=== PATIENT | male | born 1960 | race Caucasian/White ===

== ENCOUNTER 2018-03-10 19:45 | Inpatient (IN) | payer MEDICARE ==
[~2018-03-10] VITALS: Ht 190.5 cm; Wt 78.3 kg
--- NOTE | 2018-03-10 20:21 | PHYS DOC ---
Past History Past Medical History: Dementia, Depression, Schizophrenia Past Surgical History: No Surgical History Alcohol Use: None Drug Use: None Adult General Chief Complaint Chief Complaint: PSYCH EVALUATION HPI HPI Patient is a 57 year old male who presents to the emergency department for medical clearance. The patient has been accepted to the [facility] here at [facility] pending medical evaluation and clearance in the emergency department. The patient has history of Parkinson's disease and dementia. Patient lives with his sister currently. The patient reportedly has become more aggressive at home and threatening. Patient case was reported and accepted to the [facility] unit under the care of Dr. De Dios. Patient currently denies any complaints. The family is currently at bedside and is able to confirm reports of patient's behavior at home. Review of Systems Review of Systems Constitutional: Denies fever or chills [] Eyes: Denies change in visual acuity, redness, or eye pain [] HENT: Denies nasal congestion or sore throat [] Respiratory: Denies cough or shortness of breath [] Cardiovascular: Denies chest pain or edema[] GI: Denies abdominal pain, nausea, vomiting, bloody stools or diarrhea [] : Denies dysuria or hematuria [] Musculoskeletal: Denies back pain or joint pain [] Integument: Denies rash or skin lesions [] Neurologic: Resting tremors, denies focal weakness or sensory changes [] All other systems were reviewed and found to be within normal limits, except as documented in this note. Allergies Allergies Allergies Coded Allergies Type Severity Reaction Last Updated Verified No Known Drug Allergies 03/10/18 No Physical Exam Physical Exam Constitutional: Alert, afebrile, no acute distress, cooperative with exam. [] HENT: Normocephalic, atraumatic, bilateral external ears normal, oropharynx moist, no oral exudates, nose normal. [] Eyes: PERRLA, EOMI, conjunctiva normal, no discharge. [] Neck: Normal range of motion, no tenderness, supple, no stridor. [] Cardiovascular:Heart rate regular rhythm, no murmur [] Lungs & Thorax: Bilateral breath sounds clear to auscultation [] Abdomen: Bowel sounds normal, soft, no tenderness, no masses, no pulsatile masses. [] Skin: Warm, dry, no erythema, no rash. [] Back: No tenderness, no CVA tenderness. [] Extremities: No tenderness, no cyanosis, no clubbing, ROM intact, no edema. [] Neurologic: Alert, oriented to person and place, mild resting tremors, cogwheel rigidity in proximal muscle groups, no focal deficits noted. [] Psychologic: Affect flat, judgement normal, mood depressed. [] Current Patient Data Vital Signs Vital Signs Date Time Temp Pulse Resp B/P (MAP) Pulse Ox O2 Delivery O2 Flow Rate FiO2 03/10/18 20:12 97.6 79 18 97 Room Air Lab Results Laboratory Tests Test 03/10/18 20:06 03/10/18 21:08 White Blood Count 6.0 x10^3/uL Red Blood Count 4.10 x10^6/uL Hemoglobin 13.1 g/dL Hematocrit 37.7 % Mean Corpuscular Volume 92 fL Mean Corpuscular Hemoglobin 32 pg Mean Corpuscular Hemoglobin Concent 35 g/dL Red Cell Distribution Width 12.5 % Platelet Count 237 x10^3/uL Neutrophils (%) (Auto) 59 % Lymphocytes (%) (Auto) 33 % Monocytes (%) (Auto) 7 % Eosinophils (%) (Auto) 1 % Basophils (%) (Auto) 1 % Neutrophils # (Auto) 3.5 x10^3uL Lymphocytes # (Auto) 2.0 x10^3/uL Monocytes # (Auto) 0.4 x10^3/uL Eosinophils # (Auto) 0.1 x10^3/uL Basophils # (Auto) 0.0 x10^3/uL Sodium Level 141 mmol/L Potassium Level 3.6 mmol/L Chloride Level 103 mmol/L Carbon Dioxide Level 26 mmol/L Anion Gap 12 Blood Urea Nitrogen 28 mg/dL Creatinine 0.9 mg/dL Estimated GFR (Cockcroft-Gault) 86.4 BUN/Creatinine Ratio 31 Glucose Level 86 mg/dL Calcium Level 9.0 mg/dL Magnesium Level 2.1 mg/dL Total Bilirubin 0.3 mg/dL Aspartate Amino Transf (AST/SGOT) 17 U/L Alanine Aminotransferase (ALT/SGPT) 29 U/L Alkaline Phosphatase 89 U/L Total Protein 7.8 g/dL Albumin 4.0 g/dL Albumin/Globulin Ratio 1.1 Urine Collection Type Unknown Urine Color Yellow Urine Clarity Clear Urine pH 6.5 Urine Specific [place] 1.025 Urine Protein Neg Urine Glucose (UA) Neg mg/dL Urine Ketones (Stick) Neg mg/dL Urine Blood Neg Urine Nitrite Neg Urine Bilirubin Neg Urine Urobilinogen Dipstick 0.2 mg/dL Urine Leukocyte Esterase Neg Urine RBC 0 /HPF Urine WBC Occ /HPF Urine Squamous Epithelial Cells Occ /LPF Urine Bacteria 0 /HPF EKG EKG Interpreted by me: Limited by motion artifact, heart rate 80, sinus rhythm, left axis deviation, no acute ST/T-wave abnormalities present[] Radiology/Procedures Radiology/Procedures Not performed[] Course & Med Decision Making Course & Med Decision Making Pertinent Labs and Imaging studies reviewed. (See chart for details) Lab work reviewed and is unremarkable. The patient was medically cleared for admission to the [facility] behavioral health unit. Dragon Disclaimer Dragon Disclaimer This electronic medical record was generated, in whole or in part, using a voice recognition dictation system. Departure Departure: Impression: Primary Impression: Medical clearance for psychiatric admission Disposition: ADMITTED INPATIENT Admitting Physician: Other Condition: STABLE Referrals: PCP,NO (PCP) IZA VANCE MD March 10, 2018 20:21
[2018-03-10 20:58] LABS: BASO % 1 % (0-3); EOS # 0.1 x10^3/uL (0.0-0.7); EOS % 1 % (0-3); HEMATOCRIT 37.7 % (39.0-53.0); HEMOGLOBIN 13.1 g/dL (13.0-17.5); LYMPH % 33 % (24-48); MEAN CORPUSCULAR HEMOGLOBIN 32 pg (25-35); MEAN CORPUSCULAR HGB CONC 35 g/dL (31-37); MEAN CORPUSCULAR VOLUME 92 fL (79-100); MONO # 0.4 x10^3/uL (0.0-1.1); MONO % 7 % (0-9); NEUT # 3.5 x10^3uL (1.8-7.7); NEUT % 59 % (31-73); PLATELET COUNT 237 x10^3/uL (140-400); RED CELL DISTRIBUTION WIDTH 12.5 % (11.5-14.5)
[2018-03-10 21:04] LABS: ALBUMIN/GLOBULIN RATIO 1.1 (1.0-1.7); CREATININE 0.9 mg/dL (0.7-1.3); GFR 86.4; MAGNESIUM 2.1 mg/dL (1.8-2.4); POTASSIUM 3.6 mmol/L (3.5-5.1); TOTAL BILIRUBIN 0.3 mg/dL (0.2-1.0); TOTAL PROTEIN 7.8 g/dL (6.4-8.2)
[2018-03-10 21:52] LABS: BACTERIA,URINE 0 /HPF (0-FEW); BILIRUBIN,URINE NEG (NEG); CLARITY,URINE CLEAR; COLOR,URINE YELLOW; GLUCOSE,URINE NEG (NEG); NITRITE,URINE NEG (NEG); RBC,URINE 0 /HPF (0-2); SQUAMOUS EPITHELIAL CELL,UR OCC /LPF; UROBILINOGEN,URINE 0.2 mg/dL (0.2 mg/dL); WBC,URINE OCC /HPF (0-4)
--- NOTE | 2018-03-10 22:55 | EKG ---
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
[2018-03-10] MEDS ORDERED: MAG HYDROX/AL HYDROX/SIMETH 30 ML ORAL.SUSP PO PRN (23:00)
[2018-03-10] MEDS ORDERED: METHYL SALICYLATE/MENTHOL TOPICAL OINTMENT 29GM TUBE. TP PRN (23:00)
[2018-03-10] MEDS ORDERED: NAPR-514 PO (23:12)
[2018-03-10] MEDS ORDERED: QUET25TA5 PO (23:12)
[2018-03-10] MEDS ORDERED: HYDR-971 PO (23:12)
[2018-03-11] MEDS ORDERED: SILV20CR14 TP (00:48)
[2018-03-11 03:25] VITALS: BP 122/84
[2018-03-11 06:18] VITALS: BP 117/78
[2018-03-11] MEDS: NAPROXEN 500 MG TABLET PO SCH ×3 (09:58→19:23)
[2018-03-11] MEDS: QUEtiapine 25 MG TABLET. PO SCH ×2 (11:54→19:23)
[2018-03-11 16:26] VITALS: BP 116/68
[2018-03-11] MEDS: CHOLECALCIFEROL (VITAMIN D3) 50,000 UNIT CAPSULE PO SCH (19:23)
[2018-03-11] MEDS: MIRTAZAPINE 7.5 MG TABLET. PO SCH (19:34)
[2018-03-11 19:40] LABS: T3 TOTAL 98 ng/dL (71-180); THYROXINE 6.7 ug/dL (4.5-12.0)
--- NOTE | 2018-03-11 19:52 | PDOC ---
Exam Note: Lambert Note: Late entry for date of service March 10, 2018. Please also refer to the separate dictated note~for this date of service dictated separately.~Patient seen individually. Discussed the patient with Nursing staff reviewed the chart.~ Reviewed interim history and current functioning. Reviewed vital signs,~Labs/ Radiology~and current medications noted below. Continue current treatment with the changes noted in the dictated addendum note Assessment: Vital Signs: VS - Last 72 Hours, by Label Date Time Temp Pulse Resp B/P (MAP) Pulse Ox O2 Delivery O2 Flow Rate FiO2 03/11/18 16:26 97.6 82 18 116/68 (84) 95 03/11/18 06:18 97.8 55 18 117/78 (91) 99 03/11/18 03:25 97.8 73 18 122/84 (97) 94 03/10/18 22:33 72 18 123/76 (92) 98 Room Air 03/10/18 20:12 97.6 79 18 97 Room Air Vital Signs Date Time Temp Pulse Resp B/P (MAP) Pulse Ox O2 Delivery O2 Flow Rate FiO2 03/11/18 16:26 97.6 82 18 116/68 (84) 95 03/10/18 22:33 Room Air I&O Intake and Output 03/11/18 07:00 Intake Total 0 ml Balance 0 ml Intake Oral 0 ml Labs: Laboratory Tests Test 03/10/18 20:06 03/10/18 20:30 03/10/18 21:08 White Blood Count 6.0 x10^3/uL (4.0-11.0) Red Blood Count 4.10 x10^6/uL (4.30-5.70) L Hemoglobin 13.1 g/dL (13.0-17.5) Hematocrit 37.7 % (39.0-53.0) L Mean Corpuscular Volume 92 fL (79-100) Mean Corpuscular Hemoglobin 32 pg (25-35) Mean Corpuscular Hemoglobin Concent 35 g/dL (31-37) Red Cell Distribution Width 12.5 % (11.5-14.5) Platelet Count 237 x10^3/uL (140-400) Neutrophils (%) (Auto) 59 % (31-73) Lymphocytes (%) (Auto) 33 % (24-48) Monocytes (%) (Auto) 7 % (0-9) Eosinophils (%) (Auto) 1 % (0-3) Basophils (%) (Auto) 1 % (0-3) Neutrophils # (Auto) 3.5 x10^3uL (1.8-7.7) Lymphocytes # (Auto) 2.0 x10^3/uL (1.0-4.8) Monocytes # (Auto) 0.4 x10^3/uL (0.0-1.1) Eosinophils # (Auto) 0.1 x10^3/uL (0.0-0.7) Basophils # (Auto) 0.0 x10^3/uL (0.0-0.2) Sodium Level 141 mmol/L (136-145) Potassium Level 3.6 mmol/L (3.5-5.1) Chloride Level 103 mmol/L (98-107) Carbon Dioxide Level 26 mmol/L (21-32) Anion Gap 12 (6-14) Blood Urea Nitrogen 28 mg/dL (8-26) H Creatinine 0.9 mg/dL (0.7-1.3) Estimated GFR (Cockcroft-Gault) 86.4 BUN/Creatinine Ratio 31 (6-20) H Glucose Level 86 mg/dL (70-99) Calcium Level 9.0 mg/dL (8.5-10.1) Magnesium Level 2.1 mg/dL (1.8-2.4) Total Bilirubin 0.3 mg/dL (0.2-1.0) Aspartate Amino Transferase (AST) 17 U/L (15-37) Alanine Aminotransferase (ALT) 29 U/L (16-63) Alkaline Phosphatase 89 U/L (46-116) Total Protein 7.8 g/dL (6.4-8.2) Albumin 4.0 g/dL (3.4-5.0) Albumin/Globulin Ratio 1.1 (1.0-1.7) Iron Level 86 ug/dL (65-175) Total Iron Binding Capacity 331 ug/dL (250-450) Iron Saturation 26 % (15-34) Triglycerides Level 69 mg/dL (0-150) Cholesterol Level 166 mg/dL (0-200) LDL Cholesterol, Calculated 109 mg/dL (0-100) H VLDL Cholesterol, Calculated 13 mg/dL (0-40) Non-HDL Cholesterol Calculated 122 mg/dL (0-129) HDL Cholesterol 44 mg/dL (40-60) Cholesterol/HDL Ratio 3.0 Vitamin B12 Level 365 pg/mL (247-911) 25-Hydroxy Vitamin D Total 17.4 ng/mL (30-100) L Thyroid Stimulating Hormone (TSH) 1.811 uIU/mL (0.358-3.740) Thyroxine (T4) 6.7 ug/dL (4.5-12.0) Total Triiodothyronine (TT3) 98 ng/dL (71-180) Rapid Plasma Reagin Pending Urine Collection Type Unknown Urine Color Yellow Urine Clarity Clear Urine pH 6.5 Urine Specific [place] 1.025 Urine Protein Neg (NEG-TRACE) Urine Glucose (UA) Neg mg/dL (NEG) Urine Ketones (Stick) Neg mg/dL (NEG) Urine Blood Neg (NEG) Urine Nitrite Neg (NEG) Urine Bilirubin Neg (NEG) Urine Urobilinogen Dipstick 0.2 mg/dL (0.2 mg/dL) Urine Leukocyte Esterase Neg (NEG) Urine RBC 0 /HPF (0-2) Urine WBC Occ /HPF (0-4) Urine Squamous Epithelial Cells Occ /LPF Urine Bacteria 0 /HPF (0-FEW) Current Medications: Meds: Current Medications Acetaminophen (Tylenol) 650 mg PRN Q6HRS PRN PO PAIN / TEMP; Start 03/10/18 at 23:00 Multi-Ingredient Ointment (Analgesic [place]) 1 luz maria PRN QID PRN TP MUSCLE PAIN; Start 03/10/18 at 23:00 Al Hydroxide/Mg Hydroxide (Mylanta Plus Xs) 15 ml PRN AFTMEALHC PRN PO DYSPEPSIA; Start 03/10/18 at 23:00 Magnesium Hydroxide (Milk Of Magnesia) 2,400 mg PRN QHS PRN PO CONSTIPATION; Start 03/10/18 at 23:00 Quetiapine Fumarate (SEROquel) 25 mg BID@1200,2100 PO Last administered on 03/11at 11:54; Start 03/11/18 at 12:00 Acetaminophen/ Hydrocodone Bitart (Lortab 5/325) 1 tab PRN Q6HRS PRN PO PAIN; Start 03/10/18 at 23:30 Naproxen (Naprosyn) 500 mg BID PO ; Start 03/11/18 at 09:00 Vitamin D (Vitamin D3) 50,000 unit WEEKLY PO ; Start 03/11/18 at 19:00 Sertraline HCl (Zoloft) 25 mg DAILY PO ; Start 03/12/18 at 09:00 Mirtazapine (Remeron) 7.5 mg QHS PO ; Start 03/11/18 at 21:00 Active Scripts Active Reported Silvadene (Silver Sulfadiazine) 20 Gm Cream..g. 1 Luz Maria TP BID Seroquel (Quetiapine Fumarate) 25 Mg Tablet 25 Mg PO BID@1200,2100 [place] 5-325 Tablet (Hydrocodone Bit/Acetaminophen) 1 Each Tablet 1 Tab PO PRN Q6HRS PRN Naproxen 500 Mg Tablet 500 Mg PO BID I have reviewed the current psychotropics carefully including drug interactions. Risk benefit ratio favors no change other than as noted in my dictated progress note. 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
--- NOTE | 2018-03-11 20:28 | PDOC ---
Exam Note: Lambert Note: Please also refer to the separate dictated note~for this date of service dictated separately.~Patient seen individually. Discussed the patient with Nursing staff reviewed the chart.~Reviewed interim history and current functioning. Reviewed vital signs,~Labs/ Radiology~and current medications noted below. Continue current treatment with the changes noted in the dictated addendum note Assessment: Vital Signs: Vital Signs Date Time Temp Pulse Resp B/P (MAP) Pulse Ox O2 Delivery O2 Flow Rate FiO2 03/11/18 16:26 97.6 82 18 116/68 (84) 95 03/10/18 22:33 Room Air I&O Intake and Output 03/11/18 07:00 Intake Total 0 ml Balance 0 ml Intake Oral 0 ml Labs: Laboratory Tests Test 03/10/18 20:30 03/10/18 21:08 Iron Level 86 ug/dL (65-175) Total Iron Binding Capacity 331 ug/dL (250-450) Iron Saturation 26 % (15-34) Triglycerides Level 69 mg/dL (0-150) Cholesterol Level 166 mg/dL (0-200) LDL Cholesterol, Calculated 109 mg/dL (0-100) H VLDL Cholesterol, Calculated 13 mg/dL (0-40) Non-HDL Cholesterol Calculated 122 mg/dL (0-129) HDL Cholesterol 44 mg/dL (40-60) Cholesterol/HDL Ratio 3.0 Vitamin B12 Level 365 pg/mL (247-911) 25-Hydroxy Vitamin D Total 17.4 ng/mL (30-100) L Thyroid Stimulating Hormone (TSH) 1.811 uIU/mL (0.358-3.740) Thyroxine (T4) 6.7 ug/dL (4.5-12.0) Total Triiodothyronine (TT3) 98 ng/dL (71-180) Rapid Plasma Reagin Pending Urine Collection Type Unknown Urine Color Yellow Urine Clarity Clear Urine pH 6.5 Urine Specific [place] 1.025 Urine Protein Neg (NEG-TRACE) Urine Glucose (UA) Neg mg/dL (NEG) Urine Ketones (Stick) Neg mg/dL (NEG) Urine Blood Neg (NEG) Urine Nitrite Neg (NEG) Urine Bilirubin Neg (NEG) Urine Urobilinogen Dipstick 0.2 mg/dL (0.2 mg/dL) Urine Leukocyte Esterase Neg (NEG) Urine RBC 0 /HPF (0-2) Urine WBC Occ /HPF (0-4) Urine Squamous Epithelial Cells Occ /LPF Urine Bacteria 0 /HPF (0-FEW) Current Medications: Meds: Current Medications Acetaminophen (Tylenol) 650 mg PRN Q6HRS PRN PO PAIN / TEMP; Start 03/10/18 at 23:00 Multi-Ingredient Ointment (Analgesic [place]) 1 luz maria PRN QID PRN TP MUSCLE PAIN; Start 03/10/18 at 23:00 Al Hydroxide/Mg Hydroxide (Mylanta Plus Xs) 15 ml PRN AFTMEALHC PRN PO DYSPEPSIA; Start 03/10/18 at 23:00 Magnesium Hydroxide (Milk Of Magnesia) 2,400 mg PRN QHS PRN PO CONSTIPATION; Start 03/10/18 at 23:00 Quetiapine Fumarate (SEROquel) 25 mg BID@1200,2100 PO Last administered on 03/11at 19:23; Start 03/11/18 at 12:00 Acetaminophen/ Hydrocodone Bitart (Lortab 5/325) 1 tab PRN Q6HRS PRN PO PAIN; Start 03/10/18 at 23:30 Naproxen (Naprosyn) 500 mg BID PO Last administered on 03/11/18at 19:23; Start 03/11/18 at 09:00 Vitamin D (Vitamin D3) 50,000 unit WEEKLY PO Last administered on 03/11/18at 19: 23; Start 03/11/18 at 19:00 Sertraline HCl (Zoloft) 25 mg DAILY PO ; Start 03/12/18 at 09:00 Mirtazapine (Remeron) 7.5 mg QHS PO Last administered on 03/11/18at 19:34; Start 03/11/18 at 21:00 Active Scripts Active Reported Silvadene (Silver Sulfadiazine) 20 Gm Cream..g. 1 Luz Maria TP BID Seroquel (Quetiapine Fumarate) 25 Mg Tablet 25 Mg PO BID@1200,2100 [place] 5-325 Tablet (Hydrocodone Bit/Acetaminophen) 1 Each Tablet 1 Tab PO PRN Q6HRS PRN Naproxen 500 Mg Tablet 500 Mg PO BID I have reviewed the current psychotropics carefully including drug interactions. Risk benefit ratio favors no change other than as noted in my dictated progress note. 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
[2018-03-12 03:12] LABS: HEMOGLOBIN A1C 5.2 % (4.8-5.6)
[2018-03-12 05:50] VITALS: BP 134/56
[2018-03-12] MEDS: SERTRALINE 25 MG TABLET. PO SCH (07:49)
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
[2018-03-12] MEDS: QUEtiapine 25 MG TABLET. PO SCH ×2 (12:18→20:05)
[2018-03-12 16:04] VITALS: BP 115/82
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
[2018-03-12] MEDS: MIRTAZAPINE 7.5 MG TABLET. PO SCH (20:05)
--- NOTE | 2018-03-12 20:46 | PDOC ---
Exam Note: Lambert Note: Please also refer to the separate dictated note~for this date of service dictated separately.~Patient seen individually. Discussed the patient with Nursing staff reviewed the chart.~Reviewed interim history and current functioning. Reviewed vital signs,~Labs/ Radiology~and current medications noted below. Continue current treatment with the changes noted in the dictated addendum note Assessment: Vital Signs: Vital Signs Date Time Temp Pulse Resp B/P (MAP) Pulse Ox O2 Delivery O2 Flow Rate FiO2 03/12/18 16:04 97.6 75 18 115/82 (93) 99 03/10/18 22:33 Room Air I&O Intake and Output 03/12/18 07:00 Intake Total 220 ml Balance 220 ml Intake Oral 220 ml Current Medications: Meds: Current Medications Acetaminophen (Tylenol) 650 mg PRN Q6HRS PRN PO PAIN / TEMP; Start 03/10/18 at 23:00 Multi-Ingredient Ointment (Analgesic [place]) 1 luz maria PRN QID PRN TP MUSCLE PAIN; Start 03/10/18 at 23:00 Al Hydroxide/Mg Hydroxide (Mylanta Plus Xs) 15 ml PRN AFTMEALHC PRN PO DYSPEPSIA; Start 03/10/18 at 23:00 Magnesium Hydroxide (Milk Of Magnesia) 2,400 mg PRN QHS PRN PO CONSTIPATION; Start 03/10/18 at 23:00 Quetiapine Fumarate (SEROquel) 25 mg BID@1200,2100 PO Last administered on 03/12at 20:05; Start 03/11/18 at 12:00 Acetaminophen/ Hydrocodone Bitart (Lortab 5/325) 1 tab PRN Q6HRS PRN PO PAIN; Start 03/10/18 at 23:30 Naproxen (Naprosyn) 500 mg BID PO Last administered on 03/11/18at 19:23; Start 03/11/18 at 09:00; Stop 03/12/18 at 07:42; Status DC Vitamin D (Vitamin D3) 50,000 unit WEEKLY PO Last administered on 03/11/18at 19: 23; Start 03/11/18 at 19:00 Sertraline HCl (Zoloft) 25 mg DAILY PO Last administered on 03/12/18at 07:49; Start 03/12/18 at 09:00 Mirtazapine (Remeron) 7.5 mg QHS PO Last administered on 03/12/18at 20:05; Start 03/11/18 at 21:00 Olanzapine (ZyPREXA ZYDIS) 2.5 mg PRN Q2HR PRN PO agitation Last administered on 03/12/18at 07:49; Start 03/12/18 at 07:45 Naproxen (Naprosyn) 500 mg PRN BID PRN PO PAIN; Start 03/12/18 at 07:45 Silver Sulfadiazine (Silvadene) 1 luz maria DAILY TP ; Start 03/12/18 at 21:00 Active Scripts Active Reported Silvadene (Silver Sulfadiazine) 20 Gm Cream..g. 1 Luz Maria TP BID Seroquel (Quetiapine Fumarate) 25 Mg Tablet 25 Mg PO BID@1200,2100 [place] 5-325 Tablet (Hydrocodone Bit/Acetaminophen) 1 Each Tablet 1 Tab PO PRN Q6HRS PRN Naproxen 500 Mg Tablet 500 Mg PO BID I have reviewed the current psychotropics carefully including drug interactions. Risk benefit ratio favors no change other than as noted in my dictated progress note. 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
[2018-03-12] MEDS: silver sulfADIAZINE 1% CREAM 50GM JAR. TP SCH (21:00)
[2018-03-13] MEDS: SERTRALINE 25 MG TABLET. PO SCH (08:28)
[2018-03-13 09:00] VITALS: BP 128/69
[2018-03-13] MEDS: silver sulfADIAZINE 1% CREAM 50GM JAR. TP SCH (09:00)
[2018-03-13] MEDS: QUEtiapine 25 MG TABLET. PO SCH ×3 (12:27→21:00)
[2018-03-13 16:17] VITALS: BP 96/52
[2018-03-13] MEDS: MIRTAZAPINE 7.5 MG TABLET. PO SCH ×2 (19:44→21:00)
--- NOTE | 2018-03-13 19:50 | PDOC ---
Exam Note: Lambert Note: Please also refer to the separate dictated note~for this date of service dictated separately.~Patient seen individually. Discussed the patient with Nursing staff reviewed the chart.~Reviewed interim history and current functioning. Reviewed vital signs,~Labs/ Radiology~and current medications noted below. Continue current treatment with the changes noted in the dictated addendum note Assessment: Vital Signs: Vital Signs Date Time Temp Pulse Resp B/P (MAP) Pulse Ox O2 Delivery O2 Flow Rate FiO2 03/13/18 16:17 98.4 86 19 96/52 (67) 98 Room Air I&O Intake and Output 03/13/18 07:00 Intake Total 960 ml Balance 960 ml Intake Oral 960 ml # Bowel Movements 1 Current Medications: Meds: Current Medications Acetaminophen (Tylenol) 650 mg PRN Q6HRS PRN PO PAIN / TEMP; Start 03/10/18 at 23:00 Multi-Ingredient Ointment (Analgesic [place]) 1 luz maria PRN QID PRN TP MUSCLE PAIN; Start 03/10/18 at 23:00 Al Hydroxide/Mg Hydroxide (Mylanta Plus Xs) 15 ml PRN AFTMEALHC PRN PO DYSPEPSIA; Start 03/10/18 at 23:00 Magnesium Hydroxide (Milk Of Magnesia) 2,400 mg PRN QHS PRN PO CONSTIPATION; Start 03/10/18 at 23:00 Quetiapine Fumarate (SEROquel) 25 mg BID@1200,2100 PO Last administered on 03/13at 19:44; Start 03/11/18 at 12:00 Acetaminophen/ Hydrocodone Bitart (Lortab 5/325) 1 tab PRN Q6HRS PRN PO PAIN; Start 03/10/18 at 23:30 Naproxen (Naprosyn) 500 mg BID PO Last administered on 03/11/18at 19:23; Start 03/11/18 at 09:00; Stop 03/12/18 at 07:42; Status DC Vitamin D (Vitamin D3) 50,000 unit WEEKLY PO Last administered on 03/11/18at 19: 23; Start 03/11/18 at 19:00 Sertraline HCl (Zoloft) 25 mg DAILY PO Last administered on 03/13/18at 08:28; Start 03/12/18 at 09:00 Mirtazapine (Remeron) 7.5 mg QHS PO Last administered on 03/13/18at 19:44; Start 03/11/18 at 21:00 Olanzapine (ZyPREXA ZYDIS) 2.5 mg PRN Q2HR PRN PO agitation Last administered on 03/12/18at 07:49; Start 03/12/18 at 07:45 Naproxen (Naprosyn) 500 mg PRN BID PRN PO PAIN; Start 03/12/18 at 07:45 Silver Sulfadiazine (Silvadene) 1 luz maria DAILY TP Last administered on 03/13/18at 09:00; Start 03/12/18 at 21:00 Active Scripts Active Reported Silvadene (Silver Sulfadiazine) 20 Gm Cream..g. 1 Luz Maria TP BID Seroquel (Quetiapine Fumarate) 25 Mg Tablet 25 Mg PO BID@1200,2100 [place] 5-325 Tablet (Hydrocodone Bit/Acetaminophen) 1 Each Tablet 1 Tab PO PRN Q6HRS PRN Naproxen 500 Mg Tablet 500 Mg PO BID I have reviewed the current psychotropics carefully including drug interactions. Risk benefit ratio favors no change other than as noted in my dictated progress note. 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
[2018-03-13] MEDS ORDERED: POLYVINYL ALCOHOL 1.4% OPHTH SOLUTION 15ML BOTTLE. OU PRN (20:30)
--- NOTE | 2018-03-14 03:38 | PN ---
DATE: 03/10/2018 This is a late entry 03/10/2018 covers elements not covered in my initial note. SUBJECTIVE: The patient was seen individually in the evening of 03/10/2018, staffed at a treatment team meeting with the entire team in the morning and his sister, Tarsha attended the conference as well. Reviewed his history at length. 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 He has been hitting himself at times, takes his meds in ice cream, [facility], intermittently agitated. Past history from the sister revealed that he had been on Ativan at [facility] due to a REM sleep disorder and then was on melatonin, Klonopin, and benzodiazepines did not do very well. Diagnosis of corticobasal degeneration has been confirmed by various neurologists post-spinal tap and MRI, Dr. Cabrera. REVIEW OF SYSTEMS: No CV, , pulmonary, eye, ENT system symptoms on review. Reliability poor. MENTAL STATUS EXAM: Oriented to himself. Insight, judgment, recent and remote memory, attention, concentration, fund of knowledge poor, consistent with his diagnosis mentioned in my initial note. He has done better after receiving Zyprexa and Zoloft, has been wandering, but at one point was pushing another patient in a wheelchair, but holding ahead to push her along, quite oblivious of what he was doing. IMPRESSION: Unchanged from initial note. PLAN: Continue psychotropics as mentioned in my initial note. MAN Janie NAIR MD DR: ANGELINA/gallito JOB#: [id number] / [id number]
[2018-03-14 06:24] VITALS: BP 117/69
[2018-03-14] MEDS: silver sulfADIAZINE 1% CREAM 50GM JAR. TP SCH (08:51)
[2018-03-14] MEDS: SERTRALINE 25 MG TABLET. PO SCH (08:51)
[2018-03-14] MEDS: QUEtiapine 25 MG TABLET. PO SCH ×2 (12:53→20:05)
[2018-03-14 16:21] VITALS: BP 94/65
[2018-03-14] MEDS: MIRTAZAPINE 7.5 MG TABLET. PO SCH (20:05)
--- NOTE | 2018-03-14 21:37 | RAD ---
CT HEAD WO CONTRAST Indication: fall, hit right side of head. Patient on senior behavioral unit, had 5 people holding him down and could not restrain him. Doctor would still like a read on anything diagnostic Exposure: One or more of the following individualized dose reduction techniques were utilized for this examination: 1. Automated exposure control 2. Adjustment of the mA and/or kV according to patient size 3. Use of iterative reconstruction technique. Comparison: None are available. Contrast: None Head: There is artifact and image degradation despite restraining the patient. Enlargement of ventricles and sulci compatible with atrophy. No obvious large area of acute intracranial or extra-axial hemorrhage. No gross midline shift. IMPRESSION: Study limited due to artifact. Generalized atrophy. No definite acute intracranial hemorrhage or mass effect, but consider repeating the scan when patient can cooperate. Electronically signed by: Franko Lin MD (03/14/2018 9:34 PM) [facility]
--- NOTE | 2018-03-14 23:21 | PDOC ---
Exam Note: Lambert Note: Please also refer to the separate dictated note~for this date of service dictated separately.~Patient seen individually. Discussed the patient with Nursing staff reviewed the chart.~Reviewed interim history and current functioning. Reviewed vital signs,~Labs/ Radiology~and current medications noted below. Continue current treatment with the changes noted in the dictated addendum note Assessment: Vital Signs: Vital Signs Date Time Temp Pulse Resp B/P (MAP) Pulse Ox O2 Delivery O2 Flow Rate FiO2 03/14/18 16:21 97.9 61 16 94/65 (75) 100 Room Air I&O Intake and Output 03/14/18 07:00 Intake Total 600 ml Balance 600 ml Intake Oral 600 ml Current Medications: Meds: Current Medications Acetaminophen (Tylenol) 650 mg PRN Q6HRS PRN PO PAIN / TEMP; Start 03/10/18 at 23:00 Multi-Ingredient Ointment (Analgesic [place]) 1 luz maria PRN QID PRN TP MUSCLE PAIN; Start 03/10/18 at 23:00 Al Hydroxide/Mg Hydroxide (Mylanta Plus Xs) 15 ml PRN AFTMEALHC PRN PO DYSPEPSIA; Start 03/10/18 at 23:00 Magnesium Hydroxide (Milk Of Magnesia) 2,400 mg PRN QHS PRN PO CONSTIPATION; Start 03/10/18 at 23:00 Quetiapine Fumarate (SEROquel) 25 mg BID@1200,2100 PO Last administered on 03/14at 20:05; Start 03/11/18 at 12:00 Acetaminophen/ Hydrocodone Bitart (Lortab 5/325) 1 tab PRN Q6HRS PRN PO PAIN; Start 03/10/18 at 23:30 Naproxen (Naprosyn) 500 mg BID PO Last administered on 03/11/18at 19:23; Start 03/11/18 at 09:00; Stop 03/12/18 at 07:42; Status DC Vitamin D (Vitamin D3) 50,000 unit WEEKLY PO Last administered on 03/11/18at 19: 23; Start 03/11/18 at 19:00 Sertraline HCl (Zoloft) 25 mg DAILY PO Last administered on 03/14/18at 08:51; Start 03/12/18 at 09:00 Mirtazapine (Remeron) 7.5 mg QHS PO Last administered on 03/14/18at 20:05; Start 03/11/18 at 21:00 Olanzapine (ZyPREXA ZYDIS) 2.5 mg PRN Q2HR PRN PO agitation Last administered on 03/14/18at 20:09; Start 03/12/18 at 07:45; Stop 03/14/18 at 22:25; Status DC Naproxen (Naprosyn) 500 mg PRN BID PRN PO PAIN; Start 03/12/18 at 07:45 Silver Sulfadiazine (Silvadene) 1 luz maria DAILY TP Last administered on 03/14/18at 08:51; Start 03/12/18 at 21:00 Artificial Tears (Artificial Tears) 1 drop PRN Q15MIN PRN OU DRY EYE; Start at 20:30 Trazodone HCl (Desyrel) 50 mg PRN QHS PRN PO insomnia; Start 03/14/18 at 18:45 Olanzapine (ZyPREXA ZYDIS) 5 mg PRN Q2HR PRN PO agitation; Start 03/14/18 at 22 :30 Active Scripts Active Reported Silvadene (Silver Sulfadiazine) 20 Gm Cream..g. 1 Luz Maria TP BID Seroquel (Quetiapine Fumarate) 25 Mg Tablet 25 Mg PO BID@1200,2100 [place] 5-325 Tablet (Hydrocodone Bit/Acetaminophen) 1 Each Tablet 1 Tab PO PRN Q6HRS PRN Naproxen 500 Mg Tablet 500 Mg PO BID I have reviewed the current psychotropics carefully including drug interactions. Risk benefit ratio favors no change other than as noted in my dictated progress note. 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
[2018-03-15] MEDS: SERTRALINE 25 MG TABLET. PO SCH (08:15)
[2018-03-15] MEDS: silver sulfADIAZINE 1% CREAM 50GM JAR. TP SCH (08:16)
[2018-03-15] MEDS ORDERED: OLANZapine 2.5 MG TABLET PO ONE (09:15)
[2018-03-15] MEDS: QUEtiapine 25 MG TABLET. PO SCH ×2 (12:32→21:24)
--- NOTE | 2018-03-15 14:03 | RAD ---
CT HEAD WO CONTRAST dated 03/15/2018 1:05 PM Indication: Pain after fall, mental status changefell yesterday, repeat scan do to motion. Comparison: 03/14/2018 Technique: Contiguous axial imaging the head was performed from skull base to vertex. No contrast administered. One or more of the following individualized dose reduction techniques were utilized for this examination: 1. Automated exposure control 2. Adjustment of the mA and/or kV according to patient size 3. Use of iterative reconstruction technique Findings: Ventricles and sulci are mildly prominent for age. No midline shift or mass effect. Brain parenchyma is of normal attenuation. No hemorrhage or extra axial collection. Posterior fossa and brainstem unremarkable. Visualized paranasal sinuses and mastoid air cells are clear. No apparent calvarial abnormality. IMPRESSION: 1. No evidence of acute intracranial hemorrhage or mass. 2. Mild atrophy for age. Electronically signed by: Franko Oseguera MD (03/15/2018 1:59 PM) [facility]
[2018-03-15 17:29] VITALS: BP 128/78
--- NOTE | 2018-03-15 20:55 | PDOC ---
Exam Note: Lambert Note: Please also refer to the separate dictated note~for this date of service dictated separately.~Patient seen individually. Discussed the patient with Nursing staff reviewed the chart.~Reviewed interim history and current functioning. Reviewed vital signs,~Labs/ Radiology~and current medications noted below. Continue current treatment with the changes noted in the dictated addendum note Assessment: Vital Signs: Vital Signs Date Time Temp Pulse Resp B/P (MAP) Pulse Ox O2 Delivery O2 Flow Rate FiO2 03/15/18 17:29 96.9 68 16 128/78 (95) 96 03/14/18 16:21 Room Air I&O Intake and Output 03/15/18 07:00 Intake Total 0 ml Balance 0 ml Intake Oral 0 ml Current Medications: Meds: Current Medications Acetaminophen (Tylenol) 650 mg PRN Q6HRS PRN PO PAIN / TEMP; Start 03/10/18 at 23:00 Multi-Ingredient Ointment (Analgesic [place]) 1 luz maria PRN QID PRN TP MUSCLE PAIN; Start 03/10/18 at 23:00 Al Hydroxide/Mg Hydroxide (Mylanta Plus Xs) 15 ml PRN AFTMEALHC PRN PO DYSPEPSIA; Start 03/10/18 at 23:00 Magnesium Hydroxide (Milk Of Magnesia) 2,400 mg PRN QHS PRN PO CONSTIPATION; Start 03/10/18 at 23:00 Quetiapine Fumarate (SEROquel) 25 mg BID@1200,2100 PO Last administered on 03/15at 12:32; Start 03/11/18 at 12:00 Acetaminophen/ Hydrocodone Bitart (Lortab 5/325) 1 tab PRN Q6HRS PRN PO PAIN; Start 03/10/18 at 23:30 Naproxen (Naprosyn) 500 mg BID PO Last administered on 03/11/18at 19:23; Start 03/11/18 at 09:00; Stop 03/12/18 at 07:42; Status DC Vitamin D (Vitamin D3) 50,000 unit WEEKLY PO Last administered on 03/11/18at 19: 23; Start 03/11/18 at 19:00 Sertraline HCl (Zoloft) 25 mg DAILY PO Last administered on 03/15/18at 08:15; Start 03/12/18 at 09:00 Mirtazapine (Remeron) 7.5 mg QHS PO Last administered on 03/14/18at 20:05; Start 03/11/18 at 21:00 Olanzapine (ZyPREXA ZYDIS) 2.5 mg PRN Q2HR PRN PO agitation Last administered on 03/14/18at 20:09; Start 03/12/18 at 07:45; Stop 03/14/18 at 22:25; Status DC Naproxen (Naprosyn) 500 mg PRN BID PRN PO PAIN; Start 03/12/18 at 07:45 Silver Sulfadiazine (Silvadene) 1 luz maria DAILY TP Last administered on 03/15/18at 08:16; Start 03/12/18 at 21:00 Artificial Tears (Artificial Tears) 1 drop PRN Q15MIN PRN OU DRY EYE; Start at 20:30 Trazodone HCl (Desyrel) 50 mg PRN QHS PRN PO insomnia; Start 03/14/18 at 18:45 Olanzapine (ZyPREXA ZYDIS) 5 mg PRN Q2HR PRN PO agitation Last administered on 03/15/18at 12:32; Start 03/14/18 at 22:30 Olanzapine (ZyPREXA) 2.5 mg 1X ONCE PO ; Start 03/15/18 at 09:15; Stop at 09:48; Status DC Olanzapine (ZyPREXA ZYDIS) 5 mg 1X ONCE PO ; Start 03/15/18 at 09:50; Stop at 09:50; Status DC Olanzapine (ZyPREXA ZYDIS) 5 mg 1X ONCE PO ; Start 03/15/18 at 09:45; Stop at 09:52; Status DC Olanzapine (ZyPREXA ZYDIS) 5 mg PRN 1X PRN PO 1HR BEFORE CT &30MIN PRIOR PRN; Start 03/15/18 at 09:50; Stop 03/15/18 at 18:00; Status DC Active Scripts Active Reported Silvadene (Silver Sulfadiazine) 20 Gm Cream..g. 1 Luz Maria TP BID Seroquel (Quetiapine Fumarate) 25 Mg Tablet 25 Mg PO BID@1200,2100 [place] 5-325 Tablet (Hydrocodone Bit/Acetaminophen) 1 Each Tablet 1 Tab PO PRN Q6HRS PRN Naproxen 500 Mg Tablet 500 Mg PO BID I have reviewed the current psychotropics carefully including drug interactions. Risk benefit ratio favors no change other than as noted in my dictated progress note. 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
[2018-03-15] MEDS: MIRTAZAPINE 7.5 MG TABLET. PO SCH (21:24)
[2018-03-16] MEDS: silver sulfADIAZINE 1% CREAM 50GM JAR. TP SCH (09:00)
[2018-03-16] MEDS: SERTRALINE 50 MG TABLET. PO SCH (09:38)
[2018-03-16] MEDS: QUEtiapine 25 MG TABLET. PO SCH ×2 (11:58→20:53)
[2018-03-16] MEDS: NAPROXEN 500 MG TABLET PO PRN (11:58)
[2018-03-16 15:42] VITALS: BP 132/82
--- NOTE | 2018-03-16 20:37 | PDOC ---
Exam Note: Lambert Note: Please also refer to the separate dictated note~for this date of service dictated separately.~Patient seen individually. Discussed the patient with Nursing staff reviewed the chart.~Reviewed interim history and current functioning. Reviewed vital signs,~Labs/ Radiology~and current medications noted below. Continue current treatment with the changes noted in the dictated addendum note Assessment: Vital Signs: Vital Signs Date Time Temp Pulse Resp B/P (MAP) Pulse Ox O2 Delivery O2 Flow Rate FiO2 03/16/18 15:42 97.0 76 16 132/82 (99) 95 03/14/18 16:21 Room Air I&O Intake and Output 03/16/18 07:00 Intake Total 840 ml Balance 840 ml Intake Oral 840 ml # Voids 1 Current Medications: Meds: Current Medications Acetaminophen (Tylenol) 650 mg PRN Q6HRS PRN PO PAIN / TEMP; Start 03/10/18 at 23:00 Multi-Ingredient Ointment (Analgesic [place]) 1 luz maria PRN QID PRN TP MUSCLE PAIN; Start 03/10/18 at 23:00 Al Hydroxide/Mg Hydroxide (Mylanta Plus Xs) 15 ml PRN AFTMEALHC PRN PO DYSPEPSIA; Start 03/10/18 at 23:00 Magnesium Hydroxide (Milk Of Magnesia) 2,400 mg PRN QHS PRN PO CONSTIPATION; Start 03/10/18 at 23:00 Quetiapine Fumarate (SEROquel) 25 mg BID@1200,2100 PO Last administered on 03/16at 11:58; Start 03/11/18 at 12:00 Acetaminophen/ Hydrocodone Bitart (Lortab 5/325) 1 tab PRN Q6HRS PRN PO PAIN; Start 03/10/18 at 23:30 Naproxen (Naprosyn) 500 mg BID PO Last administered on 03/11/18at 19:23; Start 03/11/18 at 09:00; Stop 03/12/18 at 07:42; Status DC Vitamin D (Vitamin D3) 50,000 unit WEEKLY PO Last administered on 03/11/18at 19: 23; Start 03/11/18 at 19:00 Sertraline HCl (Zoloft) 25 mg DAILY PO Last administered on 03/15/18at 08:15; Start 03/12/18 at 09:00; Stop 03/15/18 at 21:28; Status DC Mirtazapine (Remeron) 7.5 mg QHS PO Last administered on 03/15/18at 21:24; Start 03/11/18 at 21:00 Olanzapine (ZyPREXA ZYDIS) 2.5 mg PRN Q2HR PRN PO agitation Last administered on 03/14/18at 20:09; Start 03/12/18 at 07:45; Stop 03/14/18 at 22:25; Status DC Naproxen (Naprosyn) 500 mg PRN BID PRN PO PAIN Last administered on 03/16/18at 11:58; Start 03/12/18 at 07:45 Silver Sulfadiazine (Silvadene) 1 luz maria DAILY TP Last administered on 03/16/18at 09:00; Start 03/12/18 at 21:00 Artificial Tears (Artificial Tears) 1 drop PRN Q15MIN PRN OU DRY EYE; Start at 20:30 Trazodone HCl (Desyrel) 50 mg PRN QHS PRN PO insomnia; Start 03/14/18 at 18:45 Olanzapine (ZyPREXA ZYDIS) 5 mg PRN Q2HR PRN PO agitation Last administered on 03/16/18at 09:41; Start 03/14/18 at 22:30 Olanzapine (ZyPREXA) 2.5 mg 1X ONCE PO ; Start 03/15/18 at 09:15; Stop at 09:48; Status DC Olanzapine (ZyPREXA ZYDIS) 5 mg 1X ONCE PO ; Start 03/15/18 at 09:50; Stop at 09:50; Status DC Olanzapine (ZyPREXA ZYDIS) 5 mg 1X ONCE PO ; Start 03/15/18 at 09:45; Stop at 09:52; Status DC Olanzapine (ZyPREXA ZYDIS) 5 mg PRN 1X PRN PO 1HR BEFORE CT &30MIN PRIOR PRN; Start 03/15/18 at 09:50; Stop 03/15/18 at 18:00; Status DC Sertraline HCl (Zoloft) 50 mg DAILY PO Last administered on 03/16/18at 09:38; Start 03/16/18 at 09:00 Active Scripts Active Reported Silvadene (Silver Sulfadiazine) 20 Gm Cream..g. 1 Luz Maria TP BID Seroquel (Quetiapine Fumarate) 25 Mg Tablet 25 Mg PO BID@1200,2100 [place] 5-325 Tablet (Hydrocodone Bit/Acetaminophen) 1 Each Tablet 1 Tab PO PRN Q6HRS PRN Naproxen 500 Mg Tablet 500 Mg PO BID I have reviewed the current psychotropics carefully including drug interactions. Risk benefit ratio favors no change other than as noted in my dictated progress note. 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
[2018-03-16] MEDS: MIRTAZAPINE 15 MG TABLET PO SCH (20:53)
[2018-03-16] MEDS: HYDROcodone/APAP 5/325MG 1 TAB TABLET PO PRN (21:04)
--- NOTE | 2018-03-17 05:08 | PN ---
DATE: 03/10/2018 PSYCHIATRIC PROGRESS NOTE This is a late entry for 03/10/2018, covers the elements not covered in my initial note of 03/10/2018. SUBJECTIVE: I met with the patient evening of 03/10/2018. Overall, the patient has been a little bit calmer, at times drowsy, somewhat paranoid, and irritable. REVIEW OF SYSTEMS: No CV, , pulmonary, eye, ENT system symptoms on review. Reliability poor. MENTAL STATUS EXAM: Oriented to himself. Insight, judgment, recent and remote memory, attention, concentration, fund of knowledge poor, consistent with his diagnosis mentioned in my initial note. IMPRESSION: Major neurocognitive disorder, possibly consequent to corticobasal degeneration; anxiety disorder, unspecified; impulse control disorder, unspecified, atypical Parkinson's disease. PLAN: Continue psychotropics mentioned in my initial note including Seroquel, Zoloft, Remeron, Zyprexa p.r.n. MAN Janie NAIR MD DR: ANGELINA/gallito JOB#: [id number] / [id number]
--- NOTE | 2018-03-17 05:41 | PN ---
DATE: 03/14/2018 PSYCHIATRIC PROGRESS NOTE This is a late entry for 03/14/2018, covers the elements not covered in my initial note of 03/14/2018. SUBJECTIVE: I met with the patient in the evening. The patient did not sleep at all the previous evening. Remains quite confused, has expressive aphasia. He ate some lunch, refused a.m. medications. Late evening of 03/14/2018, he did have a fall and hit his head, and was very uncooperative with CT head, despite having been on the telephone with his sister. REVIEW OF SYSTEMS: No CV, , pulmonary, eye, ENT system symptoms on review. Reliability poor. MENTAL STATUS EXAM: Oriented to himself. Insight, judgment, recent and remote memory, attention, concentration, fund of knowledge poor, consistent with his diagnosis. Nursing staff have called me several times during the day on 03/14/2018 and late at night as he is quite uncooperative with CT head. Finally, there was some motion artifact and the CT head, no acute changes, but CT head will be repeated 03/15/2018 to rule out any intracranial bleed. IMPRESSION: Unchanged from initial note; major neurocognitive disorder, possibly due to corticobasal degeneration, atypical, Parkinson's disease, Alzheimer's, vascular with delusion, depression, behavioral disturbance. Rest unchanged. PLAN: Start trazodone 50 mg at bedtime p.r.n., may repeat x 1 for insomnia. Continue rest unchanged. May use chloral hydrate or Zyprexa p.r.n. prior to CT head on 03/15/2018. COLE NAIR MD DR: ANGELINA/gallito JOB#: [id number] / [id number]
[2018-03-17 06:19] VITALS: BP 112/86
[2018-03-17] MEDS: silver sulfADIAZINE 1% CREAM 50GM JAR. TP SCH (09:00)
[2018-03-17] MEDS: SERTRALINE 50 MG TABLET. PO SCH (09:22)
[2018-03-17] MEDS: QUEtiapine 25 MG TABLET. PO SCH ×2 (12:43→19:19)
[2018-03-17 16:13] VITALS: BP 140/81
[2018-03-17] MEDS: MIRTAZAPINE 15 MG TABLET PO SCH (19:19)
--- NOTE | 2018-03-17 20:41 | PDOC ---
Exam Note: Lambert Note: Please also refer to the separate dictated note~for this date of service dictated separately.~Patient seen individually. Discussed the patient with Nursing staff reviewed the chart.~Reviewed interim history and current functioning. Reviewed vital signs,~Labs/ Radiology~and current medications noted below. Continue current treatment with the changes noted in the dictated addendum note Assessment: Vital Signs: Vital Signs Date Time Temp Pulse Resp B/P (MAP) Pulse Ox O2 Delivery O2 Flow Rate FiO2 03/17/18 16:13 67 18 140/81 (100) 99 03/17/18 06:19 97.4 03/16/18 22:27 Room Air I&O Intake and Output 03/17/18 07:00 Intake Total 500 ml Balance 500 ml Intake Oral 500 ml # Bowel Movements 1 Current Medications: Meds: Current Medications Acetaminophen (Tylenol) 650 mg PRN Q6HRS PRN PO PAIN / TEMP; Start 03/10/18 at 23:00 Multi-Ingredient Ointment (Analgesic [place]) 1 luz maria PRN QID PRN TP MUSCLE PAIN; Start 03/10/18 at 23:00 Al Hydroxide/Mg Hydroxide (Mylanta Plus Xs) 15 ml PRN AFTMEALHC PRN PO DYSPEPSIA; Start 03/10/18 at 23:00 Magnesium Hydroxide (Milk Of Magnesia) 2,400 mg PRN QHS PRN PO CONSTIPATION; Start 03/10/18 at 23:00 Quetiapine Fumarate (SEROquel) 25 mg BID@1200,2100 PO Last administered on 03/17at 19:19; Start 03/11/18 at 12:00 Acetaminophen/ Hydrocodone Bitart (Lortab 5/325) 1 tab PRN Q6HRS PRN PO PAIN Last administered on 03/16/18at 21:04; Start 03/10/18 at 23:30 Naproxen (Naprosyn) 500 mg BID PO Last administered on 03/11/18at 19:23; Start 03/11/18 at 09:00; Stop 03/12/18 at 07:42; Status DC Vitamin D (Vitamin D3) 50,000 unit WEEKLY PO Last administered on 03/11/18at 19: 23; Start 03/11/18 at 19:00 Sertraline HCl (Zoloft) 25 mg DAILY PO Last administered on 03/15/18at 08:15; Start 03/12/18 at 09:00; Stop 03/15/18 at 21:28; Status DC Mirtazapine (Remeron) 7.5 mg QHS PO Last administered on 03/15/18at 21:24; Start 03/11/18 at 21:00; Stop 03/16/18 at 20:49; Status DC Olanzapine (ZyPREXA ZYDIS) 2.5 mg PRN Q2HR PRN PO agitation Last administered on 03/14/18at 20:09; Start 03/12/18 at 07:45; Stop 03/14/18 at 22:25; Status DC Naproxen (Naprosyn) 500 mg PRN BID PRN PO PAIN Last administered on 03/16/18at 11:58; Start 03/12/18 at 07:45 Silver Sulfadiazine (Silvadene) 1 luz maria DAILY TP Last administered on 03/17/18at 09:00; Start 03/12/18 at 21:00 Artificial Tears (Artificial Tears) 1 drop PRN Q15MIN PRN OU DRY EYE; Start at 20:30 Trazodone HCl (Desyrel) 50 mg PRN QHS PRN PO insomnia; Start 03/14/18 at 18:45 Olanzapine (ZyPREXA ZYDIS) 5 mg PRN Q2HR PRN PO agitation Last administered on 03/17/18at 19:45; Start 03/14/18 at 22:30 Olanzapine (ZyPREXA) 2.5 mg 1X ONCE PO ; Start 03/15/18 at 09:15; Stop at 09:48; Status DC Olanzapine (ZyPREXA ZYDIS) 5 mg 1X ONCE PO ; Start 03/15/18 at 09:50; Stop at 09:50; Status DC Olanzapine (ZyPREXA ZYDIS) 5 mg 1X ONCE PO ; Start 03/15/18 at 09:45; Stop at 09:52; Status DC Olanzapine (ZyPREXA ZYDIS) 5 mg PRN 1X PRN PO 1HR BEFORE CT &30MIN PRIOR PRN; Start 03/15/18 at 09:50; Stop 03/15/18 at 18:00; Status DC Sertraline HCl (Zoloft) 50 mg DAILY PO Last administered on 03/17/18at 09:22; Start 03/16/18 at 09:00 Mirtazapine (Remeron) 15 mg QHS PO Last administered on 03/17/18at 19:19; Start 03/16/18 at 21:00 Active Scripts Active Reported Silvadene (Silver Sulfadiazine) 20 Gm Cream..g. 1 Luz Maria TP BID Seroquel (Quetiapine Fumarate) 25 Mg Tablet 25 Mg PO BID@1200,2100 [place] 5-325 Tablet (Hydrocodone Bit/Acetaminophen) 1 Each Tablet 1 Tab PO PRN Q6HRS PRN Naproxen 500 Mg Tablet 500 Mg PO BID I have reviewed the current psychotropics carefully including drug interactions. Risk benefit ratio favors no change other than as noted in my dictated progress note. 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
[2018-03-18] MEDS: SERTRALINE 50 MG TABLET. PO SCH (07:34)
[2018-03-18] MEDS: CHOLECALCIFEROL (VITAMIN D3) 50,000 UNIT CAPSULE PO SCH (07:34)
[2018-03-18 07:56] LABS: BASO % 1 % (0-3); EOS # 0.1 x10^3/uL (0.0-0.7); EOS % 2 % (0-3); HEMATOCRIT 37.4 % (39.0-53.0); LYMPH # 1.4 x10^3/uL (1.0-4.8); LYMPH % 27 % (24-48); MEAN CORPUSCULAR HEMOGLOBIN 32 pg (25-35); MEAN CORPUSCULAR HGB CONC 35 g/dL (31-37); MEAN CORPUSCULAR VOLUME 93 fL (79-100); MONO # 0.5 x10^3/uL (0.0-1.1); MONO % 10 % (0-9); NEUT # 3.2 x10^3uL (1.8-7.7); NEUT % 61 % (31-73); PLATELET COUNT 234 x10^3/uL (140-400); RED BLOOD COUNT 4.04 x10^6/uL (4.30-5.70); RED CELL DISTRIBUTION WIDTH 12.5 % (11.5-14.5); WHITE BLOOD COUNT 5.2 x10^3/uL (4.0-11.0)
[2018-03-18 08:05] LABS: ALBUMIN 4.1 g/dL (3.4-5.0); ALBUMIN/GLOBULIN RATIO 1.2 (1.0-1.7); CALCIUM 9.2 mg/dL (8.5-10.1); GFR 76.5; TOTAL BILIRUBIN 0.5 mg/dL (0.2-1.0); TOTAL PROTEIN 7.4 g/dL (6.4-8.2)
--- NOTE | 2018-03-18 11:10 | PN ---
DATE: 03/15/2018 PSYCHIATRIC PROGRESS NOTE This is a late entry 03/15/2018, covers elements not covered in my initial note 03/15/2018. SUBJECTIVE: I met with the patient in the evening. The patient slept 6-1/[address] head was completed, status post fall from the night before and it is negative. I had attempted to give prior to the CT, but this was not available and we used 2 dosages of Zyprexa, which were effective. He is compliant with his medications, wandering. REVIEW OF SYSTEMS: No CV, , pulmonary, eye, ENT system symptoms on review. Reliability poor. MENTAL STATUS EXAM: Oriented to himself. Insight, judgment, recent and remote memory, attention, concentration, fund of knowledge poor, consistent with his diagnoses mentioned in my initial note. 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 PLAN: Increase Zoloft to 50 mg a day after he has been on 25 mg for 3 days, continue rest unchanged. MAN Janie NAIR MD DR: ANGELINA/gallito JOB#: [id number] / [id number]
[2018-03-18] MEDS: QUEtiapine 25 MG TABLET. PO SCH ×2 (11:29→19:44)
[2018-03-18] MEDS: silver sulfADIAZINE 1% CREAM 50GM JAR. TP SCH (14:09)
[2018-03-18 16:09] VITALS: BP 117/85
--- NOTE | 2018-03-18 16:46 | PN ---
DATE: 03/16/2018 This late entry 03/16/2018 covers elements not covered in my initial note 03/16/2018. SUBJECTIVE: I met with the patient in the evening. The patient slept 1-1/2 hours intermittently, he is quite intimidating and aggressive, labile in his mood. No CV, , pulmonary, eye, ENT system symptoms on review. MENTAL STATUS EXAM: Oriented to himself. Insight, judgment, recent and remote memory, attention, concentration, fund of knowledge poor, consistent with his diagnosis mentioned in my initial note. PLAN: Continue current psychotropics, increase Remeron to 15 mg at bedtime, may need to increase Zoloft further in due course. MAN Janie NAIR MD DR: ANGELINA/gallito JOB#: [id number] / [id number]
[2018-03-18] MEDS: MIRTAZAPINE 15 MG TABLET PO SCH (19:44)
[2018-03-18] MEDS: HYDROcodone/APAP 5/325MG 1 TAB TABLET PO PRN (19:53)
--- NOTE | 2018-03-18 20:56 | PDOC ---
Exam Note: Lambert Note: Please also refer to the separate dictated note~for this date of service dictated separately.~Patient seen individually. Discussed the patient with Nursing staff reviewed the chart.~Reviewed interim history and current functioning. Reviewed vital signs,~Labs/ Radiology~and current medications noted below. Continue current treatment with the changes noted in the dictated addendum note Assessment: Vital Signs: Vital Signs Date Time Temp Pulse Resp B/P (MAP) Pulse Ox O2 Delivery O2 Flow Rate FiO2 03/18/18 19:53 18 Room Air 03/18/18 16:09 97.8 68 117/85 (96) 97 I&O Intake and Output 03/18/18 07:00 Intake Total 1080 ml Balance 1080 ml Intake Oral 1080 ml Labs: Laboratory Tests Test 03/18/18 07:35 White Blood Count 5.2 x10^3/uL (4.0-11.0) Red Blood Count 4.04 x10^6/uL (4.30-5.70) L Hemoglobin 13.0 g/dL (13.0-17.5) Hematocrit 37.4 % (39.0-53.0) L Mean Corpuscular Volume 93 fL (79-100) Mean Corpuscular Hemoglobin 32 pg (25-35) Mean Corpuscular Hemoglobin Concent 35 g/dL (31-37) Red Cell Distribution Width 12.5 % (11.5-14.5) Platelet Count 234 x10^3/uL (140-400) Neutrophils (%) (Auto) 61 % (31-73) Lymphocytes (%) (Auto) 27 % (24-48) Monocytes (%) (Auto) 10 % (0-9) H Eosinophils (%) (Auto) 2 % (0-3) Basophils (%) (Auto) 1 % (0-3) Neutrophils # (Auto) 3.2 x10^3uL (1.8-7.7) Lymphocytes # (Auto) 1.4 x10^3/uL (1.0-4.8) Monocytes # (Auto) 0.5 x10^3/uL (0.0-1.1) Eosinophils # (Auto) 0.1 x10^3/uL (0.0-0.7) Basophils # (Auto) 0.0 x10^3/uL (0.0-0.2) Sodium Level 143 mmol/L (136-145) Potassium Level 4.0 mmol/L (3.5-5.1) Chloride Level 105 mmol/L (98-107) Carbon Dioxide Level 29 mmol/L (21-32) Anion Gap 9 (6-14) Blood Urea Nitrogen 21 mg/dL (8-26) Creatinine 1.0 mg/dL (0.7-1.3) Estimated GFR (Cockcroft-Gault) 76.5 BUN/Creatinine Ratio 21 (6-20) H Glucose Level 96 mg/dL (70-99) Calcium Level 9.2 mg/dL (8.5-10.1) Total Bilirubin 0.5 mg/dL (0.2-1.0) Aspartate Amino Transferase (AST) 21 U/L (15-37) Alanine Aminotransferase (ALT) 23 U/L (16-63) Alkaline Phosphatase 83 U/L (46-116) Total Protein 7.4 g/dL (6.4-8.2) Albumin 4.1 g/dL (3.4-5.0) Albumin/Globulin Ratio 1.2 (1.0-1.7) Current Medications: Meds: Current Medications Acetaminophen (Tylenol) 650 mg PRN Q6HRS PRN PO PAIN / TEMP; Start 03/10/18 at 23:00 Multi-Ingredient Ointment (Analgesic [place]) 1 luz maria PRN QID PRN TP MUSCLE PAIN; Start 03/10/18 at 23:00 Al Hydroxide/Mg Hydroxide (Mylanta Plus Xs) 15 ml PRN AFTMEALHC PRN PO DYSPEPSIA; Start 03/10/18 at 23:00 Magnesium Hydroxide (Milk Of Magnesia) 2,400 mg PRN QHS PRN PO CONSTIPATION; Start 03/10/18 at 23:00 Quetiapine Fumarate (SEROquel) 25 mg BID@1200,2100 PO Last administered on 03/18at 19:44; Start 03/11/18 at 12:00 Acetaminophen/ Hydrocodone Bitart (Lortab 5/325) 1 tab PRN Q6HRS PRN PO PAIN Last administered on 03/18/18at 19:53; Start 03/10/18 at 23:30 Naproxen (Naprosyn) 500 mg BID PO Last administered on 03/11/18at 19:23; Start 03/11/18 at 09:00; Stop 03/12/18 at 07:42; Status DC Vitamin D (Vitamin D3) 50,000 unit WEEKLY PO Last administered on 03/18/18at 07: 34; Start 03/11/18 at 19:00 Sertraline HCl (Zoloft) 25 mg DAILY PO Last administered on 03/15/18at 08:15; Start 03/12/18 at 09:00; Stop 03/15/18 at 21:28; Status DC Mirtazapine (Remeron) 7.5 mg QHS PO Last administered on 03/15/18at 21:24; Start 03/11/18 at 21:00; Stop 03/16/18 at 20:49; Status DC Olanzapine (ZyPREXA ZYDIS) 2.5 mg PRN Q2HR PRN PO agitation Last administered on 03/14/18at 20:09; Start 03/12/18 at 07:45; Stop 03/14/18 at 22:25; Status DC Naproxen (Naprosyn) 500 mg PRN BID PRN PO PAIN Last administered on 03/16/18at 11:58; Start 03/12/18 at 07:45 Silver Sulfadiazine (Silvadene) 1 luz maria DAILY TP Last administered on 03/18/18at 14:09; Start 03/12/18 at 21:00 Artificial Tears (Artificial Tears) 1 drop PRN Q15MIN PRN OU DRY EYE; Start at 20:30 Trazodone HCl (Desyrel) 50 mg PRN QHS PRN PO insomnia; Start 03/14/18 at 18:45 Olanzapine (ZyPREXA ZYDIS) 5 mg PRN Q2HR PRN PO agitation Last administered on 03/17/18at 19:45; Start 03/14/18 at 22:30 Olanzapine (ZyPREXA) 2.5 mg 1X ONCE PO ; Start 03/15/18 at 09:15; Stop at 09:48; Status DC Olanzapine (ZyPREXA ZYDIS) 5 mg 1X ONCE PO ; Start 03/15/18 at 09:50; Stop at 09:50; Status DC Olanzapine (ZyPREXA ZYDIS) 5 mg 1X ONCE PO ; Start 03/15/18 at 09:45; Stop at 09:52; Status DC Olanzapine (ZyPREXA ZYDIS) 5 mg PRN 1X PRN PO 1HR BEFORE CT &30MIN PRIOR PRN; Start 03/15/18 at 09:50; Stop 03/15/18 at 18:00; Status DC Sertraline HCl (Zoloft) 50 mg DAILY PO Last administered on 03/18/18at 07:34; Start 03/16/18 at 09:00 Mirtazapine (Remeron) 15 mg QHS PO Last administered on 03/18/18at 19:44; Start 03/16/18 at 21:00 Active Scripts Active Reported Silvadene (Silver Sulfadiazine) 20 Gm Cream..g. 1 Luz Maria TP BID Seroquel (Quetiapine Fumarate) 25 Mg Tablet 25 Mg PO BID@1200,2100 [place] 5-325 Tablet (Hydrocodone Bit/Acetaminophen) 1 Each Tablet 1 Tab PO PRN Q6HRS PRN Naproxen 500 Mg Tablet 500 Mg PO BID I have reviewed the current psychotropics carefully including drug interactions. Risk benefit ratio favors no change other than as noted in my dictated progress note. 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
--- NOTE | 2018-03-19 03:11 | PN ---
DATE: 03/17/2018 This late entry 03/17/2018 covers elements not covered in my initial note 03/17/2018. SUBJECTIVE: I met with the patient in the evening. The patient remains confused, has been wandering, takes his medication on a spoon, constantly saying no-no to shower, received Zyprexa at 9:45 and sister came in, he had a shower with her assistance. REVIEW OF SYSTEMS: No CV, , pulmonary, eye, ENT system symptoms on review. Reliability poor, not very interactive. MENTAL STATUS EXAM: Oriented to himself. Insight, judgment, recent and remote memory, attention, concentration, fund of knowledge poor, consistent with his diagnosis mentioned in my initial note. 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 Rest unchanged. PLAN: Continue current psychotropics. Encourage compliance, may need to increase Seroquel further and adjust Zoloft as clinically indicated. MAN Janie NAIR MD DR: ANGELINA/gallito JOB#: [id number] / [id number]
[2018-03-19 06:12] VITALS: BP 112/74
[2018-03-19] MEDS: SERTRALINE 50 MG TABLET. PO SCH (09:27)
[2018-03-19] MEDS: silver sulfADIAZINE 1% CREAM 50GM JAR. TP SCH (09:28)
[2018-03-19] MEDS: QUEtiapine 25 MG TABLET. PO SCH ×2 (12:07→19:05)
[2018-03-19 16:06] VITALS: BP 113/72
[2018-03-19] MEDS: MIRTAZAPINE 15 MG TABLET PO SCH (19:05)
--- NOTE | 2018-03-19 20:37 | PDOC ---
Exam Note: Lambert Note: Please also refer to the separate dictated note~for this date of service dictated separately.~Patient seen individually. Discussed the patient with Nursing staff reviewed the chart.~Reviewed interim history and current functioning. Reviewed vital signs,~Labs/ Radiology~and current medications noted below. Continue current treatment with the changes noted in the dictated addendum note Assessment: Vital Signs: Vital Signs Date Time Temp Pulse Resp B/P (MAP) Pulse Ox O2 Delivery O2 Flow Rate FiO2 03/19/18 16:06 97.3 93 18 113/72 (86) 95 Room Air I&O Intake and Output 03/19/18 07:00 Intake Total 1200 ml Balance 1200 ml Intake Oral 1200 ml Current Medications: Meds: Current Medications Acetaminophen (Tylenol) 650 mg PRN Q6HRS PRN PO PAIN / TEMP; Start 03/10/18 at 23:00 Multi-Ingredient Ointment (Analgesic [place]) 1 luz maria PRN QID PRN TP MUSCLE PAIN; Start 03/10/18 at 23:00 Al Hydroxide/Mg Hydroxide (Mylanta Plus Xs) 15 ml PRN AFTMEALHC PRN PO DYSPEPSIA; Start 03/10/18 at 23:00 Magnesium Hydroxide (Milk Of Magnesia) 2,400 mg PRN QHS PRN PO CONSTIPATION; Start 03/10/18 at 23:00 Quetiapine Fumarate (SEROquel) 25 mg BID@1200,2100 PO Last administered on 03/19at 19:05; Start 03/11/18 at 12:00 Acetaminophen/ Hydrocodone Bitart (Lortab 5/325) 1 tab PRN Q6HRS PRN PO PAIN Last administered on 03/18/18at 19:53; Start 03/10/18 at 23:30 Naproxen (Naprosyn) 500 mg BID PO Last administered on 03/11/18at 19:23; Start 03/11/18 at 09:00; Stop 03/12/18 at 07:42; Status DC Vitamin D (Vitamin D3) 50,000 unit WEEKLY PO Last administered on 03/18/18at 07: 34; Start 03/11/18 at 19:00 Sertraline HCl (Zoloft) 25 mg DAILY PO Last administered on 03/15/18at 08:15; Start 03/12/18 at 09:00; Stop 03/15/18 at 21:28; Status DC Mirtazapine (Remeron) 7.5 mg QHS PO Last administered on 03/15/18at 21:24; Start 03/11/18 at 21:00; Stop 03/16/18 at 20:49; Status DC Olanzapine (ZyPREXA ZYDIS) 2.5 mg PRN Q2HR PRN PO agitation Last administered on 03/14/18at 20:09; Start 03/12/18 at 07:45; Stop 03/14/18 at 22:25; Status DC Naproxen (Naprosyn) 500 mg PRN BID PRN PO PAIN Last administered on 03/16/18at 11:58; Start 03/12/18 at 07:45 Silver Sulfadiazine (Silvadene) 1 luz maria DAILY TP Last administered on 03/19/18at 09:28; Start 03/12/18 at 21:00 Artificial Tears (Artificial Tears) 1 drop PRN Q15MIN PRN OU DRY EYE; Start at 20:30 Trazodone HCl (Desyrel) 50 mg PRN QHS PRN PO insomnia; Start 03/14/18 at 18:45 Olanzapine (ZyPREXA ZYDIS) 5 mg PRN Q2HR PRN PO agitation Last administered on 03/19/18at 07:25; Start 03/14/18 at 22:30 Olanzapine (ZyPREXA) 2.5 mg 1X ONCE PO ; Start 03/15/18 at 09:15; Stop at 09:48; Status DC Olanzapine (ZyPREXA ZYDIS) 5 mg 1X ONCE PO ; Start 03/15/18 at 09:50; Stop at 09:50; Status DC Olanzapine (ZyPREXA ZYDIS) 5 mg 1X ONCE PO ; Start 03/15/18 at 09:45; Stop at 09:52; Status DC Olanzapine (ZyPREXA ZYDIS) 5 mg PRN 1X PRN PO 1HR BEFORE CT &30MIN PRIOR PRN; Start 03/15/18 at 09:50; Stop 03/15/18 at 18:00; Status DC Sertraline HCl (Zoloft) 50 mg DAILY PO Last administered on 03/19/18at 09:27; Start 03/16/18 at 09:00; Stop 03/21/18 at 08:00 Mirtazapine (Remeron) 15 mg QHS PO Last administered on 03/19/18at 19:05; Start 03/16/18 at 21:00 Sertraline HCl (Zoloft) 75 mg DAILY PO ; Start 03/21/18 at 09:00 Active Scripts Active Reported Silvadene (Silver Sulfadiazine) 20 Gm Cream..g. 1 Luz Maria TP BID Seroquel (Quetiapine Fumarate) 25 Mg Tablet 25 Mg PO BID@1200,2100 [place] 5-325 Tablet (Hydrocodone Bit/Acetaminophen) 1 Each Tablet 1 Tab PO PRN Q6HRS PRN Naproxen 500 Mg Tablet 500 Mg PO BID I have reviewed the current psychotropics carefully including drug interactions. Risk benefit ratio favors no change other than as noted in my dictated progress note. 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
[2018-03-19] MEDS: traZODone 50 MG TABLET. PO PRN (21:05)
[2018-03-20] MEDS: SERTRALINE 50 MG TABLET. PO SCH ×2 (07:53→09:00)
[2018-03-20] MEDS: silver sulfADIAZINE 1% CREAM 50GM JAR. TP SCH (09:00)
--- NOTE | 2018-03-20 09:51 | PN ---
DATE: 03/18/2018 PSYCHIATRIC PROGRESS NOTE This late entry 03/18/2018 covers elements not covered in my initial note 03/18/2018. SUBJECTIVE: I met with the patient in the evening. Overall, the patient slept 4-1/2 hours, remains confused, not very interactive, withdrawn to himself. Has difficulty following directions, otherwise had a good day, not aggressive, compliant with his medications. He was somewhat agitated while dressing and is paranoid. REVIEW OF SYSTEMS: No CV, , pulmonary, eye, ENT system symptoms on review. Reliability poor. MENTAL STATUS EXAM: Oriented to himself. Insight, judgment, recent and remote memory, attention, concentration, fund of knowledge poor, consistent with his diagnosis. 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 Rest unchanged. PLAN: Continue current psychotropics, may need to adjust Seroquel further and Zoloft and consider BuSpar. He has failed treatment on Depakote in the past and we will avoid this. MAN Janie NAIR MD DR: ANGELINA/gallito JOB#: [id number] / [id number]
[2018-03-20] MEDS: QUEtiapine 25 MG TABLET. PO SCH ×2 (12:14→19:40)
[2018-03-20 16:00] VITALS: BP 104/75
[2018-03-20] MEDS: MAGNESIUM HYDROXIDE 2,400 MG/30 ML ORAL.SUSP. PO PRN (16:14)
[2018-03-20] MEDS: MIRTAZAPINE 15 MG TABLET PO SCH (19:39)
[2018-03-20] MEDS: traZODone 50 MG TABLET. PO PRN (19:41)
--- NOTE | 2018-03-20 20:38 | PDOC ---
Exam Note: Lambert Note: Please also refer to the separate dictated note~for this date of service dictated separately.~Patient seen individually. Discussed the patient with Nursing staff reviewed the chart.~Reviewed interim history and current functioning. Reviewed vital signs,~Labs/ Radiology~and current medications noted below. Continue current treatment with the changes noted in the dictated addendum note Assessment: Vital Signs: Vital Signs Date Time Temp Pulse Resp B/P (MAP) Pulse Ox O2 Delivery O2 Flow Rate FiO2 03/20/18 16:00 97.5 61 18 104/75 (85) 98 03/19/18 16:06 Room Air I&O Intake and Output 03/20/18 07:00 Intake Total 720 ml Balance 720 ml Intake Oral 720 ml Current Medications: Meds: Current Medications Acetaminophen (Tylenol) 650 mg PRN Q6HRS PRN PO PAIN / TEMP; Start 03/10/18 at 23:00 Multi-Ingredient Ointment (Analgesic [place]) 1 luz maria PRN QID PRN TP MUSCLE PAIN; Start 03/10/18 at 23:00 Al Hydroxide/Mg Hydroxide (Mylanta Plus Xs) 15 ml PRN AFTMEALHC PRN PO DYSPEPSIA; Start 03/10/18 at 23:00 Magnesium Hydroxide (Milk Of Magnesia) 2,400 mg PRN QHS PRN PO CONSTIPATION Last administered on 03/20/18at 16:14; Start 03/10/18 at 23:00 Quetiapine Fumarate (SEROquel) 25 mg BID@1200,2100 PO Last administered on at 12:14; Start 03/11/18 at 12:00; Stop 03/20/18 at 19:07; Status DC Acetaminophen/ Hydrocodone Bitart (Lortab 5/325) 1 tab PRN Q6HRS PRN PO PAIN Last administered on 03/18/18at 19:53; Start 03/10/18 at 23:30 Naproxen (Naprosyn) 500 mg BID PO Last administered on 03/11/18at 19:23; Start 03/11/18 at 09:00; Stop 03/12/18 at 07:42; Status DC Vitamin D (Vitamin D3) 50,000 unit WEEKLY PO Last administered on 03/18/18at 07: 34; Start 03/11/18 at 19:00 Sertraline HCl (Zoloft) 25 mg DAILY PO Last administered on 03/15/18at 08:15; Start 03/12/18 at 09:00; Stop 03/15/18 at 21:28; Status DC Mirtazapine (Remeron) 7.5 mg QHS PO Last administered on 03/15/18at 21:24; Start 03/11/18 at 21:00; Stop 03/16/18 at 20:49; Status DC Olanzapine (ZyPREXA ZYDIS) 2.5 mg PRN Q2HR PRN PO agitation Last administered on 03/14/18at 20:09; Start 03/12/18 at 07:45; Stop 03/14/18 at 22:25; Status DC Naproxen (Naprosyn) 500 mg PRN BID PRN PO PAIN Last administered on 03/16/18at 11:58; Start 03/12/18 at 07:45 Silver Sulfadiazine (Silvadene) 1 luz maria DAILY TP Last administered on 03/19/18at 09:28; Start 03/12/18 at 21:00 Artificial Tears (Artificial Tears) 1 drop PRN Q15MIN PRN OU DRY EYE; Start at 20:30 Trazodone HCl (Desyrel) 50 mg PRN QHS PRN PO insomnia Last administered on at 19:41; Start 03/14/18 at 18:45 Olanzapine (ZyPREXA ZYDIS) 5 mg PRN Q2HR PRN PO agitation Last administered on 03/20/18at 10:13; Start 03/14/18 at 22:30 Olanzapine (ZyPREXA) 2.5 mg 1X ONCE PO ; Start 03/15/18 at 09:15; Stop at 09:48; Status DC Olanzapine (ZyPREXA ZYDIS) 5 mg 1X ONCE PO ; Start 03/15/18 at 09:50; Stop at 09:50; Status DC Olanzapine (ZyPREXA ZYDIS) 5 mg 1X ONCE PO ; Start 03/15/18 at 09:45; Stop at 09:52; Status DC Olanzapine (ZyPREXA ZYDIS) 5 mg PRN 1X PRN PO 1HR BEFORE CT &30MIN PRIOR PRN; Start 03/15/18 at 09:50; Stop 03/15/18 at 18:00; Status DC Sertraline HCl (Zoloft) 50 mg DAILY PO Last administered on 03/19/18at 09:27; Start 03/16/18 at 09:00; Stop 03/21/18 at 08:00 Mirtazapine (Remeron) 15 mg QHS PO Last administered on 03/20/18at 19:39; Start 03/16/18 at 21:00 Sertraline HCl (Zoloft) 75 mg DAILY PO ; Start 03/21/18 at 09:00 Divalproex Sodium (Depakote Sprinkles) 125 mg 0900,1300 PO ; Start 03/21/18 at 09 :00 Quetiapine Fumarate (SEROquel) 12.5 mg BID PO Last administered on 03/20/18at 19: 40; Start 03/20/18 at 21:00 Active Scripts Active Reported Silvadene (Silver Sulfadiazine) 20 Gm Cream..g. 1 Luz Maria TP BID Seroquel (Quetiapine Fumarate) 25 Mg Tablet 25 Mg PO BID@1200,2100 [place] 5-325 Tablet (Hydrocodone Bit/Acetaminophen) 1 Each Tablet 1 Tab PO PRN Q6HRS PRN Naproxen 500 Mg Tablet 500 Mg PO BID I have reviewed the current psychotropics carefully including drug interactions. Risk benefit ratio favors no change other than as noted in my dictated progress note. 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
[2018-03-21] MEDS: HYDROcodone/APAP 5/325MG 1 TAB TABLET PO PRN ×2 (02:29→19:25)
[2018-03-21] MEDS: traZODone 50 MG TABLET. PO PRN ×2 (02:29→19:24)
[2018-03-21] MEDS: QUEtiapine 25 MG TABLET. PO SCH ×2 (07:41→19:24)
[2018-03-21] MEDS: NAPROXEN 500 MG TABLET PO PRN (07:43)
[2018-03-21] MEDS: SERTRALINE 25 MG TABLET. PO SCH (07:43)
[2018-03-21] MEDS: DIVALPROEX 125 MG CAP.SPRINK PO SCH ×2 (07:43→11:59)
[2018-03-21] MEDS: silver sulfADIAZINE 1% CREAM 50GM JAR. TP SCH (07:43)
[2018-03-21 16:34] VITALS: BP 104/65
[2018-03-21] MEDS: MAGNESIUM HYDROXIDE 2,400 MG/30 ML ORAL.SUSP. PO PRN (18:39)
[2018-03-21] MEDS: MIRTAZAPINE 15 MG TABLET PO SCH (19:23)
--- NOTE | 2018-03-21 22:04 | PDOC ---
Exam Note: Lambert Note: Please also refer to the separate dictated note~for this date of service dictated separately.~Patient seen individually. Discussed the patient with Nursing staff reviewed the chart.~Reviewed interim history and current functioning. Reviewed vital signs,~Labs/ Radiology~and current medications noted below. Continue current treatment with the changes noted in the dictated addendum note Assessment: Vital Signs: Vital Signs Date Time Temp Pulse Resp B/P (MAP) Pulse Ox O2 Delivery O2 Flow Rate FiO2 03/21/18 20:27 99 Room Air 03/21/18 16:34 97.6 58 20 104/65 (78) I&O Intake and Output 03/21/18 07:00 Intake Total 540 ml Balance 540 ml Intake Oral 540 ml Current Medications: Meds: Current Medications Acetaminophen (Tylenol) 650 mg PRN Q6HRS PRN PO PAIN / TEMP; Start 03/10/18 at 23:00 Multi-Ingredient Ointment (Analgesic [place]) 1 luz maria PRN QID PRN TP MUSCLE PAIN; Start 03/10/18 at 23:00 Al Hydroxide/Mg Hydroxide (Mylanta Plus Xs) 15 ml PRN AFTMEALHC PRN PO DYSPEPSIA; Start 03/10/18 at 23:00 Magnesium Hydroxide (Milk Of Magnesia) 2,400 mg PRN QHS PRN PO CONSTIPATION Last administered on 03/21/18at 18:39; Start 03/10/18 at 23:00 Quetiapine Fumarate (SEROquel) 25 mg BID@1200,2100 PO Last administered on at 12:14; Start 03/11/18 at 12:00; Stop 03/20/18 at 19:07; Status DC Acetaminophen/ Hydrocodone Bitart (Lortab 5/325) 1 tab PRN Q6HRS PRN PO PAIN Last administered on 03/21/18at 19:25; Start 03/10/18 at 23:30 Naproxen (Naprosyn) 500 mg BID PO Last administered on 03/11/18at 19:23; Start 03/11/18 at 09:00; Stop 03/12/18 at 07:42; Status DC Vitamin D (Vitamin D3) 50,000 unit WEEKLY PO Last administered on 03/18/18at 07: 34; Start 03/11/18 at 19:00 Sertraline HCl (Zoloft) 25 mg DAILY PO Last administered on 03/15/18at 08:15; Start 03/12/18 at 09:00; Stop 03/15/18 at 21:28; Status DC Mirtazapine (Remeron) 7.5 mg QHS PO Last administered on 03/15/18at 21:24; Start 03/11/18 at 21:00; Stop 03/16/18 at 20:49; Status DC Olanzapine (ZyPREXA ZYDIS) 2.5 mg PRN Q2HR PRN PO agitation Last administered on 03/14/18at 20:09; Start 03/12/18 at 07:45; Stop 03/14/18 at 22:25; Status DC Naproxen (Naprosyn) 500 mg PRN BID PRN PO PAIN Last administered on 03/21/18at 07 :43; Start 03/12/18 at 07:45 Silver Sulfadiazine (Silvadene) 1 luz maria DAILY TP Last administered on 03/21/18at 07 :43; Start 03/12/18 at 21:00 Artificial Tears (Artificial Tears) 1 drop PRN Q15MIN PRN OU DRY EYE; Start at 20:30 Trazodone HCl (Desyrel) 50 mg PRN QHS PRN PO insomnia Last administered on at 19:24; Start 03/14/18 at 18:45 Olanzapine (ZyPREXA ZYDIS) 5 mg PRN Q2HR PRN PO agitation Last administered on 03/21/18at 02:29; Start 03/14/18 at 22:30 Olanzapine (ZyPREXA) 2.5 mg 1X ONCE PO ; Start 03/15/18 at 09:15; Stop at 09:48; Status DC Olanzapine (ZyPREXA ZYDIS) 5 mg 1X ONCE PO ; Start 03/15/18 at 09:50; Stop at 09:50; Status DC Olanzapine (ZyPREXA ZYDIS) 5 mg 1X ONCE PO ; Start 03/15/18 at 09:45; Stop at 09:52; Status DC Olanzapine (ZyPREXA ZYDIS) 5 mg PRN 1X PRN PO 1HR BEFORE CT &30MIN PRIOR PRN; Start 03/15/18 at 09:50; Stop 03/15/18 at 18:00; Status DC Sertraline HCl (Zoloft) 50 mg DAILY PO Last administered on 03/19/18at 09:27; Start 03/16/18 at 09:00; Stop 03/21/18 at 08:00; Status DC Mirtazapine (Remeron) 15 mg QHS PO Last administered on 03/21/18at 19:23; Start 03/16/18 at 21:00 Sertraline HCl (Zoloft) 75 mg DAILY PO Last administered on 03/21/18at 07:43; Start 03/21/18 at 09:00 Divalproex Sodium (Depakote Sprinkles) 125 mg 0900,1300 PO Last administered on 03/21/18at 11:59; Start 03/21/18 at 09:00 Quetiapine Fumarate (SEROquel) 12.5 mg BID PO Last administered on 03/21/18at 19: 24; Start 03/20/18 at 21:00 Active Scripts Active Reported Silvadene (Silver Sulfadiazine) 20 Gm Cream..g. 1 Luz Maria TP BID Seroquel (Quetiapine Fumarate) 25 Mg Tablet 25 Mg PO BID@1200,2100 [place] 5-325 Tablet (Hydrocodone Bit/Acetaminophen) 1 Each Tablet 1 Tab PO PRN Q6HRS PRN Naproxen 500 Mg Tablet 500 Mg PO BID I have reviewed the current psychotropics carefully including drug interactions. Risk benefit ratio favors no change other than as noted in my dictated progress note. 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
[2018-03-22] MEDS: DIVALPROEX 125 MG CAP.SPRINK PO SCH ×2 (07:33→12:02)
[2018-03-22] MEDS: QUEtiapine 25 MG TABLET. PO SCH ×2 (07:33→19:31)
[2018-03-22] MEDS: SERTRALINE 25 MG TABLET. PO SCH (07:34)
[2018-03-22] MEDS: silver sulfADIAZINE 1% CREAM 50GM JAR. TP SCH (07:35)
[2018-03-22 16:27] VITALS: BP 118/78
[2018-03-22] MEDS: traZODone 50 MG TABLET. PO PRN (19:31)
[2018-03-22] MEDS: MIRTAZAPINE 15 MG TABLET PO SCH (19:31)
--- NOTE | 2018-03-22 19:54 | PDOC ---
Exam Note: Lambert Note: Please also refer to the separate dictated note~for this date of service dictated separately.~Patient seen individually. Discussed the patient with Nursing staff reviewed the chart.~Reviewed interim history and current functioning. Reviewed vital signs,~Labs/ Radiology~and current medications noted below. Continue current treatment with the changes noted in the dictated addendum note Assessment: Vital Signs: Vital Signs Date Time Temp Pulse Resp B/P (MAP) Pulse Ox O2 Delivery O2 Flow Rate FiO2 03/22/18 16:27 97.9 63 18 118/78 (91) 100 03/21/18 20:27 Room Air I&O Intake and Output 03/22/18 07:00 Intake Total 540 ml Balance 540 ml Intake Oral 540 ml Current Medications: Meds: Current Medications Acetaminophen (Tylenol) 650 mg PRN Q6HRS PRN PO PAIN / TEMP; Start 03/10/18 at 23:00 Multi-Ingredient Ointment (Analgesic [place]) 1 luz maria PRN QID PRN TP MUSCLE PAIN; Start 03/10/18 at 23:00 Al Hydroxide/Mg Hydroxide (Mylanta Plus Xs) 15 ml PRN AFTMEALHC PRN PO DYSPEPSIA; Start 03/10/18 at 23:00 Magnesium Hydroxide (Milk Of Magnesia) 2,400 mg PRN QHS PRN PO CONSTIPATION Last administered on 03/21/18at 18:39; Start 03/10/18 at 23:00 Quetiapine Fumarate (SEROquel) 25 mg BID@1200,2100 PO Last administered on at 12:14; Start 03/11/18 at 12:00; Stop 03/20/18 at 19:07; Status DC Acetaminophen/ Hydrocodone Bitart (Lortab 5/325) 1 tab PRN Q6HRS PRN PO PAIN Last administered on 03/21/18at 19:25; Start 03/10/18 at 23:30 Naproxen (Naprosyn) 500 mg BID PO Last administered on 03/11/18at 19:23; Start 03/11/18 at 09:00; Stop 03/12/18 at 07:42; Status DC Vitamin D (Vitamin D3) 50,000 unit WEEKLY PO Last administered on 03/18/18at 07: 34; Start 03/11/18 at 19:00 Sertraline HCl (Zoloft) 25 mg DAILY PO Last administered on 03/15/18at 08:15; Start 03/12/18 at 09:00; Stop 03/15/18 at 21:28; Status DC Mirtazapine (Remeron) 7.5 mg QHS PO Last administered on 03/15/18at 21:24; Start 03/11/18 at 21:00; Stop 03/16/18 at 20:49; Status DC Olanzapine (ZyPREXA ZYDIS) 2.5 mg PRN Q2HR PRN PO agitation Last administered on 03/14/18at 20:09; Start 03/12/18 at 07:45; Stop 03/14/18 at 22:25; Status DC Naproxen (Naprosyn) 500 mg PRN BID PRN PO PAIN Last administered on 03/21/18at 07 :43; Start 03/12/18 at 07:45 Silver Sulfadiazine (Silvadene) 1 luz maria DAILY TP Last administered on 03/22/18at 07 :35; Start 03/12/18 at 21:00 Artificial Tears (Artificial Tears) 1 drop PRN Q15MIN PRN OU DRY EYE; Start at 20:30 Trazodone HCl (Desyrel) 50 mg PRN QHS PRN PO insomnia Last administered on at 19:31; Start 03/14/18 at 18:45 Olanzapine (ZyPREXA ZYDIS) 5 mg PRN Q2HR PRN PO agitation Last administered on 03/21/18at 02:29; Start 03/14/18 at 22:30 Olanzapine (ZyPREXA) 2.5 mg 1X ONCE PO ; Start 03/15/18 at 09:15; Stop at 09:48; Status DC Olanzapine (ZyPREXA ZYDIS) 5 mg 1X ONCE PO ; Start 03/15/18 at 09:50; Stop at 09:50; Status DC Olanzapine (ZyPREXA ZYDIS) 5 mg 1X ONCE PO ; Start 03/15/18 at 09:45; Stop at 09:52; Status DC Olanzapine (ZyPREXA ZYDIS) 5 mg PRN 1X PRN PO 1HR BEFORE CT &30MIN PRIOR PRN; Start 03/15/18 at 09:50; Stop 03/15/18 at 18:00; Status DC Sertraline HCl (Zoloft) 50 mg DAILY PO Last administered on 03/19/18at 09:27; Start 03/16/18 at 09:00; Stop 03/21/18 at 08:00; Status DC Mirtazapine (Remeron) 15 mg QHS PO Last administered on 03/22/18at 19:31; Start 03/16/18 at 21:00 Sertraline HCl (Zoloft) 75 mg DAILY PO Last administered on 03/22/18at 07:34; Start 03/21/18 at 09:00 Divalproex Sodium (Depakote Sprinkles) 125 mg 0900,1300 PO Last administered on 03/22/18at 12:02; Start 03/21/18 at 09:00 Quetiapine Fumarate (SEROquel) 12.5 mg BID PO Last administered on 03/22/18at 19: 31; Start 03/20/18 at 21:00 Active Scripts Active Reported Silvadene (Silver Sulfadiazine) 20 Gm Cream..g. 1 Luz Maria TP BID Seroquel (Quetiapine Fumarate) 25 Mg Tablet 25 Mg PO BID@1200,2100 [place] 5-325 Tablet (Hydrocodone Bit/Acetaminophen) 1 Each Tablet 1 Tab PO PRN Q6HRS PRN Naproxen 500 Mg Tablet 500 Mg PO BID I have reviewed the current psychotropics carefully including drug interactions. Risk benefit ratio favors no change other than as noted in my dictated progress note. 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
[2018-03-22 20:59] VITALS: BP 109/72
[2018-03-23] MEDS: SERTRALINE 25 MG TABLET. PO SCH (07:54)
[2018-03-23] MEDS: DIVALPROEX 125 MG CAP.SPRINK PO SCH ×2 (07:54→13:46)
[2018-03-23] MEDS: QUEtiapine 25 MG TABLET. PO SCH ×2 (07:54→19:41)
[2018-03-23] MEDS: silver sulfADIAZINE 1% CREAM 50GM JAR. TP SCH (07:55)
[2018-03-23] MEDS: MAGNESIUM HYDROXIDE 2,400 MG/30 ML ORAL.SUSP. PO PRN (07:59)
[2018-03-23 16:37] VITALS: BP 126/72
[2018-03-23] MEDS: CARBIDOPA/LEVODOPA CR 25/100MG TABLET.SA PO SCH (19:41)
[2018-03-23] MEDS: MIRTAZAPINE 15 MG TABLET PO SCH (19:42)
[2018-03-23] MEDS: traZODone 50 MG TABLET. PO PRN (19:43)
--- NOTE | 2018-03-23 20:49 | PDOC ---
Exam Note: Lambert Note: Please also refer to the separate dictated note~for this date of service dictated separately.~Patient seen individually. Discussed the patient with Nursing staff reviewed the chart.~Reviewed interim history and current functioning. Reviewed vital signs,~Labs/ Radiology~and current medications noted below. Continue current treatment with the changes noted in the dictated addendum note Assessment: Vital Signs: Vital Signs Date Time Temp Pulse Resp B/P (MAP) Pulse Ox O2 Delivery O2 Flow Rate FiO2 03/23/18 16:37 97.9 61 18 126/72 (90) 100 Room Air I&O Intake and Output 03/23/18 07:00 Intake Total 780 ml Balance 780 ml Intake Oral 780 ml Current Medications: Meds: Current Medications Acetaminophen (Tylenol) 650 mg PRN Q6HRS PRN PO PAIN / TEMP; Start 03/10/18 at 23:00 Multi-Ingredient Ointment (Analgesic [place]) 1 luz maria PRN QID PRN TP MUSCLE PAIN; Start 03/10/18 at 23:00 Al Hydroxide/Mg Hydroxide (Mylanta Plus Xs) 15 ml PRN AFTMEALHC PRN PO DYSPEPSIA; Start 03/10/18 at 23:00 Magnesium Hydroxide (Milk Of Magnesia) 2,400 mg PRN QHS PRN PO CONSTIPATION Last administered on 03/23/18at 07:59; Start 03/10/18 at 23:00 Quetiapine Fumarate (SEROquel) 25 mg BID@1200,2100 PO Last administered on at 12:14; Start 03/11/18 at 12:00; Stop 03/20/18 at 19:07; Status DC Acetaminophen/ Hydrocodone Bitart (Lortab 5/325) 1 tab PRN Q6HRS PRN PO PAIN Last administered on 03/21/18at 19:25; Start 03/10/18 at 23:30 Naproxen (Naprosyn) 500 mg BID PO Last administered on 03/11/18at 19:23; Start 03/11/18 at 09:00; Stop 03/12/18 at 07:42; Status DC Vitamin D (Vitamin D3) 50,000 unit WEEKLY PO Last administered on 03/18/18at 07: 34; Start 03/11/18 at 19:00 Sertraline HCl (Zoloft) 25 mg DAILY PO Last administered on 03/15/18at 08:15; Start 03/12/18 at 09:00; Stop 03/15/18 at 21:28; Status DC Mirtazapine (Remeron) 7.5 mg QHS PO Last administered on 03/15/18at 21:24; Start 03/11/18 at 21:00; Stop 03/16/18 at 20:49; Status DC Olanzapine (ZyPREXA ZYDIS) 2.5 mg PRN Q2HR PRN PO agitation Last administered on 03/14/18at 20:09; Start 03/12/18 at 07:45; Stop 03/14/18 at 22:25; Status DC Naproxen (Naprosyn) 500 mg PRN BID PRN PO PAIN Last administered on 03/21/18at 07 :43; Start 03/12/18 at 07:45 Silver Sulfadiazine (Silvadene) 1 luz maria DAILY TP Last administered on 03/23/18at 07 :55; Start 03/12/18 at 21:00 Artificial Tears (Artificial Tears) 1 drop PRN Q15MIN PRN OU DRY EYE; Start at 20:30 Trazodone HCl (Desyrel) 50 mg PRN QHS PRN PO insomnia Last administered on at 19:43; Start 03/14/18 at 18:45 Olanzapine (ZyPREXA ZYDIS) 5 mg PRN Q2HR PRN PO agitation Last administered on 03/23/18at 10:45; Start 03/14/18 at 22:30 Olanzapine (ZyPREXA) 2.5 mg 1X ONCE PO ; Start 03/15/18 at 09:15; Stop at 09:48; Status DC Olanzapine (ZyPREXA ZYDIS) 5 mg 1X ONCE PO ; Start 03/15/18 at 09:50; Stop at 09:50; Status DC Olanzapine (ZyPREXA ZYDIS) 5 mg 1X ONCE PO ; Start 03/15/18 at 09:45; Stop at 09:52; Status DC Olanzapine (ZyPREXA ZYDIS) 5 mg PRN 1X PRN PO 1HR BEFORE CT &30MIN PRIOR PRN; Start 03/15/18 at 09:50; Stop 03/15/18 at 18:00; Status DC Sertraline HCl (Zoloft) 50 mg DAILY PO Last administered on 03/19/18 09:27; Start 03/16/18 at 09:00; Stop 03/21/18 at 08:00; Status DC Mirtazapine (Remeron) 15 mg QHS PO Last administered on 03/23/18 19:42; Start 03/16/18 at 21:00 Sertraline HCl (Zoloft) 75 mg DAILY PO Last administered on 03/23/18at 07:54; Start 03/21/18 at 09:00 Divalproex Sodium (Depakote Sprinkles) 125 mg 0900,1300 PO Last administered on 03/23/18 13:46; Start 03/21/18 at 09:00 Quetiapine Fumarate (SEROquel) 12.5 mg BID PO Last administered on 03/23/18 19: 41; Start 03/20/18 at 21:00 Carbidopa/Levodopa (Sinemet Cr) 1 tab.sa BID PO Last administered on 03/23/18 19:41; Start 03/23/18 at 21:00 Active Scripts Active Reported Silvadene (Silver Sulfadiazine) 20 Gm Cream..g. 1 Luz Maria TP BID Seroquel (Quetiapine Fumarate) 25 Mg Tablet 25 Mg PO BID@1200,2100 [place] 5-325 Tablet (Hydrocodone Bit/Acetaminophen) 1 Each Tablet 1 Tab PO PRN Q6HRS PRN Naproxen 500 Mg Tablet 500 Mg PO BID I have reviewed the current psychotropics carefully including drug interactions. Risk benefit ratio favors no change other than as noted in my dictated progress note. 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
--- NOTE | 2018-03-23 21:29 | PN ---
DATE: PSYCHIATRIC PROGRESS NOTE DATE OF SERVICE: 03/21/2018 This late entry 03/21/2018 covers elements not covered in my initial note 03/21/2018. SUBJECTIVE: I met with the patient in the evening. I reviewed the patient's past psychotropic medications, which have included Nuplazid, Vistaril, Zyprexa, Ativan, Haldol, Klonopin, and Risperdal. Previous evening he was slamming doors, swinging at staff during cares, ate no breakfast, did get up for lunch, appetite is fair thereafter. He did eat some dinner. REVIEW OF SYSTEMS: Positive for some tremors. No CV, , pulmonary, eye, ENT system symptoms on review, not very verbal. MENTAL STATUS EXAM: Oriented to himself. Insight, judgment, recent and remote memory, attention, concentration, fund of knowledge poor, consistent with his diagnosis mentioned in my initial note. 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 PLAN: Continue current psychotropics including the Depakote, which was initiated. Follow lab levels. MAN Janie NAIR MD DR: ANGELINA/gallito JOB#: [id number] / [id number]
[2018-03-24 06:07] VITALS: BP 95/63
--- NOTE | 2018-03-24 07:47 | PN ---
DATE: 03/20/2018 This late entry 03/20/2018 covers elements not covered in my initial note 03/20/2018. Met with the patient in the evening. The patient remains quite confused, but is bending over less. hander in, he was agitated, slamming doors, had to be in the best hallway away from other stimuli. Sister did visit. Received Zyprexa and was better 30 minutes later. REVIEW OF SYSTEMS: No CV, , pulmonary, eye, ENT system symptoms on review. Reliability poor. MENTAL STATUS EXAM: Oriented to himself. Insight, judgment, recent and remote memory, attention, concentration, fund of knowledge poor, consistent with his diagnosis mentioned in my initial note. PLAN: Continue current psychotropics. Start Depakote 125 mg 9:00 a.m., 1:00 p.m. Check CBC, CMP, valproic acid level, ammonia level in 3 days. Reduce Seroquel from 25 b.i.d. to 12.5 b.i.d. as he has had some bending over forward since he started the Seroquel. Sister has expressed concern about this. COLE NAIR MD DR: ANGELINA/gallito JOB#: [id number] / [id number]
[2018-03-24] MEDS: DIVALPROEX 125 MG CAP.SPRINK PO SCH ×2 (08:12→11:45)
[2018-03-24] MEDS: SERTRALINE 25 MG TABLET. PO SCH (08:13)
[2018-03-24] MEDS: CARBIDOPA/LEVODOPA CR 25/100MG TABLET.SA PO SCH ×3 (08:13→21:00)
[2018-03-24] MEDS: QUEtiapine 25 MG TABLET. PO SCH ×2 (08:13→19:37)
[2018-03-24] MEDS: silver sulfADIAZINE 1% CREAM 50GM JAR. TP SCH (08:15)
--- NOTE | 2018-03-24 09:21 | PN ---
DATE: 03/19/2018 This is a late entry for 03/19, covers elements not covered in my initial note 03/19. SUBJECTIVE: I met with the patient in the evening and staffed at a treatment team meeting with the entire team in the morning. The patient's sister, Tarsha attended the treatment team meeting. Lengthy discussion about the patient's diagnosis, progress. Tarsha described all the patient's prior psychotropics and response to them. She is concerned about him slouching forward and hunching over, which is perhaps being contributed partly by the Seroquel. He is being treated on Haldol, Zyprexa in the past and Depakote. REVIEW OF SYSTEMS: No CV, , pulmonary, eye, ENT system symptoms on review. MENTAL STATUS EXAM: Oriented to himself. Insight, judgment, recent and remote memory, attention, concentration, fund of knowledge poor, consistent with his diagnosis. 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 Rest unchanged. PLAN: Increase Zoloft to 75 mg a day after he has been on 50 for 3 days. Continue Seroquel, but we will reduce it gradually to 12.5 mg b.i.d. and start low dose Depakote Sprinkles. Continue Remeron and trazodone p.r.n. COLE NAIR MD DR: ANGELINA/gallito JOB#: [id number] / [id number]
--- NOTE | 2018-03-24 09:27 | PN ---
DATE: 03/22/2018 This late entry 03/22/2018 covers elements not covered in my initial note 03/22/2018. Met with the patient in the afternoon. Previous evening, the patient received trazodone x 2 to help with insomnia and this was helpful. His sister did not visit him on 03/22/2018. Per nursing report, he has not been aggressive, remains confused. REVIEW OF SYSTEMS: No CV, , pulmonary, eye, ENT system symptoms on review. MENTAL STATUS EXAM: The patient is oriented to himself. Insight, judgment, recent and remote memory, attention, concentration, fund of knowledge poor, consistent with his diagnosis. He remembered 0 of 3 objects at 1 minute. Unable to do any steps of serial 7's. LABORATORY DATA: Reviewed. IMPRESSION: Unchanged from initial note. PLAN: Continue psychotropics from initial note. MAN Janie NAIR MD DR: ANGELINA/gallito JOB#: [id number] / [id number]
[2018-03-24 15:29] LABS: HEMATOCRIT 40.3 % (39.0-53.0); HEMOGLOBIN 13.9 g/dL (13.0-17.5); RED BLOOD COUNT 4.32 x10^6/uL (4.30-5.70); RED CELL DISTRIBUTION WIDTH 12.9 % (11.5-14.5); WHITE BLOOD COUNT 5.9 x10^3/uL (4.0-11.0)
[2018-03-24 15:38] LABS: ALBUMIN 4.4 g/dL (3.4-5.0); ALBUMIN/GLOBULIN RATIO 1.2 (1.0-1.7); CALCIUM 9.5 mg/dL (8.5-10.1); CREATININE 0.9 mg/dL (0.7-1.3); GFR 86.4; TOTAL BILIRUBIN 0.3 mg/dL (0.2-1.0); TOTAL PROTEIN 8.2 g/dL (6.4-8.2)
[2018-03-24 15:45] LABS: POTASSIUM 4.5 mmol/L (3.5-5.1)
[2018-03-24 16:07] LABS: VAL ACID 31 mcg/mL (50-100)
[2018-03-24 16:54] VITALS: BP 119/73
[2018-03-24] MEDS: MAGNESIUM HYDROXIDE 2,400 MG/30 ML ORAL.SUSP. PO PRN (18:23)
[2018-03-24] MEDS: traZODone 50 MG TABLET. PO PRN (19:36)
[2018-03-24] MEDS: MIRTAZAPINE 15 MG TABLET PO SCH (19:37)
--- NOTE | 2018-03-24 20:51 | PDOC ---
Exam Note: Lambert Note: Please also refer to the separate dictated note~for this date of service dictated separately.~Patient seen individually. Discussed the patient with Nursing staff reviewed the chart.~Reviewed interim history and current functioning. Reviewed vital signs,~Labs/ Radiology~and current medications noted below. Continue current treatment with the changes noted in the dictated addendum note Assessment: Vital Signs: Vital Signs Date Time Temp Pulse Resp B/P (MAP) Pulse Ox O2 Delivery O2 Flow Rate FiO2 03/24/18 16:54 97.3 71 18 119/73 (88) 97 03/23/18 16:37 Room Air I&O Intake and Output 03/24/18 07:00 Intake Total 1760 ml Balance 1760 ml Intake Oral 1760 ml # Bowel Movements 1 Labs: Laboratory Tests Test 03/24/18 15:15 White Blood Count 5.9 x10^3/uL (4.0-11.0) Red Blood Count 4.32 x10^6/uL (4.30-5.70) Hemoglobin 13.9 g/dL (13.0-17.5) Hematocrit 40.3 % (39.0-53.0) Mean Corpuscular Volume 93 fL (79-100) Mean Corpuscular Hemoglobin 32 pg (25-35) Mean Corpuscular Hemoglobin Concent 34 g/dL (31-37) Red Cell Distribution Width 12.9 % (11.5-14.5) Platelet Count 252 x10^3/uL (140-400) Sodium Level 141 mmol/L (136-145) Potassium Level 4.5 mmol/L (3.5-5.1) Chloride Level 102 mmol/L (98-107) Carbon Dioxide Level 33 mmol/L (21-32) H Anion Gap 6 (6-14) Blood Urea Nitrogen 25 mg/dL (8-26) Creatinine 0.9 mg/dL (0.7-1.3) Estimated GFR (Cockcroft-Gault) 86.4 BUN/Creatinine Ratio 28 (6-20) H Glucose Level 94 mg/dL (70-99) Calcium Level 9.5 mg/dL (8.5-10.1) Total Bilirubin 0.3 mg/dL (0.2-1.0) Aspartate Amino Transferase (AST) 16 U/L (15-37) Alanine Aminotransferase (ALT) 17 U/L (16-63) Alkaline Phosphatase 95 U/L (46-116) Ammonia < 10 mcmol/L (11-34) L Total Protein 8.2 g/dL (6.4-8.2) Albumin 4.4 g/dL (3.4-5.0) Albumin/Globulin Ratio 1.2 (1.0-1.7) Valproic Acid Level 31 mcg/mL (50-100) L Valproic Acid Last Dose Date 03/22/18 Valproic Acid Last Dose Time 2100 Current Medications: Meds: Current Medications Acetaminophen (Tylenol) 650 mg PRN Q6HRS PRN PO PAIN / TEMP; Start 03/10/18 at 23:00 Multi-Ingredient Ointment (Analgesic [place]) 1 luz maria PRN QID PRN TP MUSCLE PAIN; Start 03/10/18 at 23:00 Al Hydroxide/Mg Hydroxide (Mylanta Plus Xs) 15 ml PRN AFTMEALHC PRN PO DYSPEPSIA; Start 03/10/18 at 23:00 Magnesium Hydroxide (Milk Of Magnesia) 2,400 mg PRN QHS PRN PO CONSTIPATION Last administered on 03/24/18at 18:23; Start 03/10/18 at 23:00 Quetiapine Fumarate (SEROquel) 25 mg BID@1200,2100 PO Last administered on at 12:14; Start 03/11/18 at 12:00; Stop 03/20/18 at 19:07; Status DC Acetaminophen/ Hydrocodone Bitart (Lortab 5/325) 1 tab PRN Q6HRS PRN PO PAIN Last administered on 03/21/18at 19:25; Start 03/10/18 at 23:30 Naproxen (Naprosyn) 500 mg BID PO Last administered on 03/11/18at 19:23; Start 03/11/18 at 09:00; Stop 03/12/18 at 07:42; Status DC Vitamin D (Vitamin D3) 50,000 unit WEEKLY PO Last administered on 03/18/18at 07: 34; Start 03/11/18 at 19:00 Sertraline HCl (Zoloft) 25 mg DAILY PO Last administered on 03/15/18at 08:15; Start 03/12/18 at 09:00; Stop 03/15/18 at 21:28; Status DC Mirtazapine (Remeron) 7.5 mg QHS PO Last administered on 03/15/18at 21:24; Start 03/11/18 at 21:00; Stop 03/16/18 at 20:49; Status DC Olanzapine (ZyPREXA ZYDIS) 2.5 mg PRN Q2HR PRN PO agitation Last administered on 03/14/18at 20:09; Start 03/12/18 at 07:45; Stop 03/14/18 at 22:25; Status DC Naproxen (Naprosyn) 500 mg PRN BID PRN PO PAIN Last administered on 03/21/18at 07 :43; Start 03/12/18 at 07:45 Silver Sulfadiazine (Silvadene) 1 luz maria DAILY TP Last administered on 03/24/18 08 :15; Start 03/12/18 at 21:00 Artificial Tears (Artificial Tears) 1 drop PRN Q15MIN PRN OU DRY EYE Last administered on 03/24/18at 08:15; Start 03/13/18 at 20:30 Trazodone HCl (Desyrel) 50 mg PRN QHS PRN PO insomnia Last administered on at 19:36; Start 03/14/18 at 18:45 Olanzapine (ZyPREXA ZYDIS) 5 mg PRN Q2HR PRN PO agitation Last administered on 03/24/18at 19:48; Start 03/14/18 at 22:30 Olanzapine (ZyPREXA) 2.5 mg 1X ONCE PO ; Start 03/15/18 at 09:15; Stop at 09:48; Status DC Olanzapine (ZyPREXA ZYDIS) 5 mg 1X ONCE PO ; Start 03/15/18 at 09:50; Stop at 09:50; Status DC Olanzapine (ZyPREXA ZYDIS) 5 mg 1X ONCE PO ; Start 03/15/18 at 09:45; Stop at 09:52; Status DC Olanzapine (ZyPREXA ZYDIS) 5 mg PRN 1X PRN PO 1HR BEFORE CT &30MIN PRIOR PRN; Start 03/15/18 at 09:50; Stop 03/15/18 at 18:00; Status DC Sertraline HCl (Zoloft) 50 mg DAILY PO Last administered on 03/19/18 09:27; Start 03/16/18 at 09:00; Stop 03/21/18 at 08:00; Status DC Mirtazapine (Remeron) 15 mg QHS PO Last administered on 03/24/18 19:37; Start 03/16/18 at 21:00 Sertraline HCl (Zoloft) 75 mg DAILY PO Last administered on 03/24/18 08:13; Start 03/21/18 at 09:00 Divalproex Sodium (Depakote Sprinkles) 125 mg 0900,1300 PO Last administered on 03/24/18 11:45; Start 03/21/18 at 09:00 Quetiapine Fumarate (SEROquel) 12.5 mg BID PO Last administered on 03/24/18 19: 37; Start 03/20/18 at 21:00 Carbidopa/Levodopa (Sinemet Cr) 1 tab.sa BID PO Last administered on 03/24/18 08:13; Start 03/23/18 at 21:00 Active Scripts Active Reported Silvadene (Silver Sulfadiazine) 20 Gm Cream..g. 1 Luz Maria TP BID Seroquel (Quetiapine Fumarate) 25 Mg Tablet 25 Mg PO BID@1200,2100 [place] 5-325 Tablet (Hydrocodone Bit/Acetaminophen) 1 Each Tablet 1 Tab PO PRN Q6HRS PRN Naproxen 500 Mg Tablet 500 Mg PO BID I have reviewed the current psychotropics carefully including drug interactions. Risk benefit ratio favors no change other than as noted in my dictated progress note. 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
--- NOTE | 2018-03-25 04:19 | PN ---
DATE: 03/23/2018 PSYCHIATRIC PROGRESS NOTE This late entry 03/23/2018 covers elements not covered in my initial note 03/23/2018. SUBJECTIVE: I met with the patient in the evening. Overall, the patient remains confused, but is doing better, little more interactive, verbal with staff. Because of his aphasia, communication with him as to be very slow giving him time to process and respond and he has had more conversations. He talked about liking football and liking the [employer] team. REVIEW OF SYSTEMS: No CV, , eye, ENT or pulmonary system symptoms on review. MENTAL STATUS EXAM: Oriented to himself. Insight, judgment, recent and remote memory, attention, concentration, fund of knowledge poor, consistent with his diagnosis mentioned in my initial note. PLAN: Continue current psychotropics. Depakote is being adjusted gradually. MAN Janie NAIR MD DR: ANGELINA/gallito JOB#: [id number] / [id number]
[2018-03-25] MEDS: QUEtiapine 25 MG TABLET. PO SCH ×2 (08:17→19:03)
[2018-03-25] MEDS: CARBIDOPA/LEVODOPA CR 25/100MG TABLET.SA PO SCH ×2 (08:17→19:03)
[2018-03-25] MEDS: SERTRALINE 25 MG TABLET. PO SCH (08:17)
[2018-03-25] MEDS: CHOLECALCIFEROL (VITAMIN D3) 50,000 UNIT CAPSULE PO SCH (08:18)
[2018-03-25] MEDS: DIVALPROEX 125 MG CAP.SPRINK PO SCH ×2 (08:18→13:05)
[2018-03-25] MEDS: silver sulfADIAZINE 1% CREAM 50GM JAR. TP SCH (13:06)
--- NOTE | 2018-03-25 13:42 | PN ---
DATE: 03/24/2018 This is a late entry 03/24/2018, covers elements not covered in my initial note 03/24/2018. SUBJECTIVE: I met with the patient in the evening and with his sister who was visiting him and brought him a meal from outside for supper, which he was quite eagerly enjoying. He seems somewhat more verbal, less bent over, pleasant, smiling, able to introduce me to his sister and I could make the word out "sister." He then referred to the mannequin, Jade, in the corner of the room, which is there for nursing training and this was quite appropriate. REVIEW OF SYSTEMS: No CV, , pulmonary, eye, ENT system symptoms on review. MENTAL STATUS EXAM: Oriented to himself. Insight, judgment, recent and remote memory, attention, concentration, fund of knowledge poor, consistent with his diagnosis mentioned in my initial note. 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 Rest unchanged. PLAN: Continue psychotropics mentioned in my initial note. MAN Janie NAIR MD DR: ANGELINA/gallito JOB#: [id number] / [id number]
[2018-03-25 16:15] VITALS: BP 130/77
[2018-03-25] MEDS: MIRTAZAPINE 15 MG TABLET PO SCH (19:03)
[2018-03-25] MEDS: traZODone 50 MG TABLET. PO PRN (19:04)
--- NOTE | 2018-03-25 20:46 | PDOC ---
Exam Note: Lambert Note: Please also refer to the separate dictated note~for this date of service dictated separately.~Patient seen individually. Discussed the patient with Nursing staff reviewed the chart.~Reviewed interim history and current functioning. Reviewed vital signs,~Labs/ Radiology~and current medications noted below. Continue current treatment with the changes noted in the dictated addendum note Assessment: Vital Signs: Vital Signs Date Time Temp Pulse Resp B/P (MAP) Pulse Ox O2 Delivery O2 Flow Rate FiO2 03/25/18 16:15 97.8 64 16 130/77 (94) 99 03/23/18 16:37 Room Air I&O Intake and Output 03/25/18 07:00 Intake Total 1320 ml Balance 1320 ml Intake Oral 1320 ml Current Medications: Meds: Current Medications Acetaminophen (Tylenol) 650 mg PRN Q6HRS PRN PO PAIN / TEMP; Start 03/10/18 at 23:00 Multi-Ingredient Ointment (Analgesic [place]) 1 luz maria PRN QID PRN TP MUSCLE PAIN; Start 03/10/18 at 23:00 Al Hydroxide/Mg Hydroxide (Mylanta Plus Xs) 15 ml PRN AFTMEALHC PRN PO DYSPEPSIA; Start 03/10/18 at 23:00 Magnesium Hydroxide (Milk Of Magnesia) 2,400 mg PRN QHS PRN PO CONSTIPATION Last administered on 03/24/18at 18:23; Start 03/10/18 at 23:00 Quetiapine Fumarate (SEROquel) 25 mg BID@1200,2100 PO Last administered on at 12:14; Start 03/11/18 at 12:00; Stop 03/20/18 at 19:07; Status DC Acetaminophen/ Hydrocodone Bitart (Lortab 5/325) 1 tab PRN Q6HRS PRN PO PAIN Last administered on 03/21/18at 19:25; Start 03/10/18 at 23:30 Naproxen (Naprosyn) 500 mg BID PO Last administered on 03/11/18at 19:23; Start 03/11/18 at 09:00; Stop 03/12/18 at 07:42; Status DC Vitamin D (Vitamin D3) 50,000 unit WEEKLY PO Last administered on 03/25/18at 08: 18; Start 03/11/18 at 19:00 Sertraline HCl (Zoloft) 25 mg DAILY PO Last administered on 03/15/18at 08:15; Start 03/12/18 at 09:00; Stop 03/15/18 at 21:28; Status DC Mirtazapine (Remeron) 7.5 mg QHS PO Last administered on 03/15/18at 21:24; Start 03/11/18 at 21:00; Stop 03/16/18 at 20:49; Status DC Olanzapine (ZyPREXA ZYDIS) 2.5 mg PRN Q2HR PRN PO agitation Last administered on 03/14/18at 20:09; Start 03/12/18 at 07:45; Stop 03/14/18 at 22:25; Status DC Naproxen (Naprosyn) 500 mg PRN BID PRN PO PAIN Last administered on 03/21/18at 07 :43; Start 03/12/18 at 07:45 Silver Sulfadiazine (Silvadene) 1 luz maria DAILY TP Last administered on 03/25/18at 13 :06; Start 03/12/18 at 21:00 Artificial Tears (Artificial Tears) 1 drop PRN Q15MIN PRN OU DRY EYE Last administered on 03/24/18at 08:15; Start 03/13/18 at 20:30 Trazodone HCl (Desyrel) 50 mg PRN QHS PRN PO insomnia Last administered on at 19:04; Start 03/14/18 at 18:45 Olanzapine (ZyPREXA ZYDIS) 5 mg PRN Q2HR PRN PO agitation Last administered on 03/25/18at 04:05; Start 03/14/18 at 22:30 Olanzapine (ZyPREXA) 2.5 mg 1X ONCE PO ; Start 03/15/18 at 09:15; Stop at 09:48; Status DC Olanzapine (ZyPREXA ZYDIS) 5 mg 1X ONCE PO ; Start 03/15/18 at 09:50; Stop at 09:50; Status DC Olanzapine (ZyPREXA ZYDIS) 5 mg 1X ONCE PO ; Start 03/15/18 at 09:45; Stop at 09:52; Status DC Olanzapine (ZyPREXA ZYDIS) 5 mg PRN 1X PRN PO 1HR BEFORE CT &30MIN PRIOR PRN; Start 03/15/18 at 09:50; Stop 03/15/18 at 18:00; Status DC Sertraline HCl (Zoloft) 50 mg DAILY PO Last administered on 03/19/18at 09:27; Start 03/16/18 at 09:00; Stop 03/21/18 at 08:00; Status DC Mirtazapine (Remeron) 15 mg QHS PO Last administered on 03/25/18 19:03; Start 03/16/18 at 21:00 Sertraline HCl (Zoloft) 75 mg DAILY PO Last administered on 03/25/18 08:17; Start 03/21/18 at 09:00 Divalproex Sodium (Depakote Sprinkles) 125 mg 0900,1300 PO Last administered on 03/25/18 13:05; Start 03/21/18 at 09:00 Quetiapine Fumarate (SEROquel) 12.5 mg BID PO Last administered on 03/25/18 19: 03; Start 03/20/18 at 21:00 Carbidopa/Levodopa (Sinemet Cr) 1 tab.sa BID PO Last administered on 03/25/18 19:03; Start 03/23/18 at 21:00 Active Scripts Active Reported Silvadene (Silver Sulfadiazine) 20 Gm Cream..g. 1 Luz Maria TP BID Seroquel (Quetiapine Fumarate) 25 Mg Tablet 25 Mg PO BID@1200,2100 [place] 5-325 Tablet (Hydrocodone Bit/Acetaminophen) 1 Each Tablet 1 Tab PO PRN Q6HRS PRN Naproxen 500 Mg Tablet 500 Mg PO BID I have reviewed the current psychotropics carefully including drug interactions. Risk benefit ratio favors no change other than as noted in my dictated progress note. 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
[2018-03-26] MEDS: traZODone 50 MG TABLET. PO PRN ×2 (00:12→19:16)
[2018-03-26 06:28] VITALS: BP 118/64
[2018-03-26] MEDS: DIVALPROEX 125 MG CAP.SPRINK PO SCH ×3 (07:50→15:57)
[2018-03-26] MEDS: CARBIDOPA/LEVODOPA CR 25/100MG TABLET.SA PO SCH ×3 (07:50→21:00)
[2018-03-26] MEDS: SERTRALINE 25 MG TABLET. PO SCH (07:51)
[2018-03-26] MEDS: QUEtiapine 25 MG TABLET. PO SCH ×3 (07:51→21:00)
[2018-03-26] MEDS: silver sulfADIAZINE 1% CREAM 50GM JAR. TP SCH (07:52)
[2018-03-26 16:19] VITALS: BP 124/68
[2018-03-26] MEDS: MIRTAZAPINE 15 MG TABLET PO SCH ×2 (19:16→21:00)
--- NOTE | 2018-03-26 22:25 | PDOC ---
Exam Note: Lambert Note: Please also refer to the separate dictated note~for this date of service dictated separately.~Patient seen individually. Discussed the patient with Nursing staff reviewed the chart.~Reviewed interim history and current functioning. Reviewed vital signs,~Labs/ Radiology~and current medications noted below. Continue current treatment with the changes noted in the dictated addendum note Assessment: Vital Signs: Vital Signs Date Time Temp Pulse Resp B/P (MAP) Pulse Ox O2 Delivery O2 Flow Rate FiO2 03/26/18 16:19 97.4 66 18 124/68 (86) 97 Room Air I&O Intake and Output 03/26/18 07:00 Intake Total 1560 ml Balance 1560 ml Intake Oral 1560 ml # Voids 1 # Bowel Movements 1 Current Medications: Meds: Current Medications Acetaminophen (Tylenol) 650 mg PRN Q6HRS PRN PO PAIN / TEMP; Start 03/10/18 at 23:00 Multi-Ingredient Ointment (Analgesic [place]) 1 luz maria PRN QID PRN TP MUSCLE PAIN; Start 03/10/18 at 23:00 Al Hydroxide/Mg Hydroxide (Mylanta Plus Xs) 15 ml PRN AFTMEALHC PRN PO DYSPEPSIA; Start 03/10/18 at 23:00 Magnesium Hydroxide (Milk Of Magnesia) 2,400 mg PRN QHS PRN PO CONSTIPATION Last administered on 03/24/18at 18:23; Start 03/10/18 at 23:00 Quetiapine Fumarate (SEROquel) 25 mg BID@1200,2100 PO Last administered on at 12:14; Start 03/11/18 at 12:00; Stop 03/20/18 at 19:07; Status DC Acetaminophen/ Hydrocodone Bitart (Lortab 5/325) 1 tab PRN Q6HRS PRN PO PAIN Last administered on 03/21/18at 19:25; Start 03/10/18 at 23:30 Naproxen (Naprosyn) 500 mg BID PO Last administered on 03/11/18at 19:23; Start 03/11/18 at 09:00; Stop 03/12/18 at 07:42; Status DC Vitamin D (Vitamin D3) 50,000 unit WEEKLY PO Last administered on 03/25/18at 08: 18; Start 03/11/18 at 19:00 Sertraline HCl (Zoloft) 25 mg DAILY PO Last administered on 03/15/18at 08:15; Start 03/12/18 at 09:00; Stop 03/15/18 at 21:28; Status DC Mirtazapine (Remeron) 7.5 mg QHS PO Last administered on 03/15/18at 21:24; Start 03/11/18 at 21:00; Stop 03/16/18 at 20:49; Status DC Olanzapine (ZyPREXA ZYDIS) 2.5 mg PRN Q2HR PRN PO agitation Last administered on 03/14/18at 20:09; Start 03/12/18 at 07:45; Stop 03/14/18 at 22:25; Status DC Naproxen (Naprosyn) 500 mg PRN BID PRN PO PAIN Last administered on 03/21/18at 07 :43; Start 03/12/18 at 07:45 Silver Sulfadiazine (Silvadene) 1 luz maria DAILY TP Last administered on 03/26/18at 07 :52; Start 03/12/18 at 21:00 Artificial Tears (Artificial Tears) 1 drop PRN Q15MIN PRN OU DRY EYE Last administered on 03/24/18at 08:15; Start 03/13/18 at 20:30 Trazodone HCl (Desyrel) 50 mg PRN QHS PRN PO insomnia Last administered on at 00:12; Start 03/14/18 at 18:45 Olanzapine (ZyPREXA ZYDIS) 5 mg PRN Q2HR PRN PO agitation Last administered on 03/26/18at 08:09; Start 03/14/18 at 22:30 Olanzapine (ZyPREXA) 2.5 mg 1X ONCE PO ; Start 03/15/18 at 09:15; Stop at 09:48; Status DC Olanzapine (ZyPREXA ZYDIS) 5 mg 1X ONCE PO ; Start 03/15/18 at 09:50; Stop at 09:50; Status DC Olanzapine (ZyPREXA ZYDIS) 5 mg 1X ONCE PO ; Start 03/15/18 at 09:45; Stop at 09:52; Status DC Olanzapine (ZyPREXA ZYDIS) 5 mg PRN 1X PRN PO 1HR BEFORE CT &30MIN PRIOR PRN; Start 03/15/18 at 09:50; Stop 03/15/18 at 18:00; Status DC Sertraline HCl (Zoloft) 50 mg DAILY PO Last administered on 03/19/18at 09:27; Start 03/16/18 at 09:00; Stop 03/21/18 at 08:00; Status DC Mirtazapine (Remeron) 15 mg QHS PO Last administered on 03/25/18at 19:03; Start 03/16/18 at 21:00 Sertraline HCl (Zoloft) 75 mg DAILY PO Last administered on 03/26/18at 07:51; Start 03/21/18 at 09:00 Divalproex Sodium (Depakote Sprinkles) 125 mg 0900,1300 PO Last administered on 03/26/18at 07:50; Start 03/21/18 at 09:00; Stop 03/26/18 at 10:10; Status DC Quetiapine Fumarate (SEROquel) 12.5 mg BID PO Last administered on 03/26/18at 07: 51; Start 03/20/18 at 21:00 Carbidopa/Levodopa (Sinemet Cr) 1 tab.sa BID PO Last administered on 03/26/18 07:50; Start 03/23/18 at 21:00 Divalproex Sodium (Depakote Sprinkles) 125 mg TID@0900,1300,1700 PO Last administered on 03/26/18at 15:57; Start 03/26/18 at 13:00 Active Scripts Active Reported Silvadene (Silver Sulfadiazine) 20 Gm Cream..g. 1 Luz Maria TP BID Seroquel (Quetiapine Fumarate) 25 Mg Tablet 25 Mg PO BID@1200,2100 [place] 5-325 Tablet (Hydrocodone Bit/Acetaminophen) 1 Each Tablet 1 Tab PO PRN Q6HRS PRN Naproxen 500 Mg Tablet 500 Mg PO BID I have reviewed the current psychotropics carefully including drug interactions. Risk benefit ratio favors no change other than as noted in my dictated progress note. 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
[2018-03-27 05:46] VITALS: BP 113/66
[2018-03-27] MEDS: DIVALPROEX 125 MG CAP.SPRINK PO SCH ×3 (07:50→18:22)
[2018-03-27] MEDS: QUEtiapine 25 MG TABLET. PO SCH ×2 (07:50→19:34)
[2018-03-27] MEDS: SERTRALINE 25 MG TABLET. PO SCH (07:50)
[2018-03-27] MEDS: silver sulfADIAZINE 1% CREAM 50GM JAR. TP SCH (07:56)
[2018-03-27] MEDS: CARBIDOPA/LEVODOPA CR 25/100MG TABLET.SA PO SCH ×2 (08:11→19:34)
--- NOTE | 2018-03-27 13:01 | PN ---
DATE: 03/25/2018 This is a late entry for 03/25/2018 and covers elements not covered in my initial note of 03/25/2018. SUBJECTIVE: I met with the patient and his sister in the evening. She brought him some pizza, which he was thoroughly enjoying, seemed to recognize his sister, smiling at me, able to mention that his sister was visiting him. Slept 6 hours. Per nursing report, had a good day. No CV, , pulmonary, eye, ENT system symptoms on review. He has be talk to very slowly for him to comprehend and respond. MENTAL STATUS EXAM: Oriented to himself. Insight, judgment, recent and remote memory, attention, concentration, fund of knowledge poor, consistent with his diagnosis as mentioned in my initial note. 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 Rest unchanged. PLAN: He did receive trazodone, Zyprexa at 8:30 and Zyprexa in the morning, but rest of the day, he has done well. Continue current psychotropics. Depakote was initiated. He is still bending forward. We will monitor this. Continue Seroquel at the lower dosage 12.5 b.i.d., Remeron and trazodone, Zyprexa p.r.n. MAN Janie NAIR MD DR: ANGELINA/gallito JOB#: [id number] / [id number]
[2018-03-27 15:53] VITALS: BP 136/82
--- NOTE | 2018-03-27 18:53 | PN ---
DATE: PSYCHIATRIC PROGRESS NOTE DATE OF SERVICE: 03/26/2018 This late entry 03/26/2018 covers elements not covered in my initial note 03/26/2018. SUBJECTIVE: The patient was staffed at a treatment team meeting in the morning, seen individually in the evening. Lengthy discussion about treatment options and discharge plans, current medications. The patient's sister, Tarsha attended the treatment team meeting. 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 Sister remarked she had been told by the neurologist for the patient that this may be part of his sleep disorder from the corticobasal degeneration and a REM sleep disorder. We will defer to Dr. Grant and the sister would like Dr. Grant to communicate with Dr. Cabrera, his outpatient neurologist on this. The patient has been started on Sinemet per Dr. Grant. REVIEW OF SYSTEMS: No CV, , pulmonary, eye, ENT system symptoms on review. Reliability poor. MENTAL STATUS EXAM: Oriented to himself. Insight, judgment, recent and remote memory, attention, concentration, fund of knowledge poor, consistent with his diagnosis. LABORATORIES: Reviewed. IMPRESSION: Unchanged from initial note; major neurocognitive disorder secondary to corticobasal degeneration, anxiety disorder, unspecified; impulse control disorder, unspecified. PLAN: Valproic acid level therapeutic at 31. We will increase the Depakote from 125 twice a day to 125 mg 3 times a day. Check CBC, CMP, valproic acid, ammonia level in 3 days. Continue rest unchanged with the changes noted above. COLE NAIR MD DR: ANGELINA/gallito JOB#: [id number] / [id number]
[2018-03-27] MEDS: MIRTAZAPINE 15 MG TABLET PO SCH (19:34)
[2018-03-27] MEDS: traZODone 50 MG TABLET. PO PRN (19:35)
[2018-03-27] MEDS: ACETAMINOPHEN 325 MG TABLET PO PRN (19:35)
--- NOTE | 2018-03-27 23:11 | PDOC ---
Exam Note: Lambert Note: Please also refer to the separate dictated note~for this date of service dictated separately.~Patient seen individually. Discussed the patient with Nursing staff reviewed the chart.~Reviewed interim history and current functioning. Reviewed vital signs,~Labs/ Radiology~and current medications noted below. Continue current treatment with the changes noted in the dictated addendum note Assessment: Vital Signs: Vital Signs Date Time Temp Pulse Resp B/P (MAP) Pulse Ox O2 Delivery O2 Flow Rate FiO2 03/27/18 15:53 97.2 77 18 136/82 (100) 100 03/26/18 16:19 Room Air I&O Intake and Output 03/27/18 07:00 Intake Total 720 ml Balance 720 ml Intake Oral 720 ml # Voids 1 Current Medications: Meds: Current Medications Acetaminophen (Tylenol) 650 mg PRN Q6HRS PRN PO PAIN / TEMP Last administered on 03/27/18at 19:35; Start 03/10/18 at 23:00 Multi-Ingredient Ointment (Analgesic [place]) 1 luz maria PRN QID PRN TP MUSCLE PAIN; Start 03/10/18 at 23:00 Al Hydroxide/Mg Hydroxide (Mylanta Plus Xs) 15 ml PRN AFTMEALHC PRN PO DYSPEPSIA; Start 03/10/18 at 23:00 Magnesium Hydroxide (Milk Of Magnesia) 2,400 mg PRN QHS PRN PO CONSTIPATION Last administered on 03/24/18at 18:23; Start 03/10/18 at 23:00 Quetiapine Fumarate (SEROquel) 25 mg BID@1200,2100 PO Last administered on at 12:14; Start 03/11/18 at 12:00; Stop 03/20/18 at 19:07; Status DC Acetaminophen/ Hydrocodone Bitart (Lortab 5/325) 1 tab PRN Q6HRS PRN PO PAIN Last administered on 03/21/18 19:25; Start 03/10/18 at 23:30 Naproxen (Naprosyn) 500 mg BID PO Last administered on 03/11/18at 19:23; Start 03/11/18 at 09:00; Stop 03/12/18 at 07:42; Status DC Vitamin D (Vitamin D3) 50,000 unit WEEKLY PO Last administered on 03/25/18at 08: 18; Start 03/11/18 at 19:00 Sertraline HCl (Zoloft) 25 mg DAILY PO Last administered on 03/15/18at 08:15; Start 03/12/18 at 09:00; Stop 03/15/18 at 21:28; Status DC Mirtazapine (Remeron) 7.5 mg QHS PO Last administered on 03/15/18at 21:24; Start 03/11/18 at 21:00; Stop 03/16/18 at 20:49; Status DC Olanzapine (ZyPREXA ZYDIS) 2.5 mg PRN Q2HR PRN PO agitation Last administered on 03/14/18at 20:09; Start 03/12/18 at 07:45; Stop 03/14/18 at 22:25; Status DC Naproxen (Naprosyn) 500 mg PRN BID PRN PO PAIN Last administered on 03/21/18at 07 :43; Start 03/12/18 at 07:45 Silver Sulfadiazine (Silvadene) 1 luz maria DAILY TP Last administered on 03/27/18at 07 :56; Start 03/12/18 at 21:00 Artificial Tears (Artificial Tears) 1 drop PRN Q15MIN PRN OU DRY EYE Last administered on 03/24/18at 08:15; Start 03/13/18 at 20:30 Trazodone HCl (Desyrel) 50 mg PRN QHS PRN PO insomnia Last administered on at 19:35; Start 03/14/18 at 18:45 Olanzapine (ZyPREXA ZYDIS) 5 mg PRN Q2HR PRN PO agitation Last administered on 03/27/18at 12:30; Start 03/14/18 at 22:30 Olanzapine (ZyPREXA) 2.5 mg 1X ONCE PO ; Start 03/15/18 at 09:15; Stop at 09:48; Status DC Olanzapine (ZyPREXA ZYDIS) 5 mg 1X ONCE PO ; Start 03/15/18 at 09:50; Stop at 09:50; Status DC Olanzapine (ZyPREXA ZYDIS) 5 mg 1X ONCE PO ; Start 03/15/18 at 09:45; Stop at 09:52; Status DC Olanzapine (ZyPREXA ZYDIS) 5 mg PRN 1X PRN PO 1HR BEFORE CT &30MIN PRIOR PRN; Start 03/15/18 at 09:50; Stop 03/15/18 at 18:00; Status DC Sertraline HCl (Zoloft) 50 mg DAILY PO Last administered on 03/19/18at 09:27; Start 03/16/18 at 09:00; Stop 03/21/18 at 08:00; Status DC Mirtazapine (Remeron) 15 mg QHS PO Last administered on 03/27/18 19:34; Start 03/16/18 at 21:00 Sertraline HCl (Zoloft) 75 mg DAILY PO Last administered on 03/27/18 07:50; Start 03/21/18 at 09:00 Divalproex Sodium (Depakote Sprinkles) 125 mg 0900,1300 PO Last administered on 03/26/18 07:50; Start 03/21/18 at 09:00; Stop 03/26/18 at 10:10; Status DC Quetiapine Fumarate (SEROquel) 12.5 mg BID PO Last administered on 03/27/18 19: 34; Start 03/20/18 at 21:00 Carbidopa/Levodopa (Sinemet Cr) 1 tab.sa BID PO Last administered on 03/27/18 19:34; Start 03/23/18 at 21:00 Divalproex Sodium (Depakote Sprinkles) 125 mg TID@0900,1300,1700 PO Last administered on 03/27/18 18:22; Start 03/26/18 at 13:00 Active Scripts Active Reported Silvadene (Silver Sulfadiazine) 20 Gm Cream..g. 1 Luz Maria TP BID Seroquel (Quetiapine Fumarate) 25 Mg Tablet 25 Mg PO BID@1200,2100 [place] 5-325 Tablet (Hydrocodone Bit/Acetaminophen) 1 Each Tablet 1 Tab PO PRN Q6HRS PRN Naproxen 500 Mg Tablet 500 Mg PO BID I have reviewed the current psychotropics carefully including drug interactions. Risk benefit ratio favors no change other than as noted in my dictated progress note. 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
[2018-03-28 05:39] VITALS: BP 107/71
[2018-03-28] MEDS: DIVALPROEX 125 MG CAP.SPRINK PO SCH ×3 (08:27→17:49)
[2018-03-28] MEDS: QUEtiapine 25 MG TABLET. PO SCH ×2 (08:27→20:36)
[2018-03-28] MEDS: CARBIDOPA/LEVODOPA CR 25/100MG TABLET.SA PO SCH ×2 (08:28→20:35)
[2018-03-28] MEDS: silver sulfADIAZINE 1% CREAM 50GM JAR. TP SCH (08:28)
[2018-03-28] MEDS: SERTRALINE 25 MG TABLET. PO SCH (08:28)
--- NOTE | 2018-03-28 12:46 | PN ---
DATE: 03/27/2018 This late entry, 03/27/2018, covers elements not covered in my initial note of 03/27/2018. SUBJECTIVE: I met with the patient in the evening. The patient slept 6-1/2 hours. He was somewhat agitated, labile during shower time, better rest of the time. REVIEW OF SYSTEMS: No CV, , pulmonary, eye, ENT system symptoms on review. Conversation with him has to be very slow giving him enough time to respond and he does better, otherwise he gets frustrated. MENTAL STATUS EXAM: Oriented to himself. Insight, judgment, recent and remote memory, attention, concentration, and fund of knowledge poor, consistent with his diagnosis. 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 Rest unchanged. PLAN: Continue psychotropics from my initial note. MAN Janie NAIR MD DR: ANGELINA/gallito JOB#: [id number] / [id number]
[2018-03-28 17:43] VITALS: BP 119/61
[2018-03-28] MEDS: traZODone 50 MG TABLET. PO PRN (20:35)
[2018-03-28] MEDS: MIRTAZAPINE 15 MG TABLET PO SCH (20:36)
[2018-03-29] MEDS: silver sulfADIAZINE 1% CREAM 50GM JAR. TP SCH (08:54)
[2018-03-29] MEDS: SERTRALINE 25 MG TABLET. PO SCH (08:54)
[2018-03-29] MEDS: QUEtiapine 25 MG TABLET. PO SCH ×2 (08:54→19:37)
[2018-03-29] MEDS: DIVALPROEX 125 MG CAP.SPRINK PO SCH ×3 (08:54→17:00)
[2018-03-29] MEDS: CARBIDOPA/LEVODOPA CR 25/100MG TABLET.SA PO SCH ×2 (08:54→19:37)
[2018-03-29 19:11] LABS: ALBUMIN 3.8 g/dL (3.4-5.0); ALBUMIN/GLOBULIN RATIO 1.1 (1.0-1.7); ALK PHOS 87 U/L (46-116); ALT (SGPT) 21 U/L (16-63); ANION GAP 7 (6-14); AST (SGOT) 15 U/L (15-37); BLOOD UREA NITROGEN 28 mg/dL (8-26); BUN/CREATININE RATIO 31 (6-20); CALCIUM 8.8 mg/dL (8.5-10.1); CARBON DIOXIDE 30 mmol/L (21-32); CHLORIDE 108 mmol/L (98-107); CREATININE 0.9 mg/dL (0.7-1.3); GFR 86.4; GLUCOSE 117 mg/dL (70-99); POTASSIUM 3.7 mmol/L (3.5-5.1); SODIUM 145 mmol/L (136-145); TOTAL BILIRUBIN 0.3 mg/dL (0.2-1.0); TOTAL PROTEIN 7.2 g/dL (6.4-8.2)
[2018-03-29 19:23] LABS: VAL ACID 17 mcg/mL (50-100)
[2018-03-29] MEDS: MIRTAZAPINE 15 MG TABLET PO SCH (19:37)
[2018-03-29] MEDS: traZODone 50 MG TABLET. PO PRN (19:39)
--- NOTE | 2018-03-29 20:15 | PDOC ---
Exam Note: Lambert Note: Late entry for date of service March 28, 2018. Please also refer to the separate dictated note~for this date of service dictated separately.~Patient seen individually. Discussed the patient with Nursing staff reviewed the chart.~ Reviewed interim history and current functioning. Reviewed vital signs,~Labs/ Radiology~and current medications noted below. Continue current treatment with the changes noted in the dictated addendum note Assessment: Vital Signs: VS - Last 72 Hours, by Label Date Time Temp Pulse Resp B/P (MAP) Pulse Ox O2 Delivery O2 Flow Rate FiO2 03/28/18 17:43 98.6 76 18 119/61 (80) 97 03/28/18 05:39 96 20 107/71 (83) 97 03/27/18 15:53 97.2 77 18 136/82 (100) 100 03/27/18 05:46 96.7 65 14 113/66 (82) 99 Vital Signs Date Time Temp Pulse Resp B/P (MAP) Pulse Ox O2 Delivery O2 Flow Rate FiO2 03/28/18 17:43 98.6 76 18 119/61 (80) 97 03/26/18 16:19 Room Air I&O Intake and Output 03/29/18 07:00 Intake Total 840 ml Balance 840 ml Intake Oral 840 ml Labs: Laboratory Tests Test 03/29/18 18:40 Sodium Level 145 mmol/L (136-145) Potassium Level 3.7 mmol/L (3.5-5.1) Chloride Level 108 mmol/L (98-107) H Carbon Dioxide Level 30 mmol/L (21-32) Anion Gap 7 (6-14) Blood Urea Nitrogen 28 mg/dL (8-26) H Creatinine 0.9 mg/dL (0.7-1.3) Estimated GFR (Cockcroft-Gault) 86.4 BUN/Creatinine Ratio 31 (6-20) H Glucose Level 117 mg/dL (70-99) H Calcium Level 8.8 mg/dL (8.5-10.1) Total Bilirubin 0.3 mg/dL (0.2-1.0) Aspartate Amino Transferase (AST) 15 U/L (15-37) Alanine Aminotransferase (ALT) 21 U/L (16-63) Alkaline Phosphatase 87 U/L (46-116) Ammonia 23 mcmol/L (11-34) Total Protein 7.2 g/dL (6.4-8.2) Albumin 3.8 g/dL (3.4-5.0) Albumin/Globulin Ratio 1.1 (1.0-1.7) Valproic Acid Level 17 mcg/mL (50-100) L Valproic Acid Last Dose Date Valproic Acid Last Dose Time 1700 Current Medications: Meds: Current Medications Acetaminophen (Tylenol) 650 mg PRN Q6HRS PRN PO PAIN / TEMP Last administered on 03/27/18at 19:35; Start 03/10/18 at 23:00 Multi-Ingredient Ointment (Analgesic [place]) 1 luz maria PRN QID PRN TP MUSCLE PAIN; Start 03/10/18 at 23:00 Al Hydroxide/Mg Hydroxide (Mylanta Plus Xs) 15 ml PRN AFTMEALHC PRN PO DYSPEPSIA; Start 03/10/18 at 23:00 Magnesium Hydroxide (Milk Of Magnesia) 2,400 mg PRN QHS PRN PO CONSTIPATION Last administered on 03/24/18 18:23; Start 03/10/18 at 23:00 Quetiapine Fumarate (SEROquel) 25 mg BID@1200,2100 PO Last administered on at 12:14; Start 03/11/18 at 12:00; Stop 03/20/18 at 19:07; Status DC Acetaminophen/ Hydrocodone Bitart (Lortab 5/325) 1 tab PRN Q6HRS PRN PO PAIN Last administered on 03/21/18 19:25; Start 03/10/18 at 23:30 Naproxen (Naprosyn) 500 mg BID PO Last administered on 03/11/18 19:23; Start 03/11/18 at 09:00; Stop 03/12/18 at 07:42; Status DC Vitamin D (Vitamin D3) 50,000 unit WEEKLY PO Last administered on 03/25/18 08: 18; Start 03/11/18 at 19:00 Sertraline HCl (Zoloft) 25 mg DAILY PO Last administered on 03/15/18 08:15; Start 03/12/18 at 09:00; Stop 03/15/18 at 21:28; Status DC Mirtazapine (Remeron) 7.5 mg QHS PO Last administered on 5/27/18at 21:24; Start 03/11/18 at 21:00; Stop 03/16/18 at 20:49; Status DC Olanzapine (ZyPREXA ZYDIS) 2.5 mg PRN Q2HR PRN PO agitation Last administered on 03/14/18at 20:09; Start 03/12/18 at 07:45; Stop 03/14/18 at 22:25; Status DC Naproxen (Naprosyn) 500 mg PRN BID PRN PO PAIN Last administered on 03/21/18at 07 :43; Start 03/12/18 at 07:45 Silver Sulfadiazine (Silvadene) 1 luz maria DAILY TP Last administered on 03/29/18 08:54; Start 03/12/18 at 21:00 Artificial Tears (Artificial Tears) 1 drop PRN Q15MIN PRN OU DRY EYE Last administered on 03/24/18 08:15; Start 03/13/18 at 20:30 Trazodone HCl (Desyrel) 50 mg PRN QHS PRN PO insomnia Last administered on 03/29at 19:39; Start 03/14/18 at 18:45 Olanzapine (ZyPREXA ZYDIS) 5 mg PRN Q2HR PRN PO agitation Last administered on 03/29/18at 13:00; Start 03/14/18 at 22:30 Olanzapine (ZyPREXA) 2.5 mg 1X ONCE PO ; Start 03/15/18 at 09:15; Stop at 09:48; Status DC Olanzapine (ZyPREXA ZYDIS) 5 mg 1X ONCE PO ; Start 03/15/18 at 09:50; Stop at 09:50; Status DC Olanzapine (ZyPREXA ZYDIS) 5 mg 1X ONCE PO ; Start 03/15/18 at 09:45; Stop at 09:52; Status DC Olanzapine (ZyPREXA ZYDIS) 5 mg PRN 1X PRN PO 1HR BEFORE CT &30MIN PRIOR PRN; Start 03/15/18 at 09:50; Stop 03/15/18 at 18:00; Status DC Sertraline HCl (Zoloft) 50 mg DAILY PO Last administered on 03/19/18at 09:27; Start 03/16/18 at 09:00; Stop 03/21/18 at 08:00; Status DC Mirtazapine (Remeron) 15 mg QHS PO Last administered on 03/29/18at 19:37; Start 03/16/18 at 21:00 Sertraline HCl (Zoloft) 75 mg DAILY PO Last administered on 03/29/18at 08:54; Start 03/21/18 at 09:00 Divalproex Sodium (Depakote Sprinkles) 125 mg 0900,1300 PO Last administered on 03/26/18at 07:50; Start 03/21/18 at 09:00; Stop 03/26/18 at 10:10; Status DC Quetiapine Fumarate (SEROquel) 12.5 mg BID PO Last administered on 03/29/18 19 :37; Start 03/20/18 at 21:00 Carbidopa/Levodopa (Sinemet Cr) 1 tab.sa BID PO Last administered on 03/29/18 19:37; Start 03/23/18 at 21:00 Divalproex Sodium (Depakote Sprinkles) 125 mg TID@0900,1300,1700 PO Last administered on 03/29/18 17:00; Start 03/26/18 at 13:00 Active Scripts Active Reported Silvadene (Silver Sulfadiazine) 20 Gm Cream..g. 1 Luz Maria TP BID Seroquel (Quetiapine Fumarate) 25 Mg Tablet 25 Mg PO BID@1200,2100 [place] 5-325 Tablet (Hydrocodone Bit/Acetaminophen) 1 Each Tablet 1 Tab PO PRN Q6HRS PRN Naproxen 500 Mg Tablet 500 Mg PO BID I have reviewed the current psychotropics carefully including drug interactions. Risk benefit ratio favors no change other than as noted in my dictated progress note. 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
--- NOTE | 2018-03-29 20:16 | PDOC ---
Exam Note: Lambert Note: Please also refer to the separate dictated note~for this date of service dictated separately.~Patient seen individually. Discussed the patient with Nursing staff reviewed the chart.~Reviewed interim history and current functioning. Reviewed vital signs,~Labs/ Radiology~and current medications noted below. Continue current treatment with the changes noted in the dictated addendum note Assessment: Vital Signs: Vital Signs Date Time Temp Pulse Resp B/P (MAP) Pulse Ox O2 Delivery O2 Flow Rate FiO2 03/28/18 17:43 98.6 76 18 119/61 (80) 97 03/26/18 16:19 Room Air I&O Intake and Output 03/29/18 07:00 Intake Total 840 ml Balance 840 ml Intake Oral 840 ml Labs: Laboratory Tests Test 03/29/18 18:40 Sodium Level 145 mmol/L (136-145) Potassium Level 3.7 mmol/L (3.5-5.1) Chloride Level 108 mmol/L (98-107) H Carbon Dioxide Level 30 mmol/L (21-32) Anion Gap 7 (6-14) Blood Urea Nitrogen 28 mg/dL (8-26) H Creatinine 0.9 mg/dL (0.7-1.3) Estimated GFR (Cockcroft-Gault) 86.4 BUN/Creatinine Ratio 31 (6-20) H Glucose Level 117 mg/dL (70-99) H Calcium Level 8.8 mg/dL (8.5-10.1) Total Bilirubin 0.3 mg/dL (0.2-1.0) Aspartate Amino Transferase (AST) 15 U/L (15-37) Alanine Aminotransferase (ALT) 21 U/L (16-63) Alkaline Phosphatase 87 U/L (46-116) Ammonia 23 mcmol/L (11-34) Total Protein 7.2 g/dL (6.4-8.2) Albumin 3.8 g/dL (3.4-5.0) Albumin/Globulin Ratio 1.1 (1.0-1.7) Valproic Acid Level 17 mcg/mL (50-100) L Valproic Acid Last Dose Date Valproic Acid Last Dose Time 1700 Current Medications: Meds: Current Medications Acetaminophen (Tylenol) 650 mg PRN Q6HRS PRN PO PAIN / TEMP Last administered on 03/27/18at 19:35; Start 5/22/18 at 23:00 Multi-Ingredient Ointment (Analgesic [place]) 1 luz maria PRN QID PRN TP MUSCLE PAIN; Start 03/10/18 at 23:00 Al Hydroxide/Mg Hydroxide (Mylanta Plus Xs) 15 ml PRN AFTMEALHC PRN PO DYSPEPSIA; Start 03/10/18 at 23:00 Magnesium Hydroxide (Milk Of Magnesia) 2,400 mg PRN QHS PRN PO CONSTIPATION Last administered on 03/24/18 18:23; Start 03/10/18 at 23:00 Quetiapine Fumarate (SEROquel) 25 mg BID@1200,2100 PO Last administered on at 12:14; Start 03/11/18 at 12:00; Stop 03/20/18 at 19:07; Status DC Acetaminophen/ Hydrocodone Bitart (Lortab 5/325) 1 tab PRN Q6HRS PRN PO PAIN Last administered on 03/21/18 19:25; Start 03/10/18 at 23:30 Naproxen (Naprosyn) 500 mg BID PO Last administered on 03/11/18at 19:23; Start 03/11/18 at 09:00; Stop 03/12/18 at 07:42; Status DC Vitamin D (Vitamin D3) 50,000 unit WEEKLY PO Last administered on 03/25/18at 08: 18; Start 03/11/18 at 19:00 Sertraline HCl (Zoloft) 25 mg DAILY PO Last administered on 03/15/18at 08:15; Start 03/12/18 at 09:00; Stop 03/15/18 at 21:28; Status DC Mirtazapine (Remeron) 7.5 mg QHS PO Last administered on 03/15/18at 21:24; Start 03/11/18 at 21:00; Stop 03/16/18 at 20:49; Status DC Olanzapine (ZyPREXA ZYDIS) 2.5 mg PRN Q2HR PRN PO agitation Last administered on 03/14/18at 20:09; Start 03/12/18 at 07:45; Stop 03/14/18 at 22:25; Status DC Naproxen (Naprosyn) 500 mg PRN BID PRN PO PAIN Last administered on 03/21/18 07 :43; Start 03/12/18 at 07:45 Silver Sulfadiazine (Silvadene) 1 luz maria DAILY TP Last administered on 03/29/18 08:54; Start 03/12/18 at 21:00 Artificial Tears (Artificial Tears) 1 drop PRN Q15MIN PRN OU DRY EYE Last administered on 03/24/18 08:15; Start 03/13/18 at 20:30 Trazodone HCl (Desyrel) 50 mg PRN QHS PRN PO insomnia Last administered on 03/29 19:39; Start 03/14/18 at 18:45 Olanzapine (ZyPREXA ZYDIS) 5 mg PRN Q2HR PRN PO agitation Last administered on 03/29/18 13:00; Start 03/14/18 at 22:30 Olanzapine (ZyPREXA) 2.5 mg 1X ONCE PO ; Start 03/15/18 at 09:15; Stop at 09:48; Status DC Olanzapine (ZyPREXA ZYDIS) 5 mg 1X ONCE PO ; Start 03/15/18 at 09:50; Stop at 09:50; Status DC Olanzapine (ZyPREXA ZYDIS) 5 mg 1X ONCE PO ; Start 03/15/18 at 09:45; Stop at 09:52; Status DC Olanzapine (ZyPREXA ZYDIS) 5 mg PRN 1X PRN PO 1HR BEFORE CT &30MIN PRIOR PRN; Start 03/15/18 at 09:50; Stop 03/15/18 at 18:00; Status DC Sertraline HCl (Zoloft) 50 mg DAILY PO Last administered on 03/19/18at 09:27; Start 03/16/18 at 09:00; Stop 03/21/18 at 08:00; Status DC Mirtazapine (Remeron) 15 mg QHS PO Last administered on 03/29/18 19:37; Start 03/16/18 at 21:00 Sertraline HCl (Zoloft) 75 mg DAILY PO Last administered on 03/29/18 08:54; Start 03/21/18 at 09:00 Divalproex Sodium (Depakote Sprinkles) 125 mg 0900,1300 PO Last administered on 6/7/18at 07:50; Start 03/21/18 at 09:00; Stop 03/26/18 at 10:10; Status DC Quetiapine Fumarate (SEROquel) 12.5 mg BID PO Last administered on 03/29/18at 19 :37; Start 03/20/18 at 21:00 Carbidopa/Levodopa (Sinemet Cr) 1 tab.sa BID PO Last administered on 03/29/18 19:37; Start 03/23/18 at 21:00 Divalproex Sodium (Depakote Sprinkles) 125 mg TID@0900,1300,1700 PO Last administered on 03/29/18at 17:00; Start 03/26/18 at 13:00 Active Scripts Active Reported Silvadene (Silver Sulfadiazine) 20 Gm Cream..g. 1 Luz Maria TP BID Seroquel (Quetiapine Fumarate) 25 Mg Tablet 25 Mg PO BID@1200,2100 [place] 5-325 Tablet (Hydrocodone Bit/Acetaminophen) 1 Each Tablet 1 Tab PO PRN Q6HRS PRN Naproxen 500 Mg Tablet 500 Mg PO BID I have reviewed the current psychotropics carefully including drug interactions. Risk benefit ratio favors no change other than as noted in my dictated progress note. 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
[2018-03-30 06:10] VITALS: BP 114/66
[2018-03-30 08:48] LABS: BASO % 1 % (0-3); EOS # 0.1 x10^3/uL (0.0-0.7); EOS % 2 % (0-3); HEMATOCRIT 37.9 % (39.0-53.0); HEMOGLOBIN 12.9 g/dL (13.0-17.5); LYMPH # 1.4 x10^3/uL (1.0-4.8); LYMPH % 25 % (24-48); MEAN CORPUSCULAR HEMOGLOBIN 32 pg (25-35); MEAN CORPUSCULAR HGB CONC 34 g/dL (31-37); MEAN CORPUSCULAR VOLUME 94 fL (79-100); MONO # 0.4 x10^3/uL (0.0-1.1); MONO % 7 % (0-9); NEUT # 3.8 x10^3uL (1.8-7.7); NEUT % 66 % (31-73); PLATELET COUNT 237 x10^3/uL (140-400); RED BLOOD COUNT 4.04 x10^6/uL (4.30-5.70); WHITE BLOOD COUNT 5.7 x10^3/uL (4.0-11.0)
[2018-03-30] MEDS: DIVALPROEX 125 MG CAP.SPRINK PO SCH ×3 (09:31→17:05)
[2018-03-30] MEDS: CARBIDOPA/LEVODOPA CR 25/100MG TABLET.SA PO SCH ×2 (09:31→19:54)
[2018-03-30] MEDS: QUEtiapine 25 MG TABLET. PO SCH ×2 (09:31→19:54)
[2018-03-30] MEDS: SERTRALINE 25 MG TABLET. PO SCH (09:32)
[2018-03-30] MEDS: silver sulfADIAZINE 1% CREAM 50GM JAR. TP SCH (09:35)
[2018-03-30] MEDS: ACETAMINOPHEN 325 MG TABLET PO PRN (10:02)
--- NOTE | 2018-03-30 13:02 | PN ---
DATE: 03/28/2018 PSYCHIATRIC PROGRESS NOTE This is a late entry 03/28/2018, covers elements not covered in my initial note 03/28/2018. SUBJECTIVE: I met with the patient in the evening in his room. He has been irritable on one occasion earlier in the day. His sister did not come last night, so he called the nursing staff liar when the nursing staff told him, she will be here at 1700. It seemed he seemed to remember this, not clear on this. REVIEW OF SYSTEMS: Ambulation impaired. Not very expressive due to his corticobasal degeneration. No CV, , pulmonary, eye, ENT system symptoms on review. MENTAL STATUS EXAM: Oriented to himself. Insight, judgment, recent and remote memory, attention, concentration, fund of knowledge poor, consistent with his diagnoses. IMPRESSION: Unchanged from initial note. 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 Parkinson's symptoms. PLAN: Continue psychotropics from initial note. MAN Janie NAIR MD DR: ANGELINA/gallito JOB#: [id number] / [id number]
[2018-03-30 16:02] VITALS: BP 128/69
[2018-03-30] MEDS: MIRTAZAPINE 15 MG TABLET PO SCH (19:54)
--- NOTE | 2018-03-30 20:43 | PDOC ---
Exam Note: Lambert Note: Please also refer to the separate dictated note~for this date of service dictated separately.~Patient seen individually. Discussed the patient with Nursing staff reviewed the chart.~Reviewed interim history and current functioning. Reviewed vital signs,~Labs/ Radiology~and current medications noted below. Continue current treatment with the changes noted in the dictated addendum note Assessment: Vital Signs: Vital Signs Date Time Temp Pulse Resp B/P (MAP) Pulse Ox O2 Delivery O2 Flow Rate FiO2 03/30/18 16:02 97.8 74 18 128/69 (88) 96 03/26/18 16:19 Room Air I&O Intake and Output 03/30/18 07:00 Intake Total 240 ml Balance 240 ml Intake Oral 240 ml Labs: Laboratory Tests Test 03/30/18 08:28 White Blood Count 5.7 x10^3/uL (4.0-11.0) Red Blood Count 4.04 x10^6/uL (4.30-5.70) L Hemoglobin 12.9 g/dL (13.0-17.5) L Hematocrit 37.9 % (39.0-53.0) L Mean Corpuscular Volume 94 fL (79-100) Mean Corpuscular Hemoglobin 32 pg (25-35) Mean Corpuscular Hemoglobin Concent 34 g/dL (31-37) Red Cell Distribution Width 13.0 % (11.5-14.5) Platelet Count 237 x10^3/uL (140-400) Neutrophils (%) (Auto) 66 % (31-73) Lymphocytes (%) (Auto) 25 % (24-48) Monocytes (%) (Auto) 7 % (0-9) Eosinophils (%) (Auto) 2 % (0-3) Basophils (%) (Auto) 1 % (0-3) Neutrophils # (Auto) 3.8 x10^3uL (1.8-7.7) Lymphocytes # (Auto) 1.4 x10^3/uL (1.0-4.8) Monocytes # (Auto) 0.4 x10^3/uL (0.0-1.1) Eosinophils # (Auto) 0.1 x10^3/uL (0.0-0.7) Basophils # (Auto) 0.0 x10^3/uL (0.0-0.2) Current Medications: Meds: Current Medications Acetaminophen (Tylenol) 650 mg PRN Q6HRS PRN PO PAIN / TEMP Last administered on 03/27/18at 19:35; Start 03/10/18 at 23:00 Multi-Ingredient Ointment (Analgesic [place]) 1 luz maria PRN QID PRN TP MUSCLE PAIN; Start 03/10/18 at 23:00 Al Hydroxide/Mg Hydroxide (Mylanta Plus Xs) 15 ml PRN AFTMEALHC PRN PO DYSPEPSIA; Start 03/10/18 at 23:00 Magnesium Hydroxide (Milk Of Magnesia) 2,400 mg PRN QHS PRN PO CONSTIPATION Last administered on 03/24/18 18:23; Start 03/10/18 at 23:00 Quetiapine Fumarate (SEROquel) 25 mg BID@1200,2100 PO Last administered on at 12:14; Start 03/11/18 at 12:00; Stop 03/20/18 at 19:07; Status DC Acetaminophen/ Hydrocodone Bitart (Lortab 5/325) 1 tab PRN Q6HRS PRN PO PAIN Last administered on 03/21/18 19:25; Start 03/10/18 at 23:30 Naproxen (Naprosyn) 500 mg BID PO Last administered on 03/11/18at 19:23; Start 03/11/18 at 09:00; Stop 03/12/18 at 07:42; Status DC Vitamin D (Vitamin D3) 50,000 unit WEEKLY PO Last administered on 03/25/18 08: 18; Start 03/11/18 at 19:00 Sertraline HCl (Zoloft) 25 mg DAILY PO Last administered on 03/15/18at 08:15; Start 03/12/18 at 09:00; Stop 03/15/18 at 21:28; Status DC Mirtazapine (Remeron) 7.5 mg QHS PO Last administered on 03/15/18at 21:24; Start 03/11/18 at 21:00; Stop 03/16/18 at 20:49; Status DC Olanzapine (ZyPREXA ZYDIS) 2.5 mg PRN Q2HR PRN PO agitation Last administered on 03/14/18at 20:09; Start 03/12/18 at 07:45; Stop 03/14/18 at 22:25; Status DC Naproxen (Naprosyn) 500 mg PRN BID PRN PO PAIN Last administered on 03/21/18at 07 :43; Start 03/12/18 at 07:45 Silver Sulfadiazine (Silvadene) 1 luz maria DAILY TP Last administered on 03/30/18 09:35; Start 03/12/18 at 21:00 Artificial Tears (Artificial Tears) 1 drop PRN Q15MIN PRN OU DRY EYE Last administered on 03/24/18at 08:15; Start 03/13/18 at 20:30 Trazodone HCl (Desyrel) 50 mg PRN QHS PRN PO insomnia Last administered on 03/29at 19:39; Start 03/14/18 at 18:45 Olanzapine (ZyPREXA ZYDIS) 5 mg PRN Q2HR PRN PO agitation Last administered on 03/30/18at 15:00; Start 03/14/18 at 22:30 Olanzapine (ZyPREXA) 2.5 mg 1X ONCE PO ; Start 03/15/18 at 09:15; Stop at 09:48; Status DC Olanzapine (ZyPREXA ZYDIS) 5 mg 1X ONCE PO ; Start 03/15/18 at 09:50; Stop at 09:50; Status DC Olanzapine (ZyPREXA ZYDIS) 5 mg 1X ONCE PO ; Start 03/15/18 at 09:45; Stop at 09:52; Status DC Olanzapine (ZyPREXA ZYDIS) 5 mg PRN 1X PRN PO 1HR BEFORE CT &30MIN PRIOR PRN; Start 03/15/18 at 09:50; Stop 03/15/18 at 18:00; Status DC Sertraline HCl (Zoloft) 50 mg DAILY PO Last administered on 03/19/18at 09:27; Start 03/16/18 at 09:00; Stop 03/21/18 at 08:00; Status DC Mirtazapine (Remeron) 15 mg QHS PO Last administered on 03/30/18at 19:54; Start 03/16/18 at 21:00 Sertraline HCl (Zoloft) 75 mg DAILY PO Last administered on 03/30/18at 09:32; Start 03/21/18 at 09:00; Stop 03/30/18 at 18:24; Status DC Divalproex Sodium (Depakote Sprinkles) 125 mg 0900,1300 PO Last administered on 03/26/18at 07:50; Start 03/21/18 at 09:00; Stop 03/26/18 at 10:10; Status DC Quetiapine Fumarate (SEROquel) 12.5 mg BID PO Last administered on 03/30/18at 19 :54; Start 03/20/18 at 21:00 Carbidopa/Levodopa (Sinemet Cr) 1 tab.sa BID PO Last administered on 03/30/18at 19:54; Start 03/23/18 at 21:00 Divalproex Sodium (Depakote Sprinkles) 125 mg TID@0900,1300,1700 PO Last administered on 03/30/18at 17:05; Start 03/26/18 at 13:00 Sertraline HCl (Zoloft) 100 mg DAILY PO ; Start 03/31/18 at 09:00 Active Scripts Active Reported Silvadene (Silver Sulfadiazine) 20 Gm Cream..g. 1 Luz Maria TP BID Seroquel (Quetiapine Fumarate) 25 Mg Tablet 25 Mg PO BID@1200,2100 [place] 5-325 Tablet (Hydrocodone Bit/Acetaminophen) 1 Each Tablet 1 Tab PO PRN Q6HRS PRN Naproxen 500 Mg Tablet 500 Mg PO BID I have reviewed the current psychotropics carefully including drug interactions. Risk benefit ratio favors no change other than as noted in my dictated progress note. 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
[2018-03-30] MEDS: traZODone 50 MG TABLET. PO PRN (21:28)
[2018-03-31] MEDS: QUEtiapine 25 MG TABLET. PO SCH ×2 (08:46→19:35)
[2018-03-31] MEDS: silver sulfADIAZINE 1% CREAM 50GM JAR. TP SCH (08:46)
[2018-03-31] MEDS: CARBIDOPA/LEVODOPA CR 25/100MG TABLET.SA PO SCH (08:46)
[2018-03-31] MEDS: DIVALPROEX 125 MG CAP.SPRINK PO SCH ×3 (08:46→17:00)
[2018-03-31] MEDS: SERTRALINE 100 MG TABLET. PO SCH (08:47)
--- NOTE | 2018-03-31 09:10 | PN ---
DATE: 03/29/2018 PSYCHIATRIC PROGRESS NOTE This is a late entry for 03/29/2018, covers elements not covered in my initial note. SUBJECTIVE: I met with the patient in the evening. Per nursing report, the patient has had a "bad day." He refused labs in the morning, was agitated, disruptive, aggressive, refused to eat breakfast, took no meds with breakfast. For lunch time, it was the same. Took his medications, agitated after lunch, put himself on the floor, ate peanut butter and jelly sandwich. Slammed himself into the doorway at one point chasing after the nursing staff. Appeared paranoid. His sister visited him and he did eat some when she was there. REVIEW OF SYSTEMS: No CV, , pulmonary, eye, ENT system symptoms on review. Reliability poor. MENTAL STATUS EXAM: Oriented to himself, situation at times. Speech, often responses monosyllabic. Insight, judgment, recent and remote memory, attention, concentration, fund of knowledge poor, consistent with his diagnosis mentioned in my initial note. 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 PLAN: Continue current psychotropics, may need to make further adjustments, but I would like to give it another 24 hours before deciding. MAN Janie NAIR MD DR: ANGELINA/gallito JOB#: [id number] / [id number]
[2018-03-31] MEDS: MIRTAZAPINE 15 MG TABLET PO SCH (19:36)
--- NOTE | 2018-03-31 20:06 | PDOC ---
Exam Note: Lambert Note: Please also refer to the separate dictated note~for this date of service dictated separately.~Patient seen individually. Discussed the patient with Nursing staff reviewed the chart.~Reviewed interim history and current functioning. Reviewed vital signs,~Labs/ Radiology~and current medications noted below. Continue current treatment with the changes noted in the dictated addendum note Assessment: Vital Signs: Vital Signs Date Time Temp Pulse Resp B/P (MAP) Pulse Ox O2 Delivery O2 Flow Rate FiO2 03/31/18 16:42 98.3 20 03/30/18 16:02 74 128/69 (88) 96 03/26/18 16:19 Room Air I&O Intake and Output 03/31/18 07:00 Intake Total 1280 ml Balance 1280 ml Intake Oral 1280 ml Current Medications: Meds: Current Medications Acetaminophen (Tylenol) 650 mg PRN Q6HRS PRN PO PAIN / TEMP Last administered on 03/27/18at 19:35; Start 03/10/18 at 23:00 Multi-Ingredient Ointment (Analgesic [place]) 1 luz maria PRN QID PRN TP MUSCLE PAIN; Start 03/10/18 at 23:00 Al Hydroxide/Mg Hydroxide (Mylanta Plus Xs) 15 ml PRN AFTMEALHC PRN PO DYSPEPSIA; Start 03/10/18 at 23:00 Magnesium Hydroxide (Milk Of Magnesia) 2,400 mg PRN QHS PRN PO CONSTIPATION Last administered on 03/24/18at 18:23; Start 03/10/18 at 23:00 Quetiapine Fumarate (SEROquel) 25 mg BID@1200,2100 PO Last administered on at 12:14; Start 03/11/18 at 12:00; Stop 03/20/18 at 19:07; Status DC Acetaminophen/ Hydrocodone Bitart (Lortab 5/325) 1 tab PRN Q6HRS PRN PO PAIN Last administered on 03/21/18 19:25; Start 03/10/18 at 23:30 Naproxen (Naprosyn) 500 mg BID PO Last administered on 03/11/18 19:23; Start 03/11/18 at 09:00; Stop 03/12/18 at 07:42; Status DC Vitamin D (Vitamin D3) 50,000 unit WEEKLY PO Last administered on 6/6/18at 08: 18; Start 03/11/18 at 19:00 Sertraline HCl (Zoloft) 25 mg DAILY PO Last administered on 03/15/18at 08:15; Start 03/12/18 at 09:00; Stop 03/15/18 at 21:28; Status DC Mirtazapine (Remeron) 7.5 mg QHS PO Last administered on 03/15/18at 21:24; Start 03/11/18 at 21:00; Stop 03/16/18 at 20:49; Status DC Olanzapine (ZyPREXA ZYDIS) 2.5 mg PRN Q2HR PRN PO agitation Last administered on 03/14/18at 20:09; Start 03/12/18 at 07:45; Stop 03/14/18 at 22:25; Status DC Naproxen (Naprosyn) 500 mg PRN BID PRN PO PAIN Last administered on 03/21/18at 07 :43; Start 03/12/18 at 07:45 Silver Sulfadiazine (Silvadene) 1 luz maria DAILY TP Last administered on 03/30/18at 09:35; Start 03/12/18 at 21:00 Artificial Tears (Artificial Tears) 1 drop PRN Q15MIN PRN OU DRY EYE Last administered on 03/24/18at 08:15; Start 03/13/18 at 20:30 Trazodone HCl (Desyrel) 50 mg PRN QHS PRN PO insomnia Last administered on 03/30at 21:28; Start 03/14/18 at 18:45 Olanzapine (ZyPREXA ZYDIS) 5 mg PRN Q2HR PRN PO agitation Last administered on 03/31/18at 10:54; Start 03/14/18 at 22:30 Olanzapine (ZyPREXA) 2.5 mg 1X ONCE PO ; Start 03/15/18 at 09:15; Stop at 09:48; Status DC Olanzapine (ZyPREXA ZYDIS) 5 mg 1X ONCE PO ; Start 03/15/18 at 09:50; Stop at 09:50; Status DC Olanzapine (ZyPREXA ZYDIS) 5 mg 1X ONCE PO ; Start 03/15/18 at 09:45; Stop at 09:52; Status DC Olanzapine (ZyPREXA ZYDIS) 5 mg PRN 1X PRN PO 1HR BEFORE CT &30MIN PRIOR PRN; Start 03/15/18 at 09:50; Stop 03/15/18 at 18:00; Status DC Sertraline HCl (Zoloft) 50 mg DAILY PO Last administered on 03/19/18at 09:27; Start 03/16/18 at 09:00; Stop 03/21/18 at 08:00; Status DC Mirtazapine (Remeron) 15 mg QHS PO Last administered on 03/31/18at 19:36; Start 03/16/18 at 21:00 Sertraline HCl (Zoloft) 75 mg DAILY PO Last administered on 03/30/18at 09:32; Start 03/21/18 at 09:00; Stop 03/30/18 at 18:24; Status DC Divalproex Sodium (Depakote Sprinkles) 125 mg 0900,1300 PO Last administered on 03/26/18at 07:50; Start 03/21/18 at 09:00; Stop 03/26/18 at 10:10; Status DC Quetiapine Fumarate (SEROquel) 12.5 mg BID PO Last administered on 03/31/18at 19 :35; Start 03/20/18 at 21:00 Carbidopa/Levodopa (Sinemet Cr) 1 tab.sa BID PO Last administered on 03/31/18at 08:46; Start 03/23/18 at 21:00; Stop 03/31/18 at 19:35; Status DC Divalproex Sodium (Depakote Sprinkles) 125 mg TID@0900,1300,1700 PO Last administered on 03/31/18at 13:34; Start 03/26/18 at 13:00 Sertraline HCl (Zoloft) 100 mg DAILY PO Last administered on 03/31/18at 08:47; Start 03/31/18 at 09:00 Docusate Sodium (Colace Solution) 100 mg BID PO ; Start 03/31/18 at 21:00 Active Scripts Active Reported Silvadene (Silver Sulfadiazine) 20 Gm Cream..g. 1 Luz Maria TP BID Seroquel (Quetiapine Fumarate) 25 Mg Tablet 25 Mg PO BID@1200,2100 [place] 5-325 Tablet (Hydrocodone Bit/Acetaminophen) 1 Each Tablet 1 Tab PO PRN Q6HRS PRN Naproxen 500 Mg Tablet 500 Mg PO BID I have reviewed the current psychotropics carefully including drug interactions. Risk benefit ratio favors no change other than as noted in my dictated progress note. 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
[2018-03-31] MEDS: DOCUSATE 100 MG/10 ML SOLUTION. PO SCH (21:00)
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
[2018-04-01] MEDS: DOCUSATE 100 MG/10 ML SOLUTION. PO SCH ×2 (07:57→20:00)
[2018-04-01] MEDS: DIVALPROEX 125 MG CAP.SPRINK PO SCH ×3 (07:58→17:13)
[2018-04-01] MEDS: silver sulfADIAZINE 1% CREAM 50GM JAR. TP SCH (07:58)
[2018-04-01] MEDS: CHOLECALCIFEROL (VITAMIN D3) 50,000 UNIT CAPSULE PO SCH (07:58)
[2018-04-01] MEDS: QUEtiapine 25 MG TABLET. PO SCH ×2 (07:58→20:01)
[2018-04-01] MEDS: SERTRALINE 100 MG TABLET. PO SCH (07:58)
[2018-04-01 16:23] VITALS: BP 107/79
[2018-04-01] MEDS: MIRTAZAPINE 15 MG TABLET PO SCH (20:00)
--- NOTE | 2018-04-01 20:52 | PDOC ---
Exam Note: Lambert Note: Please also refer to the separate dictated note~for this date of service dictated separately.~Patient seen individually. Discussed the patient with Nursing staff reviewed the chart.~Reviewed interim history and current functioning. Reviewed vital signs,~Labs/ Radiology~and current medications noted below. Continue current treatment with the changes noted in the dictated addendum note Assessment: Vital Signs: Vital Signs Date Time Temp Pulse Resp B/P (MAP) Pulse Ox O2 Delivery O2 Flow Rate FiO2 04/01/18 16:23 97.6 74 18 107/79 (88) 97 03/26/18 16:19 Room Air I&O Intake and Output 04/01/18 07:00 Intake Total 1160 ml Balance 1160 ml Intake Oral 1160 ml # Bowel Movements 1 Current Medications: Meds: Current Medications Acetaminophen (Tylenol) 650 mg PRN Q6HRS PRN PO PAIN / TEMP Last administered on 03/27/18at 19:35; Start 03/10/18 at 23:00 Multi-Ingredient Ointment (Analgesic [place]) 1 luz maria PRN QID PRN TP MUSCLE PAIN; Start 03/10/18 at 23:00 Al Hydroxide/Mg Hydroxide (Mylanta Plus Xs) 15 ml PRN AFTMEALHC PRN PO DYSPEPSIA; Start 03/10/18 at 23:00 Magnesium Hydroxide (Milk Of Magnesia) 2,400 mg PRN QHS PRN PO CONSTIPATION Last administered on 03/24/18at 18:23; Start 03/10/18 at 23:00 Quetiapine Fumarate (SEROquel) 25 mg BID@1200,2100 PO Last administered on at 12:14; Start 03/11/18 at 12:00; Stop 03/20/18 at 19:07; Status DC Acetaminophen/ Hydrocodone Bitart (Lortab 5/325) 1 tab PRN Q6HRS PRN PO PAIN Last administered on 03/21/18 19:25; Start 03/10/18 at 23:30 Naproxen (Naprosyn) 500 mg BID PO Last administered on 03/11/18 19:23; Start 03/11/18 at 09:00; Stop 03/12/18 at 07:42; Status DC Vitamin D (Vitamin D3) 50,000 unit WEEKLY PO Last administered on 04/01/18at 07: 58; Start 03/11/18 at 19:00 Sertraline HCl (Zoloft) 25 mg DAILY PO Last administered on 03/15/18at 08:15; Start 03/12/18 at 09:00; Stop 03/15/18 at 21:28; Status DC Mirtazapine (Remeron) 7.5 mg QHS PO Last administered on 03/15/18at 21:24; Start 03/11/18 at 21:00; Stop 03/16/18 at 20:49; Status DC Olanzapine (ZyPREXA ZYDIS) 2.5 mg PRN Q2HR PRN PO agitation Last administered on 03/14/18at 20:09; Start 03/12/18 at 07:45; Stop 03/14/18 at 22:25; Status DC Naproxen (Naprosyn) 500 mg PRN BID PRN PO PAIN Last administered on 03/21/18at 07 :43; Start 03/12/18 at 07:45 Silver Sulfadiazine (Silvadene) 1 luz maria DAILY TP Last administered on 03/30/18at 09:35; Start 03/12/18 at 21:00 Artificial Tears (Artificial Tears) 1 drop PRN Q15MIN PRN OU DRY EYE Last administered on 03/24/18 08:15; Start 03/13/18 at 20:30 Trazodone HCl (Desyrel) 50 mg PRN QHS PRN PO insomnia Last administered on 03/30at 21:28; Start 03/14/18 at 18:45 Olanzapine (ZyPREXA ZYDIS) 5 mg PRN Q2HR PRN PO agitation Last administered on 04/01/18at 03:47; Start 03/14/18 at 22:30 Olanzapine (ZyPREXA) 2.5 mg 1X ONCE PO ; Start 03/15/18 at 09:15; Stop at 09:48; Status DC Olanzapine (ZyPREXA ZYDIS) 5 mg 1X ONCE PO ; Start 03/15/18 at 09:50; Stop at 09:50; Status DC Olanzapine (ZyPREXA ZYDIS) 5 mg 1X ONCE PO ; Start 03/15/18 at 09:45; Stop at 09:52; Status DC Olanzapine (ZyPREXA ZYDIS) 5 mg PRN 1X PRN PO 1HR BEFORE CT &30MIN PRIOR PRN; Start 03/15/18 at 09:50; Stop 03/15/18 at 18:00; Status DC Sertraline HCl (Zoloft) 50 mg DAILY PO Last administered on 03/19/18at 09:27; Start 03/16/18 at 09:00; Stop 03/21/18 at 08:00; Status DC Mirtazapine (Remeron) 15 mg QHS PO Last administered on 04/01/18at 20:00; Start 03/16/18 at 21:00 Sertraline HCl (Zoloft) 75 mg DAILY PO Last administered on 03/30/18at 09:32; Start 03/21/18 at 09:00; Stop 03/30/18 at 18:24; Status DC Divalproex Sodium (Depakote Sprinkles) 125 mg 0900,1300 PO Last administered on 03/26/18at 07:50; Start 03/21/18 at 09:00; Stop 03/26/18 at 10:10; Status DC Quetiapine Fumarate (SEROquel) 12.5 mg BID PO Last administered on 04/01/18at 20 :01; Start 03/20/18 at 21:00 Carbidopa/Levodopa (Sinemet Cr) 1 tab.sa BID PO Last administered on 03/31/18at 08:46; Start 03/23/18 at 21:00; Stop 03/31/18 at 19:35; Status DC Divalproex Sodium (Depakote Sprinkles) 125 mg TID@0900,1300,1700 PO Last administered on 04/01/18at 17:13; Start 03/26/18 at 13:00 Sertraline HCl (Zoloft) 100 mg DAILY PO Last administered on 04/01/18at 07:58; Start 03/31/18 at 09:00 Docusate Sodium (Colace Solution) 100 mg BID PO Last administered on 04/01/18at 20:00; Start 03/31/18 at 21:00 Active Scripts Active Reported Silvadene (Silver Sulfadiazine) 20 Gm Cream..g. 1 Luz Maria TP BID Seroquel (Quetiapine Fumarate) 25 Mg Tablet 25 Mg PO BID@1200,2100 [place] 5-325 Tablet (Hydrocodone Bit/Acetaminophen) 1 Each Tablet 1 Tab PO PRN Q6HRS PRN Naproxen 500 Mg Tablet 500 Mg PO BID I have reviewed the current psychotropics carefully including drug interactions. Risk benefit ratio favors no change other than as noted in my dictated progress note. 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
[2018-04-01] MEDS: traZODone 50 MG TABLET. PO PRN (21:07)
[2018-04-01] MEDS: ACETAMINOPHEN 325 MG TABLET PO PRN (21:37)
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
[2018-04-02] MEDS: QUEtiapine 25 MG TABLET. PO SCH ×2 (10:13→19:18)
[2018-04-02] MEDS: DIVALPROEX 125 MG CAP.SPRINK PO SCH ×3 (10:13→18:24)
[2018-04-02] MEDS: SERTRALINE 100 MG TABLET. PO SCH ×2 (10:13→12:21)
[2018-04-02] MEDS: DOCUSATE 100 MG/10 ML SOLUTION. PO SCH ×2 (10:13→19:17)
[2018-04-02 16:42] VITALS: BP 148/80
[2018-04-02] MEDS: busPIRone 5 MG TABLET. PO SCH (18:24)
[2018-04-02] MEDS: MIRTAZAPINE 15 MG TABLET PO SCH (19:18)
--- NOTE | 2018-04-02 22:24 | PDOC ---
Exam Note: Lambert Note: Please also refer to the separate dictated note~for this date of service dictated separately.~Patient seen individually. Discussed the patient with Nursing staff reviewed the chart.~Reviewed interim history and current functioning. Reviewed vital signs,~Labs/ Radiology~and current medications noted below. Continue current treatment with the changes noted in the dictated addendum note Assessment: Vital Signs: Vital Signs Date Time Temp Pulse Resp B/P (MAP) Pulse Ox O2 Delivery O2 Flow Rate FiO2 04/02/18 16:42 97.9 90 20 148/80 (102) 96 Room Air I&O Intake and Output 04/02/18 07:00 Intake Total 920 ml Balance 920 ml Intake Oral 920 ml # Bowel Movements 1 Current Medications: Meds: Current Medications Acetaminophen (Tylenol) 650 mg PRN Q6HRS PRN PO PAIN / TEMP Last administered on 04/01/18at 21:37; Start 03/10/18 at 23:00 Multi-Ingredient Ointment (Analgesic [place]) 1 luz maria PRN QID PRN TP MUSCLE PAIN; Start 03/10/18 at 23:00 Al Hydroxide/Mg Hydroxide (Mylanta Plus Xs) 15 ml PRN AFTMEALHC PRN PO DYSPEPSIA; Start 03/10/18 at 23:00 Magnesium Hydroxide (Milk Of Magnesia) 2,400 mg PRN QHS PRN PO CONSTIPATION Last administered on 03/24/18at 18:23; Start 03/10/18 at 23:00 Quetiapine Fumarate (SEROquel) 25 mg BID@1200,2100 PO Last administered on at 12:14; Start 03/11/18 at 12:00; Stop 03/20/18 at 19:07; Status DC Acetaminophen/ Hydrocodone Bitart (Lortab 5/325) 1 tab PRN Q6HRS PRN PO PAIN Last administered on 03/21/18 19:25; Start 03/10/18 at 23:30 Naproxen (Naprosyn) 500 mg BID PO Last administered on 03/11/18at 19:23; Start 03/11/18 at 09:00; Stop 03/12/18 at 07:42; Status DC Vitamin D (Vitamin D3) 50,000 unit WEEKLY PO Last administered on 04/01/18at 07: 58; Start 03/11/18 at 19:00 Sertraline HCl (Zoloft) 25 mg DAILY PO Last administered on 03/15/18at 08:15; Start 03/12/18 at 09:00; Stop 03/15/18 at 21:28; Status DC Mirtazapine (Remeron) 7.5 mg QHS PO Last administered on 03/15/18at 21:24; Start 03/11/18 at 21:00; Stop 03/16/18 at 20:49; Status DC Olanzapine (ZyPREXA ZYDIS) 2.5 mg PRN Q2HR PRN PO agitation Last administered on 03/14/18at 20:09; Start 03/12/18 at 07:45; Stop 03/14/18 at 22:25; Status DC Naproxen (Naprosyn) 500 mg PRN BID PRN PO PAIN Last administered on 03/21/18at 07 :43; Start 03/12/18 at 07:45 Silver Sulfadiazine (Silvadene) 1 luz maria DAILY TP Last administered on 03/30/18at 09:35; Start 03/12/18 at 21:00; Stop 04/02/18 at 09:30; Status DC Artificial Tears (Artificial Tears) 1 drop PRN Q15MIN PRN OU DRY EYE Last administered on 03/24/18 08:15; Start 03/13/18 at 20:30 Trazodone HCl (Desyrel) 50 mg PRN QHS PRN PO insomnia Last administered on 03/30at 21:28; Start 03/14/18 at 18:45 Olanzapine (ZyPREXA ZYDIS) 5 mg PRN Q2HR PRN PO agitation Last administered on 04/01/18at 21:07; Start 03/14/18 at 22:30 Olanzapine (ZyPREXA) 2.5 mg 1X ONCE PO ; Start 03/15/18 at 09:15; Stop at 09:48; Status DC Olanzapine (ZyPREXA ZYDIS) 5 mg 1X ONCE PO ; Start 03/15/18 at 09:50; Stop at 09:50; Status DC Olanzapine (ZyPREXA ZYDIS) 5 mg 1X ONCE PO ; Start 03/15/18 at 09:45; Stop at 09:52; Status DC Olanzapine (ZyPREXA ZYDIS) 5 mg PRN 1X PRN PO 1HR BEFORE CT &30MIN PRIOR PRN; Start 03/15/18 at 09:50; Stop 03/15/18 at 18:00; Status DC Sertraline HCl (Zoloft) 50 mg DAILY PO Last administered on 03/19/18at 09:27; Start 03/16/18 at 09:00; Stop 03/21/18 at 08:00; Status DC Mirtazapine (Remeron) 15 mg QHS PO Last administered on 04/02/18at 19:18; Start 03/16/18 at 21:00 Sertraline HCl (Zoloft) 75 mg DAILY PO Last administered on 03/30/18at 09:32; Start 03/21/18 at 09:00; Stop 03/30/18 at 18:24; Status DC Divalproex Sodium (Depakote Sprinkles) 125 mg 0900,1300 PO Last administered on 03/26/18at 07:50; Start 03/21/18 at 09:00; Stop 03/26/18 at 10:10; Status DC Quetiapine Fumarate (SEROquel) 12.5 mg BID PO Last administered on 04/02/18 19 :18; Start 03/20/18 at 21:00 Carbidopa/Levodopa (Sinemet Cr) 1 tab.sa BID PO Last administered on 03/31/18at 08:46; Start 03/23/18 at 21:00; Stop 03/31/18 at 19:35; Status DC Divalproex Sodium (Depakote Sprinkles) 125 mg TID@0900,1300,1700 PO Last administered on 04/02/18at 18:24; Start 03/26/18 at 13:00 Sertraline HCl (Zoloft) 100 mg DAILY PO Last administered on 04/02/18 12:21; Start 03/31/18 at 09:00 Docusate Sodium (Colace Solution) 100 mg BID PO Last administered on 04/02/18 19:17; Start 03/31/18 at 21:00 Buspirone HCl (Buspar) 5 mg BID@0900,1700 PO Last administered on 04/02/18at 18: 24; Start 04/02/18 at 17:00 Active Scripts Active Reported Silvadene (Silver Sulfadiazine) 20 Gm Cream..g. 1 Luz Maria TP BID Seroquel (Quetiapine Fumarate) 25 Mg Tablet 25 Mg PO BID@1200,2100 [place] 5-325 Tablet (Hydrocodone Bit/Acetaminophen) 1 Each Tablet 1 Tab PO PRN Q6HRS PRN Naproxen 500 Mg Tablet 500 Mg PO BID I have reviewed the current psychotropics carefully including drug interactions. Risk benefit ratio favors no change other than as noted in my dictated progress note. 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
[2018-04-03] MEDS: QUEtiapine 25 MG TABLET. PO SCH ×2 (07:43→19:12)
[2018-04-03] MEDS: DIVALPROEX 125 MG CAP.SPRINK PO SCH ×3 (07:43→16:56)
[2018-04-03] MEDS: SERTRALINE 100 MG TABLET. PO SCH (07:43)
[2018-04-03] MEDS: busPIRone 5 MG TABLET. PO SCH ×2 (07:43→16:56)
[2018-04-03] MEDS: DOCUSATE 100 MG/10 ML SOLUTION. PO SCH ×2 (07:43→19:25)
[2018-04-03 16:32] VITALS: BP 95/65
[2018-04-03 17:24] LABS: BASO # 0.1 x10^3/uL (0.0-0.2); BASO % 1 % (0-3); EOS # 0.2 x10^3/uL (0.0-0.7); EOS % 2 % (0-3); HEMATOCRIT 40.8 % (39.0-53.0); HEMOGLOBIN 13.7 g/dL (13.0-17.5); LYMPH # 2.9 x10^3/uL (1.0-4.8); LYMPH % 27 % (24-48); MEAN CORPUSCULAR HEMOGLOBIN 32 pg (25-35); MEAN CORPUSCULAR HGB CONC 34 g/dL (31-37); MEAN CORPUSCULAR VOLUME 95 fL (79-100); MONO # 0.8 x10^3/uL (0.0-1.1); MONO % 8 % (0-9); NEUT # 6.7 x10^3uL (1.8-7.7); NEUT % 63 % (31-73); PLATELET COUNT 289 x10^3/uL (140-400); RED BLOOD COUNT 4.31 x10^6/uL (4.30-5.70); RED CELL DISTRIBUTION WIDTH 12.9 % (11.5-14.5); WHITE BLOOD COUNT 10.7 x10^3/uL (4.0-11.0)
[2018-04-03 17:43] LABS: ALBUMIN 4.1 g/dL (3.4-5.0); ALBUMIN/GLOBULIN RATIO 1.1 (1.0-1.7); CALCIUM 9.5 mg/dL (8.5-10.1); CREATININE 1.1 mg/dL (0.7-1.3); GFR 68.5; POTASSIUM 4.4 mmol/L (3.5-5.1); TOTAL BILIRUBIN 0.5 mg/dL (0.2-1.0); TOTAL PROTEIN 7.9 g/dL (6.4-8.2)
[2018-04-03 17:47] LABS: % BANDS 1 % (0-9); % BASOS 1 % (0-3); % EOS 1 % (0-5); % LYMPHS 24 % (24-48); % MONOS 9 % (0-10); % SEGS 64 % (35-66); PLATELET CLUMP PRESENT; PLT ESTIMATE ADEQUATE (ADEQUATE)
[2018-04-03 18:51] LABS: BILIRUBIN,URINE NEG (NEG); CLARITY,URINE HAZY; COLOR,URINE YELLOW; GLUCOSE,URINE NEG (NEG); NITRITE,URINE NEG (NEG); UROBILINOGEN,URINE 0.2 mg/dL (0.2 mg/dL)
[2018-04-03 18:52] LABS: BACTERIA,URINE FEW /HPF (0-FEW); HYALINE CASTS, URINE FEW /HPF; RBC,URINE OCC /HPF (0-2); SQUAMOUS EPITHELIAL CELL,UR FEW /LPF
[2018-04-03] MEDS: MIRTAZAPINE 15 MG TABLET PO SCH (19:11)
--- NOTE | 2018-04-03 22:25 | PDOC ---
Exam Note: Lambert Note: Please also refer to the separate dictated note~for this date of service dictated separately.~Patient seen individually. Discussed the patient with Nursing staff reviewed the chart.~Reviewed interim history and current functioning. Reviewed vital signs,~Labs/ Radiology~and current medications noted below. Continue current treatment with the changes noted in the dictated addendum note Assessment: Vital Signs: Vital Signs Date Time Temp Pulse Resp B/P (MAP) Pulse Ox O2 Delivery O2 Flow Rate FiO2 04/03/18 16:32 99.2 83 17 95/65 (75) 98 Room Air I&O Intake and Output 04/03/18 07:00 Intake Total 780 ml Balance 780 ml Intake Oral 780 ml # Voids 1 # Bowel Movements 1 Labs: Laboratory Tests Test 04/03/18 17:10 04/03/18 18:02 White Blood Count 10.7 x10^3/uL (4.0-11.0) # Red Blood Count 4.31 x10^6/uL (4.30-5.70) Hemoglobin 13.7 g/dL (13.0-17.5) Hematocrit 40.8 % (39.0-53.0) Mean Corpuscular Volume 95 fL (79-100) Mean Corpuscular Hemoglobin 32 pg (25-35) Mean Corpuscular Hemoglobin Concent 34 g/dL (31-37) Red Cell Distribution Width 12.9 % (11.5-14.5) Platelet Count 289 x10^3/uL (140-400) Neutrophils (%) (Auto) 63 % (31-73) Lymphocytes (%) (Auto) 27 % (24-48) Monocytes (%) (Auto) 8 % (0-9) Eosinophils (%) (Auto) 2 % (0-3) Basophils (%) (Auto) 1 % (0-3) Neutrophils # (Auto) 6.7 x10^3uL (1.8-7.7) Lymphocytes # (Auto) 2.9 x10^3/uL (1.0-4.8) Monocytes # (Auto) 0.8 x10^3/uL (0.0-1.1) Eosinophils # (Auto) 0.2 x10^3/uL (0.0-0.7) Basophils # (Auto) 0.1 x10^3/uL (0.0-0.2) Segmented Neutrophils % 64 % (35-66) Band Neutrophils % 1 % (0-9) Lymphocytes % 24 % (24-48) Monocytes % 9 % (0-10) Eosinophils % 1 % (0-5) Basophils % 1 % (0-3) Platelet Estimate Adequate (ADEQUATE) Platelet Clumps, EDTA Present Sodium Level 148 mmol/L (136-145) H Potassium Level 4.4 mmol/L (3.5-5.1) Chloride Level 108 mmol/L (98-107) H Carbon Dioxide Level 24 mmol/L (21-32) Anion Gap 16 (6-14) H Blood Urea Nitrogen 30 mg/dL (8-26) H Creatinine 1.1 mg/dL (0.7-1.3) Estimated GFR (Cockcroft-Gault) 68.5 BUN/Creatinine Ratio 27 (6-20) H Glucose Level 108 mg/dL (70-99) H Lactic Acid Level 11.7 mmol/L (0.4-2.0) *H Calcium Level 9.5 mg/dL (8.5-10.1) Total Bilirubin 0.5 mg/dL (0.2-1.0) Aspartate Amino Transferase (AST) 23 U/L (15-37) Alanine Aminotransferase (ALT) 30 U/L (16-63) Alkaline Phosphatase 96 U/L (46-116) Total Protein 7.9 g/dL (6.4-8.2) Albumin 4.1 g/dL (3.4-5.0) Albumin/Globulin Ratio 1.1 (1.0-1.7) Urine Collection Type Unknown Urine Color Yellow Urine Clarity Hazy Urine pH 5.5 Urine Specific [place] >=1.030 Urine Protein Neg (NEG-TRACE) Urine Glucose (UA) Neg mg/dL (NEG) Urine Ketones (Stick) Trace mg/dL (NEG) Urine Blood Neg (NEG) Urine Nitrite Neg (NEG) Urine Bilirubin Neg (NEG) Urine Urobilinogen Dipstick 0.2 mg/dL (0.2 mg/dL) Urine Leukocyte Esterase Neg (NEG) Urine RBC Occ /HPF (0-2) Urine WBC 1-4 /HPF (0-4) Urine Squamous Epithelial Cells Few /LPF Urine Bacteria Few /HPF (0-FEW) Urine Hyaline Casts Few /HPF Urine Mucus Mod /LPF Current Medications: Meds: Current Medications Acetaminophen (Tylenol) 650 mg PRN Q6HRS PRN PO PAIN / TEMP Last administered on 04/01/18at 21:37; Start 03/10/18 at 23:00 Multi-Ingredient Ointment (Analgesic [place]) 1 luz maria PRN QID PRN TP MUSCLE PAIN; Start 03/10/18 at 23:00 Al Hydroxide/Mg Hydroxide (Mylanta Plus Xs) 15 ml PRN AFTMEALHC PRN PO DYSPEPSIA; Start 03/10/18 at 23:00 Magnesium Hydroxide (Milk Of Magnesia) 2,400 mg PRN QHS PRN PO CONSTIPATION Last administered on 03/24/18 18:23; Start 03/10/18 at 23:00 Quetiapine Fumarate (SEROquel) 25 mg BID@1200,2100 PO Last administered on 12:14; Start 03/11/18 at 12:00; Stop 03/20/18 at 19:07; Status DC Acetaminophen/ Hydrocodone Bitart (Lortab 5/325) 1 tab PRN Q6HRS PRN PO PAIN Last administered on 03/21/18 19:25; Start 03/10/18 at 23:30 Naproxen (Naprosyn) 500 mg BID PO Last administered on 03/11/18at 19:23; Start 03/11/18 at 09:00; Stop 03/12/18 at 07:42; Status DC Vitamin D (Vitamin D3) 50,000 unit WEEKLY PO Last administered on 04/01/18at 07: 58; Start 03/11/18 at 19:00 Sertraline HCl (Zoloft) 25 mg DAILY PO Last administered on 03/15/18at 08:15; Start 03/12/18 at 09:00; Stop 03/15/18 at 21:28; Status DC Mirtazapine (Remeron) 7.5 mg QHS PO Last administered on 03/15/18at 21:24; Start 03/11/18 at 21:00; Stop 03/16/18 at 20:49; Status DC Olanzapine (ZyPREXA ZYDIS) 2.5 mg PRN Q2HR PRN PO agitation Last administered on 03/14/18at 20:09; Start 03/12/18 at 07:45; Stop 03/14/18 at 22:25; Status DC Naproxen (Naprosyn) 500 mg PRN BID PRN PO PAIN Last administered on 03/21/18at 07 :43; Start 03/12/18 at 07:45 Silver Sulfadiazine (Silvadene) 1 luz maria DAILY TP Last administered on 03/30/18at 09:35; Start 03/12/18 at 21:00; Stop 04/02/18 at 09:30; Status DC Artificial Tears (Artificial Tears) 1 drop PRN Q15MIN PRN OU DRY EYE Last administered on 03/24/18at 08:15; Start 03/13/18 at 20:30 Trazodone HCl (Desyrel) 50 mg PRN QHS PRN PO insomnia Last administered on 03/30at 21:28; Start 03/14/18 at 18:45 Olanzapine (ZyPREXA ZYDIS) 5 mg PRN Q2HR PRN PO agitation Last administered on 04/03/18at 19:02; Start 03/14/18 at 22:30 Olanzapine (ZyPREXA) 2.5 mg 1X ONCE PO ; Start 03/15/18 at 09:15; Stop at 09:48; Status DC Olanzapine (ZyPREXA ZYDIS) 5 mg 1X ONCE PO ; Start 03/15/18 at 09:50; Stop at 09:50; Status DC Olanzapine (ZyPREXA ZYDIS) 5 mg 1X ONCE PO ; Start 03/15/18 at 09:45; Stop at 09:52; Status DC Olanzapine (ZyPREXA ZYDIS) 5 mg PRN 1X PRN PO 1HR BEFORE CT &30MIN PRIOR PRN; Start 03/15/18 at 09:50; Stop 03/15/18 at 18:00; Status DC Sertraline HCl (Zoloft) 50 mg DAILY PO Last administered on 03/19/18at 09:27; Start 03/16/18 at 09:00; Stop 03/21/18 at 08:00; Status DC Mirtazapine (Remeron) 15 mg QHS PO Last administered on 04/03/18at 19:11; Start 03/16/18 at 21:00 Sertraline HCl (Zoloft) 75 mg DAILY PO Last administered on 03/30/18at 09:32; Start 03/21/18 at 09:00; Stop 03/30/18 at 18:24; Status DC Divalproex Sodium (Depakote Sprinkles) 125 mg 0900,1300 PO Last administered on 03/26/18at 07:50; Start 03/21/18 at 09:00; Stop 03/26/18 at 10:10; Status DC Quetiapine Fumarate (SEROquel) 12.5 mg BID PO Last administered on 04/03/18at 19 :12; Start 03/20/18 at 21:00 Carbidopa/Levodopa (Sinemet Cr) 1 tab.sa BID PO Last administered on 03/31/18at 08:46; Start 03/23/18 at 21:00; Stop 03/31/18 at 19:35; Status DC Divalproex Sodium (Depakote Sprinkles) 125 mg TID@0900,1300,1700 PO Last administered on 04/03/18at 07:43; Start 03/26/18 at 13:00 Sertraline HCl (Zoloft) 100 mg DAILY PO Last administered on 04/03/18at 07:43; Start 03/31/18 at 09:00 Docusate Sodium (Colace Solution) 100 mg BID PO Last administered on 04/03/18at 07:43; Start 03/31/18 at 21:00 Buspirone HCl (Buspar) 5 mg BID@0900,1700 PO Last administered on 04/03/18at 07: 43; Start 04/02/18 at 17:00 Rivastigmine (Exelon) 1 patch DAILY TD ; Start 04/04/18 at 09:00; Stop 04/07/18 at 08:59 Rivastigmine (Exelon) 1 patch DAILY TD ; Start 04/07/18 at 09:00 Active Scripts Active Reported Silvadene (Silver Sulfadiazine) 20 Gm Cream..g. 1 Luz Maria TP BID Seroquel (Quetiapine Fumarate) 25 Mg Tablet 25 Mg PO BID@1200,2100 [place] 5-325 Tablet (Hydrocodone Bit/Acetaminophen) 1 Each Tablet 1 Tab PO PRN Q6HRS PRN Naproxen 500 Mg Tablet 500 Mg PO BID I have reviewed the current psychotropics carefully including drug interactions. Risk benefit ratio favors no change other than as noted in my dictated progress note. 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
[2018-04-04] MEDS: DOCUSATE 100 MG/10 ML SOLUTION. PO SCH ×2 (07:35→19:13)
[2018-04-04] MEDS: busPIRone 5 MG TABLET. PO SCH ×2 (07:35→17:00)
[2018-04-04] MEDS: QUEtiapine 25 MG TABLET. PO SCH ×2 (07:35→19:13)
[2018-04-04] MEDS: SERTRALINE 100 MG TABLET. PO SCH (07:35)
[2018-04-04] MEDS: DIVALPROEX 125 MG CAP.SPRINK PO SCH ×3 (07:35→17:00)
[2018-04-04] MEDS: RIVASTIGMINE 4.6MG PATCH. TD SCH (07:39)
--- NOTE | 2018-04-04 10:10 | PN ---
DATE: 04/01/2018 PSYCHIATRIC PROGRESS NOTE This is a late entry of 04/01/2018, covers elements not covered in my initial note of 04/01/2018. SUBJECTIVE: I met with the patient in the evening. I also met with his sister, who was visiting him. Dr. Grant did discontinue the Sinemet since we wondered if this could be worsening some of the agitation. He slept 4 hours previous evening. 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 Later took his medications and Boost. He was again agitated after lunch, fighting, grabbing the shirt of a nursing staff, had to be taken out of the dining room to the hallway. When the stimuli was reduced, he was calmer. REVIEW OF SYSTEMS: No CV, , pulmonary, eye, ENT system symptoms on review. Reliability is poor. MENTAL STATUS EXAM: Oriented to himself. Insight, judgment, recent and remote memory, attention, concentration, fund of knowledge poor, consistent with his diagnosis mentioned in my initial note. 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 Rest unchanged. PLAN: Continue current psychotropics, Sinemet has been stopped. Further adjustments post decision on how he is doing off the Sinemet. COLE NAIR MD DR: ANGELINA/gallito JOB#: [id number] / [id number]
--- NOTE | 2018-04-04 13:38 | PN ---
DATE: 04/02/2018 PSYCHIATRIC PROGRESS NOTE This is a late entry for 04/02/2018, covers the elements not covered in my initial note. SUBJECTIVE: I met with the patient in the evening and staffed at a treatment team meeting with the entire team in the morning along with the patient's sister, Tarsha attending. The patient slept 4-1/2 hours, was aggressive in the morning then in the evening, quite combative in the morning with brief when staff are changing his briefs. It took 4 staff members to help control him. He ripped on his pants, hitting, kicking, biting staff, combative, agitated even in the afternoon. We considered increasing the Seroquel, but he seems to bend over forward quite a bit with the higher dosage. REVIEW OF SYSTEMS: No CV, , pulmonary, eye, ENT system symptoms on review. Reliability poor. MENTAL STATUS EXAM: Oriented to himself. Insight, judgment, recent and remote memory, attention, concentration, fund of knowledge poor, consistent with his diagnosis mentioned in my initial note. 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 PLAN: Start BuSpar 5 mg 9:00 a.m., 5:00 p.m. May increase Seroquel later. He will need placement, but at this level of behaviors that would be difficult to achieve per social service staff. COLE NAIR MD DR: ANGELINA/gallito JOB#: [id number] / [id number]
--- NOTE | 2018-04-04 14:15 | RAD ---
AP portable chest radiograph 04/04/2018 Clinical History: Fever and lethargy. An AP erect portable digital radiograph of the chest was obtained. No previous studies are available for comparison. The cardiac silhouette is borderline enlarged. The thoracic aorta is minimally tortuous. No acute pulmonary infiltrate is seen. No pleural effusion or pneumothorax is noted. Degenerative changes are seen involving the thoracic spine and both shoulders. IMPRESSION: No acute abnormality is seen. Electronically signed by: Kojo Young MD (04/04/2018 2:12 PM) [facility]
[2018-04-04] MEDS: traZODone 50 MG TABLET. PO PRN ×2 (19:13→21:55)
[2018-04-04] MEDS: MIRTAZAPINE 15 MG TABLET PO SCH (19:13)
--- NOTE | 2018-04-04 22:28 | PDOC ---
Exam Note: Lambert Note: Please also refer to the separate dictated note~for this date of service dictated separately.~Patient seen individually. Discussed the patient with Nursing staff reviewed the chart.~Reviewed interim history and current functioning. Reviewed vital signs,~Labs/ Radiology~and current medications noted below. Continue current treatment with the changes noted in the dictated addendum note Assessment: Vital Signs: Vital Signs Date Time Temp Pulse Resp B/P (MAP) Pulse Ox O2 Delivery O2 Flow Rate FiO2 04/03/18 16:32 99.2 83 17 95/65 (75) 98 Room Air I&O Intake and Output 04/04/18 07:01 Intake Total 0 ml Balance 0 ml Intake Oral 0 ml # Bowel Movements 1 Current Medications: Meds: Current Medications Acetaminophen (Tylenol) 650 mg PRN Q6HRS PRN PO PAIN / TEMP Last administered on 04/01/18at 21:37; Start 03/10/18 at 23:00 Multi-Ingredient Ointment (Analgesic [place]) 1 luz maria PRN QID PRN TP MUSCLE PAIN; Start 03/10/18 at 23:00 Al Hydroxide/Mg Hydroxide (Mylanta Plus Xs) 15 ml PRN AFTMEALHC PRN PO DYSPEPSIA; Start 03/10/18 at 23:00 Magnesium Hydroxide (Milk Of Magnesia) 2,400 mg PRN QHS PRN PO CONSTIPATION Last administered on 03/24/18at 18:23; Start 03/10/18 at 23:00 Quetiapine Fumarate (SEROquel) 25 mg BID@1200,2100 PO Last administered on at 12:14; Start 03/11/18 at 12:00; Stop 03/20/18 at 19:07; Status DC Acetaminophen/ Hydrocodone Bitart (Lortab 5/325) 1 tab PRN Q6HRS PRN PO PAIN Last administered on 03/21/18at 19:25; Start 03/10/18 at 23:30 Naproxen (Naprosyn) 500 mg BID PO Last administered on 03/11/18at 19:23; Start 03/11/18 at 09:00; Stop 03/12/18 at 07:42; Status DC Vitamin D (Vitamin D3) 50,000 unit WEEKLY PO Last administered on 04/01/18at 07: 58; Start 03/11/18 at 19:00 Sertraline HCl (Zoloft) 25 mg DAILY PO Last administered on 03/15/18at 08:15; Start 03/12/18 at 09:00; Stop 03/15/18 at 21:28; Status DC Mirtazapine (Remeron) 7.5 mg QHS PO Last administered on 03/15/18at 21:24; Start 03/11/18 at 21:00; Stop 03/16/18 at 20:49; Status DC Olanzapine (ZyPREXA ZYDIS) 2.5 mg PRN Q2HR PRN PO agitation Last administered on 03/14/18at 20:09; Start 03/12/18 at 07:45; Stop 03/14/18 at 22:25; Status DC Naproxen (Naprosyn) 500 mg PRN BID PRN PO PAIN Last administered on 03/21/18at 07 :43; Start 03/12/18 at 07:45 Silver Sulfadiazine (Silvadene) 1 luz maria DAILY TP Last administered on 03/30/18at 09:35; Start 03/12/18 at 21:00; Stop 04/02/18 at 09:30; Status DC Artificial Tears (Artificial Tears) 1 drop PRN Q15MIN PRN OU DRY EYE Last administered on 03/24/18at 08:15; Start 03/13/18 at 20:30 Trazodone HCl (Desyrel) 50 mg PRN QHS PRN PO insomnia Last administered on 04/04at 21:55; Start 03/14/18 at 18:45 Olanzapine (ZyPREXA ZYDIS) 5 mg PRN Q2HR PRN PO agitation Last administered on 04/04/18at 21:55; Start 03/14/18 at 22:30 Olanzapine (ZyPREXA) 2.5 mg 1X ONCE PO ; Start 03/15/18 at 09:15; Stop at 09:48; Status DC Olanzapine (ZyPREXA ZYDIS) 5 mg 1X ONCE PO ; Start 03/15/18 at 09:50; Stop at 09:50; Status DC Olanzapine (ZyPREXA ZYDIS) 5 mg 1X ONCE PO ; Start 03/15/18 at 09:45; Stop at 09:52; Status DC Olanzapine (ZyPREXA ZYDIS) 5 mg PRN 1X PRN PO 1HR BEFORE CT &30MIN PRIOR PRN; Start 03/15/18 at 09:50; Stop 03/15/18 at 18:00; Status DC Sertraline HCl (Zoloft) 50 mg DAILY PO Last administered on 03/19/18at 09:27; Start 03/16/18 at 09:00; Stop 03/21/18 at 08:00; Status DC Mirtazapine (Remeron) 15 mg QHS PO Last administered on 04/04/18at 19:13; Start 03/16/18 at 21:00 Sertraline HCl (Zoloft) 75 mg DAILY PO Last administered on 03/30/18at 09:32; Start 03/21/18 at 09:00; Stop 03/30/18 at 18:24; Status DC Divalproex Sodium (Depakote Sprinkles) 125 mg 0900,1300 PO Last administered on 03/26/18at 07:50; Start 03/21/18 at 09:00; Stop 03/26/18 at 10:10; Status DC Quetiapine Fumarate (SEROquel) 12.5 mg BID PO Last administered on 04/04/18 19 :13; Start 03/20/18 at 21:00 Carbidopa/Levodopa (Sinemet Cr) 1 tab.sa BID PO Last administered on 03/31/18at 08:46; Start 03/23/18 at 21:00; Stop 03/31/18 at 19:35; Status DC Divalproex Sodium (Depakote Sprinkles) 125 mg TID@0900,1300,1700 PO Last administered on 04/04/18at 12:54; Start 03/26/18 at 13:00; Stop 04/04/18 at 19:00 ; Status DC Sertraline HCl (Zoloft) 100 mg DAILY PO Last administered on 04/04/18at 07:35; Start 03/31/18 at 09:00 Docusate Sodium (Colace Solution) 100 mg BID PO Last administered on 04/04/18 19:13; Start 03/31/18 at 21:00 Buspirone HCl (Buspar) 5 mg BID@0900,1700 PO Last administered on 04/04/18at 07: 35; Start 04/02/18 at 17:00 Rivastigmine (Exelon) 1 patch DAILY TD Last administered on 04/04/18at 07:39; Start 04/04/18 at 09:00; Stop 04/07/18 at 08:59 Rivastigmine (Exelon) 1 patch DAILY TD ; Start 04/07/18 at 09:00 Active Scripts Active Reported Silvadene (Silver Sulfadiazine) 20 Gm Cream..g. 1 Luz Maria TP BID Seroquel (Quetiapine Fumarate) 25 Mg Tablet 25 Mg PO BID@1200,2100 [place] 5-325 Tablet (Hydrocodone Bit/Acetaminophen) 1 Each Tablet 1 Tab PO PRN Q6HRS PRN Naproxen 500 Mg Tablet 500 Mg PO BID I have reviewed the current psychotropics carefully including drug interactions. Risk benefit ratio favors no change other than as noted in my dictated progress note. 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
[2018-04-05] MEDS: RIVASTIGMINE 4.6MG PATCH. TD SCH (07:43)
[2018-04-05] MEDS: busPIRone 5 MG TABLET. PO SCH ×2 (07:43→17:56)
[2018-04-05] MEDS: QUEtiapine 25 MG TABLET. PO SCH ×2 (07:43→19:42)
[2018-04-05] MEDS: SERTRALINE 100 MG TABLET. PO SCH (07:43)
[2018-04-05] MEDS: DOCUSATE 100 MG/10 ML SOLUTION. PO SCH ×2 (07:43→19:42)
[2018-04-05 15:47] VITALS: BP 120/82
[2018-04-05] MEDS: traZODone 50 MG TABLET. PO PRN (19:41)
[2018-04-05] MEDS: MIRTAZAPINE 15 MG TABLET PO SCH (19:42)
--- NOTE | 2018-04-05 21:00 | PDOC ---
Exam Note: Lambert Note: Please also refer to the separate dictated note~for this date of service dictated separately.~Patient seen individually. Discussed the patient with Nursing staff reviewed the chart.~Reviewed interim history and current functioning. Reviewed vital signs,~Labs/ Radiology~and current medications noted below. Continue current treatment with the changes noted in the dictated addendum note Assessment: Vital Signs: Vital Signs Date Time Temp Pulse Resp B/P (MAP) Pulse Ox O2 Delivery O2 Flow Rate FiO2 04/05/18 15:47 97.4 78 20 120/82 (95) 100 04/03/18 16:32 Room Air I&O Intake and Output 04/05/18 07:01 Intake Total 840 ml Balance 840 ml Intake Oral 840 ml # Bowel Movements 1 Current Medications: Meds: Current Medications Acetaminophen (Tylenol) 650 mg PRN Q6HRS PRN PO PAIN / TEMP Last administered on 04/01/18at 21:37; Start 03/10/18 at 23:00 Multi-Ingredient Ointment (Analgesic [place]) 1 luz maria PRN QID PRN TP MUSCLE PAIN; Start 03/10/18 at 23:00 Al Hydroxide/Mg Hydroxide (Mylanta Plus Xs) 15 ml PRN AFTMEALHC PRN PO DYSPEPSIA; Start 03/10/18 at 23:00 Magnesium Hydroxide (Milk Of Magnesia) 2,400 mg PRN QHS PRN PO CONSTIPATION Last administered on 03/24/18at 18:23; Start 03/10/18 at 23:00 Quetiapine Fumarate (SEROquel) 25 mg BID@1200,2100 PO Last administered on at 12:14; Start 03/11/18 at 12:00; Stop 03/20/18 at 19:07; Status DC Acetaminophen/ Hydrocodone Bitart (Lortab 5/325) 1 tab PRN Q6HRS PRN PO PAIN Last administered on 03/21/18 19:25; Start 03/10/18 at 23:30 Naproxen (Naprosyn) 500 mg BID PO Last administered on 03/11/18 19:23; Start 03/11/18 at 09:00; Stop 03/12/18 at 07:42; Status DC Vitamin D (Vitamin D3) 50,000 unit WEEKLY PO Last administered on 04/01/18at 07: 58; Start 03/11/18 at 19:00 Sertraline HCl (Zoloft) 25 mg DAILY PO Last administered on 03/15/18at 08:15; Start 03/12/18 at 09:00; Stop 03/15/18 at 21:28; Status DC Mirtazapine (Remeron) 7.5 mg QHS PO Last administered on 03/15/18at 21:24; Start 03/11/18 at 21:00; Stop 03/16/18 at 20:49; Status DC Olanzapine (ZyPREXA ZYDIS) 2.5 mg PRN Q2HR PRN PO agitation Last administered on 03/14/18at 20:09; Start 03/12/18 at 07:45; Stop 03/14/18 at 22:25; Status DC Naproxen (Naprosyn) 500 mg PRN BID PRN PO PAIN Last administered on 03/21/18at 07 :43; Start 03/12/18 at 07:45 Silver Sulfadiazine (Silvadene) 1 luz maria DAILY TP Last administered on 03/30/18at 09:35; Start 03/12/18 at 21:00; Stop 04/02/18 at 09:30; Status DC Artificial Tears (Artificial Tears) 1 drop PRN Q15MIN PRN OU DRY EYE Last administered on 03/24/18at 08:15; Start 03/13/18 at 20:30 Trazodone HCl (Desyrel) 50 mg PRN QHS PRN PO insomnia Last administered on 04/05at 19:41; Start 03/14/18 at 18:45 Olanzapine (ZyPREXA ZYDIS) 5 mg PRN Q2HR PRN PO agitation Last administered on 04/05/18at 04:21; Start 03/14/18 at 22:30 Olanzapine (ZyPREXA) 2.5 mg 1X ONCE PO ; Start 03/15/18 at 09:15; Stop at 09:48; Status DC Olanzapine (ZyPREXA ZYDIS) 5 mg 1X ONCE PO ; Start 03/15/18 at 09:50; Stop at 09:50; Status DC Olanzapine (ZyPREXA ZYDIS) 5 mg 1X ONCE PO ; Start 03/15/18 at 09:45; Stop at 09:52; Status DC Olanzapine (ZyPREXA ZYDIS) 5 mg PRN 1X PRN PO 1HR BEFORE CT &30MIN PRIOR PRN; Start 03/15/18 at 09:50; Stop 03/15/18 at 18:00; Status DC Sertraline HCl (Zoloft) 50 mg DAILY PO Last administered on 03/19/18at 09:27; Start 03/16/18 at 09:00; Stop 03/21/18 at 08:00; Status DC Mirtazapine (Remeron) 15 mg QHS PO Last administered on 04/05/18at 19:42; Start 03/16/18 at 21:00 Sertraline HCl (Zoloft) 75 mg DAILY PO Last administered on 03/30/18at 09:32; Start 03/21/18 at 09:00; Stop 03/30/18 at 18:24; Status DC Divalproex Sodium (Depakote Sprinkles) 125 mg 0900,1300 PO Last administered on 03/26/18at 07:50; Start 03/21/18 at 09:00; Stop 03/26/18 at 10:10; Status DC Quetiapine Fumarate (SEROquel) 12.5 mg BID PO Last administered on 04/05/18at 19 :42; Start 03/20/18 at 21:00 Carbidopa/Levodopa (Sinemet Cr) 1 tab.sa BID PO Last administered on 03/31/18at 08:46; Start 03/23/18 at 21:00; Stop 03/31/18 at 19:35; Status DC Divalproex Sodium (Depakote Sprinkles) 125 mg TID@0900,1300,1700 PO Last administered on 04/04/18at 12:54; Start 03/26/18 at 13:00; Stop 04/04/18 at 19:00 ; Status DC Sertraline HCl (Zoloft) 100 mg DAILY PO Last administered on 04/05/18at 07:43; Start 03/31/18 at 09:00 Docusate Sodium (Colace Solution) 100 mg BID PO Last administered on 04/05/18at 19:42; Start 03/31/18 at 21:00 Buspirone HCl (Buspar) 5 mg BID@0900,1700 PO Last administered on 04/05/18at 17: 56; Start 04/02/18 at 17:00 Rivastigmine (Exelon) 1 patch DAILY TD Last administered on 04/05/18at 07:43; Start 04/04/18 at 09:00; Stop 04/07/18 at 08:59 Rivastigmine (Exelon) 1 patch DAILY TD ; Start 04/07/18 at 09:00 Active Scripts Active Reported Silvadene (Silver Sulfadiazine) 20 Gm Cream..g. 1 Luz Maria TP BID Seroquel (Quetiapine Fumarate) 25 Mg Tablet 25 Mg PO BID@1200,2100 [place] 5-325 Tablet (Hydrocodone Bit/Acetaminophen) 1 Each Tablet 1 Tab PO PRN Q6HRS PRN Naproxen 500 Mg Tablet 500 Mg PO BID I have reviewed the current psychotropics carefully including drug interactions. Risk benefit ratio favors no change other than as noted in my dictated progress note. 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
--- NOTE | 2018-04-06 02:33 | PN ---
DATE: 04/03/2018 This is a late entry for 04/03/2018 covers elements not covered in my initial note of 04/03/2018. SUBJECTIVE: I met with the patient in the evening. WBC have increased from 5.3 to 10.7. We will defer to Dr. Lopes. We will have to check a UA, chest x-ray. Lactic acid is 11.7. He was agitated in the morning, had to be placed in the [place] to reduce stimuli. His son is coming on Friday when told about it. He has responded "who is Vitaly." He has put himself on the floor. No injury noted. At lunchtime, he was quite sedated at the dining table, putting his head into his food almost, easily frustrated, more so in the morning. REVIEW OF SYSTEMS: No CV, , pulmonary, eye system symptoms on review. Reliability poor. MENTAL STATUS EXAM: Oriented to himself. Insight, judgment, recent and remote memory, attention, concentration, fund of knowledge poor, consistent with his diagnosis. 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 Rest unchanged. PLAN: Start Exelon patch 4.6 mg a day, increasing to 9.5 mg a day, consequent to some symptoms additionally suggestive of Lewy body dementia. Continue rest unchanged. MAN Janie NAIR MD DR: ANGELINA/gallito JOB#: [id number] / [id number]
[2018-04-06 06:22] VITALS: BP 133/72
[2018-04-06] MEDS: RIVASTIGMINE 4.6MG PATCH. TD SCH (07:52)
[2018-04-06] MEDS: busPIRone 5 MG TABLET. PO SCH ×2 (07:52→16:31)
[2018-04-06] MEDS: QUEtiapine 25 MG TABLET. PO SCH ×2 (07:52→19:32)
[2018-04-06] MEDS: SERTRALINE 100 MG TABLET. PO SCH (07:52)
[2018-04-06] MEDS: DOCUSATE 100 MG/10 ML SOLUTION. PO SCH ×2 (07:52→19:31)
[2018-04-06 08:32] LABS: BASO % 0 % (0-3); EOS # 0.2 x10^3/uL (0.0-0.7); EOS % 3 % (0-3); HEMATOCRIT 34.8 % (39.0-53.0); HEMOGLOBIN 11.8 g/dL (13.0-17.5); LYMPH % 15 % (24-48); MEAN CORPUSCULAR HEMOGLOBIN 32 pg (25-35); MEAN CORPUSCULAR HGB CONC 34 g/dL (31-37); MEAN CORPUSCULAR VOLUME 93 fL (79-100); MONO # 0.5 x10^3/uL (0.0-1.1); MONO % 7 % (0-9); NEUT # 5.1 x10^3uL (1.8-7.7); NEUT % 75 % (31-73); PLATELET COUNT 231 x10^3/uL (140-400); RED BLOOD COUNT 3.73 x10^6/uL (4.30-5.70); RED CELL DISTRIBUTION WIDTH 12.5 % (11.5-14.5); WHITE BLOOD COUNT 6.8 x10^3/uL (4.0-11.0)
[2018-04-06 09:41] LABS: ALBUMIN 3.5 g/dL (3.4-5.0); CALCIUM 8.9 mg/dL (8.5-10.1); CREATININE 0.8 mg/dL (0.7-1.3); GFR 98.9; POTASSIUM 3.9 mmol/L (3.5-5.1); TOTAL BILIRUBIN 0.4 mg/dL (0.2-1.0); TOTAL PROTEIN 7.1 g/dL (6.4-8.2)
--- NOTE | 2018-04-06 13:40 | PN ---
DATE: 04/05/2018 PSYCHIATRIC PROGRESS NOTE This late entry 04/05/2018, covers elements not covered in my initial note of 04/05/2018. SUBJECTIVE: Met with the patient in the evening. The patient has had a large bowel movement and irritability little better since then. Depakote has been stopped. He has been less aggressive during ADLs, per nursing report. REVIEW OF SYSTEMS: No CV, , pulmonary, eye, ENT system symptoms on review. Reliability is poor. MENTAL STATUS EXAM: Oriented to himself. Insight, judgment, recent, remote memory, attention, concentration, fund of knowledge poor, consistent with his diagnoses mentioned in my initial note. 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 PLAN: Continue Seroquel, Zoloft, Remeron, together with Zyprexa and trazodone p.r.n., BuSpar along with Exelon patch, which is being increased. MAN Janie NAIR MD DR: ANGELINA/gallito JOB#: [id number] / [id number]
--- NOTE | 2018-04-06 14:28 | PN ---
DATE: 04/04/2018 This late entry 04/04/2018 covers the elements not covered in my initial note 04/04/2018. Met with the patient in the evening. The patient remains confused, extremely agitated during changing and ADLs. It took 8 staff members to change him. He responds better to a sister. REVIEW OF SYSTEMS: No CV, , pulmonary, eye, ENT system symptoms on review. Reliability poor. MENTAL STATUS EXAM: Oriented to himself. Insight, judgment, recent and remote memory, attention, concentration, fund of knowledge poor, consistent with his diagnosis mentioned in my initial note. PLAN: Continue current psychotropics. Discontinue the Depakote since this could be worsening his irritability. Rest unchanged for now. MAN Janie NAIR MD DR: ANGELINA/gallito JOB#: [id number] / [id number]
[2018-04-06 16:16] VITALS: BP 120/78
[2018-04-06] MEDS: MIRTAZAPINE 15 MG TABLET PO SCH (19:31)
[2018-04-06] MEDS: HYDROcodone/APAP 5/325MG 1 TAB TABLET PO PRN ×2 (19:34→20:48)
[2018-04-06] MEDS: traZODone 50 MG TABLET. PO PRN (19:34)
--- NOTE | 2018-04-06 21:00 | PDOC ---
Exam Note: Lambert Note: Please also refer to the separate dictated note~for this date of service dictated separately.~Patient seen individually. Discussed the patient with Nursing staff reviewed the chart.~Reviewed interim history and current functioning. Reviewed vital signs,~Labs/ Radiology~and current medications noted below. Continue current treatment with the changes noted in the dictated addendum note Assessment: Vital Signs: Vital Signs Date Time Temp Pulse Resp B/P (MAP) Pulse Ox O2 Delivery O2 Flow Rate FiO2 04/06/18 20:48 18 98 04/06/18 19:34 Room Air 04/06/18 16:16 98.6 72 120/78 (92) I&O Intake and Output 04/06/18 07:01 Intake Total 720 ml Balance 720 ml Intake Oral 720 ml # Bowel Movements 1 Labs: Laboratory Tests Test 04/06/18 07:38 White Blood Count 6.8 x10^3/uL (4.0-11.0) Red Blood Count 3.73 x10^6/uL (4.30-5.70) L Hemoglobin 11.8 g/dL (13.0-17.5) L Hematocrit 34.8 % (39.0-53.0) L Mean Corpuscular Volume 93 fL (79-100) Mean Corpuscular Hemoglobin 32 pg (25-35) Mean Corpuscular Hemoglobin Concent 34 g/dL (31-37) Red Cell Distribution Width 12.5 % (11.5-14.5) Platelet Count 231 x10^3/uL (140-400) Neutrophils (%) (Auto) 75 % (31-73) H Lymphocytes (%) (Auto) 15 % (24-48) L Monocytes (%) (Auto) 7 % (0-9) Eosinophils (%) (Auto) 3 % (0-3) Basophils (%) (Auto) 0 % (0-3) Neutrophils # (Auto) 5.1 x10^3uL (1.8-7.7) Lymphocytes # (Auto) 1.0 x10^3/uL (1.0-4.8) Monocytes # (Auto) 0.5 x10^3/uL (0.0-1.1) Eosinophils # (Auto) 0.2 x10^3/uL (0.0-0.7) Basophils # (Auto) 0.0 x10^3/uL (0.0-0.2) Sodium Level 145 mmol/L (136-145) Potassium Level 3.9 mmol/L (3.5-5.1) Chloride Level 106 mmol/L (98-107) Carbon Dioxide Level 32 mmol/L (21-32) Anion Gap 7 (6-14) Blood Urea Nitrogen 25 mg/dL (8-26) Creatinine 0.8 mg/dL (0.7-1.3) Estimated GFR (Cockcroft-Gault) 98.9 BUN/Creatinine Ratio 31 (6-20) H Glucose Level 93 mg/dL (70-99) Lactic Acid Level 1.0 mmol/L (0.4-2.0) Calcium Level 8.9 mg/dL (8.5-10.1) Total Bilirubin 0.4 mg/dL (0.2-1.0) Aspartate Amino Transferase (AST) 19 U/L (15-37) Alanine Aminotransferase (ALT) 26 U/L (16-63) Alkaline Phosphatase 82 U/L (46-116) Total Protein 7.1 g/dL (6.4-8.2) Albumin 3.5 g/dL (3.4-5.0) Albumin/Globulin Ratio 1.0 (1.0-1.7) Current Medications: Meds: Current Medications Acetaminophen (Tylenol) 650 mg PRN Q6HRS PRN PO PAIN / TEMP Last administered on 04/01/18at 21:37; Start 03/10/18 at 23:00 Multi-Ingredient Ointment (Analgesic [place]) 1 luz maria PRN QID PRN TP MUSCLE PAIN; Start 03/10/18 at 23:00 Al Hydroxide/Mg Hydroxide (Mylanta Plus Xs) 15 ml PRN AFTMEALHC PRN PO DYSPEPSIA; Start 03/10/18 at 23:00 Magnesium Hydroxide (Milk Of Magnesia) 2,400 mg PRN QHS PRN PO CONSTIPATION Last administered on 03/24/18at 18:23; Start 03/10/18 at 23:00 Quetiapine Fumarate (SEROquel) 25 mg BID@1200,2100 PO Last administered on at 12:14; Start 03/11/18 at 12:00; Stop 03/20/18 at 19:07; Status DC Acetaminophen/ Hydrocodone Bitart (Lortab 5/325) 1 tab PRN Q6HRS PRN PO PAIN Last administered on 04/06/18 20:48; Start 03/10/18 at 23:30 Naproxen (Naprosyn) 500 mg BID PO Last administered on 03/11/18 19:23; Start 03/11/18 at 09:00; Stop 03/12/18 at 07:42; Status DC Vitamin D (Vitamin D3) 50,000 unit WEEKLY PO Last administered on 04/01/18 07: 58; Start 03/11/18 at 19:00 Sertraline HCl (Zoloft) 25 mg DAILY PO Last administered on 03/15/18 08:15; Start 03/12/18 at 09:00; Stop 03/15/18 at 21:28; Status DC Mirtazapine (Remeron) 7.5 mg QHS PO Last administered on 03/15/18 21:24; Start 03/11/18 at 21:00; Stop 03/16/18 at 20:49; Status DC Olanzapine (ZyPREXA ZYDIS) 2.5 mg PRN Q2HR PRN PO agitation Last administered on 03/14/18 20:09; Start 03/12/18 at 07:45; Stop 03/14/18 at 22:25; Status DC Naproxen (Naprosyn) 500 mg PRN BID PRN PO PAIN Last administered on 03/21/18 07 :43; Start 03/12/18 at 07:45 Silver Sulfadiazine (Silvadene) 1 luz maria DAILY TP Last administered on 03/30/18 09:35; Start 03/12/18 at 21:00; Stop 04/02/18 at 09:30; Status DC Artificial Tears (Artificial Tears) 1 drop PRN Q15MIN PRN OU DRY EYE Last administered on 03/24/18 08:15; Start 03/13/18 at 20:30 Trazodone HCl (Desyrel) 50 mg PRN QHS PRN PO insomnia Last administered on 04/06 19:34; Start 03/14/18 at 18:45 Olanzapine (ZyPREXA ZYDIS) 5 mg PRN Q2HR PRN PO agitation Last administered on 04/06/18 19:34; Start 03/14/18 at 22:30 Olanzapine (ZyPREXA) 2.5 mg 1X ONCE PO ; Start 03/15/18 at 09:15; Stop at 09:48; Status DC Olanzapine (ZyPREXA ZYDIS) 5 mg 1X ONCE PO ; Start 03/15/18 at 09:50; Stop at 09:50; Status DC Olanzapine (ZyPREXA ZYDIS) 5 mg 1X ONCE PO ; Start 03/15/18 at 09:45; Stop at 09:52; Status DC Olanzapine (ZyPREXA ZYDIS) 5 mg PRN 1X PRN PO 1HR BEFORE CT &30MIN PRIOR PRN; Start 03/15/18 at 09:50; Stop 03/15/18 at 18:00; Status DC Sertraline HCl (Zoloft) 50 mg DAILY PO Last administered on 03/19/18at 09:27; Start 03/16/18 at 09:00; Stop 03/21/18 at 08:00; Status DC Mirtazapine (Remeron) 15 mg QHS PO Last administered on 04/06/18at 19:31; Start 03/16/18 at 21:00 Sertraline HCl (Zoloft) 75 mg DAILY PO Last administered on 03/30/18at 09:32; Start 03/21/18 at 09:00; Stop 03/30/18 at 18:24; Status DC Divalproex Sodium (Depakote Sprinkles) 125 mg 0900,1300 PO Last administered on 03/26/18at 07:50; Start 03/21/18 at 09:00; Stop 03/26/18 at 10:10; Status DC Quetiapine Fumarate (SEROquel) 12.5 mg BID PO Last administered on 04/06/18at 19 :32; Start 03/20/18 at 21:00 Carbidopa/Levodopa (Sinemet Cr) 1 tab.sa BID PO Last administered on 03/31/18at 08:46; Start 03/23/18 at 21:00; Stop 03/31/18 at 19:35; Status DC Divalproex Sodium (Depakote Sprinkles) 125 mg TID@0900,1300,1700 PO Last administered on 04/04/18at 12:54; Start 03/26/18 at 13:00; Stop 04/04/18 at 19:00 ; Status DC Sertraline HCl (Zoloft) 100 mg DAILY PO Last administered on 04/06/18at 07:52; Start 03/31/18 at 09:00 Docusate Sodium (Colace Solution) 100 mg BID PO Last administered on 04/06/18at 19:31; Start 03/31/18 at 21:00 Buspirone HCl (Buspar) 5 mg BID@0900,1700 PO Last administered on 04/06/18at 16: 31; Start 04/02/18 at 17:00 Rivastigmine (Exelon) 1 patch DAILY TD Last administered on 04/06/18at 07:52; Start 04/04/18 at 09:00; Stop 04/07/18 at 08:59 Rivastigmine (Exelon) 1 patch DAILY TD ; Start 04/07/18 at 09:00; Stop 04/09/18 at 21:00 Rivastigmine (Exelon 13.3mg) 1 patch DAILY TD ; Start 04/10/18 at 09:00 Active Scripts Active Reported Silvadene (Silver Sulfadiazine) 20 Gm Cream..g. 1 Luz Maria TP BID Seroquel (Quetiapine Fumarate) 25 Mg Tablet 25 Mg PO BID@1200,2100 [place] 5-325 Tablet (Hydrocodone Bit/Acetaminophen) 1 Each Tablet 1 Tab PO PRN Q6HRS PRN Naproxen 500 Mg Tablet 500 Mg PO BID I have reviewed the current psychotropics carefully including drug interactions. Risk benefit ratio favors no change other than as noted in my dictated progress note. 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
[2018-04-07] MEDS: QUEtiapine 25 MG TABLET. PO SCH ×2 (08:22→19:14)
[2018-04-07] MEDS: busPIRone 5 MG TABLET. PO SCH ×2 (08:22→16:25)
[2018-04-07] MEDS: DOCUSATE 100 MG/10 ML SOLUTION. PO SCH ×2 (08:22→19:14)
[2018-04-07] MEDS: SERTRALINE 100 MG TABLET. PO SCH (08:22)
[2018-04-07] MEDS: RIVASTIGMINE 9.5MG PATCH. TD SCH (08:29)
[2018-04-07] MEDS: ACETAMINOPHEN 325 MG TABLET PO PRN (16:25)
[2018-04-07] MEDS: MIRTAZAPINE 15 MG TABLET PO SCH (19:14)
[2018-04-07] MEDS: traZODone 50 MG TABLET. PO PRN (19:14)
--- NOTE | 2018-04-07 21:00 | PDOC ---
Exam Note: Lambert Note: Please also refer to the separate dictated note~for this date of service dictated separately.~Patient seen individually. Discussed the patient with Nursing staff reviewed the chart.~Reviewed interim history and current functioning. Reviewed vital signs,~Labs/ Radiology~and current medications noted below. Continue current treatment with the changes noted in the dictated addendum note Assessment: Vital Signs: Vital Signs Date Time Temp Pulse Resp B/P (MAP) Pulse Ox O2 Delivery O2 Flow Rate FiO2 04/06/18 21:48 18 98 04/06/18 16:16 98.6 72 120/78 (92) Room Air I&O Intake and Output 04/07/18 07:00 Intake Total 1680 ml Balance 1680 ml Intake Oral 1680 ml # Bowel Movements 1 Current Medications: Meds: Current Medications Acetaminophen (Tylenol) 650 mg PRN Q6HRS PRN PO PAIN / TEMP Last administered on 04/07/18at 16:25; Start 03/10/18 at 23:00 Multi-Ingredient Ointment (Analgesic [place]) 1 luz maria PRN QID PRN TP MUSCLE PAIN; Start 03/10/18 at 23:00 Al Hydroxide/Mg Hydroxide (Mylanta Plus Xs) 15 ml PRN AFTMEALHC PRN PO DYSPEPSIA; Start 03/10/18 at 23:00 Magnesium Hydroxide (Milk Of Magnesia) 2,400 mg PRN QHS PRN PO CONSTIPATION Last administered on 03/24/18at 18:23; Start 03/10/18 at 23:00 Quetiapine Fumarate (SEROquel) 25 mg BID@1200,2100 PO Last administered on at 12:14; Start 03/11/18 at 12:00; Stop 03/20/18 at 19:07; Status DC Acetaminophen/ Hydrocodone Bitart (Lortab 5/325) 1 tab PRN Q6HRS PRN PO PAIN Last administered on 04/06/18at 20:48; Start 03/10/18 at 23:30 Naproxen (Naprosyn) 500 mg BID PO Last administered on 03/11/18at 19:23; Start 03/11/18 at 09:00; Stop 03/12/18 at 07:42; Status DC Vitamin D (Vitamin D3) 50,000 unit WEEKLY PO Last administered on 04/01/18at 07: 58; Start 03/11/18 at 19:00 Sertraline HCl (Zoloft) 25 mg DAILY PO Last administered on 03/15/18at 08:15; Start 03/12/18 at 09:00; Stop 03/15/18 at 21:28; Status DC Mirtazapine (Remeron) 7.5 mg QHS PO Last administered on 03/15/18at 21:24; Start 03/11/18 at 21:00; Stop 03/16/18 at 20:49; Status DC Olanzapine (ZyPREXA ZYDIS) 2.5 mg PRN Q2HR PRN PO agitation Last administered on 03/14/18at 20:09; Start 03/12/18 at 07:45; Stop 03/14/18 at 22:25; Status DC Naproxen (Naprosyn) 500 mg PRN BID PRN PO PAIN Last administered on 03/21/18at 07 :43; Start 03/12/18 at 07:45 Silver Sulfadiazine (Silvadene) 1 luz maria DAILY TP Last administered on 03/30/18at 09:35; Start 03/12/18 at 21:00; Stop 04/02/18 at 09:30; Status DC Artificial Tears (Artificial Tears) 1 drop PRN Q15MIN PRN OU DRY EYE Last administered on 03/24/18at 08:15; Start 03/13/18 at 20:30 Trazodone HCl (Desyrel) 50 mg PRN QHS PRN PO insomnia Last administered on 04/07at 19:14; Start 03/14/18 at 18:45 Olanzapine (ZyPREXA ZYDIS) 5 mg PRN Q2HR PRN PO agitation Last administered on 04/06/18at 19:34; Start 03/14/18 at 22:30 Olanzapine (ZyPREXA) 2.5 mg 1X ONCE PO ; Start 03/15/18 at 09:15; Stop at 09:48; Status DC Olanzapine (ZyPREXA ZYDIS) 5 mg 1X ONCE PO ; Start 03/15/18 at 09:50; Stop at 09:50; Status DC Olanzapine (ZyPREXA ZYDIS) 5 mg 1X ONCE PO ; Start 03/15/18 at 09:45; Stop at 09:52; Status DC Olanzapine (ZyPREXA ZYDIS) 5 mg PRN 1X PRN PO 1HR BEFORE CT &30MIN PRIOR PRN; Start 03/15/18 at 09:50; Stop 03/15/18 at 18:00; Status DC Sertraline HCl (Zoloft) 50 mg DAILY PO Last administered on 03/19/18at 09:27; Start 03/16/18 at 09:00; Stop 03/21/18 at 08:00; Status DC Mirtazapine (Remeron) 15 mg QHS PO Last administered on 04/07/18at 19:14; Start 03/16/18 at 21:00 Sertraline HCl (Zoloft) 75 mg DAILY PO Last administered on 03/30/18at 09:32; Start 03/21/18 at 09:00; Stop 03/30/18 at 18:24; Status DC Divalproex Sodium (Depakote Sprinkles) 125 mg 0900,1300 PO Last administered on 03/26/18at 07:50; Start 03/21/18 at 09:00; Stop 03/26/18 at 10:10; Status DC Quetiapine Fumarate (SEROquel) 12.5 mg BID PO Last administered on 04/07/18at 19 :14; Start 03/20/18 at 21:00 Carbidopa/Levodopa (Sinemet Cr) 1 tab.sa BID PO Last administered on 03/31/18at 08:46; Start 03/23/18 at 21:00; Stop 03/31/18 at 19:35; Status DC Divalproex Sodium (Depakote Sprinkles) 125 mg TID@0900,1300,1700 PO Last administered on 04/04/18at 12:54; Start 03/26/18 at 13:00; Stop 04/04/18 at 19:00 ; Status DC Sertraline HCl (Zoloft) 100 mg DAILY PO Last administered on 04/07/18at 08:22; Start 03/31/18 at 09:00 Docusate Sodium (Colace Solution) 100 mg BID PO Last administered on 04/07/18at 19:14; Start 03/31/18 at 21:00 Buspirone HCl (Buspar) 5 mg BID@0900,1700 PO Last administered on 04/07/18at 16: 25; Start 04/02/18 at 17:00 Rivastigmine (Exelon) 1 patch DAILY TD Last administered on 04/06/18at 07:52; Start 04/04/18 at 09:00; Stop 04/07/18 at 08:59; Status DC Rivastigmine (Exelon) 1 patch DAILY TD Last administered on 04/07/18at 08:29; Start 04/07/18 at 09:00; Stop 04/09/18 at 21:00 Rivastigmine (Exelon 13.3mg) 1 patch DAILY TD ; Start 04/10/18 at 09:00 Active Scripts Active Reported Silvadene (Silver Sulfadiazine) 20 Gm Cream..g. 1 Luz Maria TP BID Seroquel (Quetiapine Fumarate) 25 Mg Tablet 25 Mg PO BID@1200,2100 [place] 5-325 Tablet (Hydrocodone Bit/Acetaminophen) 1 Each Tablet 1 Tab PO PRN Q6HRS PRN Naproxen 500 Mg Tablet 500 Mg PO BID I have reviewed the current psychotropics carefully including drug interactions. Risk benefit ratio favors no change other than as noted in my dictated progress note. 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
[2018-04-08 06:02] VITALS: BP 101/66
[2018-04-08] MEDS: CHOLECALCIFEROL (VITAMIN D3) 50,000 UNIT CAPSULE PO SCH (08:56)
[2018-04-08] MEDS: busPIRone 5 MG TABLET. PO SCH ×2 (08:56→17:05)
[2018-04-08] MEDS: DOCUSATE 100 MG/10 ML SOLUTION. PO SCH ×2 (08:56→19:14)
[2018-04-08] MEDS: RIVASTIGMINE 9.5MG PATCH. TD SCH (08:56)
[2018-04-08] MEDS: SERTRALINE 100 MG TABLET. PO SCH (08:56)
[2018-04-08] MEDS: QUEtiapine 25 MG TABLET. PO SCH ×2 (08:56→19:14)
--- NOTE | 2018-04-08 09:56 | PN ---
DATE: 04/06/2018 This is a late entry, 04/06/2018, covers the elements not covered in my initial note, 04/06/2018. SUBJECTIVE: I met with the patient in the evening and also with his sister who was visiting him. Sister stated this was the best she has seen him in quite some time. The nursing staff report that this was the best morning that he has had ever since he has been hospitalized. Appetite is better. He was eating pizza that his sister had brought him and a smoothie that she brought for him from outside. At one point, he was agitated with a new patient, who had arrived on the unit in the morning and this other patient was extremely disruptive and therefore, the patient's response was understandable. He slept 7-3/4 hours previous evening. REVIEW OF SYSTEMS: No CV, , pulmonary, eye, ENT system symptoms on review. MENTAL STATUS EXAM: Oriented to self. Insight, judgment, recent and remote memory, attention, concentration, fund of knowledge poor, consistent with his diagnosis. 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 Rest unchanged. PLAN: The patient has been started on Exelon patch and we will gradually increase it to 13.3 mg a day. Continue rest unchanged. Depakote has been stopped. MAN Janie NAIR MD DR: ANGELINA/gallito JOB#: [id number] / [id number]
--- NOTE | 2018-04-08 13:43 | PN ---
DATE: 04/07/2018 This is a late entry for 04/07/2018 and covers elements not covered in my initial note. SUBJECTIVE: I met with the patient in the evening of 04/07/2018. I also met with the patient's sister who was visiting him. He had brought him a meal from outside, which he was eating quite readily. This patient slept 5-1/4 hours, was somewhat agitated around 11:00 a.m., kicking doors, had to be placed in the West hallway away from all stimulation and then he seemed to settle down per nursing report. REVIEW OF SYSTEMS: No CV, , pulmonary, eye, ENT system symptoms on review. Reliability poor. MENTAL STATUS EXAM: Oriented to himself. Eye contact is poor. Insight, judgment, recent and remote memory, attention, concentration, fund of knowledge poor, consistent with his diagnosis mentioned in my initial note. 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 Rest unchanged. PLAN: Continue current psychotropics from initial note. MAN Janie NAIR MD DR: ANGELINA/gallito JOB#: [id number] / [id number]
[2018-04-08 17:07] VITALS: BP 124/67
[2018-04-08] MEDS: traZODone 50 MG TABLET. PO PRN (19:13)
[2018-04-08] MEDS: MIRTAZAPINE 15 MG TABLET PO SCH (19:14)
--- NOTE | 2018-04-08 20:49 | PDOC ---
Exam Note: Lambert Note: Please also refer to the separate dictated note~for this date of service dictated separately.~Patient seen individually. Discussed the patient with Nursing staff reviewed the chart.~Reviewed interim history and current functioning. Reviewed vital signs,~Labs/ Radiology~and current medications noted below. Continue current treatment with the changes noted in the dictated addendum note Assessment: Vital Signs: Vital Signs Date Time Temp Pulse Resp B/P (MAP) Pulse Ox O2 Delivery O2 Flow Rate FiO2 04/08/18 17:07 98.4 53 20 124/67 (86) 100 04/06/18 16:16 Room Air I&O Intake and Output 04/08/18 07:00 Intake Total 1200 ml Balance 1200 ml Intake Oral 1200 ml # Voids 2 # Bowel Movements 1 Current Medications: Meds: Current Medications Acetaminophen (Tylenol) 650 mg PRN Q6HRS PRN PO PAIN / TEMP Last administered on 04/07/18at 16:25; Start 03/10/18 at 23:00 Multi-Ingredient Ointment (Analgesic [place]) 1 luz maria PRN QID PRN TP MUSCLE PAIN; Start 03/10/18 at 23:00 Al Hydroxide/Mg Hydroxide (Mylanta Plus Xs) 15 ml PRN AFTMEALHC PRN PO DYSPEPSIA; Start 03/10/18 at 23:00 Magnesium Hydroxide (Milk Of Magnesia) 2,400 mg PRN QHS PRN PO CONSTIPATION Last administered on 03/24/18at 18:23; Start 03/10/18 at 23:00 Quetiapine Fumarate (SEROquel) 25 mg BID@1200,2100 PO Last administered on at 12:14; Start 03/11/18 at 12:00; Stop 03/20/18 at 19:07; Status DC Acetaminophen/ Hydrocodone Bitart (Lortab 5/325) 1 tab PRN Q6HRS PRN PO PAIN Last administered on 04/06/18at 20:48; Start 03/10/18 at 23:30 Naproxen (Naprosyn) 500 mg BID PO Last administered on 03/11/18at 19:23; Start 03/11/18 at 09:00; Stop 03/12/18 at 07:42; Status DC Vitamin D (Vitamin D3) 50,000 unit WEEKLY PO Last administered on 04/08/18at 08: 56; Start 03/11/18 at 19:00 Sertraline HCl (Zoloft) 25 mg DAILY PO Last administered on 03/15/18at 08:15; Start 03/12/18 at 09:00; Stop 03/15/18 at 21:28; Status DC Mirtazapine (Remeron) 7.5 mg QHS PO Last administered on 03/15/18at 21:24; Start 03/11/18 at 21:00; Stop 03/16/18 at 20:49; Status DC Olanzapine (ZyPREXA ZYDIS) 2.5 mg PRN Q2HR PRN PO agitation Last administered on 03/14/18at 20:09; Start 03/12/18 at 07:45; Stop 03/14/18 at 22:25; Status DC Naproxen (Naprosyn) 500 mg PRN BID PRN PO PAIN Last administered on 03/21/18at 07 :43; Start 03/12/18 at 07:45 Silver Sulfadiazine (Silvadene) 1 luz maria DAILY TP Last administered on 03/30/18at 09:35; Start 03/12/18 at 21:00; Stop 04/02/18 at 09:30; Status DC Artificial Tears (Artificial Tears) 1 drop PRN Q15MIN PRN OU DRY EYE Last administered on 03/24/18at 08:15; Start 03/13/18 at 20:30 Trazodone HCl (Desyrel) 50 mg PRN QHS PRN PO insomnia Last administered on 04/08at 19:13; Start 03/14/18 at 18:45 Olanzapine (ZyPREXA ZYDIS) 5 mg PRN Q2HR PRN PO agitation Last administered on 04/06/18at 19:34; Start 03/14/18 at 22:30 Olanzapine (ZyPREXA) 2.5 mg 1X ONCE PO ; Start 03/15/18 at 09:15; Stop at 09:48; Status DC Olanzapine (ZyPREXA ZYDIS) 5 mg 1X ONCE PO ; Start 03/15/18 at 09:50; Stop at 09:50; Status DC Olanzapine (ZyPREXA ZYDIS) 5 mg 1X ONCE PO ; Start 03/15/18 at 09:45; Stop at 09:52; Status DC Olanzapine (ZyPREXA ZYDIS) 5 mg PRN 1X PRN PO 1HR BEFORE CT &30MIN PRIOR PRN; Start 03/15/18 at 09:50; Stop 03/15/18 at 18:00; Status DC Sertraline HCl (Zoloft) 50 mg DAILY PO Last administered on 03/19/18at 09:27; Start 03/16/18 at 09:00; Stop 03/21/18 at 08:00; Status DC Mirtazapine (Remeron) 15 mg QHS PO Last administered on 04/08/18at 19:14; Start 03/16/18 at 21:00 Sertraline HCl (Zoloft) 75 mg DAILY PO Last administered on 03/30/18at 09:32; Start 03/21/18 at 09:00; Stop 03/30/18 at 18:24; Status DC Divalproex Sodium (Depakote Sprinkles) 125 mg 0900,1300 PO Last administered on 03/26/18at 07:50; Start 03/21/18 at 09:00; Stop 03/26/18 at 10:10; Status DC Quetiapine Fumarate (SEROquel) 12.5 mg BID PO Last administered on 04/08/18at 19 :14; Start 03/20/18 at 21:00 Carbidopa/Levodopa (Sinemet Cr) 1 tab.sa BID PO Last administered on 03/31/18at 08:46; Start 03/23/18 at 21:00; Stop 03/31/18 at 19:35; Status DC Divalproex Sodium (Depakote Sprinkles) 125 mg TID@0900,1300,1700 PO Last administered on 04/04/18at 12:54; Start 03/26/18 at 13:00; Stop 04/04/18 at 19:00 ; Status DC Sertraline HCl (Zoloft) 100 mg DAILY PO Last administered on 04/08/18at 08:56; Start 03/31/18 at 09:00 Docusate Sodium (Colace Solution) 100 mg BID PO Last administered on 04/08/18at 19:14; Start 03/31/18 at 21:00 Buspirone HCl (Buspar) 5 mg BID@0900,1700 PO Last administered on 04/08/18at 17: 05; Start 04/02/18 at 17:00 Rivastigmine (Exelon) 1 patch DAILY TD Last administered on 04/06/18at 07:52; Start 04/04/18 at 09:00; Stop 04/07/18 at 08:59; Status DC Rivastigmine (Exelon) 1 patch DAILY TD Last administered on 04/08/18at 08:56; Start 04/07/18 at 09:00; Stop 04/09/18 at 21:00 Rivastigmine (Exelon 13.3mg) 1 patch DAILY TD ; Start 04/10/18 at 09:00 Active Scripts Active Reported Silvadene (Silver Sulfadiazine) 20 Gm Cream..g. 1 Luz Maria TP BID Seroquel (Quetiapine Fumarate) 25 Mg Tablet 25 Mg PO BID@1200,2100 [place] 5-325 Tablet (Hydrocodone Bit/Acetaminophen) 1 Each Tablet 1 Tab PO PRN Q6HRS PRN Naproxen 500 Mg Tablet 500 Mg PO BID I have reviewed the current psychotropics carefully including drug interactions. Risk benefit ratio favors no change other than as noted in my dictated progress note. 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
[2018-04-09] MEDS: SERTRALINE 100 MG TABLET. PO SCH (10:09)
[2018-04-09] MEDS: QUEtiapine 25 MG TABLET. PO SCH ×2 (10:09→19:42)
[2018-04-09] MEDS: busPIRone 5 MG TABLET. PO SCH ×2 (10:09→17:16)
[2018-04-09] MEDS: DOCUSATE 100 MG/10 ML SOLUTION. PO SCH ×2 (10:10→19:42)
[2018-04-09] MEDS: RIVASTIGMINE 9.5MG PATCH. TD SCH (10:10)
[2018-04-09 16:04] VITALS: BP 111/80
--- NOTE | 2018-04-09 19:07 | PN ---
DATE: 04/08/2018 PSYCHIATRIC PROGRESS NOTE This late entry 04/08/2018 covers elements not covered in my initial note. SUBJECTIVE: Met with the patient in the evening and also with his sister, would brought him in supper and staffed at a treatment team meeting with the entire team in the morning. Appetite 70%, sleeping averaged 5-3/4 hours, slept 7 hours previous evening, irritable at times with a couple of other patients did well with a certain staff member, gently having a better day. He had a nap and had a spell of crying after that, then seemed to have had a bad dream and then was much better. REVIEW OF SYSTEMS: No CV, , pulmonary, eye, ENT system symptoms on review. Reliability poor. MENTAL STATUS EXAM: Oriented to himself. Insight, judgment, recent and remote memory, attention, concentration, fund of knowledge is poor, consistent with his diagnoses mentioned in my initial note. 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 PLAN: Continue psychotropics from initial note, may need to increase BuSpar for anxiety, but for now continue psychotropics from initial note including the Exelon patch, which is being increased. COLE NAIR MD DR: ANGELINA/gallito JOB#: [id number] / [id number]
[2018-04-09] MEDS: MIRTAZAPINE 15 MG TABLET PO SCH (19:42)
[2018-04-09] MEDS: traZODone 50 MG TABLET. PO PRN (19:44)
--- NOTE | 2018-04-09 20:47 | PDOC ---
Exam Note: Lambert Note: Please also refer to the separate dictated note~for this date of service dictated separately.~Patient seen individually. Discussed the patient with Nursing staff reviewed the chart.~Reviewed interim history and current functioning. Reviewed vital signs,~Labs/ Radiology~and current medications noted below. Continue current treatment with the changes noted in the dictated addendum note Assessment: Vital Signs: Vital Signs Date Time Temp Pulse Resp B/P (MAP) Pulse Ox O2 Delivery O2 Flow Rate FiO2 04/09/18 16:04 97.5 74 20 111/80 (90) 99 04/06/18 16:16 Room Air I&O Intake and Output 04/09/18 07:00 Intake Total 840 ml Balance 840 ml Intake Oral 840 ml # Bowel Movements 1 Current Medications: Meds: Current Medications Acetaminophen (Tylenol) 650 mg PRN Q6HRS PRN PO PAIN / TEMP Last administered on 04/07/18at 16:25; Start 03/10/18 at 23:00 Multi-Ingredient Ointment (Analgesic [place]) 1 luz maria PRN QID PRN TP MUSCLE PAIN; Start 03/10/18 at 23:00 Al Hydroxide/Mg Hydroxide (Mylanta Plus Xs) 15 ml PRN AFTMEALHC PRN PO DYSPEPSIA; Start 03/10/18 at 23:00 Magnesium Hydroxide (Milk Of Magnesia) 2,400 mg PRN QHS PRN PO CONSTIPATION Last administered on 03/24/18at 18:23; Start 03/10/18 at 23:00 Quetiapine Fumarate (SEROquel) 25 mg BID@1200,2100 PO Last administered on at 12:14; Start 03/11/18 at 12:00; Stop 03/20/18 at 19:07; Status DC Acetaminophen/ Hydrocodone Bitart (Lortab 5/325) 1 tab PRN Q6HRS PRN PO PAIN Last administered on 04/06/18at 20:48; Start 03/10/18 at 23:30 Naproxen (Naprosyn) 500 mg BID PO Last administered on 03/11/18at 19:23; Start 03/11/18 at 09:00; Stop 03/12/18 at 07:42; Status DC Vitamin D (Vitamin D3) 50,000 unit WEEKLY PO Last administered on 04/08/18at 08: 56; Start 03/11/18 at 19:00 Sertraline HCl (Zoloft) 25 mg DAILY PO Last administered on 03/15/18at 08:15; Start 03/12/18 at 09:00; Stop 03/15/18 at 21:28; Status DC Mirtazapine (Remeron) 7.5 mg QHS PO Last administered on 03/15/18at 21:24; Start 03/11/18 at 21:00; Stop 03/16/18 at 20:49; Status DC Olanzapine (ZyPREXA ZYDIS) 2.5 mg PRN Q2HR PRN PO agitation Last administered on 03/14/18at 20:09; Start 03/12/18 at 07:45; Stop 03/14/18 at 22:25; Status DC Naproxen (Naprosyn) 500 mg PRN BID PRN PO PAIN Last administered on 03/21/18at 07 :43; Start 03/12/18 at 07:45 Silver Sulfadiazine (Silvadene) 1 luz maria DAILY TP Last administered on 03/30/18at 09:35; Start 03/12/18 at 21:00; Stop 04/02/18 at 09:30; Status DC Artificial Tears (Artificial Tears) 1 drop PRN Q15MIN PRN OU DRY EYE Last administered on 03/24/18at 08:15; Start 03/13/18 at 20:30 Trazodone HCl (Desyrel) 50 mg PRN QHS PRN PO insomnia Last administered on 04/09at 19:44; Start 03/14/18 at 18:45 Olanzapine (ZyPREXA ZYDIS) 5 mg PRN Q2HR PRN PO agitation Last administered on 04/09/18at 19:48; Start 03/14/18 at 22:30 Olanzapine (ZyPREXA) 2.5 mg 1X ONCE PO ; Start 03/15/18 at 09:15; Stop at 09:48; Status DC Olanzapine (ZyPREXA ZYDIS) 5 mg 1X ONCE PO ; Start 03/15/18 at 09:50; Stop at 09:50; Status DC Olanzapine (ZyPREXA ZYDIS) 5 mg 1X ONCE PO ; Start 03/15/18 at 09:45; Stop at 09:52; Status DC Olanzapine (ZyPREXA ZYDIS) 5 mg PRN 1X PRN PO 1HR BEFORE CT &30MIN PRIOR PRN; Start 03/15/18 at 09:50; Stop 03/15/18 at 18:00; Status DC Sertraline HCl (Zoloft) 50 mg DAILY PO Last administered on 03/19/18at 09:27; Start 03/16/18 at 09:00; Stop 03/21/18 at 08:00; Status DC Mirtazapine (Remeron) 15 mg QHS PO Last administered on 04/09/18at 19:42; Start 03/16/18 at 21:00 Sertraline HCl (Zoloft) 75 mg DAILY PO Last administered on 03/30/18at 09:32; Start 03/21/18 at 09:00; Stop 03/30/18 at 18:24; Status DC Divalproex Sodium (Depakote Sprinkles) 125 mg 0900,1300 PO Last administered on 03/26/18at 07:50; Start 03/21/18 at 09:00; Stop 03/26/18 at 10:10; Status DC Quetiapine Fumarate (SEROquel) 12.5 mg BID PO Last administered on 04/09/18at 19 :42; Start 03/20/18 at 21:00 Carbidopa/Levodopa (Sinemet Cr) 1 tab.sa BID PO Last administered on 03/31/18at 08:46; Start 03/23/18 at 21:00; Stop 03/31/18 at 19:35; Status DC Divalproex Sodium (Depakote Sprinkles) 125 mg TID@0900,1300,1700 PO Last administered on 04/04/18at 12:54; Start 03/26/18 at 13:00; Stop 04/04/18 at 19:00 ; Status DC Sertraline HCl (Zoloft) 100 mg DAILY PO Last administered on 04/09/18at 10:09; Start 03/31/18 at 09:00 Docusate Sodium (Colace Solution) 100 mg BID PO Last administered on 04/09/18at 19:42; Start 03/31/18 at 21:00 Buspirone HCl (Buspar) 5 mg BID@0900,1700 PO Last administered on 04/09/18at 17: 16; Start 04/02/18 at 17:00 Rivastigmine (Exelon) 1 patch DAILY TD Last administered on 04/06/18at 07:52; Start 04/04/18 at 09:00; Stop 04/07/18 at 08:59; Status DC Rivastigmine (Exelon) 1 patch DAILY TD Last administered on 04/09/18at 10:10; Start 04/07/18 at 09:00; Stop 04/09/18 at 21:00 Rivastigmine (Exelon 13.3mg) 1 patch DAILY TD ; Start 04/10/18 at 09:00 Active Scripts Active Reported Silvadene (Silver Sulfadiazine) 20 Gm Cream..g. 1 Luz Maria TP BID Seroquel (Quetiapine Fumarate) 25 Mg Tablet 25 Mg PO BID@1200,2100 [place] 5-325 Tablet (Hydrocodone Bit/Acetaminophen) 1 Each Tablet 1 Tab PO PRN Q6HRS PRN Naproxen 500 Mg Tablet 500 Mg PO BID I have reviewed the current psychotropics carefully including drug interactions. Risk benefit ratio favors no change other than as noted in my dictated progress note. 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
[2018-04-10] MEDS: busPIRone 5 MG TABLET. PO SCH ×2 (07:50→17:23)
[2018-04-10] MEDS: SERTRALINE 100 MG TABLET. PO SCH (07:50)
[2018-04-10] MEDS: DOCUSATE 100 MG/10 ML SOLUTION. PO SCH ×2 (07:50→19:03)
[2018-04-10] MEDS: QUEtiapine 25 MG TABLET. PO SCH ×2 (07:51→19:03)
[2018-04-10] MEDS: RIVASTIGMINE 13.3MG PATCH. TD SCH (07:52)
[2018-04-10 16:08] VITALS: BP 108/64
[2018-04-10] MEDS: MIRTAZAPINE 15 MG TABLET PO SCH (19:03)
[2018-04-10] MEDS: traZODone 50 MG TABLET. PO PRN (19:03)
--- NOTE | 2018-04-10 20:48 | PDOC ---
Exam Note: Lambert Note: Please also refer to the separate dictated note~for this date of service dictated separately.~Patient seen individually. Discussed the patient with Nursing staff reviewed the chart.~Reviewed interim history and current functioning. Reviewed vital signs,~Labs/ Radiology~and current medications noted below. Continue current treatment with the changes noted in the dictated addendum note Assessment: Vital Signs: Vital Signs Date Time Temp Pulse Resp B/P (MAP) Pulse Ox O2 Delivery O2 Flow Rate FiO2 04/10/18 16:08 97.8 64 18 108/64 (79) 96 04/06/18 16:16 Room Air I&O Intake and Output 04/10/18 07:00 Intake Total 1080 ml Balance 1080 ml Intake Oral 1080 ml Current Medications: Meds: Current Medications Acetaminophen (Tylenol) 650 mg PRN Q6HRS PRN PO PAIN / TEMP Last administered on 04/07/18at 16:25; Start 03/10/18 at 23:00 Multi-Ingredient Ointment (Analgesic [place]) 1 luz maria PRN QID PRN TP MUSCLE PAIN; Start 03/10/18 at 23:00 Al Hydroxide/Mg Hydroxide (Mylanta Plus Xs) 15 ml PRN AFTMEALHC PRN PO DYSPEPSIA; Start 03/10/18 at 23:00 Magnesium Hydroxide (Milk Of Magnesia) 2,400 mg PRN QHS PRN PO CONSTIPATION Last administered on 03/24/18at 18:23; Start 03/10/18 at 23:00 Quetiapine Fumarate (SEROquel) 25 mg BID@1200,2100 PO Last administered on at 12:14; Start 03/11/18 at 12:00; Stop 03/20/18 at 19:07; Status DC Acetaminophen/ Hydrocodone Bitart (Lortab 5/325) 1 tab PRN Q6HRS PRN PO PAIN Last administered on 04/06/18at 20:48; Start 03/10/18 at 23:30 Naproxen (Naprosyn) 500 mg BID PO Last administered on 03/11/18at 19:23; Start 03/11/18 at 09:00; Stop 03/12/18 at 07:42; Status DC Vitamin D (Vitamin D3) 50,000 unit WEEKLY PO Last administered on 04/08/18at 08: 56; Start 03/11/18 at 19:00 Sertraline HCl (Zoloft) 25 mg DAILY PO Last administered on 03/15/18at 08:15; Start 03/12/18 at 09:00; Stop 03/15/18 at 21:28; Status DC Mirtazapine (Remeron) 7.5 mg QHS PO Last administered on 03/15/18at 21:24; Start 03/11/18 at 21:00; Stop 03/16/18 at 20:49; Status DC Olanzapine (ZyPREXA ZYDIS) 2.5 mg PRN Q2HR PRN PO agitation Last administered on 03/14/18at 20:09; Start 03/12/18 at 07:45; Stop 03/14/18 at 22:25; Status DC Naproxen (Naprosyn) 500 mg PRN BID PRN PO PAIN Last administered on 03/21/18at 07 :43; Start 03/12/18 at 07:45 Silver Sulfadiazine (Silvadene) 1 luz maria DAILY TP Last administered on 03/30/18at 09:35; Start 03/12/18 at 21:00; Stop 04/02/18 at 09:30; Status DC Artificial Tears (Artificial Tears) 1 drop PRN Q15MIN PRN OU DRY EYE Last administered on 03/24/18at 08:15; Start 03/13/18 at 20:30 Trazodone HCl (Desyrel) 50 mg PRN QHS PRN PO insomnia Last administered on 04/10at 19:03; Start 03/14/18 at 18:45 Olanzapine (ZyPREXA ZYDIS) 5 mg PRN Q2HR PRN PO agitation Last administered on 04/10/18at 05:40; Start 03/14/18 at 22:30 Olanzapine (ZyPREXA) 2.5 mg 1X ONCE PO ; Start 03/15/18 at 09:15; Stop at 09:48; Status DC Olanzapine (ZyPREXA ZYDIS) 5 mg 1X ONCE PO ; Start 03/15/18 at 09:50; Stop at 09:50; Status DC Olanzapine (ZyPREXA ZYDIS) 5 mg 1X ONCE PO ; Start 03/15/18 at 09:45; Stop 5/ 27/18 at 09:52; Status DC Olanzapine (ZyPREXA ZYDIS) 5 mg PRN 1X PRN PO 1HR BEFORE CT &30MIN PRIOR PRN; Start 03/15/18 at 09:50; Stop 03/15/18 at 18:00; Status DC Sertraline HCl (Zoloft) 50 mg DAILY PO Last administered on 03/19/18at 09:27; Start 03/16/18 at 09:00; Stop 03/21/18 at 08:00; Status DC Mirtazapine (Remeron) 15 mg QHS PO Last administered on 04/10/18at 19:03; Start 03/16/18 at 21:00 Sertraline HCl (Zoloft) 75 mg DAILY PO Last administered on 03/30/18at 09:32; Start 03/21/18 at 09:00; Stop 03/30/18 at 18:24; Status DC Divalproex Sodium (Depakote Sprinkles) 125 mg 0900,1300 PO Last administered on 03/26/18at 07:50; Start 03/21/18 at 09:00; Stop 03/26/18 at 10:10; Status DC Quetiapine Fumarate (SEROquel) 12.5 mg BID PO Last administered on 04/10/18 19 :03; Start 03/20/18 at 21:00 Carbidopa/Levodopa (Sinemet Cr) 1 tab.sa BID PO Last administered on 03/31/18at 08:46; Start 03/23/18 at 21:00; Stop 03/31/18 at 19:35; Status DC Divalproex Sodium (Depakote Sprinkles) 125 mg TID@0900,1300,1700 PO Last administered on 04/04/18at 12:54; Start 03/26/18 at 13:00; Stop 04/04/18 at 19:00 ; Status DC Sertraline HCl (Zoloft) 100 mg DAILY PO Last administered on 04/10/18at 07:50; Start 03/31/18 at 09:00 Docusate Sodium (Colace Solution) 100 mg BID PO Last administered on 04/10/18at 19:03; Start 03/31/18 at 21:00 Buspirone HCl (Buspar) 5 mg BID@0900,1700 PO Last administered on 6/22/18at 17: 23; Start 04/02/18 at 17:00 Rivastigmine (Exelon) 1 patch DAILY TD Last administered on 04/06/18at 07:52; Start 04/04/18 at 09:00; Stop 04/07/18 at 08:59; Status DC Rivastigmine (Exelon) 1 patch DAILY TD Last administered on 04/09/18at 10:10; Start 04/07/18 at 09:00; Stop 04/09/18 at 21:00; Status DC Rivastigmine (Exelon 13.3mg) 1 patch DAILY TD Last administered on 04/10/18at 07 :52; Start 04/10/18 at 09:00 Active Scripts Active Reported Silvadene (Silver Sulfadiazine) 20 Gm Cream..g. 1 Luz Maria TP BID Seroquel (Quetiapine Fumarate) 25 Mg Tablet 25 Mg PO BID@1200,2100 [place] 5-325 Tablet (Hydrocodone Bit/Acetaminophen) 1 Each Tablet 1 Tab PO PRN Q6HRS PRN Naproxen 500 Mg Tablet 500 Mg PO BID I have reviewed the current psychotropics carefully including drug interactions. Risk benefit ratio favors no change other than as noted in my dictated progress note. 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
--- NOTE | 2018-04-11 01:10 | PN ---
DATE: 04/09/2018 PSYCHIATRIC PROGRESS NOTE This is a late entry, 04/09/2018, covers the elements not covered in my initial note. SUBJECTIVE: The patient slept 8 hours previous evening, has been somewhat labile. Earlier in the day, he was hitting his head on the door, took his medications whole. I met with the patient's sister who brought him [place] for dinner. She remarked on him being somewhat tired and sedated. REVIEW OF SYSTEMS: No CV, , pulmonary, eye, ENT system symptoms on review. Reliability poor. MENTAL STATUS EXAM: Oriented to himself. Insight, judgment, recent and remote memory, attention, concentration, fund of knowledge poor, consistent with his diagnosis. 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 Rest unchanged. PLAN: Continue psychotropics from initial note. May consider increasing BuSpar in due course. MAN Janie NAIR MD DR: ANGELINA/gallito JOB#: [id number] / [id number]
[2018-04-11] MEDS: RIVASTIGMINE 13.3MG PATCH. TD SCH (07:31)
[2018-04-11] MEDS: QUEtiapine 25 MG TABLET. PO SCH ×2 (07:32→23:50)
[2018-04-11] MEDS: busPIRone 5 MG TABLET. PO SCH ×2 (07:32→16:58)
[2018-04-11] MEDS: SERTRALINE 100 MG TABLET. PO SCH (07:33)
[2018-04-11] MEDS: DOCUSATE 100 MG/10 ML SOLUTION. PO SCH ×2 (07:33→23:50)
--- NOTE | 2018-04-11 22:46 | PDOC ---
Exam Note: Lambert Note: Please also refer to the separate dictated note~for this date of service dictated separately.~Patient seen individually. Discussed the patient with Nursing staff reviewed the chart.~Reviewed interim history and current functioning. Reviewed vital signs,~Labs/ Radiology~and current medications noted below. Continue current treatment with the changes noted in the dictated addendum note Assessment: Vital Signs: Vital Signs Date Time Temp Pulse Resp B/P (MAP) Pulse Ox O2 Delivery O2 Flow Rate FiO2 04/10/18 16:08 97.8 64 18 108/64 (79) 96 04/06/18 16:16 Room Air I&O Intake and Output 04/11/18 07:00 Intake Total 1560 ml Balance 1560 ml Intake Oral 1560 ml Current Medications: Meds: Current Medications Acetaminophen (Tylenol) 650 mg PRN Q6HRS PRN PO PAIN / TEMP Last administered on 04/07/18at 16:25; Start 03/10/18 at 23:00 Multi-Ingredient Ointment (Analgesic [place]) 1 luz maria PRN QID PRN TP MUSCLE PAIN; Start 03/10/18 at 23:00 Al Hydroxide/Mg Hydroxide (Mylanta Plus Xs) 15 ml PRN AFTMEALHC PRN PO DYSPEPSIA; Start 03/10/18 at 23:00 Magnesium Hydroxide (Milk Of Magnesia) 2,400 mg PRN QHS PRN PO CONSTIPATION Last administered on 03/24/18at 18:23; Start 03/10/18 at 23:00 Quetiapine Fumarate (SEROquel) 25 mg BID@1200,2100 PO Last administered on at 12:14; Start 03/11/18 at 12:00; Stop 03/20/18 at 19:07; Status DC Acetaminophen/ Hydrocodone Bitart (Lortab 5/325) 1 tab PRN Q6HRS PRN PO PAIN Last administered on 04/06/18at 20:48; Start 03/10/18 at 23:30 Naproxen (Naprosyn) 500 mg BID PO Last administered on 03/11/18at 19:23; Start 03/11/18 at 09:00; Stop 03/12/18 at 07:42; Status DC Vitamin D (Vitamin D3) 50,000 unit WEEKLY PO Last administered on 04/08/18at 08: 56; Start 03/11/18 at 19:00 Sertraline HCl (Zoloft) 25 mg DAILY PO Last administered on 03/15/18at 08:15; Start 03/12/18 at 09:00; Stop 03/15/18 at 21:28; Status DC Mirtazapine (Remeron) 7.5 mg QHS PO Last administered on 03/15/18at 21:24; Start 03/11/18 at 21:00; Stop 03/16/18 at 20:49; Status DC Olanzapine (ZyPREXA ZYDIS) 2.5 mg PRN Q2HR PRN PO agitation Last administered on 03/14/18at 20:09; Start 03/12/18 at 07:45; Stop 03/14/18 at 22:25; Status DC Naproxen (Naprosyn) 500 mg PRN BID PRN PO PAIN Last administered on 03/21/18at 07 :43; Start 03/12/18 at 07:45 Silver Sulfadiazine (Silvadene) 1 luz maria DAILY TP Last administered on 03/30/18at 09:35; Start 03/12/18 at 21:00; Stop 04/02/18 at 09:30; Status DC Artificial Tears (Artificial Tears) 1 drop PRN Q15MIN PRN OU DRY EYE Last administered on 03/24/18at 08:15; Start 03/13/18 at 20:30 Trazodone HCl (Desyrel) 50 mg PRN QHS PRN PO insomnia Last administered on 04/10at 19:03; Start 03/14/18 at 18:45 Olanzapine (ZyPREXA ZYDIS) 5 mg PRN Q2HR PRN PO agitation Last administered on 04/11/18at 13:11; Start 03/14/18 at 22:30 Olanzapine (ZyPREXA) 2.5 mg 1X ONCE PO ; Start 03/15/18 at 09:15; Stop at 09:48; Status DC Olanzapine (ZyPREXA ZYDIS) 5 mg 1X ONCE PO ; Start 03/15/18 at 09:50; Stop at 09:50; Status DC Olanzapine (ZyPREXA ZYDIS) 5 mg 1X ONCE PO ; Start 03/15/18 at 09:45; Stop at 09:52; Status DC Olanzapine (ZyPREXA ZYDIS) 5 mg PRN 1X PRN PO 1HR BEFORE CT &30MIN PRIOR PRN; Start 03/15/18 at 09:50; Stop 03/15/18 at 18:00; Status DC Sertraline HCl (Zoloft) 50 mg DAILY PO Last administered on 03/19/18at 09:27; Start 03/16/18 at 09:00; Stop 03/21/18 at 08:00; Status DC Mirtazapine (Remeron) 15 mg QHS PO Last administered on 04/10/18at 19:03; Start 03/16/18 at 21:00 Sertraline HCl (Zoloft) 75 mg DAILY PO Last administered on 03/30/18at 09:32; Start 03/21/18 at 09:00; Stop 03/30/18 at 18:24; Status DC Divalproex Sodium (Depakote Sprinkles) 125 mg 0900,1300 PO Last administered on 03/26/18at 07:50; Start 03/21/18 at 09:00; Stop 03/26/18 at 10:10; Status DC Quetiapine Fumarate (SEROquel) 12.5 mg BID PO Last administered on 04/11/18at 07 :32; Start 03/20/18 at 21:00 Carbidopa/Levodopa (Sinemet Cr) 1 tab.sa BID PO Last administered on 03/31/18at 08:46; Start 03/23/18 at 21:00; Stop 03/31/18 at 19:35; Status DC Divalproex Sodium (Depakote Sprinkles) 125 mg TID@0900,1300,1700 PO Last administered on 04/04/18at 12:54; Start 03/26/18 at 13:00; Stop 04/04/18 at 19:00 ; Status DC Sertraline HCl (Zoloft) 100 mg DAILY PO Last administered on 04/11/18at 07:33; Start 03/31/18 at 09:00 Docusate Sodium (Colace Solution) 100 mg BID PO Last administered on 04/11/18at 07:33; Start 03/31/18 at 21:00 Buspirone HCl (Buspar) 5 mg BID@0900,1700 PO Last administered on 04/11/18at 16: 58; Start 04/02/18 at 17:00 Rivastigmine (Exelon) 1 patch DAILY TD Last administered on 04/06/18at 07:52; Start 04/04/18 at 09:00; Stop 04/07/18 at 08:59; Status DC Rivastigmine (Exelon) 1 patch DAILY TD Last administered on 04/09/18at 10:10; Start 04/07/18 at 09:00; Stop 04/09/18 at 21:00; Status DC Rivastigmine (Exelon 13.3mg) 1 patch DAILY TD Last administered on 04/11/18at 07 :31; Start 04/10/18 at 09:00 Active Scripts Active Reported Silvadene (Silver Sulfadiazine) 20 Gm Cream..g. 1 Luz Maria TP BID Seroquel (Quetiapine Fumarate) 25 Mg Tablet 25 Mg PO BID@1200,2100 [place] 5-325 Tablet (Hydrocodone Bit/Acetaminophen) 1 Each Tablet 1 Tab PO PRN Q6HRS PRN Naproxen 500 Mg Tablet 500 Mg PO BID I have reviewed the current psychotropics carefully including drug interactions. Risk benefit ratio favors no change other than as noted in my dictated progress note. 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
[2018-04-11] MEDS: MIRTAZAPINE 15 MG TABLET PO SCH (23:50)
[2018-04-12] MEDS: DOCUSATE 100 MG/10 ML SOLUTION. PO SCH ×3 (08:27→23:30)
[2018-04-12] MEDS: busPIRone 5 MG TABLET. PO SCH ×2 (08:27→17:00)
[2018-04-12] MEDS: QUEtiapine 25 MG TABLET. PO SCH ×3 (08:27→23:30)
[2018-04-12] MEDS: SERTRALINE 100 MG TABLET. PO SCH (08:27)
[2018-04-12] MEDS: RIVASTIGMINE 13.3MG PATCH. TD SCH (08:28)
[2018-04-12 10:15] VITALS: BP 111/54
[2018-04-12 16:13] VITALS: BP 120/78
--- NOTE | 2018-04-12 18:10 | PN ---
DATE: 04/10/2018 PSYCHIATRIC PROGRESS NOTE This is a late entry, 04/10/2018, covers elements not covered in my initial note. SUBJECTIVE: I met with the patient in the evening. The patient slept 7-3/4 hours. Reportedly, his ex-girlfriend visited him. He has had a good day and his sister visited him as well. He still gets a little restless, anxious early in the morning with ADL changes, but better than before. REVIEW OF SYSTEMS: No CV, , pulmonary, eye, ENT system symptoms on review. Reliability poor. MENTAL STATUS EXAM: Oriented to himself. Insight, judgment, recent and remote memory, attention, concentration, fund of knowledge poor, consistent with his diagnosis. 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 PLAN: Continue current psychotropics, adjust further as clinically indicated. COLE NAIR MD DR: ANGELINA/gallito JOB#: [id number] / [id number]
[2018-04-12] MEDS: MIRTAZAPINE 15 MG TABLET PO SCH ×2 (20:21→23:30)
--- NOTE | 2018-04-12 20:55 | PDOC ---
Exam Note: Lambert Note: Please also refer to the separate dictated note~for this date of service dictated separately.~Patient seen individually. Discussed the patient with Nursing staff reviewed the chart.~Reviewed interim history and current functioning. Reviewed vital signs,~Labs/ Radiology~and current medications noted below. Continue current treatment with the changes noted in the dictated addendum note Assessment: Vital Signs: Vital Signs Date Time Temp Pulse Resp B/P (MAP) Pulse Ox O2 Delivery O2 Flow Rate FiO2 04/12/18 16:13 98.2 62 18 120/78 (92) 98 04/06/18 16:16 Room Air I&O Intake and Output 04/12/18 07:00 Intake Total 960 ml Balance 960 ml Intake Oral 960 ml Current Medications: Meds: Current Medications Acetaminophen (Tylenol) 650 mg PRN Q6HRS PRN PO PAIN / TEMP Last administered on 04/07/18at 16:25; Start 03/10/18 at 23:00 Multi-Ingredient Ointment (Analgesic [place]) 1 luz maria PRN QID PRN TP MUSCLE PAIN; Start 03/10/18 at 23:00 Al Hydroxide/Mg Hydroxide (Mylanta Plus Xs) 15 ml PRN AFTMEALHC PRN PO DYSPEPSIA; Start 03/10/18 at 23:00 Magnesium Hydroxide (Milk Of Magnesia) 2,400 mg PRN QHS PRN PO CONSTIPATION Last administered on 03/24/18at 18:23; Start 03/10/18 at 23:00 Quetiapine Fumarate (SEROquel) 25 mg BID@1200,2100 PO Last administered on at 12:14; Start 03/11/18 at 12:00; Stop 03/20/18 at 19:07; Status DC Acetaminophen/ Hydrocodone Bitart (Lortab 5/325) 1 tab PRN Q6HRS PRN PO PAIN Last administered on 04/06/18at 20:48; Start 03/10/18 at 23:30 Naproxen (Naprosyn) 500 mg BID PO Last administered on 03/11/18at 19:23; Start 03/11/18 at 09:00; Stop 03/12/18 at 07:42; Status DC Vitamin D (Vitamin D3) 50,000 unit WEEKLY PO Last administered on 04/08/18at 08: 56; Start 03/11/18 at 19:00 Sertraline HCl (Zoloft) 25 mg DAILY PO Last administered on 03/15/18at 08:15; Start 03/12/18 at 09:00; Stop 03/15/18 at 21:28; Status DC Mirtazapine (Remeron) 7.5 mg QHS PO Last administered on 03/15/18at 21:24; Start 03/11/18 at 21:00; Stop 03/16/18 at 20:49; Status DC Olanzapine (ZyPREXA ZYDIS) 2.5 mg PRN Q2HR PRN PO agitation Last administered on 03/14/18at 20:09; Start 03/12/18 at 07:45; Stop 03/14/18 at 22:25; Status DC Naproxen (Naprosyn) 500 mg PRN BID PRN PO PAIN Last administered on 03/21/18at 07 :43; Start 03/12/18 at 07:45 Silver Sulfadiazine (Silvadene) 1 luz maria DAILY TP Last administered on 03/30/18at 09:35; Start 03/12/18 at 21:00; Stop 04/02/18 at 09:30; Status DC Artificial Tears (Artificial Tears) 1 drop PRN Q15MIN PRN OU DRY EYE Last administered on 03/24/18at 08:15; Start 03/13/18 at 20:30 Trazodone HCl (Desyrel) 50 mg PRN QHS PRN PO insomnia Last administered on 04/10at 19:03; Start 03/14/18 at 18:45 Olanzapine (ZyPREXA ZYDIS) 5 mg PRN Q2HR PRN PO agitation Last administered on 04/12/18at 00:06; Start 03/14/18 at 22:30 Olanzapine (ZyPREXA) 2.5 mg 1X ONCE PO ; Start 03/15/18 at 09:15; Stop at 09:48; Status DC Olanzapine (ZyPREXA ZYDIS) 5 mg 1X ONCE PO ; Start 03/15/18 at 09:50; Stop at 09:50; Status DC Olanzapine (ZyPREXA ZYDIS) 5 mg 1X ONCE PO ; Start 03/15/18 at 09:45; Stop at 09:52; Status DC Olanzapine (ZyPREXA ZYDIS) 5 mg PRN 1X PRN PO 1HR BEFORE CT &30MIN PRIOR PRN; Start 03/15/18 at 09:50; Stop 03/15/18 at 18:00; Status DC Sertraline HCl (Zoloft) 50 mg DAILY PO Last administered on 03/19/18at 09:27; Start 03/16/18 at 09:00; Stop 03/21/18 at 08:00; Status DC Mirtazapine (Remeron) 15 mg QHS PO Last administered on 04/12/18at 20:21; Start 03/16/18 at 21:00 Sertraline HCl (Zoloft) 75 mg DAILY PO Last administered on 03/30/18at 09:32; Start 03/21/18 at 09:00; Stop 03/30/18 at 18:24; Status DC Divalproex Sodium (Depakote Sprinkles) 125 mg 0900,1300 PO Last administered on 03/26/18at 07:50; Start 03/21/18 at 09:00; Stop 03/26/18 at 10:10; Status DC Quetiapine Fumarate (SEROquel) 12.5 mg BID PO Last administered on 04/12/18at 20 :21; Start 03/20/18 at 21:00 Carbidopa/Levodopa (Sinemet Cr) 1 tab.sa BID PO Last administered on 03/31/18at 08:46; Start 03/23/18 at 21:00; Stop 03/31/18 at 19:35; Status DC Divalproex Sodium (Depakote Sprinkles) 125 mg TID@0900,1300,1700 PO Last administered on 04/04/18at 12:54; Start 03/26/18 at 13:00; Stop 04/04/18 at 19:00 ; Status DC Sertraline HCl (Zoloft) 100 mg DAILY PO Last administered on 04/12/18at 08:27; Start 03/31/18 at 09:00 Docusate Sodium (Colace Solution) 100 mg BID PO Last administered on 04/12/18at 20:21; Start 03/31/18 at 21:00 Buspirone HCl (Buspar) 5 mg BID@0900,1700 PO Last administered on 04/12/18at 17: 00; Start 04/02/18 at 17:00 Rivastigmine (Exelon) 1 patch DAILY TD Last administered on 04/06/18at 07:52; Start 04/04/18 at 09:00; Stop 04/07/18 at 08:59; Status DC Rivastigmine (Exelon) 1 patch DAILY TD Last administered on 04/09/18at 10:10; Start 04/07/18 at 09:00; Stop 04/09/18 at 21:00; Status DC Rivastigmine (Exelon 13.3mg) 1 patch DAILY TD Last administered on 04/12/18at 08 :28; Start 04/10/18 at 09:00 Active Scripts Active Reported Silvadene (Silver Sulfadiazine) 20 Gm Cream..g. 1 Luz Maria TP BID Seroquel (Quetiapine Fumarate) 25 Mg Tablet 25 Mg PO BID@1200,2100 [place] 5-325 Tablet (Hydrocodone Bit/Acetaminophen) 1 Each Tablet 1 Tab PO PRN Q6HRS PRN Naproxen 500 Mg Tablet 500 Mg PO BID I have reviewed the current psychotropics carefully including drug interactions. Risk benefit ratio favors no change other than as noted in my dictated progress note. 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
--- NOTE | 2018-04-12 22:50 | PN ---
DATE: 04/11/2018 This is a late entry for 04/11/2018 covers elements not covered in my initial note. SUBJECTIVE: I met with the patient in the evening. He has been agitated up at 03:45 a.m., somewhat restless, door checking. Sister was upset. He received PRN. Sister would like for us to confer with Dr. Cabrera, his outpatient neurologist and we will invite Dr. Cabrera to attend the treatment team meeting, so that she can get feedback not only for myself, but the rest of the staff as well. REVIEW OF SYSTEMS: No CV, , pulmonary, eye, ENT system symptoms on review. Reliability poor. MENTAL STATUS EXAM: Oriented to himself. Insight, judgment, recent and remote memory, attention, concentration, fund of knowledge poor, consistent with his diagnosis mentioned in my initial note. 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 Rest unchanged. PLAN: Continue current psychotropics from initial note. MAN Janie NAIR MD DR: ANGELINA/gallito JOB#: [id number] / [id number]
--- NOTE | 2018-04-12 23:24 | PN ---
DATE: 04/12/2018 This note covers elements not covered in my initial note. SUBJECTIVE: The patient slept 8-3/4 hours previous evening. He is; otherwise, cooperative. REVIEW OF SYSTEMS: No CV, , pulmonary, eye system symptoms on review. MENTAL STATUS EXAM: Oriented to himself. Insight, judgment, recent and remote memory, attention, concentration, fund of knowledge poor, consistent with his diagnosis mentioned in my initial note. PLAN: Continue current psychotropics. Adjust as clinically indicated. We will not increase the Seroquel due to sedation. MAN Janie NAIR MD DR: ANGELINA/gallito JOB#: [id number] / [id number]
[2018-04-13 05:58] VITALS: BP 142/80
[2018-04-13] MEDS: busPIRone 5 MG TABLET. PO SCH ×2 (08:29→16:02)
[2018-04-13] MEDS: DOCUSATE 100 MG/10 ML SOLUTION. PO SCH ×2 (08:29→19:30)
[2018-04-13] MEDS: QUEtiapine 25 MG TABLET. PO SCH ×2 (08:29→19:31)
[2018-04-13] MEDS: RIVASTIGMINE 13.3MG PATCH. TD SCH (08:29)
[2018-04-13] MEDS: SERTRALINE 100 MG TABLET. PO SCH (08:29)
[2018-04-13 09:08] LABS: BASO % 1 % (0-3); EOS # 0.2 x10^3/uL (0.0-0.7); EOS % 2 % (0-3); HEMATOCRIT 38.4 % (39.0-53.0); LYMPH # 1.2 x10^3/uL (1.0-4.8); LYMPH % 18 % (24-48); MEAN CORPUSCULAR HEMOGLOBIN 32 pg (25-35); MEAN CORPUSCULAR HGB CONC 34 g/dL (31-37); MEAN CORPUSCULAR VOLUME 93 fL (79-100); MONO # 0.3 x10^3/uL (0.0-1.1); MONO % 4 % (0-9); NEUT # 4.7 x10^3uL (1.8-7.7); NEUT % 75 % (31-73); PLATELET COUNT 263 x10^3/uL (140-400); RED BLOOD COUNT 4.12 x10^6/uL (4.30-5.70); RED CELL DISTRIBUTION WIDTH 12.7 % (11.5-14.5); WHITE BLOOD COUNT 6.3 x10^3/uL (4.0-11.0)
[2018-04-13 09:23] LABS: ALBUMIN 3.6 g/dL (3.4-5.0); ALBUMIN/GLOBULIN RATIO 0.9 (1.0-1.7); CALCIUM 9.3 mg/dL (8.5-10.1); CREATININE 0.9 mg/dL (0.7-1.3); GFR 86.4; POTASSIUM 4.2 mmol/L (3.5-5.1); TOTAL BILIRUBIN 0.3 mg/dL (0.2-1.0); TOTAL PROTEIN 7.4 g/dL (6.4-8.2)
[2018-04-13 16:26] VITALS: BP 140/51
[2018-04-13] MEDS ORDERED: NAPROXEN 250 MG TABLET PO PRN (18:45)
[2018-04-13] MEDS: MIRTAZAPINE 15 MG TABLET PO SCH (19:31)
--- NOTE | 2018-04-13 20:53 | PDOC ---
Exam Note: Lambert Note: Please also refer to the separate dictated note~for this date of service dictated separately.~Patient seen individually. Discussed the patient with Nursing staff reviewed the chart.~Reviewed interim history and current functioning. Reviewed vital signs,~Labs/ Radiology~and current medications noted below. Continue current treatment with the changes noted in the dictated addendum note Assessment: Vital Signs: Vital Signs Date Time Temp Pulse Resp B/P (MAP) Pulse Ox O2 Delivery O2 Flow Rate FiO2 04/13/18 16:40 96 Room Air 04/13/18 16:26 80 20 140/51 (80) 04/13/18 05:58 98.0 I&O Intake and Output 04/13/18 07:01 Intake Total 840 ml Balance 840 ml Intake Oral 840 ml # Bowel Movements 1 Labs: Laboratory Tests Test 04/13/18 08:50 White Blood Count 6.3 x10^3/uL (4.0-11.0) Red Blood Count 4.12 x10^6/uL (4.30-5.70) L Hemoglobin 13.0 g/dL (13.0-17.5) Hematocrit 38.4 % (39.0-53.0) L Mean Corpuscular Volume 93 fL (79-100) Mean Corpuscular Hemoglobin 32 pg (25-35) Mean Corpuscular Hemoglobin Concent 34 g/dL (31-37) Red Cell Distribution Width 12.7 % (11.5-14.5) Platelet Count 263 x10^3/uL (140-400) Neutrophils (%) (Auto) 75 % (31-73) H Lymphocytes (%) (Auto) 18 % (24-48) L Monocytes (%) (Auto) 4 % (0-9) Eosinophils (%) (Auto) 2 % (0-3) Basophils (%) (Auto) 1 % (0-3) Neutrophils # (Auto) 4.7 x10^3uL (1.8-7.7) Lymphocytes # (Auto) 1.2 x10^3/uL (1.0-4.8) Monocytes # (Auto) 0.3 x10^3/uL (0.0-1.1) Eosinophils # (Auto) 0.2 x10^3/uL (0.0-0.7) Basophils # (Auto) 0.0 x10^3/uL (0.0-0.2) Sodium Level 139 mmol/L (136-145) Potassium Level 4.2 mmol/L (3.5-5.1) Chloride Level 103 mmol/L (98-107) Carbon Dioxide Level 33 mmol/L (21-32) H Anion Gap 3 (6-14) L Blood Urea Nitrogen 20 mg/dL (8-26) Creatinine 0.9 mg/dL (0.7-1.3) Estimated GFR (Cockcroft-Gault) 86.4 BUN/Creatinine Ratio 22 (6-20) H Glucose Level 118 mg/dL (70-99) H Calcium Level 9.3 mg/dL (8.5-10.1) Total Bilirubin 0.3 mg/dL (0.2-1.0) Aspartate Amino Transferase (AST) 15 U/L (15-37) Alanine Aminotransferase (ALT) 24 U/L (16-63) Alkaline Phosphatase 104 U/L (46-116) Total Protein 7.4 g/dL (6.4-8.2) Albumin 3.6 g/dL (3.4-5.0) Albumin/Globulin Ratio 0.9 (1.0-1.7) L Current Medications: Meds: Current Medications Acetaminophen (Tylenol) 650 mg PRN Q6HRS PRN PO PAIN / TEMP Last administered on 04/07/18at 16:25; Start 03/10/18 at 23:00 Multi-Ingredient Ointment (Analgesic [place]) 1 luz maria PRN QID PRN TP MUSCLE PAIN; Start 03/10/18 at 23:00 Al Hydroxide/Mg Hydroxide (Mylanta Plus Xs) 15 ml PRN AFTMEALHC PRN PO DYSPEPSIA; Start 03/10/18 at 23:00 Magnesium Hydroxide (Milk Of Magnesia) 2,400 mg PRN QHS PRN PO CONSTIPATION Last administered on 03/24/18at 18:23; Start 03/10/18 at 23:00 Quetiapine Fumarate (SEROquel) 25 mg BID@1200,2100 PO Last administered on at 12:14; Start 03/11/18 at 12:00; Stop 03/20/18 at 19:07; Status DC Acetaminophen/ Hydrocodone Bitart (Lortab 5/325) 1 tab PRN Q6HRS PRN PO PAIN Last administered on 04/06/18 20:48; Start 03/10/18 at 23:30 Naproxen (Naprosyn) 500 mg BID PO Last administered on 03/11/18 19:23; Start 03/11/18 at 09:00; Stop 03/12/18 at 07:42; Status DC Vitamin D (Vitamin D3) 50,000 unit WEEKLY PO Last administered on 04/08/18 08: 56; Start 03/11/18 at 19:00 Sertraline HCl (Zoloft) 25 mg DAILY PO Last administered on 03/15/18 08:15; Start 03/12/18 at 09:00; Stop 03/15/18 at 21:28; Status DC Mirtazapine (Remeron) 7.5 mg QHS PO Last administered on 03/15/18 21:24; Start 03/11/18 at 21:00; Stop 03/16/18 at 20:49; Status DC Olanzapine (ZyPREXA ZYDIS) 2.5 mg PRN Q2HR PRN PO agitation Last administered on 03/14/18 20:09; Start 03/12/18 at 07:45; Stop 03/14/18 at 22:25; Status DC Naproxen (Naprosyn) 500 mg PRN BID PRN PO PAIN Last administered on 03/21/18 07 :43; Start 03/12/18 at 07:45 Silver Sulfadiazine (Silvadene) 1 luz maria DAILY TP Last administered on 03/30/18 09:35; Start 03/12/18 at 21:00; Stop 04/02/18 at 09:30; Status DC Artificial Tears (Artificial Tears) 1 drop PRN Q15MIN PRN OU DRY EYE Last administered on 03/24/18 08:15; Start 03/13/18 at 20:30 Trazodone HCl (Desyrel) 50 mg PRN QHS PRN PO insomnia Last administered on 04/10 19:03; Start 03/14/18 at 18:45 Olanzapine (ZyPREXA ZYDIS) 5 mg PRN Q2HR PRN PO agitation Last administered on 04/13/18 16:02; Start 03/14/18 at 22:30 Olanzapine (ZyPREXA) 2.5 mg 1X ONCE PO ; Start 03/15/18 at 09:15; Stop at 09:48; Status DC Olanzapine (ZyPREXA ZYDIS) 5 mg 1X ONCE PO ; Start 03/15/18 at 09:50; Stop at 09:50; Status DC Olanzapine (ZyPREXA ZYDIS) 5 mg 1X ONCE PO ; Start 03/15/18 at 09:45; Stop at 09:52; Status DC Olanzapine (ZyPREXA ZYDIS) 5 mg PRN 1X PRN PO 1HR BEFORE CT &30MIN PRIOR PRN; Start 03/15/18 at 09:50; Stop 03/15/18 at 18:00; Status DC Sertraline HCl (Zoloft) 50 mg DAILY PO Last administered on 03/19/18at 09:27; Start 03/16/18 at 09:00; Stop 03/21/18 at 08:00; Status DC Mirtazapine (Remeron) 15 mg QHS PO Last administered on 04/13/18at 19:31; Start 03/16/18 at 21:00 Sertraline HCl (Zoloft) 75 mg DAILY PO Last administered on 03/30/18at 09:32; Start 03/21/18 at 09:00; Stop 03/30/18 at 18:24; Status DC Divalproex Sodium (Depakote Sprinkles) 125 mg 0900,1300 PO Last administered on 03/26/18at 07:50; Start 03/21/18 at 09:00; Stop 03/26/18 at 10:10; Status DC Quetiapine Fumarate (SEROquel) 12.5 mg BID PO Last administered on 04/13/18at 19 :31; Start 03/20/18 at 21:00 Carbidopa/Levodopa (Sinemet Cr) 1 tab.sa BID PO Last administered on 03/31/18at 08:46; Start 03/23/18 at 21:00; Stop 03/31/18 at 19:35; Status DC Divalproex Sodium (Depakote Sprinkles) 125 mg TID@0900,1300,1700 PO Last administered on 04/04/18at 12:54; Start 03/26/18 at 13:00; Stop 04/04/18 at 19:00 ; Status DC Sertraline HCl (Zoloft) 100 mg DAILY PO Last administered on 04/13/18at 08:29; Start 03/31/18 at 09:00 Docusate Sodium (Colace Solution) 100 mg BID PO Last administered on 04/13/18at 19:30; Start 03/31/18 at 21:00 Buspirone HCl (Buspar) 5 mg BID@0900,1700 PO Last administered on 04/13/18at 16: 02; Start 04/02/18 at 17:00 Rivastigmine (Exelon) 1 patch DAILY TD Last administered on 04/06/18at 07:52; Start 04/04/18 at 09:00; Stop 04/07/18 at 08:59; Status DC Rivastigmine (Exelon) 1 patch DAILY TD Last administered on 04/09/18at 10:10; Start 04/07/18 at 09:00; Stop 04/09/18 at 21:00; Status DC Rivastigmine (Exelon 13.3mg) 1 patch DAILY TD Last administered on 04/13/18at 08 :29; Start 04/10/18 at 09:00 Naproxen (Naprosyn) 250 mg PRN Q4HRS PRN PO MIGRAINE HEADACHE; Start 04/13/18 at 18:45 Active Scripts Active Reported Silvadene (Silver Sulfadiazine) 20 Gm Cream..g. 1 Luz Maria TP BID Seroquel (Quetiapine Fumarate) 25 Mg Tablet 25 Mg PO BID@1200,2100 [place] 5-325 Tablet (Hydrocodone Bit/Acetaminophen) 1 Each Tablet 1 Tab PO PRN Q6HRS PRN Naproxen 500 Mg Tablet 500 Mg PO BID I have reviewed the current psychotropics carefully including drug interactions. Risk benefit ratio favors no change other than as noted in my dictated progress note. 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
[2018-04-14] MEDS: HYDROcodone/APAP 5/325MG 1 TAB TABLET PO PRN (06:48)
[2018-04-14] MEDS: RIVASTIGMINE 13.3MG PATCH. TD SCH (07:53)
[2018-04-14] MEDS: DOCUSATE 100 MG/10 ML SOLUTION. PO SCH ×2 (07:54→19:22)
[2018-04-14] MEDS: SERTRALINE 100 MG TABLET. PO SCH (07:54)
[2018-04-14] MEDS: busPIRone 5 MG TABLET. PO SCH ×2 (07:54→16:51)
[2018-04-14] MEDS: QUEtiapine 25 MG TABLET. PO SCH ×2 (07:54→19:21)
[2018-04-14] MEDS: MIRTAZAPINE 15 MG TABLET PO SCH (19:22)
--- NOTE | 2018-04-14 23:58 | PN ---
DATE: 04/13/2018 This late entry of 04/13/2018 covers the elements not covered in my initial note. SUBJECTIVE: I met with the patient in the evening. I also met with the patient's sister. The patient slept almost 6 hours previous evening. Sister wanted us to discuss the patient's progress with his neurologist, Dr. Cabrera, but Dr. Cabrera is out of town this week. He has had "2 meltdowns" according to nursing staff. At one point, he was swinging at staff, had to be lowered to the floor, otherwise would have fallen to the floor. He then took a half hour nap, was much better after that. REVIEW OF SYSTEMS: No CV, , pulmonary, eye, ENT system symptoms on review. Reliability poor. MENTAL STATUS EXAM: Oriented to himself. Insight, judgment, recent and remote memory, attention, concentration, fund of knowledge poor, consistent with his diagnosis. 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 PLAN: Continue current psychotropics from my initial note, may need to increase Seroquel, but then this makes him too sedated. COLE NAIR MD DR: ANGELINA/gallito JOB#: [id number] / [id number]
[2018-04-15] MEDS: RIVASTIGMINE 13.3MG PATCH. TD SCH (07:39)
[2018-04-15] MEDS: SERTRALINE 100 MG TABLET. PO SCH (07:40)
[2018-04-15] MEDS: DOCUSATE 100 MG/10 ML SOLUTION. PO SCH ×2 (07:40→19:26)
[2018-04-15] MEDS: busPIRone 5 MG TABLET. PO SCH ×2 (07:41→16:59)
[2018-04-15] MEDS: QUEtiapine 25 MG TABLET. PO SCH ×2 (07:41→19:26)
[2018-04-15] MEDS: CHOLECALCIFEROL (VITAMIN D3) 50,000 UNIT CAPSULE PO SCH (07:43)
[2018-04-15 15:56] VITALS: BP 117/78
[2018-04-15] MEDS: MIRTAZAPINE 15 MG TABLET PO SCH (19:26)
--- NOTE | 2018-04-15 20:09 | PDOC ---
Exam Note: Lambert Note: Late entry for date of service 14 April 2018. VS - Last 72 Hours, by Label Date Time Temp Pulse Resp B/P (MAP) Pulse Ox O2 Delivery O2 Flow Rate FiO2 04/15/18 15:56 97.6 88 17 117/78 (91) 98 Room Air 04/14/18 07:54 16 Room Air 04/14/18 06:48 20 Room Air 04/13/18 16:40 96 Room Air 04/13/18 16:26 80 20 140/51 (80) 04/13/18 05:58 98.0 89 16 142/80 (100) 94 Room Air Please also refer to the separate dictated note~for this date of service dictated separately.~Patient seen individually. Discussed the patient with Nursing staff reviewed the chart.~Reviewed interim history and current functioning. Reviewed vital signs,~Labs/ Radiology~and current medications noted below. Continue current treatment with the changes noted in the dictated addendum note Assessment: Vital Signs: VS - Last 72 Hours, by Label Date Time Temp Pulse Resp B/P (MAP) Pulse Ox O2 Delivery O2 Flow Rate FiO2 04/15/18 15:56 97.6 88 17 117/78 (91) 98 Room Air 04/14/18 07:54 16 Room Air 04/14/18 06:48 20 Room Air 04/13/18 16:40 96 Room Air 04/13/18 16:26 80 20 140/51 (80) 04/13/18 05:58 98.0 89 16 142/80 (100) 94 Room Air Vital Signs Date Time Temp Pulse Resp B/P (MAP) Pulse Ox O2 Delivery O2 Flow Rate FiO2 04/15/18 15:56 97.6 88 17 117/78 (91) 98 Room Air I&O Intake and Output 04/15/18 07:00 Intake Total 840 ml Balance 840 ml Intake Oral 840 ml # Bowel Movements 1 Current Medications: Meds: Current Medications Acetaminophen (Tylenol) 650 mg PRN Q6HRS PRN PO PAIN / TEMP Last administered on 04/07/18at 16:25; Start 03/10/18 at 23:00 Multi-Ingredient Ointment (Analgesic [place]) 1 luz maria PRN QID PRN TP MUSCLE PAIN; Start 03/10/18 at 23:00 Al Hydroxide/Mg Hydroxide (Mylanta Plus Xs) 15 ml PRN AFTMEALHC PRN PO DYSPEPSIA; Start 03/10/18 at 23:00 Magnesium Hydroxide (Milk Of Magnesia) 2,400 mg PRN QHS PRN PO CONSTIPATION Last administered on 03/24/18 18:23; Start 03/10/18 at 23:00 Quetiapine Fumarate (SEROquel) 25 mg BID@1200,2100 PO Last administered on at 12:14; Start 03/11/18 at 12:00; Stop 03/20/18 at 19:07; Status DC Acetaminophen/ Hydrocodone Bitart (Lortab 5/325) 1 tab PRN Q6HRS PRN PO PAIN Last administered on 04/14/18 06:48; Start 03/10/18 at 23:30 Naproxen (Naprosyn) 500 mg BID PO Last administered on 03/11/18 19:23; Start 03/11/18 at 09:00; Stop 03/12/18 at 07:42; Status DC Vitamin D (Vitamin D3) 50,000 unit WEEKLY PO Last administered on 04/15/18at 07: 43; Start 03/11/18 at 19:00 Sertraline HCl (Zoloft) 25 mg DAILY PO Last administered on 03/15/18at 08:15; Start 03/12/18 at 09:00; Stop 03/15/18 at 21:28; Status DC Mirtazapine (Remeron) 7.5 mg QHS PO Last administered on 03/15/18at 21:24; Start 03/11/18 at 21:00; Stop 03/16/18 at 20:49; Status DC Olanzapine (ZyPREXA ZYDIS) 2.5 mg PRN Q2HR PRN PO agitation Last administered on 03/14/18at 20:09; Start 03/12/18 at 07:45; Stop 03/14/18 at 22:25; Status DC Naproxen (Naprosyn) 500 mg PRN BID PRN PO PAIN Last administered on 03/21/18at 07 :43; Start 03/12/18 at 07:45 Silver Sulfadiazine (Silvadene) 1 luz maria DAILY TP Last administered on 03/30/18at 09:35; Start 03/12/18 at 21:00; Stop 04/02/18 at 09:30; Status DC Artificial Tears (Artificial Tears) 1 drop PRN Q15MIN PRN OU DRY EYE Last administered on 03/24/18at 08:15; Start 03/13/18 at 20:30 Trazodone HCl (Desyrel) 50 mg PRN QHS PRN PO insomnia Last administered on 04/10at 19:03; Start 03/14/18 at 18:45 Olanzapine (ZyPREXA ZYDIS) 5 mg PRN Q2HR PRN PO agitation Last administered on 04/14/18at 19:45; Start 03/14/18 at 22:30 Olanzapine (ZyPREXA) 2.5 mg 1X ONCE PO ; Start 03/15/18 at 09:15; Stop at 09:48; Status DC Olanzapine (ZyPREXA ZYDIS) 5 mg 1X ONCE PO ; Start 03/15/18 at 09:50; Stop at 09:50; Status DC Olanzapine (ZyPREXA ZYDIS) 5 mg 1X ONCE PO ; Start 03/15/18 at 09:45; Stop at 09:52; Status DC Olanzapine (ZyPREXA ZYDIS) 5 mg PRN 1X PRN PO 1HR BEFORE CT &30MIN PRIOR PRN; Start 03/15/18 at 09:50; Stop 03/15/18 at 18:00; Status DC Sertraline HCl (Zoloft) 50 mg DAILY PO Last administered on 03/19/18at 09:27; Start 03/16/18 at 09:00; Stop 03/21/18 at 08:00; Status DC Mirtazapine (Remeron) 15 mg QHS PO Last administered on 04/15/18at 19:26; Start 03/16/18 at 21:00 Sertraline HCl (Zoloft) 75 mg DAILY PO Last administered on 03/30/18at 09:32; Start 03/21/18 at 09:00; Stop 03/30/18 at 18:24; Status DC Divalproex Sodium (Depakote Sprinkles) 125 mg 0900,1300 PO Last administered on 03/26/18at 07:50; Start 03/21/18 at 09:00; Stop 03/26/18 at 10:10; Status DC Quetiapine Fumarate (SEROquel) 12.5 mg BID PO Last administered on 04/15/18at 19 :26; Start 03/20/18 at 21:00 Carbidopa/Levodopa (Sinemet Cr) 1 tab.sa BID PO Last administered on 03/31/18at 08:46; Start 03/23/18 at 21:00; Stop 03/31/18 at 19:35; Status DC Divalproex Sodium (Depakote Sprinkles) 125 mg TID@0900,1300,1700 PO Last administered on 04/04/18at 12:54; Start 03/26/18 at 13:00; Stop 04/04/18 at 19:00 ; Status DC Sertraline HCl (Zoloft) 100 mg DAILY PO Last administered on 04/15/18at 07:40; Start 03/31/18 at 09:00 Docusate Sodium (Colace Solution) 100 mg BID PO Last administered on 04/15/18at 19:26; Start 03/31/18 at 21:00 Buspirone HCl (Buspar) 5 mg BID@0900,1700 PO Last administered on 04/15/18at 16: 59; Start 04/02/18 at 17:00 Rivastigmine (Exelon) 1 patch DAILY TD Last administered on 04/06/18at 07:52; Start 04/04/18 at 09:00; Stop 04/07/18 at 08:59; Status DC Rivastigmine (Exelon) 1 patch DAILY TD Last administered on 04/09/18at 10:10; Start 04/07/18 at 09:00; Stop 04/09/18 at 21:00; Status DC Rivastigmine (Exelon 13.3mg) 1 patch DAILY TD Last administered on 04/15/18at 07 :39; Start 04/10/18 at 09:00 Naproxen (Naprosyn) 250 mg PRN Q4HRS PRN PO MIGRAINE HEADACHE; Start 04/13/18 at 18:45 Active Scripts Active Reported Silvadene (Silver Sulfadiazine) 20 Gm Cream..g. 1 Luz Maria TP BID Seroquel (Quetiapine Fumarate) 25 Mg Tablet 25 Mg PO BID@1200,2100 [place] 5-325 Tablet (Hydrocodone Bit/Acetaminophen) 1 Each Tablet 1 Tab PO PRN Q6HRS PRN Naproxen 500 Mg Tablet 500 Mg PO BID I have reviewed the current psychotropics carefully including drug interactions. Risk benefit ratio favors no change other than as noted in my dictated progress note. 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
--- NOTE | 2018-04-15 20:09 | PDOC ---
Exam Note: Lambert Note: Please also refer to the separate dictated note~for this date of service dictated separately.~Patient seen individually. Discussed the patient with Nursing staff reviewed the chart.~Reviewed interim history and current functioning. Reviewed vital signs,~Labs/ Radiology~and current medications noted below. Continue current treatment with the changes noted in the dictated addendum note Assessment: Vital Signs: Vital Signs Date Time Temp Pulse Resp B/P (MAP) Pulse Ox O2 Delivery O2 Flow Rate FiO2 04/15/18 15:56 97.6 88 17 117/78 (91) 98 Room Air I&O Intake and Output 04/15/18 07:00 Intake Total 840 ml Balance 840 ml Intake Oral 840 ml # Bowel Movements 1 Current Medications: Meds: Current Medications Acetaminophen (Tylenol) 650 mg PRN Q6HRS PRN PO PAIN / TEMP Last administered on 04/07/18at 16:25; Start 03/10/18 at 23:00 Multi-Ingredient Ointment (Analgesic [place]) 1 luz maria PRN QID PRN TP MUSCLE PAIN; Start 03/10/18 at 23:00 Al Hydroxide/Mg Hydroxide (Mylanta Plus Xs) 15 ml PRN AFTMEALHC PRN PO DYSPEPSIA; Start 03/10/18 at 23:00 Magnesium Hydroxide (Milk Of Magnesia) 2,400 mg PRN QHS PRN PO CONSTIPATION Last administered on 03/24/18at 18:23; Start 03/10/18 at 23:00 Quetiapine Fumarate (SEROquel) 25 mg BID@1200,2100 PO Last administered on at 12:14; Start 03/11/18 at 12:00; Stop 03/20/18 at 19:07; Status DC Acetaminophen/ Hydrocodone Bitart (Lortab 5/325) 1 tab PRN Q6HRS PRN PO PAIN Last administered on 04/14/18at 06:48; Start 03/10/18 at 23:30 Naproxen (Naprosyn) 500 mg BID PO Last administered on 03/11/18at 19:23; Start 03/11/18 at 09:00; Stop 03/12/18 at 07:42; Status DC Vitamin D (Vitamin D3) 50,000 unit WEEKLY PO Last administered on 04/15/18at 07: 43; Start 03/11/18 at 19:00 Sertraline HCl (Zoloft) 25 mg DAILY PO Last administered on 03/15/18at 08:15; Start 03/12/18 at 09:00; Stop 03/15/18 at 21:28; Status DC Mirtazapine (Remeron) 7.5 mg QHS PO Last administered on 03/15/18at 21:24; Start 03/11/18 at 21:00; Stop 03/16/18 at 20:49; Status DC Olanzapine (ZyPREXA ZYDIS) 2.5 mg PRN Q2HR PRN PO agitation Last administered on 03/14/18at 20:09; Start 03/12/18 at 07:45; Stop 03/14/18 at 22:25; Status DC Naproxen (Naprosyn) 500 mg PRN BID PRN PO PAIN Last administered on 03/21/18at 07 :43; Start 03/12/18 at 07:45 Silver Sulfadiazine (Silvadene) 1 luz maria DAILY TP Last administered on 03/30/18at 09:35; Start 03/12/18 at 21:00; Stop 04/02/18 at 09:30; Status DC Artificial Tears (Artificial Tears) 1 drop PRN Q15MIN PRN OU DRY EYE Last administered on 03/24/18at 08:15; Start 03/13/18 at 20:30 Trazodone HCl (Desyrel) 50 mg PRN QHS PRN PO insomnia Last administered on 04/10at 19:03; Start 03/14/18 at 18:45 Olanzapine (ZyPREXA ZYDIS) 5 mg PRN Q2HR PRN PO agitation Last administered on 04/14/18at 19:45; Start 03/14/18 at 22:30 Olanzapine (ZyPREXA) 2.5 mg 1X ONCE PO ; Start 03/15/18 at 09:15; Stop at 09:48; Status DC Olanzapine (ZyPREXA ZYDIS) 5 mg 1X ONCE PO ; Start 03/15/18 at 09:50; Stop at 09:50; Status DC Olanzapine (ZyPREXA ZYDIS) 5 mg 1X ONCE PO ; Start 03/15/18 at 09:45; Stop at 09:52; Status DC Olanzapine (ZyPREXA ZYDIS) 5 mg PRN 1X PRN PO 1HR BEFORE CT &30MIN PRIOR PRN; Start 03/15/18 at 09:50; Stop 03/15/18 at 18:00; Status DC Sertraline HCl (Zoloft) 50 mg DAILY PO Last administered on 03/19/18at 09:27; Start 03/16/18 at 09:00; Stop 03/21/18 at 08:00; Status DC Mirtazapine (Remeron) 15 mg QHS PO Last administered on 04/15/18at 19:26; Start 03/16/18 at 21:00 Sertraline HCl (Zoloft) 75 mg DAILY PO Last administered on 03/30/18at 09:32; Start 03/21/18 at 09:00; Stop 03/30/18 at 18:24; Status DC Divalproex Sodium (Depakote Sprinkles) 125 mg 0900,1300 PO Last administered on 03/26/18at 07:50; Start 03/21/18 at 09:00; Stop 03/26/18 at 10:10; Status DC Quetiapine Fumarate (SEROquel) 12.5 mg BID PO Last administered on 04/15/18 19 :26; Start 03/20/18 at 21:00 Carbidopa/Levodopa (Sinemet Cr) 1 tab.sa BID PO Last administered on 03/31/18at 08:46; Start 03/23/18 at 21:00; Stop 03/31/18 at 19:35; Status DC Divalproex Sodium (Depakote Sprinkles) 125 mg TID@0900,1300,1700 PO Last administered on 04/04/18at 12:54; Start 03/26/18 at 13:00; Stop 04/04/18 at 19:00 ; Status DC Sertraline HCl (Zoloft) 100 mg DAILY PO Last administered on 04/15/18at 07:40; Start 03/31/18 at 09:00 Docusate Sodium (Colace Solution) 100 mg BID PO Last administered on 04/15/18at 19:26; Start 03/31/18 at 21:00 Buspirone HCl (Buspar) 5 mg BID@0900,1700 PO Last administered on 6/27/18at 16: 59; Start 04/02/18 at 17:00 Rivastigmine (Exelon) 1 patch DAILY TD Last administered on 04/06/18at 07:52; Start 04/04/18 at 09:00; Stop 04/07/18 at 08:59; Status DC Rivastigmine (Exelon) 1 patch DAILY TD Last administered on 04/09/18at 10:10; Start 04/07/18 at 09:00; Stop 04/09/18 at 21:00; Status DC Rivastigmine (Exelon 13.3mg) 1 patch DAILY TD Last administered on 04/15/18at 07 :39; Start 04/10/18 at 09:00 Naproxen (Naprosyn) 250 mg PRN Q4HRS PRN PO MIGRAINE HEADACHE; Start 04/13/18 at 18:45 Active Scripts Active Reported Silvadene (Silver Sulfadiazine) 20 Gm Cream..g. 1 Luz Maria TP BID Seroquel (Quetiapine Fumarate) 25 Mg Tablet 25 Mg PO BID@1200,2100 [place] 5-325 Tablet (Hydrocodone Bit/Acetaminophen) 1 Each Tablet 1 Tab PO PRN Q6HRS PRN Naproxen 500 Mg Tablet 500 Mg PO BID I have reviewed the current psychotropics carefully including drug interactions. Risk benefit ratio favors no change other than as noted in my dictated progress note. 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
--- NOTE | 2018-04-15 22:39 | PN ---
DATE: 04/14/2018 PSYCHIATRIC PROGRESS NOTE This late entry of 04/14/2018 covers elements not covered in my initial note. SUBJECTIVE: I met with the patient in the evening and also with his sister. The patient slept 6-3/4 hours previous evening. He is quite agitated in the morning, had a bowel movement, then was a little better. Appetite is fair. He gets frustrated if he is rushed and this seems a part of the problem with his expressive aphasia. REVIEW OF SYSTEMS: No CV, , pulmonary, eye, ENT system symptoms on review. Reliability poor. MENTAL STATUS EXAM: Oriented to himself. Insight, judgment, recent and remote memory, attention, concentration, fund of knowledge poor, consistent with his diagnosis mentioned in my initial note. 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 PLAN: Continue psychotropics from initial note. As of this dictation, I have tried to call Dr. Cabrera, but I have got a busy signal at [phone] several times. I will continue to attempt to contact Dr. Cabrera to give the patient's outpatient neurologist to leave an update on the patient's progress in psychotropics we have attempted here as requested by the sister. MAN Janie NAIR MD DR: ANGELINA/gallito JOB#: [id number] / [id number]
[2018-04-16] MEDS: RIVASTIGMINE 13.3MG PATCH. TD SCH (07:24)
[2018-04-16] MEDS: SERTRALINE 100 MG TABLET. PO SCH (07:24)
[2018-04-16] MEDS: DOCUSATE 100 MG/10 ML SOLUTION. PO SCH ×3 (07:24→21:00)
[2018-04-16] MEDS: QUEtiapine 25 MG TABLET. PO SCH ×3 (07:24→21:00)
[2018-04-16] MEDS: busPIRone 5 MG TABLET. PO SCH ×2 (07:25→16:44)
[2018-04-16 16:00] VITALS: BP 121/87
[2018-04-16] MEDS: MIRTAZAPINE 15 MG TABLET PO SCH ×2 (19:31→21:00)
--- NOTE | 2018-04-16 20:51 | PDOC ---
Exam Note: Lambert Note: Please also refer to the separate dictated note~for this date of service dictated separately.~Patient seen individually. Discussed the patient with Nursing staff reviewed the chart.~Reviewed interim history and current functioning. Reviewed vital signs,~Labs/ Radiology~and current medications noted below. Continue current treatment with the changes noted in the dictated addendum note Assessment: Vital Signs: Vital Signs Date Time Temp Pulse Resp B/P (MAP) Pulse Ox O2 Delivery O2 Flow Rate FiO2 04/16/18 16:00 98.9 80 18 121/87 (98) 97 Room Air I&O Intake and Output 04/16/18 06:59 Intake Total 1440 ml Balance 1440 ml Intake Oral 1440 ml # Bowel Movements 1 Current Medications: Meds: Current Medications Acetaminophen (Tylenol) 650 mg PRN Q6HRS PRN PO PAIN / TEMP Last administered on 04/07/18at 16:25; Start 03/10/18 at 23:00 Multi-Ingredient Ointment (Analgesic [place]) 1 luz maria PRN QID PRN TP MUSCLE PAIN; Start 03/10/18 at 23:00 Al Hydroxide/Mg Hydroxide (Mylanta Plus Xs) 15 ml PRN AFTMEALHC PRN PO DYSPEPSIA; Start 03/10/18 at 23:00 Magnesium Hydroxide (Milk Of Magnesia) 2,400 mg PRN QHS PRN PO CONSTIPATION Last administered on 03/24/18at 18:23; Start 03/10/18 at 23:00 Quetiapine Fumarate (SEROquel) 25 mg BID@1200,2100 PO Last administered on at 12:14; Start 03/11/18 at 12:00; Stop 03/20/18 at 19:07; Status DC Acetaminophen/ Hydrocodone Bitart (Lortab 5/325) 1 tab PRN Q6HRS PRN PO PAIN Last administered on 04/14/18at 06:48; Start 03/10/18 at 23:30 Naproxen (Naprosyn) 500 mg BID PO Last administered on 03/11/18at 19:23; Start 03/11/18 at 09:00; Stop 03/12/18 at 07:42; Status DC Vitamin D (Vitamin D3) 50,000 unit WEEKLY PO Last administered on 04/15/18at 07: 43; Start 03/11/18 at 19:00 Sertraline HCl (Zoloft) 25 mg DAILY PO Last administered on 03/15/18at 08:15; Start 03/12/18 at 09:00; Stop 03/15/18 at 21:28; Status DC Mirtazapine (Remeron) 7.5 mg QHS PO Last administered on 03/15/18at 21:24; Start 03/11/18 at 21:00; Stop 03/16/18 at 20:49; Status DC Olanzapine (ZyPREXA ZYDIS) 2.5 mg PRN Q2HR PRN PO agitation Last administered on 03/14/18at 20:09; Start 03/12/18 at 07:45; Stop 03/14/18 at 22:25; Status DC Naproxen (Naprosyn) 500 mg PRN BID PRN PO PAIN Last administered on 03/21/18at 07 :43; Start 03/12/18 at 07:45 Silver Sulfadiazine (Silvadene) 1 luz maria DAILY TP Last administered on 03/30/18at 09:35; Start 03/12/18 at 21:00; Stop 04/02/18 at 09:30; Status DC Artificial Tears (Artificial Tears) 1 drop PRN Q15MIN PRN OU DRY EYE Last administered on 03/24/18at 08:15; Start 03/13/18 at 20:30 Trazodone HCl (Desyrel) 50 mg PRN QHS PRN PO insomnia Last administered on 04/10at 19:03; Start 03/14/18 at 18:45 Olanzapine (ZyPREXA ZYDIS) 5 mg PRN Q2HR PRN PO agitation Last administered on 04/16/18at 08:21; Start 03/14/18 at 22:30 Olanzapine (ZyPREXA) 2.5 mg 1X ONCE PO ; Start 03/15/18 at 09:15; Stop at 09:48; Status DC Olanzapine (ZyPREXA ZYDIS) 5 mg 1X ONCE PO ; Start 03/15/18 at 09:50; Stop at 09:50; Status DC Olanzapine (ZyPREXA ZYDIS) 5 mg 1X ONCE PO ; Start 03/15/18 at 09:45; Stop at 09:52; Status DC Olanzapine (ZyPREXA ZYDIS) 5 mg PRN 1X PRN PO 1HR BEFORE CT &30MIN PRIOR PRN; Start 03/15/18 at 09:50; Stop 03/15/18 at 18:00; Status DC Sertraline HCl (Zoloft) 50 mg DAILY PO Last administered on 03/19/18at 09:27; Start 03/16/18 at 09:00; Stop 03/21/18 at 08:00; Status DC Mirtazapine (Remeron) 15 mg QHS PO Last administered on 04/16/18at 19:31; Start 03/16/18 at 21:00 Sertraline HCl (Zoloft) 75 mg DAILY PO Last administered on 03/30/18at 09:32; Start 03/21/18 at 09:00; Stop 03/30/18 at 18:24; Status DC Divalproex Sodium (Depakote Sprinkles) 125 mg 0900,1300 PO Last administered on 03/26/18at 07:50; Start 03/21/18 at 09:00; Stop 03/26/18 at 10:10; Status DC Quetiapine Fumarate (SEROquel) 12.5 mg BID PO Last administered on 04/16/18 19 :31; Start 03/20/18 at 21:00 Carbidopa/Levodopa (Sinemet Cr) 1 tab.sa BID PO Last administered on 03/31/18at 08:46; Start 03/23/18 at 21:00; Stop 03/31/18 at 19:35; Status DC Divalproex Sodium (Depakote Sprinkles) 125 mg TID@0900,1300,1700 PO Last administered on 04/04/18at 12:54; Start 03/26/18 at 13:00; Stop 04/04/18 at 19:00 ; Status DC Sertraline HCl (Zoloft) 100 mg DAILY PO Last administered on 04/16/18at 07:24; Start 03/31/18 at 09:00 Docusate Sodium (Colace Solution) 100 mg BID PO Last administered on 04/16/18at 19:31; Start 03/31/18 at 21:00 Buspirone HCl (Buspar) 5 mg BID@0900,1700 PO Last administered on 6/28/18at 16: 44; Start 04/02/18 at 17:00 Rivastigmine (Exelon) 1 patch DAILY TD Last administered on 04/06/18at 07:52; Start 04/04/18 at 09:00; Stop 04/07/18 at 08:59; Status DC Rivastigmine (Exelon) 1 patch DAILY TD Last administered on 04/09/18at 10:10; Start 04/07/18 at 09:00; Stop 04/09/18 at 21:00; Status DC Rivastigmine (Exelon 13.3mg) 1 patch DAILY TD Last administered on 04/16/18at 07 :24; Start 04/10/18 at 09:00 Naproxen (Naprosyn) 250 mg PRN Q4HRS PRN PO MIGRAINE HEADACHE; Start 04/13/18 at 18:45 Quetiapine Fumarate (SEROquel) 25 mg DAILY@0200 PO ; Start 04/17/18 at 02:00 Active Scripts Active Reported Silvadene (Silver Sulfadiazine) 20 Gm Cream..g. 1 Luz Maria TP BID Seroquel (Quetiapine Fumarate) 25 Mg Tablet 25 Mg PO BID@1200,2100 [place] 5-325 Tablet (Hydrocodone Bit/Acetaminophen) 1 Each Tablet 1 Tab PO PRN Q6HRS PRN Naproxen 500 Mg Tablet 500 Mg PO BID I have reviewed the current psychotropics carefully including drug interactions. Risk benefit ratio favors no change other than as noted in my dictated progress note. 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
[2018-04-17] MEDS: QUEtiapine 25 MG TABLET. PO SCH ×3 (04:00→19:26)
[2018-04-17 05:47] VITALS: BP 123/88
[2018-04-17] MEDS: RIVASTIGMINE 13.3MG PATCH. TD SCH (07:58)
[2018-04-17] MEDS: SERTRALINE 100 MG TABLET. PO SCH (07:58)
[2018-04-17] MEDS: busPIRone 5 MG TABLET. PO SCH ×2 (07:58→17:05)
[2018-04-17] MEDS: DOCUSATE 100 MG/10 ML SOLUTION. PO SCH ×2 (07:58→19:26)
[2018-04-17 15:54] VITALS: BP 115/84
[2018-04-17] MEDS: MIRTAZAPINE 15 MG TABLET PO SCH (19:26)
[2018-04-17] MEDS: MAGNESIUM HYDROXIDE 2,400 MG/30 ML ORAL.SUSP. PO PRN (19:26)
--- NOTE | 2018-04-17 19:56 | PDOC ---
Exam Note: Lambert Note: Please also refer to the separate dictated note~for this date of service dictated separately.~Patient seen individually. Discussed the patient with Nursing staff reviewed the chart.~Reviewed interim history and current functioning. Reviewed vital signs,~Labs/ Radiology~and current medications noted below. Continue current treatment with the changes noted in the dictated addendum note Assessment: Vital Signs: Vital Signs Date Time Temp Pulse Resp B/P (MAP) Pulse Ox O2 Delivery O2 Flow Rate FiO2 04/17/18 15:54 98.3 92 16 115/84 (94) 96 04/16/18 16:00 Room Air I&O Intake and Output 04/17/18 06:59 Intake Total 840 ml Balance 840 ml Intake Oral 840 ml # Bowel Movements 1 Current Medications: Meds: Current Medications Acetaminophen (Tylenol) 650 mg PRN Q6HRS PRN PO PAIN / TEMP Last administered on 04/07/18at 16:25; Start 03/10/18 at 23:00 Multi-Ingredient Ointment (Analgesic [place]) 1 luz maria PRN QID PRN TP MUSCLE PAIN; Start 03/10/18 at 23:00 Al Hydroxide/Mg Hydroxide (Mylanta Plus Xs) 15 ml PRN AFTMEALHC PRN PO DYSPEPSIA; Start 03/10/18 at 23:00 Magnesium Hydroxide (Milk Of Magnesia) 2,400 mg PRN QHS PRN PO CONSTIPATION Last administered on 04/17/18at 19:26; Start 03/10/18 at 23:00 Quetiapine Fumarate (SEROquel) 25 mg BID@1200,2100 PO Last administered on at 12:14; Start 03/11/18 at 12:00; Stop 03/20/18 at 19:07; Status DC Acetaminophen/ Hydrocodone Bitart (Lortab 5/325) 1 tab PRN Q6HRS PRN PO PAIN Last administered on 04/14/18at 06:48; Start 03/10/18 at 23:30 Naproxen (Naprosyn) 500 mg BID PO Last administered on 03/11/18at 19:23; Start 03/11/18 at 09:00; Stop 03/12/18 at 07:42; Status DC Vitamin D (Vitamin D3) 50,000 unit WEEKLY PO Last administered on 04/15/18at 07: 43; Start 03/11/18 at 19:00 Sertraline HCl (Zoloft) 25 mg DAILY PO Last administered on 03/15/18at 08:15; Start 03/12/18 at 09:00; Stop 03/15/18 at 21:28; Status DC Mirtazapine (Remeron) 7.5 mg QHS PO Last administered on 03/15/18at 21:24; Start 03/11/18 at 21:00; Stop 03/16/18 at 20:49; Status DC Olanzapine (ZyPREXA ZYDIS) 2.5 mg PRN Q2HR PRN PO agitation Last administered on 03/14/18at 20:09; Start 03/12/18 at 07:45; Stop 03/14/18 at 22:25; Status DC Naproxen (Naprosyn) 500 mg PRN BID PRN PO PAIN Last administered on 03/21/18at 07 :43; Start 03/12/18 at 07:45 Silver Sulfadiazine (Silvadene) 1 luz maria DAILY TP Last administered on 03/30/18at 09:35; Start 03/12/18 at 21:00; Stop 04/02/18 at 09:30; Status DC Artificial Tears (Artificial Tears) 1 drop PRN Q15MIN PRN OU DRY EYE Last administered on 03/24/18 08:15; Start 03/13/18 at 20:30 Trazodone HCl (Desyrel) 50 mg PRN QHS PRN PO insomnia Last administered on 04/10at 19:03; Start 03/14/18 at 18:45 Olanzapine (ZyPREXA ZYDIS) 5 mg PRN Q2HR PRN PO agitation Last administered on 04/16/18at 08:21; Start 03/14/18 at 22:30 Olanzapine (ZyPREXA) 2.5 mg 1X ONCE PO ; Start 03/15/18 at 09:15; Stop at 09:48; Status DC Olanzapine (ZyPREXA ZYDIS) 5 mg 1X ONCE PO ; Start 03/15/18 at 09:50; Stop at 09:50; Status DC Olanzapine (ZyPREXA ZYDIS) 5 mg 1X ONCE PO ; Start 03/15/18 at 09:45; Stop at 09:52; Status DC Olanzapine (ZyPREXA ZYDIS) 5 mg PRN 1X PRN PO 1HR BEFORE CT &30MIN PRIOR PRN; Start 03/15/18 at 09:50; Stop 03/15/18 at 18:00; Status DC Sertraline HCl (Zoloft) 50 mg DAILY PO Last administered on 03/19/18at 09:27; Start 03/16/18 at 09:00; Stop 03/21/18 at 08:00; Status DC Mirtazapine (Remeron) 15 mg QHS PO Last administered on 04/17/18at 19:26; Start 03/16/18 at 21:00 Sertraline HCl (Zoloft) 75 mg DAILY PO Last administered on 03/30/18at 09:32; Start 03/21/18 at 09:00; Stop 03/30/18 at 18:24; Status DC Divalproex Sodium (Depakote Sprinkles) 125 mg 0900,1300 PO Last administered on 03/26/18at 07:50; Start 03/21/18 at 09:00; Stop 03/26/18 at 10:10; Status DC Quetiapine Fumarate (SEROquel) 12.5 mg BID PO Last administered on 04/17/18 19 :26; Start 03/20/18 at 21:00 Carbidopa/Levodopa (Sinemet Cr) 1 tab.sa BID PO Last administered on 03/31/18at 08:46; Start 03/23/18 at 21:00; Stop 03/31/18 at 19:35; Status DC Divalproex Sodium (Depakote Sprinkles) 125 mg TID@0900,1300,1700 PO Last administered on 04/04/18at 12:54; Start 03/26/18 at 13:00; Stop 04/04/18 at 19:00 ; Status DC Sertraline HCl (Zoloft) 100 mg DAILY PO Last administered on 04/17/18at 07:58; Start 03/31/18 at 09:00 Docusate Sodium (Colace Solution) 100 mg BID PO Last administered on 04/17/18at 19:26; Start 03/31/18 at 21:00 Buspirone HCl (Buspar) 5 mg BID@0900,1700 PO Last administered on 04/17/18at 17: 05; Start 04/02/18 at 17:00 Rivastigmine (Exelon) 1 patch DAILY TD Last administered on 04/06/18at 07:52; Start 04/04/18 at 09:00; Stop 04/07/18 at 08:59; Status DC Rivastigmine (Exelon) 1 patch DAILY TD Last administered on 04/09/18at 10:10; Start 04/07/18 at 09:00; Stop 04/09/18 at 21:00; Status DC Rivastigmine (Exelon 13.3mg) 1 patch DAILY TD Last administered on 04/17/18at 07 :58; Start 04/10/18 at 09:00 Naproxen (Naprosyn) 250 mg PRN Q4HRS PRN PO MIGRAINE HEADACHE; Start 04/13/18 at 18:45 Quetiapine Fumarate (SEROquel) 25 mg DAILY@0200 PO ; Start 04/17/18 at 02:00 Active Scripts Active Reported Silvadene (Silver Sulfadiazine) 20 Gm Cream..g. 1 Luz Maria TP BID Seroquel (Quetiapine Fumarate) 25 Mg Tablet 25 Mg PO BID@1200,2100 [place] 5-325 Tablet (Hydrocodone Bit/Acetaminophen) 1 Each Tablet 1 Tab PO PRN Q6HRS PRN Naproxen 500 Mg Tablet 500 Mg PO BID I have reviewed the current psychotropics carefully including drug interactions. Risk benefit ratio favors no change other than as noted in my dictated progress note. 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
[2018-04-18] MEDS: QUEtiapine 25 MG TABLET. PO SCH ×4 (02:00→21:00)
[2018-04-18] MEDS: DOCUSATE 100 MG/10 ML SOLUTION. PO SCH ×3 (08:22→21:00)
[2018-04-18] MEDS: SERTRALINE 100 MG TABLET. PO SCH (08:23)
[2018-04-18] MEDS: busPIRone 5 MG TABLET. PO SCH ×2 (08:23→16:43)
[2018-04-18] MEDS: RIVASTIGMINE 13.3MG PATCH. TD SCH (08:23)
--- NOTE | 2018-04-18 11:18 | PN ---
DATE: 04/15/2018 This is a late entry, 04/15/2018, covers the elements not covered in my initial note. SUBJECTIVE: I met with the patient in the evening. The patient slept 6-3/4 hours previous evening, somewhat agitated in the morning. Appetite is fair. Remains confused. 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 In the past, he has been concerned about over sedation on this, but at this stage, according to social service staff, he would be accepted at any facility, none available for him. Sister is not able to take him back. We have to do the best we can adjusting his psychotropics so that he can at least be managed in the facility. REVIEW OF SYSTEMS: No CV, , pulmonary, eye, ENT system symptoms on review. Reliability poor. MENTAL STATUS EXAM: Oriented to himself. Insight, judgment, recent and remote memory, attention, concentration, fund of knowledge poor, consistent with his diagnosis as mentioned in my initial note. 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 PLAN: Continue current psychotropics. We will discuss with sister about adding Seroquel ticket marker and taking it from there. COLE NAIR MD DR: ANGELINA/gallito JOB#: [id number] / [id number]
--- NOTE | 2018-04-18 11:35 | PN ---
DATE: 04/16/2018 PSYCHIATRIC PROGRESS NOTE This is a late entry 04/16/2018 covers elements not covered in my initial note 04/16/2018. SUBJECTIVE: I met with the patient evening of 04/16/2018 and staffed at a very lengthy treatment team meeting morning of 04/16/2018 with her sister attending. Discussed the patient's diagnosis, progress, ongoing agitation, aggression, especially in the morning when he awakens. He slept 5-1/4 hours, refused his morning vital signs. Several nursing staff expressed a lot of concern about safety issues since he can get quite aggressive. Initially, sister was not willing to add any other psychotropics. We also had a meeting with the nurse entry level assistant manager, addressed all of the above and sister finally agreed to adding Seroquel 25 mg chassis driver around 4 a.m. when he awakens to help him with the morning agitation. We may have to add other dosages as well. REVIEW OF SYSTEMS: No CV, , pulmonary, eye, ENT system symptoms on review. Reliability poor. MENTAL STATUS EXAM: Oriented to himself. Insight, judgment, recent and remote memory, attention, concentration, fund of knowledge poor, consistent with his diagnosis mentioned in my initial note. 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 PLAN: Continue psychotropics from initial note and add Seroquel 25 mg chassis driver 4 a.m. or so. Adjust further as clinically indicated. COLE NAIR MD DR: ANGELINA/gallito JOB#: [id number] / [id number]
[2018-04-18 16:09] VITALS: BP 116/76
[2018-04-18] MEDS: MIRTAZAPINE 15 MG TABLET PO SCH ×2 (20:07→21:00)
--- NOTE | 2018-04-18 22:25 | PDOC ---
Exam Note: Lambert Note: Please also refer to the separate dictated note~for this date of service dictated separately.~Patient seen individually. Discussed the patient with Nursing staff reviewed the chart.~Reviewed interim history and current functioning. Reviewed vital signs,~Labs/ Radiology~and current medications noted below. Continue current treatment with the changes noted in the dictated addendum note Assessment: Vital Signs: Vital Signs Date Time Temp Pulse Resp B/P (MAP) Pulse Ox O2 Delivery O2 Flow Rate FiO2 04/18/18 16:09 98.2 81 18 116/76 (89) 98 04/16/18 16:00 Room Air I&O Intake and Output 04/18/18 06:59 Intake Total 900 ml Balance 900 ml Intake Oral 900 ml # Bowel Movements 1 Current Medications: Meds: Current Medications Acetaminophen (Tylenol) 650 mg PRN Q6HRS PRN PO PAIN / TEMP Last administered on 04/07/18at 16:25; Start 03/10/18 at 23:00 Multi-Ingredient Ointment (Analgesic [place]) 1 luz maria PRN QID PRN TP MUSCLE PAIN; Start 03/10/18 at 23:00 Al Hydroxide/Mg Hydroxide (Mylanta Plus Xs) 15 ml PRN AFTMEALHC PRN PO DYSPEPSIA; Start 03/10/18 at 23:00 Magnesium Hydroxide (Milk Of Magnesia) 2,400 mg PRN QHS PRN PO CONSTIPATION Last administered on 04/17/18at 19:26; Start 03/10/18 at 23:00 Quetiapine Fumarate (SEROquel) 25 mg BID@1200,2100 PO Last administered on at 12:14; Start 03/11/18 at 12:00; Stop 03/20/18 at 19:07; Status DC Acetaminophen/ Hydrocodone Bitart (Lortab 5/325) 1 tab PRN Q6HRS PRN PO PAIN Last administered on 04/14/18at 06:48; Start 03/10/18 at 23:30 Naproxen (Naprosyn) 500 mg BID PO Last administered on 03/11/18at 19:23; Start 03/11/18 at 09:00; Stop 03/12/18 at 07:42; Status DC Vitamin D (Vitamin D3) 50,000 unit WEEKLY PO Last administered on 04/15/18at 07: 43; Start 03/11/18 at 19:00 Sertraline HCl (Zoloft) 25 mg DAILY PO Last administered on 03/15/18at 08:15; Start 03/12/18 at 09:00; Stop 03/15/18 at 21:28; Status DC Mirtazapine (Remeron) 7.5 mg QHS PO Last administered on 03/15/18at 21:24; Start 03/11/18 at 21:00; Stop 03/16/18 at 20:49; Status DC Olanzapine (ZyPREXA ZYDIS) 2.5 mg PRN Q2HR PRN PO agitation Last administered on 03/14/18at 20:09; Start 03/12/18 at 07:45; Stop 03/14/18 at 22:25; Status DC Naproxen (Naprosyn) 500 mg PRN BID PRN PO PAIN Last administered on 03/21/18at 07 :43; Start 03/12/18 at 07:45 Silver Sulfadiazine (Silvadene) 1 luz maria DAILY TP Last administered on 03/30/18at 09:35; Start 03/12/18 at 21:00; Stop 04/02/18 at 09:30; Status DC Artificial Tears (Artificial Tears) 1 drop PRN Q15MIN PRN OU DRY EYE Last administered on 03/24/18at 08:15; Start 03/13/18 at 20:30 Trazodone HCl (Desyrel) 50 mg PRN QHS PRN PO insomnia Last administered on 04/10at 19:03; Start 03/14/18 at 18:45 Olanzapine (ZyPREXA ZYDIS) 5 mg PRN Q2HR PRN PO agitation Last administered on 04/16/18at 08:21; Start 03/14/18 at 22:30 Olanzapine (ZyPREXA) 2.5 mg 1X ONCE PO ; Start 03/15/18 at 09:15; Stop at 09:48; Status DC Olanzapine (ZyPREXA ZYDIS) 5 mg 1X ONCE PO ; Start 03/15/18 at 09:50; Stop at 09:50; Status DC Olanzapine (ZyPREXA ZYDIS) 5 mg 1X ONCE PO ; Start 03/15/18 at 09:45; Stop at 09:52; Status DC Olanzapine (ZyPREXA ZYDIS) 5 mg PRN 1X PRN PO 1HR BEFORE CT &30MIN PRIOR PRN; Start 03/15/18 at 09:50; Stop 03/15/18 at 18:00; Status DC Sertraline HCl (Zoloft) 50 mg DAILY PO Last administered on 03/19/18at 09:27; Start 03/16/18 at 09:00; Stop 03/21/18 at 08:00; Status DC Mirtazapine (Remeron) 15 mg QHS PO Last administered on 04/18/18at 20:07; Start 03/16/18 at 21:00 Sertraline HCl (Zoloft) 75 mg DAILY PO Last administered on 03/30/18at 09:32; Start 03/21/18 at 09:00; Stop 03/30/18 at 18:24; Status DC Divalproex Sodium (Depakote Sprinkles) 125 mg 0900,1300 PO Last administered on 03/26/18at 07:50; Start 03/21/18 at 09:00; Stop 03/26/18 at 10:10; Status DC Quetiapine Fumarate (SEROquel) 12.5 mg BID PO Last administered on 04/18/18at 20 :07; Start 03/20/18 at 21:00 Carbidopa/Levodopa (Sinemet Cr) 1 tab.sa BID PO Last administered on 03/31/18at 08:46; Start 03/23/18 at 21:00; Stop 03/31/18 at 19:35; Status DC Divalproex Sodium (Depakote Sprinkles) 125 mg TID@0900,1300,1700 PO Last administered on 04/04/18at 12:54; Start 03/26/18 at 13:00; Stop 04/04/18 at 19:00 ; Status DC Sertraline HCl (Zoloft) 100 mg DAILY PO Last administered on 04/18/18at 08:23; Start 03/31/18 at 09:00 Docusate Sodium (Colace Solution) 100 mg BID PO Last administered on 04/18/18at 20:07; Start 03/31/18 at 21:00 Buspirone HCl (Buspar) 5 mg BID@0900,1700 PO Last administered on 04/18/18at 16: 43; Start 04/02/18 at 17:00 Rivastigmine (Exelon) 1 patch DAILY TD Last administered on 04/06/18at 07:52; Start 04/04/18 at 09:00; Stop 04/07/18 at 08:59; Status DC Rivastigmine (Exelon) 1 patch DAILY TD Last administered on 04/09/18at 10:10; Start 04/07/18 at 09:00; Stop 04/09/18 at 21:00; Status DC Rivastigmine (Exelon 13.3mg) 1 patch DAILY TD Last administered on 04/18/18at 08 :23; Start 04/10/18 at 09:00 Naproxen (Naprosyn) 250 mg PRN Q4HRS PRN PO MIGRAINE HEADACHE; Start 04/13/18 at 18:45 Quetiapine Fumarate (SEROquel) 25 mg DAILY@0200 PO ; Start 04/17/18 at 02:00 Active Scripts Active Reported Silvadene (Silver Sulfadiazine) 20 Gm Cream..g. 1 Luz Maria TP BID Seroquel (Quetiapine Fumarate) 25 Mg Tablet 25 Mg PO BID@1200,2100 [place] 5-325 Tablet (Hydrocodone Bit/Acetaminophen) 1 Each Tablet 1 Tab PO PRN Q6HRS PRN Naproxen 500 Mg Tablet 500 Mg PO BID I have reviewed the current psychotropics carefully including drug interactions. Risk benefit ratio favors no change other than as noted in my dictated progress note. 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
[2018-04-19] MEDS: QUEtiapine 25 MG TABLET. PO SCH ×6 (01:33→21:00)
[2018-04-19] MEDS: traZODone 50 MG TABLET. PO PRN ×2 (01:35→19:27)
[2018-04-19] MEDS: busPIRone 5 MG TABLET. PO SCH ×2 (08:26→17:12)
[2018-04-19] MEDS: DOCUSATE 100 MG/10 ML SOLUTION. PO SCH ×3 (08:26→21:00)
[2018-04-19] MEDS: SERTRALINE 100 MG TABLET. PO SCH (08:26)
[2018-04-19] MEDS: RIVASTIGMINE 13.3MG PATCH. TD SCH (08:27)
[2018-04-19 16:17] VITALS: BP 113/64
[2018-04-19] MEDS: MIRTAZAPINE 15 MG TABLET PO SCH (19:26)
--- NOTE | 2018-04-19 20:56 | PDOC ---
Exam Note: Lambert Note: Please also refer to the separate dictated note~for this date of service dictated separately.~Patient seen individually. Discussed the patient with Nursing staff reviewed the chart.~Reviewed interim history and current functioning. Reviewed vital signs,~Labs/ Radiology~and current medications noted below. Continue current treatment with the changes noted in the dictated addendum note Assessment: Vital Signs: Vital Signs Date Time Temp Pulse Resp B/P (MAP) Pulse Ox O2 Delivery O2 Flow Rate FiO2 04/19/18 16:17 98.0 67 20 113/64 (80) 97 04/16/18 16:00 Room Air I&O Intake and Output 04/19/18 07:00 Intake Total 600 ml Balance 600 ml Intake Oral 600 ml Current Medications: Meds: Current Medications Acetaminophen (Tylenol) 650 mg PRN Q6HRS PRN PO PAIN / TEMP Last administered on 04/07/18at 16:25; Start 03/10/18 at 23:00 Multi-Ingredient Ointment (Analgesic [place]) 1 luz maria PRN QID PRN TP MUSCLE PAIN; Start 03/10/18 at 23:00 Al Hydroxide/Mg Hydroxide (Mylanta Plus Xs) 15 ml PRN AFTMEALHC PRN PO DYSPEPSIA; Start 03/10/18 at 23:00 Magnesium Hydroxide (Milk Of Magnesia) 2,400 mg PRN QHS PRN PO CONSTIPATION Last administered on 04/17/18at 19:26; Start 03/10/18 at 23:00 Quetiapine Fumarate (SEROquel) 25 mg BID@1200,2100 PO Last administered on at 12:14; Start 03/11/18 at 12:00; Stop 03/20/18 at 19:07; Status DC Acetaminophen/ Hydrocodone Bitart (Lortab 5/325) 1 tab PRN Q6HRS PRN PO PAIN Last administered on 04/14/18at 06:48; Start 03/10/18 at 23:30 Naproxen (Naprosyn) 500 mg BID PO Last administered on 03/11/18at 19:23; Start 03/11/18 at 09:00; Stop 03/12/18 at 07:42; Status DC Vitamin D (Vitamin D3) 50,000 unit WEEKLY PO Last administered on 04/15/18at 07: 43; Start 03/11/18 at 19:00 Sertraline HCl (Zoloft) 25 mg DAILY PO Last administered on 03/15/18at 08:15; Start 03/12/18 at 09:00; Stop 03/15/18 at 21:28; Status DC Mirtazapine (Remeron) 7.5 mg QHS PO Last administered on 03/15/18at 21:24; Start 03/11/18 at 21:00; Stop 03/16/18 at 20:49; Status DC Olanzapine (ZyPREXA ZYDIS) 2.5 mg PRN Q2HR PRN PO agitation Last administered on 03/14/18at 20:09; Start 03/12/18 at 07:45; Stop 03/14/18 at 22:25; Status DC Naproxen (Naprosyn) 500 mg PRN BID PRN PO PAIN Last administered on 03/21/18at 07 :43; Start 03/12/18 at 07:45 Silver Sulfadiazine (Silvadene) 1 luz maria DAILY TP Last administered on 03/30/18at 09:35; Start 03/12/18 at 21:00; Stop 04/02/18 at 09:30; Status DC Artificial Tears (Artificial Tears) 1 drop PRN Q15MIN PRN OU DRY EYE Last administered on 03/24/18at 08:15; Start 03/13/18 at 20:30 Trazodone HCl (Desyrel) 50 mg PRN QHS PRN PO insomnia Last administered on at 19:27; Start 03/14/18 at 18:45 Olanzapine (ZyPREXA ZYDIS) 5 mg PRN Q2HR PRN PO agitation Last administered on 04/16/18at 08:21; Start 03/14/18 at 22:30 Olanzapine (ZyPREXA) 2.5 mg 1X ONCE PO ; Start 03/15/18 at 09:15; Stop at 09:48; Status DC Olanzapine (ZyPREXA ZYDIS) 5 mg 1X ONCE PO ; Start 03/15/18 at 09:50; Stop at 09:50; Status DC Olanzapine (ZyPREXA ZYDIS) 5 mg 1X ONCE PO ; Start 03/15/18 at 09:45; Stop 5/ 27/18 at 09:52; Status DC Olanzapine (ZyPREXA ZYDIS) 5 mg PRN 1X PRN PO 1HR BEFORE CT &30MIN PRIOR PRN; Start 03/15/18 at 09:50; Stop 03/15/18 at 18:00; Status DC Sertraline HCl (Zoloft) 50 mg DAILY PO Last administered on 03/19/18at 09:27; Start 03/16/18 at 09:00; Stop 03/21/18 at 08:00; Status DC Mirtazapine (Remeron) 15 mg QHS PO Last administered on 04/19/18 19:26; Start 03/16/18 at 21:00 Sertraline HCl (Zoloft) 75 mg DAILY PO Last administered on 03/30/18at 09:32; Start 03/21/18 at 09:00; Stop 03/30/18 at 18:24; Status DC Divalproex Sodium (Depakote Sprinkles) 125 mg 0900,1300 PO Last administered on 03/26/18at 07:50; Start 03/21/18 at 09:00; Stop 03/26/18 at 10:10; Status DC Quetiapine Fumarate (SEROquel) 12.5 mg BID PO Last administered on 04/19/18 19: 25; Start 03/20/18 at 21:00 Carbidopa/Levodopa (Sinemet Cr) 1 tab.sa BID PO Last administered on 03/31/18at 08:46; Start 03/23/18 at 21:00; Stop 03/31/18 at 19:35; Status DC Divalproex Sodium (Depakote Sprinkles) 125 mg TID@0900,1300,1700 PO Last administered on 04/04/18at 12:54; Start 03/26/18 at 13:00; Stop 04/04/18 at 19:00 ; Status DC Sertraline HCl (Zoloft) 100 mg DAILY PO Last administered on 04/19/18 08:26; Start 03/31/18 at 09:00 Docusate Sodium (Colace Solution) 100 mg BID PO Last administered on 04/19/18 19:26; Start 03/31/18 at 21:00 Buspirone HCl (Buspar) 5 mg BID@0900,1700 PO Last administered on 7/1/18at 17: 12; Start 04/02/18 at 17:00 Rivastigmine (Exelon) 1 patch DAILY TD Last administered on 04/06/18at 07:52; Start 04/04/18 at 09:00; Stop 04/07/18 at 08:59; Status DC Rivastigmine (Exelon) 1 patch DAILY TD Last administered on 04/09/18at 10:10; Start 04/07/18 at 09:00; Stop 04/09/18 at 21:00; Status DC Rivastigmine (Exelon 13.3mg) 1 patch DAILY TD Last administered on 04/19/18at 08: 27; Start 04/10/18 at 09:00 Naproxen (Naprosyn) 250 mg PRN Q4HRS PRN PO MIGRAINE HEADACHE; Start 04/13/18 at 18:45 Quetiapine Fumarate (SEROquel) 25 mg DAILY@0200 PO Last administered on at 05:30; Start 04/17/18 at 02:00 Active Scripts Active Reported Silvadene (Silver Sulfadiazine) 20 Gm Cream..g. 1 Luz Maria TP BID Seroquel (Quetiapine Fumarate) 25 Mg Tablet 25 Mg PO BID@1200,2100 [place] 5-325 Tablet (Hydrocodone Bit/Acetaminophen) 1 Each Tablet 1 Tab PO PRN Q6HRS PRN Naproxen 500 Mg Tablet 500 Mg PO BID I have reviewed the current psychotropics carefully including drug interactions. Risk benefit ratio favors no change other than as noted in my dictated progress note. 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
--- NOTE | 2018-04-19 23:29 | PN ---
DATE: 04/17/2018 PSYCHIATRIC PROGRESS NOTE This late entry 04/17/2018 covers elements not covered in my initial note. SUBJECTIVE: Met with the patient in the evening. 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 At shift change, he had to be placed in the locked hallway, showed was off, later he is doing reasonably. Around 4:00 p.m., he was resistive with changes. REVIEW OF SYSTEMS: No CV, , pulmonary, eye, ENT system symptoms on review. Reliability is poor. MENTAL STATUS EXAM: Oriented to himself. Insight, judgment, recent, remote memory, attention, concentration, fund of knowledge is poor, consistent with his diagnoses from initial note. 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 Rest unchanged. PLAN: Continue psychotropics from initial note. MAN Janie NAIR MD DR: ANGELINA/gallito JOB#: [id number] / [id number]
[2018-04-20] MEDS: QUEtiapine 25 MG TABLET. PO SCH ×3 (01:48→19:16)
--- NOTE | 2018-04-20 04:34 | PN ---
DATE: 04/18/2018 This is a late entry, 04/18/2018, covers the elements not covered in my initial note. SUBJECTIVE: I met with the patient the evening of 04/18/2018. The patient slept 4 hours previous evening. When he visited with his sister in the evening reportedly, he threw food and wanted to leave; this is slightly unusual and we monitored this. He received Seroquel at 0200, and woke up calmer, less agitated in the morning. REVIEW OF SYSTEMS: No CV, , pulmonary, eye, ENT system symptoms on review. Reliability poor. MENTAL STATUS EXAM: Oriented to himself. Insight, judgment, recent and remote memory, attention, concentration, fund of knowledge poor, consistent with his diagnosis from initial note. PLAN: No change from a psychiatric standpoint. MAN Janie NAIR MD DR: ANGELINA/gallito JOB#: [id number] / [id number]
--- NOTE | 2018-04-20 04:35 | PN ---
DATE: 04/19/2018 This note covers the elements not covered in my initial note, 04/19/2018. SUBJECTIVE: I met with the patient in the evening. The patient slept 6-1/2 hours the previous evening. Per nursing report, the patient's brother is in town and the patient is aware of this and gets agitated that he is unable to visit his brother. He was upset with his sister about this. He has been somewhat flirting with female staff per nursing report. REVIEW OF SYSTEMS: No CV, , pulmonary, eye, ENT system symptoms on review. Reliability poor. MENTAL STATUS EXAM: Oriented to himself. Insight, judgment, recent and remote memory, attention, concentration, fund of knowledge poor, consistent with his diagnosis as mentioned in my initial note. 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 May need to increase this, but we will see for another day or so. MAN Janie NAIR MD DR: ANGELINA/gallito JOB#: [id number] / [id number]
[2018-04-20] MEDS: RIVASTIGMINE 13.3MG PATCH. TD SCH (08:58)
[2018-04-20] MEDS: SERTRALINE 100 MG TABLET. PO SCH (08:58)
[2018-04-20] MEDS: busPIRone 5 MG TABLET. PO SCH ×2 (08:58→16:57)
[2018-04-20] MEDS: DOCUSATE SODIUM 100 MG CAPSULE PO SCH ×2 (08:58→19:16)
[2018-04-20 15:59] VITALS: BP 119/78
[2018-04-20] MEDS: MIRTAZAPINE 15 MG TABLET PO SCH (19:16)
--- NOTE | 2018-04-20 20:58 | PDOC ---
Exam Note: Lambert Note: Please also refer to the separate dictated note~for this date of service dictated separately.~Patient seen individually. Discussed the patient with Nursing staff reviewed the chart.~Reviewed interim history and current functioning. Reviewed vital signs,~Labs/ Radiology~and current medications noted below. Continue current treatment with the changes noted in the dictated addendum note Assessment: Vital Signs: Vital Signs Date Time Temp Pulse Resp B/P (MAP) Pulse Ox O2 Delivery O2 Flow Rate FiO2 04/20/18 15:59 98.6 58 19 119/78 (92) 100 04/16/18 16:00 Room Air I&O Intake and Output 04/20/18 06:59 Intake Total 1320 ml Balance 1320 ml Intake Oral 1320 ml # Bowel Movements 1 Current Medications: Meds: Current Medications Acetaminophen (Tylenol) 650 mg PRN Q6HRS PRN PO PAIN / TEMP Last administered on 04/07/18at 16:25; Start 03/10/18 at 23:00 Multi-Ingredient Ointment (Analgesic [place]) 1 luz maria PRN QID PRN TP MUSCLE PAIN; Start 03/10/18 at 23:00 Al Hydroxide/Mg Hydroxide (Mylanta Plus Xs) 15 ml PRN AFTMEALHC PRN PO DYSPEPSIA; Start 03/10/18 at 23:00 Magnesium Hydroxide (Milk Of Magnesia) 2,400 mg PRN QHS PRN PO CONSTIPATION Last administered on 04/17/18at 19:26; Start 03/10/18 at 23:00 Quetiapine Fumarate (SEROquel) 25 mg BID@1200,2100 PO Last administered on at 12:14; Start 03/11/18 at 12:00; Stop 03/20/18 at 19:07; Status DC Acetaminophen/ Hydrocodone Bitart (Lortab 5/325) 1 tab PRN Q6HRS PRN PO PAIN Last administered on 04/14/18at 06:48; Start 03/10/18 at 23:30 Naproxen (Naprosyn) 500 mg BID PO Last administered on 03/11/18at 19:23; Start 03/11/18 at 09:00; Stop 03/12/18 at 07:42; Status DC Vitamin D (Vitamin D3) 50,000 unit WEEKLY PO Last administered on 04/15/18at 07: 43; Start 03/11/18 at 19:00 Sertraline HCl (Zoloft) 25 mg DAILY PO Last administered on 03/15/18at 08:15; Start 03/12/18 at 09:00; Stop 03/15/18 at 21:28; Status DC Mirtazapine (Remeron) 7.5 mg QHS PO Last administered on 03/15/18at 21:24; Start 03/11/18 at 21:00; Stop 03/16/18 at 20:49; Status DC Olanzapine (ZyPREXA ZYDIS) 2.5 mg PRN Q2HR PRN PO agitation Last administered on 03/14/18at 20:09; Start 03/12/18 at 07:45; Stop 03/14/18 at 22:25; Status DC Naproxen (Naprosyn) 500 mg PRN BID PRN PO PAIN Last administered on 03/21/18at 07 :43; Start 03/12/18 at 07:45 Silver Sulfadiazine (Silvadene) 1 luz maria DAILY TP Last administered on 03/30/18at 09:35; Start 03/12/18 at 21:00; Stop 04/02/18 at 09:30; Status DC Artificial Tears (Artificial Tears) 1 drop PRN Q15MIN PRN OU DRY EYE Last administered on 03/24/18 08:15; Start 03/13/18 at 20:30 Trazodone HCl (Desyrel) 50 mg PRN QHS PRN PO insomnia Last administered on 04/10at 19:03; Start 03/14/18 at 18:45 Olanzapine (ZyPREXA ZYDIS) 5 mg PRN Q2HR PRN PO agitation Last administered on 04/16/18at 08:21; Start 03/14/18 at 22:30 Olanzapine (ZyPREXA) 2.5 mg 1X ONCE PO ; Start 03/15/18 at 09:15; Stop at 09:48; Status DC Olanzapine (ZyPREXA ZYDIS) 5 mg 1X ONCE PO ; Start 03/15/18 at 09:50; Stop at 09:50; Status DC Olanzapine (ZyPREXA ZYDIS) 5 mg 1X ONCE PO ; Start 03/15/18 at 09:45; Stop at 09:52; Status DC Olanzapine (ZyPREXA ZYDIS) 5 mg PRN 1X PRN PO 1HR BEFORE CT &30MIN PRIOR PRN; Start 03/15/18 at 09:50; Stop 03/15/18 at 18:00; Status DC Sertraline HCl (Zoloft) 50 mg DAILY PO Last administered on 03/19/18at 09:27; Start 03/16/18 at 09:00; Stop 03/21/18 at 08:00; Status DC Mirtazapine (Remeron) 15 mg QHS PO Last administered on 04/20/18at 19:16; Start 03/16/18 at 21:00 Sertraline HCl (Zoloft) 75 mg DAILY PO Last administered on 03/30/18at 09:32; Start 03/21/18 at 09:00; Stop 03/30/18 at 18:24; Status DC Divalproex Sodium (Depakote Sprinkles) 125 mg 0900,1300 PO Last administered on 03/26/18at 07:50; Start 03/21/18 at 09:00; Stop 03/26/18 at 10:10; Status DC Quetiapine Fumarate (SEROquel) 12.5 mg BID PO Last administered on 04/20/18at 19: 16; Start 03/20/18 at 21:00 Carbidopa/Levodopa (Sinemet Cr) 1 tab.sa BID PO Last administered on 03/31/18at 08:46; Start 03/23/18 at 21:00; Stop 03/31/18 at 19:35; Status DC Divalproex Sodium (Depakote Sprinkles) 125 mg TID@0900,1300,1700 PO Last administered on 04/04/18at 12:54; Start 03/26/18 at 13:00; Stop 04/04/18 at 19:00 ; Status DC Sertraline HCl (Zoloft) 100 mg DAILY PO Last administered on 04/20/18at 08:58; Start 03/31/18 at 09:00 Docusate Sodium (Colace Solution) 100 mg BID PO Last administered on 04/19/18at 08:26; Start 03/31/18 at 21:00; Stop 04/20/18 at 08:20; Status DC Buspirone HCl (Buspar) 5 mg BID@0900,1700 PO Last administered on 04/20/18at 16: 57; Start 04/02/18 at 17:00 Rivastigmine (Exelon) 1 patch DAILY TD Last administered on 04/06/18at 07:52; Start 04/04/18 at 09:00; Stop 04/07/18 at 08:59; Status DC Rivastigmine (Exelon) 1 patch DAILY TD Last administered on 04/09/18at 10:10; Start 04/07/18 at 09:00; Stop 04/09/18 at 21:00; Status DC Rivastigmine (Exelon 13.3mg) 1 patch DAILY TD Last administered on 04/20/18at 08: 58; Start 04/10/18 at 09:00 Naproxen (Naprosyn) 250 mg PRN Q4HRS PRN PO MIGRAINE HEADACHE; Start 04/13/18 at 18:45 Quetiapine Fumarate (SEROquel) 25 mg DAILY@0200 PO Last administered on at 01:48; Start 04/17/18 at 02:00; Stop 04/20/18 at 18:35; Status DC Docusate Sodium (Colace) 100 mg BID PO Last administered on 04/20/18at 19:16; Start 04/20/18 at 09:00 Quetiapine Fumarate (SEROquel) 37.5 mg 0200 PO ; Start 04/21/18 at 02:00 Active Scripts Active Reported Silvadene (Silver Sulfadiazine) 20 Gm Cream..g. 1 Luz Maria TP BID Seroquel (Quetiapine Fumarate) 25 Mg Tablet 25 Mg PO BID@1200,2100 [place] 5-325 Tablet (Hydrocodone Bit/Acetaminophen) 1 Each Tablet 1 Tab PO PRN Q6HRS PRN Naproxen 500 Mg Tablet 500 Mg PO BID I have reviewed the current psychotropics carefully including drug interactions. Risk benefit ratio favors no change other than as noted in my dictated progress note. 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
[2018-04-21] MEDS: QUEtiapine 25 MG TABLET. PO SCH ×3 (04:33→19:53)
[2018-04-21 06:31] VITALS: BP 124/52
--- NOTE | 2018-04-21 07:23 | PN ---
DATE: 03/26/2018 REFERRING PHYSICIAN: Urban De Dios MD SUBJECTIVE: The patient denies any new medical or neurological complaints. He has not had any falls. It was reported that his appetite has been down and has been restless and agitated since 4:00 a.m. The patient continued to have intermittent myoclonic jerking movements of the extremities. OBJECTIVE: GENERAL: Well-developed, well-nourished white male, not in acute distress. VITAL SIGNS: Blood pressure 124/68, respiratory rate 18, pulse 66 regular, temperature 97.4, oxygen saturation 97% on room air. HEENT: Normocephalic, atraumatic, otherwise unremarkable. NECK: Supple, negative for carotid bruit, lymphadenopathy, or thyromegaly. LUNGS: Clear to A and P. CARDIOVASCULAR: Regular rhythm, normal S1 and S2. ABDOMEN: Soft. Bowel sounds positive. EXTREMITIES: Negative for cyanosis, clubbing, or edema. NEUROLOGICAL: Mental Status: The patient is alert to himself. Speech is intermittently dysarthric, but the patient is always late in answering any questions and when he answers he answer with 1 or 2 words. Memory, language, judgment, and abstract thinking are poor. Cranial nerves grossly intact. Motor examination: Increased rigidity of the lower extremities, intermittent jerking type movements of the upper extremities were noted, it lasted few seconds. The strength is 4/5 throughout. Sensory examination revealed normal pinprick and light touch senses. Deep tendon reflexes were symmetric and active without pathology responses. Gait: The patient walks by himself and stance is steady. IMPRESSION: 1. Dementia. 2. 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 3. Multiple psychiatric problems include depression, anxiety with intermittent psychotic features. RECOMMENDATIONS: Continue with current medical and psychiatric care. We will monitor the effect of carbidopa/levodopa in coming few days. M Dayna PAYAN MD DR: MONIKA/gallito JOB#: [id number] / [id number]
--- NOTE | 2018-04-21 07:31 | PN ---
DATE: 03/30/2018 SUBJECTIVE: The patient has been agitated and violent in the last 3 days. He tried to hurt the nursing staff. He is more paranoid and irritable. I have seen him on the floor, and he slammed his ____ and he hit his head against the wall and the door. OBJECTIVE: GENERAL: Well-developed, well-nourished white male, not in acute distress. He appears to be depressed. VITAL SIGNS: Blood pressure 128/69, respiratory rate 18, pulse is 74, temperature 97.8, oxygen saturation is 96% on room air. HEENT: Normocephalic, atraumatic, otherwise unremarkable. NECK: Supple. Negative for carotid bruit, lymphadenopathy or thyromegaly. LUNGS: Clear to A and P. CARDIOVASCULAR: Regular rhythm, normal S1, S2. There is no S3, S4, or murmur. ABDOMEN: Soft. Bowel sounds positive. EXTREMITIES: Negative for cyanosis, clubbing or pitting edema. NEUROLOGICAL: Mental Status: The patient is alert to himself. He appeared to be disoriented. His speech is syllabic and delayed to response in a few words. The speech is not fluent. Memory, judgment and abstracting thinking are poor. Difficult to evaluate his language dysfunction as the patient is not cooperative with the exam today. Cranial nerves are grossly intact. Motor Examination: No focal muscle bulk was seen. The tone is normal. The strength is 5/5 throughout. The patient continues to have intermittent jerking type movements, but not as frequent as before. Sensory examination: Normal pinprick and light touch senses. Deep tendon reflexes were symmetric and active without pathology responses. Gait: The stance is steady. The patient walks by himself without assistance. LABORATORY DATA: CBC revealed white blood cells of 5.7 thousand, hemoglobin 12.9, hematocrit 37.9, platelet 237,000. Chemistry from 03/29/2018 revealed sodium of 145, potassium 3.7, chloride 108, CO2 of 30, BUN 28, creatinine 0.9, glucose is 117, calcium is 8.8. Liver enzymes are normal. IMPRESSION: 1. Dementia. 2. Depression, anxiety with intermittent psychotic features. 3. Corticobasal degeneration with parkinsonism features without significant change with carbidopa/levodopa. 4. Renal insufficiency/dehydration. RECOMMENDATIONS: 1. Continue with current medical and psychiatric care. 2. Encourage water intake. M Dayna PAYAN MD DR: MONIKA/gallito JOB#: [id number] / [id number]
[2018-04-21] MEDS: RIVASTIGMINE 13.3MG PATCH. TD SCH (08:19)
[2018-04-21] MEDS: SERTRALINE 100 MG TABLET. PO SCH (08:20)
[2018-04-21] MEDS: busPIRone 5 MG TABLET. PO SCH ×2 (08:20→17:15)
[2018-04-21] MEDS: DOCUSATE SODIUM 100 MG CAPSULE PO SCH ×2 (08:20→19:53)
--- NOTE | 2018-04-21 09:31 | CONS ---
DATE OF CONSULTATION: 03/23/2018 REFERRING PHYSICIAN: Dr. De Dios. REASON FOR CONSULTATION: Mental status changes and delusion. HISTORY OF PRESENT ILLNESS: This is a 57-year-old right-handed male who was admitted through Emergency Room on 03/10/2018, on account of worsening of his rigidity, bradykinesia, apraxia of the extremities, halting speech, worsening of dementia symptoms, increased generalized myoclonic movements more prominent of the upper extremities, intermittent dystonic postures of the extremities and recently being confused and disoriented. The patient was extensively evaluated by a neurologist and diagnosed of possible corticobasal degeneration in 2014. He had brain MRI, which revealed atrophy with small vessel ischemic changes, otherwise unremarkable. His EEG showed nonspecific finding and spinal tap was unremarkable. The patient was treated with clonazepam for myoclonic type jerking movements without significant relief. I am not sure if he was started on a small dose of anti-Parkinson's agents as carbidopa/levodopa in the past. Because of increased rigidity, the patient has been on baclofen. It was reported that the patient has been paranoid with mood and intermittent aggressive behavior towards his family. The patient has been combative, refusing his medications, and paranoid. It was reported he has a sleep disorder and sometimes sleep walking. 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 FAMILY HISTORY: Noncontributory. SOCIAL HISTORY: The patient is single. He denies smoking, alcohol drinking, or illicit drug use. CURRENT MEDICATIONS: Includes Seroquel, naproxen for pain, Exelon patch 13.3 mg daily, BuSpar 5 mg b.i.d., Zoloft 100 mg daily, Seroquel 12.5 mg twice daily, Remeron 15 mg at bedtime, olanzapine 5 mg p.r.n. every 2 hours for agitation, trazodone 50 mg at bedtime p.r.n. for insomnia, vitamin D, Lortab 5/325 mg q.6 hours p.r.n. for pain, and Tylenol p.r.n. ALLERGIES: Clonazepam and lorazepam. REVIEW OF SYSTEMS: A 10-point review of system was performed as mentioned above in history of present illness, otherwise unremarkable. PHYSICAL EXAMINATION: GENERAL: Well-developed, well-nourished white male, not in acute distress. VITAL SIGNS: Blood pressure 126/72, respiratory rate 18, pulse is 61 and regular, temperature 97.9, oxygen saturation is 100% on room air. HEENT: Normocephalic, atraumatic, otherwise unremarkable. NECK: Supple, negative for carotid bruit, lymphadenopathy or thyromegaly. LUNGS: Clear to A and P. CARDIOVASCULAR: Regular rhythm, normal S1, S2. There is no S3, S4 or murmur. ABDOMEN: Soft. Bowel sounds positive. EXTREMITIES: Negative for cyanosis, clubbing or pitting edema. NEUROLOGICAL EXAM: Mental Status: The patient is alert, but disoriented to place and time. Speech is intermittently dysarthric and sometimes difficulty finding words and complete sentences. Memory, judgment, and abstract thinking are poor, consistent with dementia. CRANIAL NERVES: Visual tate appear to be intact. The pupils are equal and reactive to light and accommodation. There is no nystagmus. There is no facial, motor or sensory deficit. Hearing appeared to be intact. Palate is elevated symmetrically. Sternocleidomastoid muscles are powerful bilaterally. The patient shrugs his shoulders symmetrically, protrudes his tongue in the midline without fasciculation or atrophy. MOTOR: No focal muscle bulk was seen. The tone is increased in the upper and lower extremities. There is intermittent myoclonic jerking movements of the upper extremities and sometimes in the lower extremities. The strength otherwise 5/5 throughout. Sensory examination revealed normal pinprick and light touch senses throughout. Deep tendon reflexes were symmetric and active without pathology responses. Gait: The stance is steady. The patient walks by himself without assistance. LABORATORY DATA: CBC from 03/18/2018, revealed white blood cells of 5200, hemoglobin 13, hematocrit 37.4, platelet count 234,000. Chemistry revealed sodium of 143, potassium 4, chloride 105, CO2 of 29, BUN 21, creatinine 1, glucose is 96, and calcium is 9.2. Liver enzymes are normal. Urinalysis is negative for urinary tract infections. IMPRESSION: 1. Parkinsonism include bradykinesia, rigidity, intermittent myoclonic movements, intermittent speech dysfunction, difficulty finding words with intermittent dystonic postures consistent with underlying corticobasal degeneration. 2. Multiple psychiatric problems include anxiety, dementia with intermittent psychotic features. RECOMMENDATIONS: 1. Continue with current psychiatric care. 2. Continue with current home medications including baclofen. 3. We will try small dose of carbidopa/levodopa as the patient has intermittent delusions. If his symptom does not improve, we will discontinue the medicines. M Dayna PAYAN MD DR: MONIKA/gallito JOB#: [id number] / [id number]
--- NOTE | 2018-04-21 09:32 | PN ---
DATE: 03/24/2018 SUBJECTIVE: The patient denies any new medical or neurological complaints, however, is more quiet today and answers questions in 1 or 2 sentences. He is still having hesitation to talk and still has intermittent myoclonic-type jerking movements, lasting a few seconds. He sleeps and eats well. No recent history of head injuries or falls. OBJECTIVE: GENERAL: Well-developed, well-nourished male, not in acute distress. VITAL SIGNS: Blood pressure 119/73, respiratory rate 18, pulse is 71 regular, temperature 97.3, oxygen saturation 97% on room air. HEENT: Normocephalic, atraumatic, otherwise unremarkable. NECK: Supple. Negative for carotid bruit, lymphadenopathy or thyromegaly. LUNGS: Clear to A and P. CARDIOVASCULAR: Regular rhythm. Normal S1, S2. There is no S3, S4, or murmur. ABDOMEN: Soft. Bowel sounds are positive. EXTREMITIES: Negative for cyanosis, clubbing or pitting edema. NEUROLOGICAL: Mental Status: The patient is alert to himself. He follows 1 simple step commands. His speech is hesitant, but late. He mentioned some words, not dysarthric. Memory, judgment and abstracting thinking and insight are poor, consistent with some diagnosis. Cranial nerves appeared to be intact. Motor Examination: No focal muscle bulk was seen. The strength is 5/5 throughout. The patient has intermittent jerking-type movements involving the upper extremities. The tone is increased as well. Sensory examination: Normal pinprick and light touch senses throughout. Deep tendon reflexes were symmetric and active without pathologic responses. Gait: The stance is steady. The patient has normal [id number] and [id number]-[id number]. IMPRESSION: 1. Symptoms suggestive of a nonspecific parkinsonism and possible underlying corticobasal degeneration associated with intermittent myoclonic jerking movements. Initial nonenhanced head CT scan performed on 03/15/2018, revealed no evidence of acute intracranial process, but mild atrophy. 2. Multiple psychiatric problems includes anxiety, depression, and intermittent psychotic features. 3. Dementia. RECOMMENDATIONS: 1. We will continue with current medical and psychiatric care. 2. We will watch further for any side effects of carbidopa/levodopa. The patient appears to tolerate the medicine well along with baclofen. M Dayna PAYAN MD DR: Lashaun JOB#: [id number] / [id number]
--- NOTE | 2018-04-21 09:33 | PN ---
DATE: 04/20/2018 SUBJECTIVE: The patient denies any new medical or neurological complaints. It was reported that the patient has been markedly agitated in the last 3 days. Because of his agitation, I discontinued carbidopa/levodopa on 03/31/2018, but was not reported any significant change in his mental status or his level of agitation; however, in the opposite the patient has been more agitated yesterday than before. He refused his medications and he slept only 4 hours. He is somewhat violent towards the nursing staff. As a result of that, he was taken out of the dining room. OBJECTIVE: GENERAL: Well-developed, well-nourished white male, not in acute distress. VITAL SIGNS: Blood pressure 107/79, respiratory rate 18, pulse is 74, temperature 97.6, oxygen saturation 97% on room air. HEENT: Normocephalic, atraumatic, otherwise unremarkable. NECK: Supple. Negative for carotid bruit, lymphadenopathy or thyromegaly. LUNGS: Clear to A and P. CARDIOVASCULAR: Regular rhythm, normal S1, S2. ABDOMEN: Soft. EXTREMITIES: Negative for cyanosis, clubbing or pitting edema. NEUROLOGICAL EXAM: Mental Status: The patient is alert to himself. He is disoriented to time, place and person. Speech is still aphasic and he has delay in answering simple questions with 1 or 2 words. He is restless and appears to be paranoid. Memory, judgment and abstracting thinking are poor. Cranial nerves are grossly intact. Motor Examination: No focal muscle bulk was seen. The tone is increased in the lower extremities. Intermittent jerking movements noted lasted 1-2 seconds involving the upper extremities. Sensory examination revealed normal pinprick and light touch senses throughout. Deep tendon reflexes were symmetric and active without pathology responses. Gait: The patient walks by himself without assistance. IMPRESSION: 1. Dementia. 2. Possible corticobasal degeneration with symptoms of Parkinsonism without significant change with carbidopa/levodopa. 3. Multiple psychiatric problems including dementia, anxiety disorders and possible sleep disorders. RECOMMENDATIONS: We will continue with current psychiatric and medical care. The patient has been on valproic acid for mood stabilization. He is also on Zyprexa for agitation. M Dayna PAYAN MD DR: MONIKA/gallito JOB#: [id number] / [id number]
--- NOTE | 2018-04-21 09:34 | PN ---
DATE: 04/05/2018 SUBJECTIVE: The patient denies any new neurological complaints. He has been severely agitated in the last 3 days, required 4 persons to calm him down. He is very irritable, paranoid, grabbing and fighting with nursing staff. OBJECTIVE: GENERAL: Well-developed, well-nourished white male, not in acute distress. VITAL SIGNS: Blood pressure 120/82, respiratory rate 20, pulse is 78 and regular, temperature 97.1, oxygen saturation 100% on room air. HEENT: Normocephalic, atraumatic, otherwise unremarkable. NECK: Supple. Negative for carotid bruit, lymphadenopathy, or thyromegaly. LUNGS: Clear to A and P. CARDIOVASCULAR: Regular rate and rhythm. Normal S1, S2. ABDOMEN: Soft. EXTREMITIES: Negative for cyanosis, clubbing, or pitting edema. NEUROLOGICAL: Mental Status: The patient is alert to himself. He is disoriented to time, place, and person. Speech is late and answers questions in 1 and 2 words. He appears to be confused and disoriented. Memory, judgment, and abstract thinking are poor. The patient denies hallucination. Cranial nerves are grossly intact. Motor: No focal muscle bulk was seen. The tone is increased in the lower extremities with mild intermittent jerking movement of myoclonic type and confined to the upper extremities. Sensory examination revealed normal pinprick and light touch senses. Deep tendon reflexes are symmetric and active without pathology responses. Gait: The stance is steady. IMPRESSION: 1. Dementia. 2. Aggressive and restless behavior. Carbidopa/levodopa was discontinued on 03/31/2018 without significant improvement of his mood. Dr. De Dios discontinued Depakote on 04/04/2018 and adjusted his psychotropic medications throughout. Other psychiatric problems include anxiety disorder and dementia. 3. Symptoms suggestive of corticobasal degeneration with symptoms of parkinsonism. RECOMMENDATIONS: Would continue with current medical and psychiatric care initiated by Dr. De Dios. M Dayna PAYAN MD DR: MONIKA/gallito JOB#: [id number] / [id number]
[2018-04-21 16:23] VITALS: BP 90/56
[2018-04-21] MEDS: MIRTAZAPINE 15 MG TABLET PO SCH (19:53)
--- NOTE | 2018-04-21 20:39 | PDOC ---
Exam Note: [place] Note: Please also refer to the separate dictated note~for this date of service dictated separately.~Patient seen individually. Discussed the patient with Nursing staff reviewed the chart.~Reviewed interim history and current functioning. Reviewed vital signs,~Labs/ Radiology~and current medications noted below. Continue current treatment with the changes noted in the dictated addendum note Assessment: Vital Signs: Vital Signs Date Time Temp Pulse Resp B/P (MAP) Pulse Ox O2 Delivery O2 Flow Rate FiO2 04/21/18 16:23 97.6 67 16 90/56 (67) 98 04/16/18 16:00 Room Air I&O Intake and Output 04/21/18 06:59 Intake Total 1200 ml Balance 1200 ml Intake Oral 1200 ml Current Medications: Meds: Current Medications Acetaminophen (Tylenol) 650 mg PRN Q6HRS PRN PO PAIN / TEMP Last administered on 04/07/18at 16:25; Start 03/10/18 at 23:00 Multi-Ingredient Ointment (Analgesic [place]) 1 luz maria PRN QID PRN TP MUSCLE PAIN; Start 03/10/18 at 23:00 Al Hydroxide/Mg Hydroxide (Mylanta Plus Xs) 15 ml PRN AFTMEALHC PRN PO DYSPEPSIA; Start 03/10/18 at 23:00 Magnesium Hydroxide (Milk Of Magnesia) 2,400 mg PRN QHS PRN PO CONSTIPATION Last administered on 04/17/18at 19:26; Start 03/10/18 at 23:00 Quetiapine Fumarate (SEROquel) 25 mg BID@1200,2100 PO Last administered on at 12:14; Start 03/11/18 at 12:00; Stop 03/20/18 at 19:07; Status DC Acetaminophen/ Hydrocodone Bitart (Lortab 5/325) 1 tab PRN Q6HRS PRN PO PAIN Last administered on 04/14/18at 06:48; Start 03/10/18 at 23:30 Naproxen (Naprosyn) 500 mg BID PO Last administered on 03/11/18at 19:23; Start 03/11/18 at 09:00; Stop 03/12/18 at 07:42; Status DC Vitamin D (Vitamin D3) 50,000 unit WEEKLY PO Last administered on 04/15/18at 07: 43; Start 03/11/18 at 19:00 Sertraline HCl (Zoloft) 25 mg DAILY PO Last administered on 03/15/18at 08:15; Start 03/12/18 at 09:00; Stop 03/15/18 at 21:28; Status DC Mirtazapine (Remeron) 7.5 mg QHS PO Last administered on 03/15/18at 21:24; Start 03/11/18 at 21:00; Stop 03/16/18 at 20:49; Status DC Olanzapine (ZyPREXA ZYDIS) 2.5 mg PRN Q2HR PRN PO agitation Last administered on 03/14/18at 20:09; Start 03/12/18 at 07:45; Stop 03/14/18 at 22:25; Status DC Naproxen (Naprosyn) 500 mg PRN BID PRN PO PAIN Last administered on 03/21/18at 07 :43; Start 03/12/18 at 07:45 Silver Sulfadiazine (Silvadene) 1 luz maria DAILY TP Last administered on 03/30/18at 09:35; Start 03/12/18 at 21:00; Stop 04/02/18 at 09:30; Status DC Artificial Tears (Artificial Tears) 1 drop PRN Q15MIN PRN OU DRY EYE Last administered on 03/24/18at 08:15; Start 03/13/18 at 20:30 Trazodone HCl (Desyrel) 50 mg PRN QHS PRN PO insomnia Last administered on 04/10at 19:03; Start 03/14/18 at 18:45 Olanzapine (ZyPREXA ZYDIS) 5 mg PRN Q2HR PRN PO agitation Last administered on 04/16/18at 08:21; Start 03/14/18 at 22:30 Olanzapine (ZyPREXA) 2.5 mg 1X ONCE PO ; Start 03/15/18 at 09:15; Stop at 09:48; Status DC Olanzapine (ZyPREXA ZYDIS) 5 mg 1X ONCE PO ; Start 03/15/18 at 09:50; Stop at 09:50; Status DC Olanzapine (ZyPREXA ZYDIS) 5 mg 1X ONCE PO ; Start 03/15/18 at 09:45; Stop 5/ 27/18 at 09:52; Status DC Olanzapine (ZyPREXA ZYDIS) 5 mg PRN 1X PRN PO 1HR BEFORE CT &30MIN PRIOR PRN; Start 03/15/18 at 09:50; Stop 03/15/18 at 18:00; Status DC Sertraline HCl (Zoloft) 50 mg DAILY PO Last administered on 03/19/18at 09:27; Start 03/16/18 at 09:00; Stop 03/21/18 at 08:00; Status DC Mirtazapine (Remeron) 15 mg QHS PO Last administered on 04/21/18at 19:53; Start 03/16/18 at 21:00 Sertraline HCl (Zoloft) 75 mg DAILY PO Last administered on 03/30/18at 09:32; Start 03/21/18 at 09:00; Stop 03/30/18 at 18:24; Status DC Divalproex Sodium (Depakote Sprinkles) 125 mg 0900,1300 PO Last administered on 03/26/18at 07:50; Start 03/21/18 at 09:00; Stop 03/26/18 at 10:10; Status DC Quetiapine Fumarate (SEROquel) 12.5 mg BID PO Last administered on 04/21/18at 19: 53; Start 03/20/18 at 21:00 Carbidopa/Levodopa (Sinemet Cr) 1 tab.sa BID PO Last administered on 03/31/18at 08:46; Start 03/23/18 at 21:00; Stop 03/31/18 at 19:35; Status DC Divalproex Sodium (Depakote Sprinkles) 125 mg TID@0900,1300,1700 PO Last administered on 04/04/18at 12:54; Start 03/26/18 at 13:00; Stop 04/04/18 at 19:00 ; Status DC Sertraline HCl (Zoloft) 100 mg DAILY PO Last administered on 04/21/18at 08:20; Start 03/31/18 at 09:00 Docusate Sodium (Colace Solution) 100 mg BID PO Last administered on 04/19/18at 08:26; Start 03/31/18 at 21:00; Stop 04/20/18 at 08:20; Status DC Buspirone HCl (Buspar) 5 mg BID@0900,1700 PO Last administered on 04/21/18at 17: 15; Start 04/02/18 at 17:00 Rivastigmine (Exelon) 1 patch DAILY TD Last administered on 04/06/18at 07:52; Start 04/04/18 at 09:00; Stop 04/07/18 at 08:59; Status DC Rivastigmine (Exelon) 1 patch DAILY TD Last administered on 04/09/18at 10:10; Start 04/07/18 at 09:00; Stop 04/09/18 at 21:00; Status DC Rivastigmine (Exelon 13.3mg) 1 patch DAILY TD Last administered on 04/21/18at 08: 19; Start 04/10/18 at 09:00 Naproxen (Naprosyn) 250 mg PRN Q4HRS PRN PO MIGRAINE HEADACHE; Start 04/13/18 at 18:45 Quetiapine Fumarate (SEROquel) 25 mg DAILY@0200 PO Last administered on at 01:48; Start 04/17/18 at 02:00; Stop 04/20/18 at 18:35; Status DC Docusate Sodium (Colace) 100 mg BID PO Last administered on 04/21/18at 19:53; Start 04/20/18 at 09:00 Quetiapine Fumarate (SEROquel) 37.5 mg 0200 PO Last administered on 04/21/18at 04 :33; Start 04/21/18 at 02:00 Active Scripts Active Reported Silvadene (Silver Sulfadiazine) 20 Gm Cream..g. 1 Luz Maria TP BID Seroquel (Quetiapine Fumarate) 25 Mg Tablet 25 Mg PO BID@1200,2100 [place] 5-325 Tablet (Hydrocodone Bit/Acetaminophen) 1 Each Tablet 1 Tab PO PRN Q6HRS PRN Naproxen 500 Mg Tablet 500 Mg PO BID I have reviewed the current psychotropics carefully including drug interactions. Risk benefit ratio favors no change other than as noted in my dictated progress note. 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
--- NOTE | 2018-04-21 21:37 | PN ---
DATE: 04/20/2018 This is a late entry for 04/20/2018 and covers the elements not covered in my initial note. SUBJECTIVE: I met with the patient in the evening, also with his sister. The patient slept 4-1/2 hours. He has had a very difficult morning. Previous night, he refused his medications, did receive the 2 o'clock Seroquel and radiological health specialist, he was aggressive, kicking, banging the doors, trying to exit from the door. It took 3 staff members to take him to the [facility] to reduce his stimuli. He was using the letter B word, kicking the go and the doors "get out of my house." He scratched a nursing staff and she showed me the scratches on her forearm, about 20 minutes later, he was apologizing to her. REVIEW OF SYSTEMS: No CV, , pulmonary, eye, ENT system symptoms on review. Reliability varies. MENTAL STATUS EXAM: Oriented to himself. Insight, judgment, recent and remote memory, attention, concentration, fund of knowledge poor, consistent with his diagnosis. 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 PLAN: Increase the 2:00 a.m. Seroquel from 25 mg to 37.5 mg. Continue rest unchanged. As of the time of this dictation on 04/21/2018 around 11:30 a.m. I tried to call Dr. Cabrera, his outpatient neurologist as per sister requested. I left a detailed message with the [employer] with my cell phone number requesting Dr. Cabrera return my call. I would like to get some suggestions from Dr. Cabrera for any psychotropics that may attempt to help control some of what he has behaviourally. COLE NAIR MD DR: ANGELINA/gallito JOB#: [id number] / [id number]
[2018-04-22] MEDS: QUEtiapine 25 MG TABLET. PO SCH ×5 (02:00→20:03)
[2018-04-22] MEDS: SERTRALINE 100 MG TABLET. PO SCH ×2 (08:05→09:00)
[2018-04-22] MEDS: busPIRone 5 MG TABLET. PO SCH ×3 (08:05→17:01)
[2018-04-22] MEDS: DOCUSATE SODIUM 100 MG CAPSULE PO SCH ×3 (08:05→20:03)
[2018-04-22] MEDS: RIVASTIGMINE 13.3MG PATCH. TD SCH (08:06)
[2018-04-22] MEDS: CHOLECALCIFEROL (VITAMIN D3) 50,000 UNIT CAPSULE PO SCH (09:00)
[2018-04-22 16:14] VITALS: BP 120/80
[2018-04-22] MEDS: MIRTAZAPINE 15 MG TABLET PO SCH (20:03)
[2018-04-22] MEDS: cloZAPine 25 MG TABLET PO SCH (20:05)
--- NOTE | 2018-04-22 20:34 | PDOC ---
Exam Note: Lambert Note: Please also refer to the separate dictated note~for this date of service dictated separately.~Patient seen individually. Discussed the patient with Nursing staff reviewed the chart.~Reviewed interim history and current functioning. Reviewed vital signs,~Labs/ Radiology~and current medications noted below. Continue current treatment with the changes noted in the dictated addendum note Assessment: Vital Signs: Vital Signs Date Time Temp Pulse Resp B/P (MAP) Pulse Ox O2 Delivery O2 Flow Rate FiO2 04/22/18 16:14 98.4 72 16 120/80 (93) 96 04/16/18 16:00 Room Air I&O Intake and Output 04/22/18 07:00 Intake Total 1080 ml Balance 1080 ml Intake Oral 1080 ml # Bowel Movements 1 Current Medications: Meds: Current Medications Acetaminophen (Tylenol) 650 mg PRN Q6HRS PRN PO PAIN / TEMP Last administered on 04/07/18at 16:25; Start 03/10/18 at 23:00 Multi-Ingredient Ointment (Analgesic [place]) 1 luz maria PRN QID PRN TP MUSCLE PAIN; Start 03/10/18 at 23:00 Al Hydroxide/Mg Hydroxide (Mylanta Plus Xs) 15 ml PRN AFTMEALHC PRN PO DYSPEPSIA; Start 03/10/18 at 23:00 Magnesium Hydroxide (Milk Of Magnesia) 2,400 mg PRN QHS PRN PO CONSTIPATION Last administered on 04/17/18at 19:26; Start 03/10/18 at 23:00 Quetiapine Fumarate (SEROquel) 25 mg BID@1200,2100 PO Last administered on at 12:14; Start 03/11/18 at 12:00; Stop 03/20/18 at 19:07; Status DC Acetaminophen/ Hydrocodone Bitart (Lortab 5/325) 1 tab PRN Q6HRS PRN PO PAIN Last administered on 04/14/18at 06:48; Start 03/10/18 at 23:30 Naproxen (Naprosyn) 500 mg BID PO Last administered on 03/11/18at 19:23; Start 03/11/18 at 09:00; Stop 03/12/18 at 07:42; Status DC Vitamin D (Vitamin D3) 50,000 unit WEEKLY PO Last administered on 04/15/18at 07: 43; Start 03/11/18 at 19:00 Sertraline HCl (Zoloft) 25 mg DAILY PO Last administered on 03/15/18at 08:15; Start 03/12/18 at 09:00; Stop 03/15/18 at 21:28; Status DC Mirtazapine (Remeron) 7.5 mg QHS PO Last administered on 03/15/18at 21:24; Start 03/11/18 at 21:00; Stop 03/16/18 at 20:49; Status DC Olanzapine (ZyPREXA ZYDIS) 2.5 mg PRN Q2HR PRN PO agitation Last administered on 03/14/18at 20:09; Start 03/12/18 at 07:45; Stop 03/14/18 at 22:25; Status DC Naproxen (Naprosyn) 500 mg PRN BID PRN PO PAIN Last administered on 03/21/18at 07 :43; Start 03/12/18 at 07:45 Silver Sulfadiazine (Silvadene) 1 luz maria DAILY TP Last administered on 03/30/18at 09:35; Start 03/12/18 at 21:00; Stop 04/02/18 at 09:30; Status DC Artificial Tears (Artificial Tears) 1 drop PRN Q15MIN PRN OU DRY EYE Last administered on 03/24/18at 08:15; Start 03/13/18 at 20:30 Trazodone HCl (Desyrel) 50 mg PRN QHS PRN PO insomnia Last administered on 04/10at 19:03; Start 03/14/18 at 18:45 Olanzapine (ZyPREXA ZYDIS) 5 mg PRN Q2HR PRN PO agitation Last administered on 04/22/18at 20:05; Start 03/14/18 at 22:30 Olanzapine (ZyPREXA) 2.5 mg 1X ONCE PO ; Start 03/15/18 at 09:15; Stop at 09:48; Status DC Olanzapine (ZyPREXA ZYDIS) 5 mg 1X ONCE PO ; Start 03/15/18 at 09:50; Stop at 09:50; Status DC Olanzapine (ZyPREXA ZYDIS) 5 mg 1X ONCE PO ; Start 03/15/18 at 09:45; Stop at 09:52; Status DC Olanzapine (ZyPREXA ZYDIS) 5 mg PRN 1X PRN PO 1HR BEFORE CT &30MIN PRIOR PRN; Start 03/15/18 at 09:50; Stop 03/15/18 at 18:00; Status DC Sertraline HCl (Zoloft) 50 mg DAILY PO Last administered on 03/19/18at 09:27; Start 03/16/18 at 09:00; Stop 03/21/18 at 08:00; Status DC Mirtazapine (Remeron) 15 mg QHS PO Last administered on 04/22/18at 20:03; Start 03/16/18 at 21:00 Sertraline HCl (Zoloft) 75 mg DAILY PO Last administered on 03/30/18at 09:32; Start 03/21/18 at 09:00; Stop 03/30/18 at 18:24; Status DC Divalproex Sodium (Depakote Sprinkles) 125 mg 0900,1300 PO Last administered on 03/26/18at 07:50; Start 03/21/18 at 09:00; Stop 03/26/18 at 10:10; Status DC Quetiapine Fumarate (SEROquel) 12.5 mg BID PO Last administered on 04/22/18at 20: 03; Start 03/20/18 at 21:00 Carbidopa/Levodopa (Sinemet Cr) 1 tab.sa BID PO Last administered on 03/31/18at 08:46; Start 03/23/18 at 21:00; Stop 03/31/18 at 19:35; Status DC Divalproex Sodium (Depakote Sprinkles) 125 mg TID@0900,1300,1700 PO Last administered on 04/04/18at 12:54; Start 03/26/18 at 13:00; Stop 04/04/18 at 19:00 ; Status DC Sertraline HCl (Zoloft) 100 mg DAILY PO Last administered on 04/21/18at 08:20; Start 03/31/18 at 09:00 Docusate Sodium (Colace Solution) 100 mg BID PO Last administered on 04/19/18at 08:26; Start 03/31/18 at 21:00; Stop 04/20/18 at 08:20; Status DC Buspirone HCl (Buspar) 5 mg BID@0900,1700 PO Last administered on 04/22/18at 17: 01; Start 04/02/18 at 17:00 Rivastigmine (Exelon) 1 patch DAILY TD Last administered on 04/06/18at 07:52; Start 04/04/18 at 09:00; Stop 04/07/18 at 08:59; Status DC Rivastigmine (Exelon) 1 patch DAILY TD Last administered on 04/09/18at 10:10; Start 04/07/18 at 09:00; Stop 04/09/18 at 21:00; Status DC Rivastigmine (Exelon 13.3mg) 1 patch DAILY TD Last administered on 04/22/18at 08: 06; Start 04/10/18 at 09:00 Naproxen (Naprosyn) 250 mg PRN Q4HRS PRN PO MIGRAINE HEADACHE; Start 04/13/18 at 18:45 Quetiapine Fumarate (SEROquel) 25 mg DAILY@0200 PO Last administered on at 01:48; Start 04/17/18 at 02:00; Stop 04/20/18 at 18:35; Status DC Docusate Sodium (Colace) 100 mg BID PO Last administered on 04/22/18at 20:03; Start 04/20/18 at 09:00 Quetiapine Fumarate (SEROquel) 37.5 mg 0200 PO Last administered on 04/21/18at 04 :33; Start 04/21/18 at 02:00 Clozapine (Clozaril) 25 mg QHS PO Last administered on 04/22/18at 20:05; Start at 21:00 Active Scripts Active Reported Silvadene (Silver Sulfadiazine) 20 Gm Cream..g. 1 Luz Maria TP BID Seroquel (Quetiapine Fumarate) 25 Mg Tablet 25 Mg PO BID@1200,2100 [place] 5-325 Tablet (Hydrocodone Bit/Acetaminophen) 1 Each Tablet 1 Tab PO PRN Q6HRS PRN Naproxen 500 Mg Tablet 500 Mg PO BID I have reviewed the current psychotropics carefully including drug interactions. Risk benefit ratio favors no change other than as noted in my dictated progress note. 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
[2018-04-23] MEDS: QUEtiapine 25 MG TABLET. PO SCH ×4 (02:00→21:00)
[2018-04-23 05:46] VITALS: BP 112/68
[2018-04-23] MEDS: SERTRALINE 100 MG TABLET. PO SCH (07:58)
[2018-04-23] MEDS: busPIRone 5 MG TABLET. PO SCH ×2 (07:58→16:49)
[2018-04-23] MEDS: DOCUSATE SODIUM 100 MG CAPSULE PO SCH ×3 (07:58→21:00)
[2018-04-23] MEDS: RIVASTIGMINE 13.3MG PATCH. TD SCH (07:59)
[2018-04-23 10:20] LABS: BASO # 0.1 x10^3/uL (0.0-0.2); BASO % 1 % (0-3); EOS # 0.2 x10^3/uL (0.0-0.7); EOS % 3 % (0-3); HEMATOCRIT 36.7 % (39.0-53.0); HEMOGLOBIN 12.5 g/dL (13.0-17.5); LYMPH # 1.3 x10^3/uL (1.0-4.8); LYMPH % 24 % (24-48); MEAN CORPUSCULAR HEMOGLOBIN 32 pg (25-35); MEAN CORPUSCULAR HGB CONC 34 g/dL (31-37); MEAN CORPUSCULAR VOLUME 93 fL (79-100); MONO # 0.5 x10^3/uL (0.0-1.1); MONO % 9 % (0-9); NEUT # 3.6 x10^3uL (1.8-7.7); NEUT % 63 % (31-73); PLATELET COUNT 223 x10^3/uL (140-400); RED BLOOD COUNT 3.93 x10^6/uL (4.30-5.70); RED CELL DISTRIBUTION WIDTH 12.9 % (11.5-14.5); WHITE BLOOD COUNT 5.6 x10^3/uL (4.0-11.0)
[2018-04-23 10:39] LABS: ALBUMIN 3.5 g/dL (3.4-5.0); CALCIUM 9.1 mg/dL (8.5-10.1); CREATININE 0.8 mg/dL (0.7-1.3); GFR 98.9; MAGNESIUM 2.1 mg/dL (1.8-2.4); POTASSIUM 3.9 mmol/L (3.5-5.1); TOTAL BILIRUBIN 0.3 mg/dL (0.2-1.0); TOTAL PROTEIN 6.9 g/dL (6.4-8.2)
[2018-04-23] MEDS: cloZAPine 25 MG TABLET PO SCH ×3 (11:15→21:00)
[2018-04-23 16:01] VITALS: BP 122/76
[2018-04-23] MEDS: MIRTAZAPINE 15 MG TABLET PO SCH ×2 (20:55→21:00)
--- NOTE | 2018-04-23 20:55 | PDOC ---
Exam Note: Lambert Note: Please also refer to the separate dictated note~for this date of service dictated separately.~Patient seen individually. Discussed the patient with Nursing staff reviewed the chart.~Reviewed interim history and current functioning. Reviewed vital signs,~Labs/ Radiology~and current medications noted below. Continue current treatment with the changes noted in the dictated addendum note Assessment: Vital Signs: Vital Signs Date Time Temp Pulse Resp B/P (MAP) Pulse Ox O2 Delivery O2 Flow Rate FiO2 04/23/18 16:01 97.4 60 16 122/76 (91) 99 I&O Intake and Output 04/23/18 06:59 Intake Total 1280 ml Balance 1280 ml Intake Oral 1280 ml # Bowel Movements 1 Labs: Laboratory Tests Test 04/23/18 10:15 White Blood Count 5.6 x10^3/uL (4.0-11.0) Red Blood Count 3.93 x10^6/uL (4.30-5.70) L Hemoglobin 12.5 g/dL (13.0-17.5) L Hematocrit 36.7 % (39.0-53.0) L Mean Corpuscular Volume 93 fL (79-100) Mean Corpuscular Hemoglobin 32 pg (25-35) Mean Corpuscular Hemoglobin Concent 34 g/dL (31-37) Red Cell Distribution Width 12.9 % (11.5-14.5) Platelet Count 223 x10^3/uL (140-400) Neutrophils (%) (Auto) 63 % (31-73) Lymphocytes (%) (Auto) 24 % (24-48) Monocytes (%) (Auto) 9 % (0-9) Eosinophils (%) (Auto) 3 % (0-3) Basophils (%) (Auto) 1 % (0-3) Neutrophils # (Auto) 3.6 x10^3uL (1.8-7.7) Lymphocytes # (Auto) 1.3 x10^3/uL (1.0-4.8) Monocytes # (Auto) 0.5 x10^3/uL (0.0-1.1) Eosinophils # (Auto) 0.2 x10^3/uL (0.0-0.7) Basophils # (Auto) 0.1 x10^3/uL (0.0-0.2) Sodium Level 142 mmol/L (136-145) Potassium Level 3.9 mmol/L (3.5-5.1) Chloride Level 105 mmol/L (98-107) Carbon Dioxide Level 29 mmol/L (21-32) Anion Gap 8 (6-14) Blood Urea Nitrogen 25 mg/dL (8-26) Creatinine 0.8 mg/dL (0.7-1.3) Estimated GFR (Cockcroft-Gault) 98.9 BUN/Creatinine Ratio 31 (6-20) H Glucose Level 99 mg/dL (70-99) Calcium Level 9.1 mg/dL (8.5-10.1) Magnesium Level 2.1 mg/dL (1.8-2.4) Total Bilirubin 0.3 mg/dL (0.2-1.0) Aspartate Amino Transferase (AST) 20 U/L (15-37) Alanine Aminotransferase (ALT) 33 U/L (16-63) Alkaline Phosphatase 115 U/L (46-116) Total Protein 6.9 g/dL (6.4-8.2) Albumin 3.5 g/dL (3.4-5.0) Albumin/Globulin Ratio 1.0 (1.0-1.7) Current Medications: Meds: Current Medications Acetaminophen (Tylenol) 650 mg PRN Q6HRS PRN PO PAIN / TEMP Last administered on 04/07/18at 16:25; Start 03/10/18 at 23:00 Multi-Ingredient Ointment (Analgesic [place]) 1 luz maria PRN QID PRN TP MUSCLE PAIN; Start 03/10/18 at 23:00 Al Hydroxide/Mg Hydroxide (Mylanta Plus Xs) 15 ml PRN AFTMEALHC PRN PO DYSPEPSIA; Start 03/10/18 at 23:00 Magnesium Hydroxide (Milk Of Magnesia) 2,400 mg PRN QHS PRN PO CONSTIPATION Last administered on 04/17/18at 19:26; Start 03/10/18 at 23:00 Quetiapine Fumarate (SEROquel) 25 mg BID@1200,2100 PO Last administered on at 12:14; Start 03/11/18 at 12:00; Stop 03/20/18 at 19:07; Status DC Acetaminophen/ Hydrocodone Bitart (Lortab 5/325) 1 tab PRN Q6HRS PRN PO PAIN Last administered on 04/14/18 06:48; Start 03/10/18 at 23:30 Naproxen (Naprosyn) 500 mg BID PO Last administered on 03/11/18 19:23; Start 03/11/18 at 09:00; Stop 03/12/18 at 07:42; Status DC Vitamin D (Vitamin D3) 50,000 unit WEEKLY PO Last administered on 04/15/18 07: 43; Start 03/11/18 at 19:00 Sertraline HCl (Zoloft) 25 mg DAILY PO Last administered on 03/15/18 08:15; Start 03/12/18 at 09:00; Stop 03/15/18 at 21:28; Status DC Mirtazapine (Remeron) 7.5 mg QHS PO Last administered on 03/15/18 21:24; Start 03/11/18 at 21:00; Stop 03/16/18 at 20:49; Status DC Olanzapine (ZyPREXA ZYDIS) 2.5 mg PRN Q2HR PRN PO agitation Last administered on 03/14/18 20:09; Start 03/12/18 at 07:45; Stop 03/14/18 at 22:25; Status DC Naproxen (Naprosyn) 500 mg PRN BID PRN PO PAIN Last administered on 03/21/18 07 :43; Start 03/12/18 at 07:45 Silver Sulfadiazine (Silvadene) 1 luz maria DAILY TP Last administered on 03/30/18 09:35; Start 03/12/18 at 21:00; Stop 04/02/18 at 09:30; Status DC Artificial Tears (Artificial Tears) 1 drop PRN Q15MIN PRN OU DRY EYE Last administered on 03/24/18 08:15; Start 03/13/18 at 20:30 Trazodone HCl (Desyrel) 50 mg PRN QHS PRN PO insomnia Last administered on 04/10 19:03; Start 03/14/18 at 18:45 Olanzapine (ZyPREXA ZYDIS) 5 mg PRN Q2HR PRN PO agitation Last administered on 04/23/18 16:50; Start 03/14/18 at 22:30 Olanzapine (ZyPREXA) 2.5 mg 1X ONCE PO ; Start 03/15/18 at 09:15; Stop at 09:48; Status DC Olanzapine (ZyPREXA ZYDIS) 5 mg 1X ONCE PO ; Start 03/15/18 at 09:50; Stop at 09:50; Status DC Olanzapine (ZyPREXA ZYDIS) 5 mg 1X ONCE PO ; Start 03/15/18 at 09:45; Stop at 09:52; Status DC Olanzapine (ZyPREXA ZYDIS) 5 mg PRN 1X PRN PO 1HR BEFORE CT &30MIN PRIOR PRN; Start 03/15/18 at 09:50; Stop 03/15/18 at 18:00; Status DC Sertraline HCl (Zoloft) 50 mg DAILY PO Last administered on 03/19/18at 09:27; Start 03/16/18 at 09:00; Stop 03/21/18 at 08:00; Status DC Mirtazapine (Remeron) 15 mg QHS PO Last administered on 04/22/18at 20:03; Start 03/16/18 at 21:00 Sertraline HCl (Zoloft) 75 mg DAILY PO Last administered on 03/30/18at 09:32; Start 03/21/18 at 09:00; Stop 03/30/18 at 18:24; Status DC Divalproex Sodium (Depakote Sprinkles) 125 mg 0900,1300 PO Last administered on 03/26/18at 07:50; Start 03/21/18 at 09:00; Stop 03/26/18 at 10:10; Status DC Quetiapine Fumarate (SEROquel) 12.5 mg BID PO Last administered on 04/23/18at 07: 59; Start 03/20/18 at 21:00 Carbidopa/Levodopa (Sinemet Cr) 1 tab.sa BID PO Last administered on 03/31/18at 08:46; Start 03/23/18 at 21:00; Stop 03/31/18 at 19:35; Status DC Divalproex Sodium (Depakote Sprinkles) 125 mg TID@0900,1300,1700 PO Last administered on 04/04/18at 12:54; Start 03/26/18 at 13:00; Stop 04/04/18 at 19:00 ; Status DC Sertraline HCl (Zoloft) 100 mg DAILY PO Last administered on 04/23/18at 07:58; Start 03/31/18 at 09:00 Docusate Sodium (Colace Solution) 100 mg BID PO Last administered on 04/19/18at 08:26; Start 03/31/18 at 21:00; Stop 04/20/18 at 08:20; Status DC Buspirone HCl (Buspar) 5 mg BID@0900,1700 PO Last administered on 04/23/18at 16: 49; Start 04/02/18 at 17:00 Rivastigmine (Exelon) 1 patch DAILY TD Last administered on 04/06/18at 07:52; Start 04/04/18 at 09:00; Stop 04/07/18 at 08:59; Status DC Rivastigmine (Exelon) 1 patch DAILY TD Last administered on 04/09/18at 10:10; Start 04/07/18 at 09:00; Stop 04/09/18 at 21:00; Status DC Rivastigmine (Exelon 13.3mg) 1 patch DAILY TD Last administered on 04/23/18at 07: 59; Start 04/10/18 at 09:00 Naproxen (Naprosyn) 250 mg PRN Q4HRS PRN PO MIGRAINE HEADACHE; Start 04/13/18 at 18:45 Quetiapine Fumarate (SEROquel) 25 mg DAILY@0200 PO Last administered on at 01:48; Start 04/17/18 at 02:00; Stop 04/20/18 at 18:35; Status DC Docusate Sodium (Colace) 100 mg BID PO Last administered on 04/23/18at 07:58; Start 04/20/18 at 09:00 Quetiapine Fumarate (SEROquel) 37.5 mg 0200 PO Last administered on 04/21/18at 04 :33; Start 04/21/18 at 02:00 Clozapine (Clozaril) 25 mg QHS PO Last administered on 04/22/18at 20:05; Start at 21:00 Clozapine (Clozaril) 12.5 mg DAILY PO ; Start 04/23/18 at 11:15 Active Scripts Active Reported Silvadene (Silver Sulfadiazine) 20 Gm Cream..g. 1 Luz Maria TP BID Seroquel (Quetiapine Fumarate) 25 Mg Tablet 25 Mg PO BID@1200,2100 [place] 5-325 Tablet (Hydrocodone Bit/Acetaminophen) 1 Each Tablet 1 Tab PO PRN Q6HRS PRN Naproxen 500 Mg Tablet 500 Mg PO BID I have reviewed the current psychotropics carefully including drug interactions. Risk benefit ratio favors no change other than as noted in my dictated progress note. 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
[2018-04-24] MEDS: QUEtiapine 25 MG TABLET. PO SCH ×3 (02:00→19:31)
--- NOTE | 2018-04-24 05:52 | PN ---
DATE: 04/21/2018 PSYCHIATRIC PROGRESS NOTE This late entry 04/21/2018 covers elements not covered in my initial note 04/21/2018. SUBJECTIVE: I met with the patient in the evening. The patient remains somewhat withdrawn, slept 8-1/4 hours, has some movement disorder consistent with his corticobasal degeneration. REVIEW OF SYSTEMS: No CV, , pulmonary, eye, ENT system symptoms on review. Reliability poor. MENTAL STATUS EXAM: Oriented to himself. Insight, judgment, recent and remote memory, attention, concentration, fund of knowledge poor, consistent with his diagnosis. 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 Rest unchanged. PLAN: Continue psychotropics from initial note. I did talk with Dr. Cabrera, the patient's outpatient neurologist. Discussed treatment options at length. Dr. Cabrera suggested consideration of Clozaril as a mood stabilizer atypical antipsychotic, perhaps in place of the Seroquel. We will go ahead and consider this over the next day or so. Maintain rest unchanged. MAN Janie NAIR MD DR: ANGELINA/gallito JOB#: [id number] / [id number]
--- NOTE | 2018-04-24 06:59 | PN ---
DATE: 04/22/2018 PSYCHIATRIC PROGRESS NOTE This late entry 04/22/2018 covers elements not covered in my initial note. SUBJECTIVE: I met with the patient in the afternoon. The patient slept 6-1/2 hours, refused his a.m. medications and assessments. REVIEW OF SYSTEMS: No CV, , pulmonary, eye, ENT system symptoms on review. Reliability poor. MENTAL STATUS EXAM: Oriented to himself. Insight, judgment, recent and remote memory, attention, concentration, fund of knowledge poor, consistent with his diagnosis mentioned in my initial note. 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 Rest unchanged. PLAN: Start Clozaril 25 mg p.o. at bedtime. CBC, CMP, absolute neutrophil counts every week. Continue rest unchanged. Once we make sure that the patient is not allergic to Clozaril after the first dosage, we may adjust the dosage rapidly as we will be reducing and stopping the Seroquel. COLE NAIR MD DR: ANGELINA/gallito JOB#: [id number] / [id number]
[2018-04-24] MEDS: busPIRone 5 MG TABLET. PO SCH ×2 (09:06→17:20)
[2018-04-24] MEDS: RIVASTIGMINE 13.3MG PATCH. TD SCH (09:07)
[2018-04-24] MEDS: cloZAPine 25 MG TABLET PO SCH ×2 (09:07→19:31)
[2018-04-24] MEDS: DOCUSATE SODIUM 100 MG CAPSULE PO SCH ×2 (09:07→19:31)
[2018-04-24] MEDS: SERTRALINE 100 MG TABLET. PO SCH (09:07)
[2018-04-24 16:37] VITALS: BP 130/88
[2018-04-24] MEDS: MIRTAZAPINE 15 MG TABLET PO SCH (19:31)
--- NOTE | 2018-04-24 23:03 | PDOC ---
Exam Note: Lambert Note: Please also refer to the separate dictated note~for this date of service dictated separately.~Patient seen individually. Discussed the patient with Nursing staff reviewed the chart.~Reviewed interim history and current functioning. Reviewed vital signs,~Labs/ Radiology~and current medications noted below. Continue current treatment with the changes noted in the dictated addendum note Assessment: Vital Signs: Vital Signs Date Time Temp Pulse Resp B/P (MAP) Pulse Ox O2 Delivery O2 Flow Rate FiO2 04/24/18 16:37 97.2 78 20 130/88 (102) 98 Room Air I&O Intake and Output 04/24/18 06:59 Intake Total 720 ml Balance 720 ml Intake Oral 720 ml # Voids 1 Current Medications: Meds: Current Medications Acetaminophen (Tylenol) 650 mg PRN Q6HRS PRN PO PAIN / TEMP Last administered on 04/07/18at 16:25; Start 03/10/18 at 23:00 Multi-Ingredient Ointment (Analgesic [place]) 1 luz maria PRN QID PRN TP MUSCLE PAIN; Start 03/10/18 at 23:00 Al Hydroxide/Mg Hydroxide (Mylanta Plus Xs) 15 ml PRN AFTMEALHC PRN PO DYSPEPSIA; Start 03/10/18 at 23:00 Magnesium Hydroxide (Milk Of Magnesia) 2,400 mg PRN QHS PRN PO CONSTIPATION Last administered on 04/17/18at 19:26; Start 03/10/18 at 23:00 Quetiapine Fumarate (SEROquel) 25 mg BID@1200,2100 PO Last administered on at 12:14; Start 03/11/18 at 12:00; Stop 03/20/18 at 19:07; Status DC Acetaminophen/ Hydrocodone Bitart (Lortab 5/325) 1 tab PRN Q6HRS PRN PO PAIN Last administered on 04/14/18at 06:48; Start 03/10/18 at 23:30 Naproxen (Naprosyn) 500 mg BID PO Last administered on 03/11/18at 19:23; Start 03/11/18 at 09:00; Stop 03/12/18 at 07:42; Status DC Vitamin D (Vitamin D3) 50,000 unit WEEKLY PO Last administered on 04/15/18at 07: 43; Start 03/11/18 at 19:00 Sertraline HCl (Zoloft) 25 mg DAILY PO Last administered on 03/15/18at 08:15; Start 03/12/18 at 09:00; Stop 03/15/18 at 21:28; Status DC Mirtazapine (Remeron) 7.5 mg QHS PO Last administered on 03/15/18at 21:24; Start 03/11/18 at 21:00; Stop 03/16/18 at 20:49; Status DC Olanzapine (ZyPREXA ZYDIS) 2.5 mg PRN Q2HR PRN PO agitation Last administered on 03/14/18at 20:09; Start 03/12/18 at 07:45; Stop 03/14/18 at 22:25; Status DC Naproxen (Naprosyn) 500 mg PRN BID PRN PO PAIN Last administered on 03/21/18at 07 :43; Start 03/12/18 at 07:45 Silver Sulfadiazine (Silvadene) 1 luz maria DAILY TP Last administered on 03/30/18at 09:35; Start 03/12/18 at 21:00; Stop 04/02/18 at 09:30; Status DC Artificial Tears (Artificial Tears) 1 drop PRN Q15MIN PRN OU DRY EYE Last administered on 03/24/18at 08:15; Start 03/13/18 at 20:30 Trazodone HCl (Desyrel) 50 mg PRN QHS PRN PO insomnia Last administered on 04/10at 19:03; Start 03/14/18 at 18:45 Olanzapine (ZyPREXA ZYDIS) 5 mg PRN Q2HR PRN PO agitation Last administered on 04/24/18at 05:22; Start 03/14/18 at 22:30 Olanzapine (ZyPREXA) 2.5 mg 1X ONCE PO ; Start 03/15/18 at 09:15; Stop at 09:48; Status DC Olanzapine (ZyPREXA ZYDIS) 5 mg 1X ONCE PO ; Start 03/15/18 at 09:50; Stop at 09:50; Status DC Olanzapine (ZyPREXA ZYDIS) 5 mg 1X ONCE PO ; Start 03/15/18 at 09:45; Stop at 09:52; Status DC Olanzapine (ZyPREXA ZYDIS) 5 mg PRN 1X PRN PO 1HR BEFORE CT &30MIN PRIOR PRN; Start 03/15/18 at 09:50; Stop 03/15/18 at 18:00; Status DC Sertraline HCl (Zoloft) 50 mg DAILY PO Last administered on 03/19/18at 09:27; Start 03/16/18 at 09:00; Stop 03/21/18 at 08:00; Status DC Mirtazapine (Remeron) 15 mg QHS PO Last administered on 04/24/18at 19:31; Start 03/16/18 at 21:00 Sertraline HCl (Zoloft) 75 mg DAILY PO Last administered on 03/30/18at 09:32; Start 03/21/18 at 09:00; Stop 03/30/18 at 18:24; Status DC Divalproex Sodium (Depakote Sprinkles) 125 mg 0900,1300 PO Last administered on 03/26/18at 07:50; Start 03/21/18 at 09:00; Stop 03/26/18 at 10:10; Status DC Quetiapine Fumarate (SEROquel) 12.5 mg BID PO Last administered on 04/24/18at 19: 31; Start 03/20/18 at 21:00 Carbidopa/Levodopa (Sinemet Cr) 1 tab.sa BID PO Last administered on 03/31/18at 08:46; Start 03/23/18 at 21:00; Stop 03/31/18 at 19:35; Status DC Divalproex Sodium (Depakote Sprinkles) 125 mg TID@0900,1300,1700 PO Last administered on 04/04/18at 12:54; Start 03/26/18 at 13:00; Stop 04/04/18 at 19:00 ; Status DC Sertraline HCl (Zoloft) 100 mg DAILY PO Last administered on 04/24/18at 09:07; Start 03/31/18 at 09:00 Docusate Sodium (Colace Solution) 100 mg BID PO Last administered on 04/19/18at 08:26; Start 03/31/18 at 21:00; Stop 04/20/18 at 08:20; Status DC Buspirone HCl (Buspar) 5 mg BID@0900,1700 PO Last administered on 04/24/18 17: 20; Start 04/02/18 at 17:00 Rivastigmine (Exelon) 1 patch DAILY TD Last administered on 04/06/18at 07:52; Start 04/04/18 at 09:00; Stop 04/07/18 at 08:59; Status DC Rivastigmine (Exelon) 1 patch DAILY TD Last administered on 04/09/18at 10:10; Start 04/07/18 at 09:00; Stop 04/09/18 at 21:00; Status DC Rivastigmine (Exelon 13.3mg) 1 patch DAILY TD Last administered on 04/24/18at 09: 07; Start 04/10/18 at 09:00 Naproxen (Naprosyn) 250 mg PRN Q4HRS PRN PO MIGRAINE HEADACHE; Start 04/13/18 at 18:45 Quetiapine Fumarate (SEROquel) 25 mg DAILY@0200 PO Last administered on at 01:48; Start 04/17/18 at 02:00; Stop 04/20/18 at 18:35; Status DC Docusate Sodium (Colace) 100 mg BID PO Last administered on 04/24/18at 19:31; Start 04/20/18 at 09:00 Quetiapine Fumarate (SEROquel) 37.5 mg 0200 PO Last administered on 04/21/18at 04 :33; Start 04/21/18 at 02:00 Clozapine (Clozaril) 25 mg QHS PO Last administered on 04/24/18at 19:31; Start at 21:00 Clozapine (Clozaril) 12.5 mg DAILY PO Last administered on 04/24/18at 09:07; Start 04/23/18 at 11:15 Active Scripts Active Reported Silvadene (Silver Sulfadiazine) 20 Gm Cream..g. 1 Luz Maria TP BID Seroquel (Quetiapine Fumarate) 25 Mg Tablet 25 Mg PO BID@1200,2100 [place] 5-325 Tablet (Hydrocodone Bit/Acetaminophen) 1 Each Tablet 1 Tab PO PRN Q6HRS PRN Naproxen 500 Mg Tablet 500 Mg PO BID I have reviewed the current psychotropics carefully including drug interactions. Risk benefit ratio favors no change other than as noted in my dictated progress note. 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
--- NOTE | 2018-04-24 23:20 | PN ---
DATE: 04/23/2018 PSYCHIATRIC PROGRESS NOTE... This is a late entry 04/23/2018, covers elements not covered in my initial note. SUBJECTIVE: I met with the patient in the evening, staffed at treatment team meeting with the entire team in the morning. The patient slept 5 hours previous evening, somewhat calm at times, but previous evening he tore the paneling of the wall on the west hallway. [facility] did come to the treatment team meeting, discussed the patient's progress options for further treatment and adjustments of psychotropics to help control some of his aggression. He gets agitated at shift change. Slept 5 hours previous evening. REVIEW OF SYSTEMS: No CV, , pulmonary, eye, ENT system symptoms on review. Reliability poor. MENTAL STATUS EXAM: Oriented to himself. Insight, judgment, recent and remote memory, attention, concentration, fund of knowledge poor, consistent with his diagnoses mentioned in my initial note. 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 PLAN: We will go ahead and add Clozaril 12.5 mg in the morning, has discussed with . . Change Zyprexa to p.r.n. Continue rest unchanged from initial note. COLE NAIR MD DR: ANGELINA/gallito JOB#: [id number] / [id number]
[2018-04-25] MEDS: QUEtiapine 25 MG TABLET. PO SCH ×3 (02:00→19:54)
[2018-04-25] MEDS: cloZAPine 25 MG TABLET PO SCH ×2 (08:12→19:54)
[2018-04-25] MEDS: busPIRone 5 MG TABLET. PO SCH ×2 (08:12→16:57)
[2018-04-25] MEDS: DOCUSATE SODIUM 100 MG CAPSULE PO SCH ×2 (08:12→19:54)
[2018-04-25] MEDS: RIVASTIGMINE 13.3MG PATCH. TD SCH (08:14)
[2018-04-25] MEDS: SERTRALINE 100 MG TABLET. PO SCH (08:14)
[2018-04-25 16:16] VITALS: BP 133/88
[2018-04-25] MEDS: MIRTAZAPINE 15 MG TABLET PO SCH (19:54)
--- NOTE | 2018-04-25 22:34 | PDOC ---
Exam Note: Lambert Note: Please also refer to the separate dictated note~for this date of service dictated separately.~Patient seen individually. Discussed the patient with Nursing staff reviewed the chart.~Reviewed interim history and current functioning. Reviewed vital signs,~Labs/ Radiology~and current medications noted below. Continue current treatment with the changes noted in the dictated addendum note Assessment: Vital Signs: Vital Signs Date Time Temp Pulse Resp B/P (MAP) Pulse Ox O2 Delivery O2 Flow Rate FiO2 04/25/18 16:16 99.5 88 20 133/88 (103) 97 Room Air I&O Intake and Output 04/25/18 06:59 Intake Total 120 ml Balance 120 ml Intake Oral 120 ml # Bowel Movements 1 Current Medications: Meds: Current Medications Acetaminophen (Tylenol) 650 mg PRN Q6HRS PRN PO PAIN / TEMP Last administered on 04/07/18at 16:25; Start 03/10/18 at 23:00 Multi-Ingredient Ointment (Analgesic [place]) 1 luz maria PRN QID PRN TP MUSCLE PAIN; Start 03/10/18 at 23:00 Al Hydroxide/Mg Hydroxide (Mylanta Plus Xs) 15 ml PRN AFTMEALHC PRN PO DYSPEPSIA; Start 03/10/18 at 23:00 Magnesium Hydroxide (Milk Of Magnesia) 2,400 mg PRN QHS PRN PO CONSTIPATION Last administered on 04/17/18at 19:26; Start 03/10/18 at 23:00 Quetiapine Fumarate (SEROquel) 25 mg BID@1200,2100 PO Last administered on at 12:14; Start 03/11/18 at 12:00; Stop 03/20/18 at 19:07; Status DC Acetaminophen/ Hydrocodone Bitart (Lortab 5/325) 1 tab PRN Q6HRS PRN PO PAIN Last administered on 04/14/18at 06:48; Start 03/10/18 at 23:30 Naproxen (Naprosyn) 500 mg BID PO Last administered on 03/11/18at 19:23; Start 03/11/18 at 09:00; Stop 03/12/18 at 07:42; Status DC Vitamin D (Vitamin D3) 50,000 unit WEEKLY PO Last administered on 04/15/18at 07: 43; Start 03/11/18 at 19:00 Sertraline HCl (Zoloft) 25 mg DAILY PO Last administered on 03/15/18at 08:15; Start 03/12/18 at 09:00; Stop 03/15/18 at 21:28; Status DC Mirtazapine (Remeron) 7.5 mg QHS PO Last administered on 03/15/18at 21:24; Start 03/11/18 at 21:00; Stop 03/16/18 at 20:49; Status DC Olanzapine (ZyPREXA ZYDIS) 2.5 mg PRN Q2HR PRN PO agitation Last administered on 03/14/18at 20:09; Start 03/12/18 at 07:45; Stop 03/14/18 at 22:25; Status DC Naproxen (Naprosyn) 500 mg PRN BID PRN PO PAIN Last administered on 03/21/18at 07 :43; Start 03/12/18 at 07:45 Silver Sulfadiazine (Silvadene) 1 luz maria DAILY TP Last administered on 03/30/18at 09:35; Start 03/12/18 at 21:00; Stop 04/02/18 at 09:30; Status DC Artificial Tears (Artificial Tears) 1 drop PRN Q15MIN PRN OU DRY EYE Last administered on 03/24/18at 08:15; Start 03/13/18 at 20:30 Trazodone HCl (Desyrel) 50 mg PRN QHS PRN PO insomnia Last administered on 04/10at 19:03; Start 03/14/18 at 18:45 Olanzapine (ZyPREXA ZYDIS) 5 mg PRN Q2HR PRN PO agitation Last administered on 04/24/18at 05:22; Start 03/14/18 at 22:30 Olanzapine (ZyPREXA) 2.5 mg 1X ONCE PO ; Start 03/15/18 at 09:15; Stop at 09:48; Status DC Olanzapine (ZyPREXA ZYDIS) 5 mg 1X ONCE PO ; Start 03/15/18 at 09:50; Stop at 09:50; Status DC Olanzapine (ZyPREXA ZYDIS) 5 mg 1X ONCE PO ; Start 03/15/18 at 09:45; Stop at 09:52; Status DC Olanzapine (ZyPREXA ZYDIS) 5 mg PRN 1X PRN PO 1HR BEFORE CT &30MIN PRIOR PRN; Start 03/15/18 at 09:50; Stop 03/15/18 at 18:00; Status DC Sertraline HCl (Zoloft) 50 mg DAILY PO Last administered on 03/19/18at 09:27; Start 03/16/18 at 09:00; Stop 03/21/18 at 08:00; Status DC Mirtazapine (Remeron) 15 mg QHS PO Last administered on 04/25/18at 19:54; Start 03/16/18 at 21:00 Sertraline HCl (Zoloft) 75 mg DAILY PO Last administered on 03/30/18at 09:32; Start 03/21/18 at 09:00; Stop 03/30/18 at 18:24; Status DC Divalproex Sodium (Depakote Sprinkles) 125 mg 0900,1300 PO Last administered on 03/26/18at 07:50; Start 03/21/18 at 09:00; Stop 03/26/18 at 10:10; Status DC Quetiapine Fumarate (SEROquel) 12.5 mg BID PO Last administered on 04/25/18at 19: 54; Start 03/20/18 at 21:00 Carbidopa/Levodopa (Sinemet Cr) 1 tab.sa BID PO Last administered on 03/31/18at 08:46; Start 03/23/18 at 21:00; Stop 03/31/18 at 19:35; Status DC Divalproex Sodium (Depakote Sprinkles) 125 mg TID@0900,1300,1700 PO Last administered on 04/04/18at 12:54; Start 03/26/18 at 13:00; Stop 04/04/18 at 19:00 ; Status DC Sertraline HCl (Zoloft) 100 mg DAILY PO Last administered on 04/25/18at 08:14; Start 03/31/18 at 09:00 Docusate Sodium (Colace Solution) 100 mg BID PO Last administered on 04/19/18at 08:26; Start 03/31/18 at 21:00; Stop 04/20/18 at 08:20; Status DC Buspirone HCl (Buspar) 5 mg BID@0900,1700 PO Last administered on 04/25/18 16: 57; Start 04/02/18 at 17:00 Rivastigmine (Exelon) 1 patch DAILY TD Last administered on 04/06/18at 07:52; Start 04/04/18 at 09:00; Stop 04/07/18 at 08:59; Status DC Rivastigmine (Exelon) 1 patch DAILY TD Last administered on 04/09/18at 10:10; Start 04/07/18 at 09:00; Stop 04/09/18 at 21:00; Status DC Rivastigmine (Exelon 13.3mg) 1 patch DAILY TD Last administered on 04/25/18at 08: 14; Start 04/10/18 at 09:00 Naproxen (Naprosyn) 250 mg PRN Q4HRS PRN PO MIGRAINE HEADACHE; Start 04/13/18 at 18:45 Quetiapine Fumarate (SEROquel) 25 mg DAILY@0200 PO Last administered on at 01:48; Start 04/17/18 at 02:00; Stop 04/20/18 at 18:35; Status DC Docusate Sodium (Colace) 100 mg BID PO Last administered on 04/25/18at 19:54; Start 04/20/18 at 09:00 Quetiapine Fumarate (SEROquel) 37.5 mg 0200 PO Last administered on 04/21/18at 04 :33; Start 04/21/18 at 02:00 Clozapine (Clozaril) 25 mg QHS PO Last administered on 04/25/18at 19:54; Start at 21:00 Clozapine (Clozaril) 12.5 mg DAILY PO Last administered on 04/25/18at 08:12; Start 04/23/18 at 11:15 Active Scripts Active Reported Silvadene (Silver Sulfadiazine) 20 Gm Cream..g. 1 Luz Maria TP BID Seroquel (Quetiapine Fumarate) 25 Mg Tablet 25 Mg PO BID@1200,2100 [place] 5-325 Tablet (Hydrocodone Bit/Acetaminophen) 1 Each Tablet 1 Tab PO PRN Q6HRS PRN Naproxen 500 Mg Tablet 500 Mg PO BID I have reviewed the current psychotropics carefully including drug interactions. Risk benefit ratio favors no change other than as noted in my dictated progress note. 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
[2018-04-26] MEDS: QUEtiapine 25 MG TABLET. PO SCH ×3 (02:00→20:34)
[2018-04-26] MEDS: busPIRone 5 MG TABLET. PO SCH ×2 (07:59→16:42)
[2018-04-26] MEDS: DOCUSATE SODIUM 100 MG CAPSULE PO SCH ×2 (07:59→20:34)
[2018-04-26] MEDS: cloZAPine 25 MG TABLET PO SCH ×2 (07:59→20:35)
[2018-04-26] MEDS: RIVASTIGMINE 13.3MG PATCH. TD SCH (08:00)
[2018-04-26] MEDS: SERTRALINE 100 MG TABLET. PO SCH (08:00)
[2018-04-26 16:19] VITALS: BP 113/81
--- NOTE | 2018-04-26 19:11 | PN ---
DATE: 04/24/2018 This is a late entry for 04/24/2018 and covers the elements not covered in my initial note. SUBJECTIVE: I met with the patient in the evening. The patient slept 8-3/4 hours previous evening, did well, previous night, woke up at 4:30 a.m., was agitated, refused medications and was again agitated before dinner. Met with his brother, Dewey who was visiting him. The patient is very happy that his brother is visiting. His sister, Tarsha was visiting as well. Discussed his progress with them. REVIEW OF SYSTEMS: No CV, , pulmonary, eye, ENT system symptoms on review. Reliability poor. MENTAL STATUS EXAM: Oriented to himself. Insight, judgment, recent and remote memory, attention, concentration, fund of knowledge poor, consistent with his diagnosis. 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 PLAN: Continue Clozaril at current dosage, gradually reduce the Seroquel. Follow labs on the Clozaril. Continue rest unchanged. MAN Janie NAIR MD DR: ANGELINA/gallito JOB#: [id number] / [id number]
--- NOTE | 2018-04-26 20:25 | PN ---
DATE: 04/25/2018 This is a late entry, 04/25/2018, covers the elements not covered in my initial note. SUBJECTIVE: I met with the patient in the evening. The patient slept 4-1/4 hours. He did not get his 2 a.m. Seroquel, he has generally had a good day. Remains confused. REVIEW OF SYSTEMS: No CV, , pulmonary, eye, ENT system symptoms on review. Reliability poor. MENTAL STATUS EXAM: Oriented to himself, not very verbal. Insight, judgment, recent and remote memory, attention, concentration, fund of knowledge poor, consistent with his diagnosis from initial note. PLAN: Continue current psychotropics. Check CBC, absolute neutrophil count to monitor the Clozaril. Adjust as clinically indicated, then taper the Seroquel. MAN Janie NAIR MD DR: ANGELINA/gallito JOB#: [id number] / [id number]
[2018-04-26] MEDS: MIRTAZAPINE 15 MG TABLET PO SCH (20:34)
--- NOTE | 2018-04-26 20:44 | PDOC ---
Exam Note: Lambert Note: Please also refer to the separate dictated note~for this date of service dictated separately.~Patient seen individually. Discussed the patient with Nursing staff reviewed the chart.~Reviewed interim history and current functioning. Reviewed vital signs,~Labs/ Radiology~and current medications noted below. Continue current treatment with the changes noted in the dictated addendum note Assessment: Vital Signs: Vital Signs Date Time Temp Pulse Resp B/P (MAP) Pulse Ox O2 Delivery O2 Flow Rate FiO2 04/26/18 16:19 97.4 65 18 113/81 (92) 98 04/25/18 16:16 Room Air I&O Intake and Output 04/26/18 06:59 Intake Total 1200 ml Balance 1200 ml Intake Oral 1200 ml # Bowel Movements 1 Current Medications: Meds: Current Medications Acetaminophen (Tylenol) 650 mg PRN Q6HRS PRN PO PAIN / TEMP Last administered on 04/07/18at 16:25; Start 03/10/18 at 23:00 Multi-Ingredient Ointment (Analgesic [place]) 1 luz maria PRN QID PRN TP MUSCLE PAIN; Start 03/10/18 at 23:00 Al Hydroxide/Mg Hydroxide (Mylanta Plus Xs) 15 ml PRN AFTMEALHC PRN PO DYSPEPSIA; Start 03/10/18 at 23:00 Magnesium Hydroxide (Milk Of Magnesia) 2,400 mg PRN QHS PRN PO CONSTIPATION Last administered on 04/17/18at 19:26; Start 03/10/18 at 23:00 Quetiapine Fumarate (SEROquel) 25 mg BID@1200,2100 PO Last administered on at 12:14; Start 03/11/18 at 12:00; Stop 03/20/18 at 19:07; Status DC Acetaminophen/ Hydrocodone Bitart (Lortab 5/325) 1 tab PRN Q6HRS PRN PO PAIN Last administered on 04/14/18at 06:48; Start 03/10/18 at 23:30 Naproxen (Naprosyn) 500 mg BID PO Last administered on 03/11/18at 19:23; Start 03/11/18 at 09:00; Stop 03/12/18 at 07:42; Status DC Vitamin D (Vitamin D3) 50,000 unit WEEKLY PO Last administered on 04/15/18at 07: 43; Start 03/11/18 at 19:00 Sertraline HCl (Zoloft) 25 mg DAILY PO Last administered on 03/15/18at 08:15; Start 03/12/18 at 09:00; Stop 03/15/18 at 21:28; Status DC Mirtazapine (Remeron) 7.5 mg QHS PO Last administered on 03/15/18at 21:24; Start 03/11/18 at 21:00; Stop 03/16/18 at 20:49; Status DC Olanzapine (ZyPREXA ZYDIS) 2.5 mg PRN Q2HR PRN PO agitation Last administered on 03/14/18at 20:09; Start 03/12/18 at 07:45; Stop 03/14/18 at 22:25; Status DC Naproxen (Naprosyn) 500 mg PRN BID PRN PO PAIN Last administered on 03/21/18at 07 :43; Start 03/12/18 at 07:45 Silver Sulfadiazine (Silvadene) 1 luz maria DAILY TP Last administered on 03/30/18at 09:35; Start 03/12/18 at 21:00; Stop 04/02/18 at 09:30; Status DC Artificial Tears (Artificial Tears) 1 drop PRN Q15MIN PRN OU DRY EYE Last administered on 03/24/18at 08:15; Start 03/13/18 at 20:30 Trazodone HCl (Desyrel) 50 mg PRN QHS PRN PO insomnia Last administered on 04/10at 19:03; Start 03/14/18 at 18:45 Olanzapine (ZyPREXA ZYDIS) 5 mg PRN Q2HR PRN PO agitation Last administered on 04/24/18at 05:22; Start 03/14/18 at 22:30 Olanzapine (ZyPREXA) 2.5 mg 1X ONCE PO ; Start 03/15/18 at 09:15; Stop at 09:48; Status DC Olanzapine (ZyPREXA ZYDIS) 5 mg 1X ONCE PO ; Start 03/15/18 at 09:50; Stop at 09:50; Status DC Olanzapine (ZyPREXA ZYDIS) 5 mg 1X ONCE PO ; Start 03/15/18 at 09:45; Stop at 09:52; Status DC Olanzapine (ZyPREXA ZYDIS) 5 mg PRN 1X PRN PO 1HR BEFORE CT &30MIN PRIOR PRN; Start 03/15/18 at 09:50; Stop 03/15/18 at 18:00; Status DC Sertraline HCl (Zoloft) 50 mg DAILY PO Last administered on 03/19/18at 09:27; Start 03/16/18 at 09:00; Stop 03/21/18 at 08:00; Status DC Mirtazapine (Remeron) 15 mg QHS PO Last administered on 04/26/18at 20:34; Start 03/16/18 at 21:00 Sertraline HCl (Zoloft) 75 mg DAILY PO Last administered on 03/30/18at 09:32; Start 03/21/18 at 09:00; Stop 03/30/18 at 18:24; Status DC Divalproex Sodium (Depakote Sprinkles) 125 mg 0900,1300 PO Last administered on 03/26/18at 07:50; Start 03/21/18 at 09:00; Stop 03/26/18 at 10:10; Status DC Quetiapine Fumarate (SEROquel) 12.5 mg BID PO Last administered on 04/26/18at 20: 34; Start 03/20/18 at 21:00 Carbidopa/Levodopa (Sinemet Cr) 1 tab.sa BID PO Last administered on 03/31/18at 08:46; Start 03/23/18 at 21:00; Stop 03/31/18 at 19:35; Status DC Divalproex Sodium (Depakote Sprinkles) 125 mg TID@0900,1300,1700 PO Last administered on 04/04/18at 12:54; Start 03/26/18 at 13:00; Stop 04/04/18 at 19:00 ; Status DC Sertraline HCl (Zoloft) 100 mg DAILY PO Last administered on 04/26/18at 08:00; Start 03/31/18 at 09:00 Docusate Sodium (Colace Solution) 100 mg BID PO Last administered on 04/19/18at 08:26; Start 03/31/18 at 21:00; Stop 04/20/18 at 08:20; Status DC Buspirone HCl (Buspar) 5 mg BID@0900,1700 PO Last administered on 04/26/18at 16: 42; Start 04/02/18 at 17:00 Rivastigmine (Exelon) 1 patch DAILY TD Last administered on 04/06/18at 07:52; Start 04/04/18 at 09:00; Stop 04/07/18 at 08:59; Status DC Rivastigmine (Exelon) 1 patch DAILY TD Last administered on 04/09/18at 10:10; Start 04/07/18 at 09:00; Stop 04/09/18 at 21:00; Status DC Rivastigmine (Exelon 13.3mg) 1 patch DAILY TD Last administered on 04/26/18at 08: 00; Start 04/10/18 at 09:00 Naproxen (Naprosyn) 250 mg PRN Q4HRS PRN PO MIGRAINE HEADACHE; Start 04/13/18 at 18:45 Quetiapine Fumarate (SEROquel) 25 mg DAILY@0200 PO Last administered on at 01:48; Start 04/17/18 at 02:00; Stop 04/20/18 at 18:35; Status DC Docusate Sodium (Colace) 100 mg BID PO Last administered on 04/26/18at 20:34; Start 04/20/18 at 09:00 Quetiapine Fumarate (SEROquel) 37.5 mg 0200 PO Last administered on 04/21/18at 04 :33; Start 04/21/18 at 02:00 Clozapine (Clozaril) 25 mg QHS PO Last administered on 04/26/18at 20:35; Start at 21:00 Clozapine (Clozaril) 12.5 mg DAILY PO Last administered on 04/26/18at 07:59; Start 04/23/18 at 11:15 Active Scripts Active Reported Silvadene (Silver Sulfadiazine) 20 Gm Cream..g. 1 Luz Maria TP BID Seroquel (Quetiapine Fumarate) 25 Mg Tablet 25 Mg PO BID@1200,2100 [place] 5-325 Tablet (Hydrocodone Bit/Acetaminophen) 1 Each Tablet 1 Tab PO PRN Q6HRS PRN Naproxen 500 Mg Tablet 500 Mg PO BID I have reviewed the current psychotropics carefully including drug interactions. Risk benefit ratio favors no change other than as noted in my dictated progress note. 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
[2018-04-27] MEDS: QUEtiapine 25 MG TABLET. PO SCH ×3 (01:17→19:29)
[2018-04-27] MEDS ORDERED: LORazepam 2 MG/ML VIAL IM SCH (04:45)
[2018-04-27] MEDS: DOCUSATE SODIUM 100 MG CAPSULE PO SCH ×2 (09:00→19:29)
[2018-04-27 09:32] LABS: BASO # 0.1 x10^3/uL (0.0-0.2); BASO % 1 % (0-3); EOS # 0.2 x10^3/uL (0.0-0.7); EOS % 2 % (0-3); HEMOGLOBIN 13.6 g/dL (13.0-17.5); LYMPH # 1.2 x10^3/uL (1.0-4.8); LYMPH % 14 % (24-48); MEAN CORPUSCULAR HEMOGLOBIN 32 pg (25-35); MEAN CORPUSCULAR HGB CONC 34 g/dL (31-37); MEAN CORPUSCULAR VOLUME 93 fL (79-100); MONO # 0.6 x10^3/uL (0.0-1.1); MONO % 7 % (0-9); NEUT # 6.8 x10^3uL (1.8-7.7); NEUT % 76 % (31-73); PLATELET COUNT 236 x10^3/uL (140-400); RED BLOOD COUNT 4.29 x10^6/uL (4.30-5.70); RED CELL DISTRIBUTION WIDTH 13.3 % (11.5-14.5); WHITE BLOOD COUNT 8.9 x10^3/uL (4.0-11.0)
[2018-04-27 09:50] LABS: ALBUMIN/GLOBULIN RATIO 1.1 (1.0-1.7); CALCIUM 9.3 mg/dL (8.5-10.1); CREATININE 0.9 mg/dL (0.7-1.3); GFR 86.4; POTASSIUM 4.1 mmol/L (3.5-5.1); TOTAL BILIRUBIN 0.3 mg/dL (0.2-1.0); TOTAL PROTEIN 7.8 g/dL (6.4-8.2)
[2018-04-27] MEDS: busPIRone 5 MG TABLET. PO SCH ×2 (13:40→17:04)
[2018-04-27] MEDS: cloZAPine 25 MG TABLET PO SCH ×2 (13:40→19:29)
[2018-04-27] MEDS: SERTRALINE 100 MG TABLET. PO SCH (13:41)
[2018-04-27] MEDS: RIVASTIGMINE 13.3MG PATCH. TD SCH (13:41)
[2018-04-27 16:03] VITALS: BP 127/72
[2018-04-27] MEDS: MIRTAZAPINE 15 MG TABLET PO SCH (19:29)
[2018-04-27] MEDS: HYDROcodone/APAP 5/325MG 1 TAB TABLET PO PRN (19:38)
[2018-04-27] MEDS: traZODone 50 MG TABLET. PO PRN (19:38)
--- NOTE | 2018-04-27 20:00 | PDOC ---
Exam Note: Lambert Note: Please also refer to the separate dictated note~for this date of service dictated separately.~Patient seen individually. Discussed the patient with Nursing staff reviewed the chart.~Reviewed interim history and current functioning. Reviewed vital signs,~Labs/ Radiology~and current medications noted below. Continue current treatment with the changes noted in the dictated addendum note Assessment: Vital Signs: Vital Signs Date Time Temp Pulse Resp B/P (MAP) Pulse Ox O2 Delivery O2 Flow Rate FiO2 04/27/18 19:38 99 Room Air 04/27/18 16:03 97.7 96 18 127/72 (90) I&O Intake and Output 04/27/18 06:59 Intake Total 840 ml Balance 840 ml Intake Oral 840 ml Labs: Laboratory Tests Test 04/27/18 09:25 White Blood Count 8.9 x10^3/uL (4.0-11.0) # Red Blood Count 4.29 x10^6/uL (4.30-5.70) L Hemoglobin 13.6 g/dL (13.0-17.5) Hematocrit 40.0 % (39.0-53.0) Mean Corpuscular Volume 93 fL (79-100) Mean Corpuscular Hemoglobin 32 pg (25-35) Mean Corpuscular Hemoglobin Concent 34 g/dL (31-37) Red Cell Distribution Width 13.3 % (11.5-14.5) Platelet Count 236 x10^3/uL (140-400) Neutrophils (%) (Auto) 76 % (31-73) H Lymphocytes (%) (Auto) 14 % (24-48) L Monocytes (%) (Auto) 7 % (0-9) Eosinophils (%) (Auto) 2 % (0-3) Basophils (%) (Auto) 1 % (0-3) Neutrophils # (Auto) 6.8 x10^3uL (1.8-7.7) Lymphocytes # (Auto) 1.2 x10^3/uL (1.0-4.8) Monocytes # (Auto) 0.6 x10^3/uL (0.0-1.1) Eosinophils # (Auto) 0.2 x10^3/uL (0.0-0.7) Basophils # (Auto) 0.1 x10^3/uL (0.0-0.2) Sodium Level 142 mmol/L (136-145) Potassium Level 4.1 mmol/L (3.5-5.1) Chloride Level 104 mmol/L (98-107) Carbon Dioxide Level 32 mmol/L (21-32) Anion Gap 6 (6-14) Blood Urea Nitrogen 19 mg/dL (8-26) Creatinine 0.9 mg/dL (0.7-1.3) Estimated GFR (Cockcroft-Gault) 86.4 BUN/Creatinine Ratio 21 (6-20) H Glucose Level 85 mg/dL (70-99) Calcium Level 9.3 mg/dL (8.5-10.1) Total Bilirubin 0.3 mg/dL (0.2-1.0) Aspartate Amino Transferase (AST) 34 U/L (15-37) Alanine Aminotransferase (ALT) 49 U/L (16-63) Alkaline Phosphatase 122 U/L (46-116) H Total Protein 7.8 g/dL (6.4-8.2) Albumin 4.0 g/dL (3.4-5.0) Albumin/Globulin Ratio 1.1 (1.0-1.7) Current Medications: Meds: Current Medications Acetaminophen (Tylenol) 650 mg PRN Q6HRS PRN PO PAIN / TEMP Last administered on 04/07/18at 16:25; Start 03/10/18 at 23:00 Multi-Ingredient Ointment (Analgesic [place]) 1 luz maria PRN QID PRN TP MUSCLE PAIN; Start 03/10/18 at 23:00 Al Hydroxide/Mg Hydroxide (Mylanta Plus Xs) 15 ml PRN AFTMEALHC PRN PO DYSPEPSIA; Start 03/10/18 at 23:00 Magnesium Hydroxide (Milk Of Magnesia) 2,400 mg PRN QHS PRN PO CONSTIPATION Last administered on 04/17/18at 19:26; Start 03/10/18 at 23:00 Quetiapine Fumarate (SEROquel) 25 mg BID@1200,2100 PO Last administered on at 12:14; Start 03/11/18 at 12:00; Stop 03/20/18 at 19:07; Status DC Acetaminophen/ Hydrocodone Bitart (Lortab 5/325) 1 tab PRN Q6HRS PRN PO PAIN Last administered on 04/27/18 19:38; Start 03/10/18 at 23:30 Naproxen (Naprosyn) 500 mg BID PO Last administered on 03/11/18 19:23; Start 03/11/18 at 09:00; Stop 03/12/18 at 07:42; Status DC Vitamin D (Vitamin D3) 50,000 unit WEEKLY PO Last administered on 04/15/18 07: 43; Start 03/11/18 at 19:00 Sertraline HCl (Zoloft) 25 mg DAILY PO Last administered on 03/15/18 08:15; Start 03/12/18 at 09:00; Stop 03/15/18 at 21:28; Status DC Mirtazapine (Remeron) 7.5 mg QHS PO Last administered on 03/15/18 21:24; Start 03/11/18 at 21:00; Stop 03/16/18 at 20:49; Status DC Olanzapine (ZyPREXA ZYDIS) 2.5 mg PRN Q2HR PRN PO agitation Last administered on 03/14/18 20:09; Start 03/12/18 at 07:45; Stop 03/14/18 at 22:25; Status DC Naproxen (Naprosyn) 500 mg PRN BID PRN PO PAIN Last administered on 03/21/18 07 :43; Start 03/12/18 at 07:45 Silver Sulfadiazine (Silvadene) 1 luz maria DAILY TP Last administered on 03/30/18 09:35; Start 03/12/18 at 21:00; Stop 04/02/18 at 09:30; Status DC Artificial Tears (Artificial Tears) 1 drop PRN Q15MIN PRN OU DRY EYE Last administered on 03/24/18 08:15; Start 03/13/18 at 20:30 Trazodone HCl (Desyrel) 50 mg PRN QHS PRN PO insomnia Last administered on 19:38; Start 03/14/18 at 18:45 Olanzapine (ZyPREXA ZYDIS) 5 mg PRN Q2HR PRN PO agitation Last administered on 04/27/18 19:38; Start 03/14/18 at 22:30 Olanzapine (ZyPREXA) 2.5 mg 1X ONCE PO ; Start 03/15/18 at 09:15; Stop at 09:48; Status DC Olanzapine (ZyPREXA ZYDIS) 5 mg 1X ONCE PO ; Start 03/15/18 at 09:50; Stop at 09:50; Status DC Olanzapine (ZyPREXA ZYDIS) 5 mg 1X ONCE PO ; Start 03/15/18 at 09:45; Stop at 09:52; Status DC Olanzapine (ZyPREXA ZYDIS) 5 mg PRN 1X PRN PO 1HR BEFORE CT &30MIN PRIOR PRN; Start 03/15/18 at 09:50; Stop 03/15/18 at 18:00; Status DC Sertraline HCl (Zoloft) 50 mg DAILY PO Last administered on 03/19/18at 09:27; Start 03/16/18 at 09:00; Stop 03/21/18 at 08:00; Status DC Mirtazapine (Remeron) 15 mg QHS PO Last administered on 04/27/18at 19:29; Start 03/16/18 at 21:00 Sertraline HCl (Zoloft) 75 mg DAILY PO Last administered on 03/30/18at 09:32; Start 03/21/18 at 09:00; Stop 03/30/18 at 18:24; Status DC Divalproex Sodium (Depakote Sprinkles) 125 mg 0900,1300 PO Last administered on 03/26/18at 07:50; Start 03/21/18 at 09:00; Stop 03/26/18 at 10:10; Status DC Quetiapine Fumarate (SEROquel) 12.5 mg BID PO Last administered on 04/27/18at 19: 29; Start 03/20/18 at 21:00 Carbidopa/Levodopa (Sinemet Cr) 1 tab.sa BID PO Last administered on 03/31/18at 08:46; Start 03/23/18 at 21:00; Stop 03/31/18 at 19:35; Status DC Divalproex Sodium (Depakote Sprinkles) 125 mg TID@0900,1300,1700 PO Last administered on 04/04/18at 12:54; Start 03/26/18 at 13:00; Stop 04/04/18 at 19:00 ; Status DC Sertraline HCl (Zoloft) 100 mg DAILY PO Last administered on 04/27/18 13:41; Start 03/31/18 at 09:00 Docusate Sodium (Colace Solution) 100 mg BID PO Last administered on 04/19/18at 08:26; Start 03/31/18 at 21:00; Stop 04/20/18 at 08:20; Status DC Buspirone HCl (Buspar) 5 mg BID@0900,1700 PO Last administered on 04/27/18at 17: 04; Start 04/02/18 at 17:00 Rivastigmine (Exelon) 1 patch DAILY TD Last administered on 04/06/18at 07:52; Start 04/04/18 at 09:00; Stop 04/07/18 at 08:59; Status DC Rivastigmine (Exelon) 1 patch DAILY TD Last administered on 04/09/18at 10:10; Start 04/07/18 at 09:00; Stop 04/09/18 at 21:00; Status DC Rivastigmine (Exelon 13.3mg) 1 patch DAILY TD Last administered on 04/27/18 13: 41; Start 04/10/18 at 09:00 Naproxen (Naprosyn) 250 mg PRN Q4HRS PRN PO MIGRAINE HEADACHE; Start 04/13/18 at 18:45 Quetiapine Fumarate (SEROquel) 25 mg DAILY@0200 PO Last administered on at 01:48; Start 04/17/18 at 02:00; Stop 04/20/18 at 18:35; Status DC Docusate Sodium (Colace) 100 mg BID PO Last administered on 04/27/18 19:29; Start 04/20/18 at 09:00 Quetiapine Fumarate (SEROquel) 37.5 mg 0200 PO Last administered on 04/27/18 01 :17; Start 04/21/18 at 02:00 Clozapine (Clozaril) 25 mg QHS PO Last administered on 04/26/18 20:35; Start at 21:00; Stop 04/27/18 at 18:50; Status DC Clozapine (Clozaril) 12.5 mg DAILY PO Last administered on 04/27/18at 13:40; Start 04/23/18 at 11:15; Stop 04/27/18 at 18:50; Status DC Lorazepam (Ativan) 1 mg DAILY IM ; Start 04/27/18 at 04:45; Stop 04/27/18 at 04:45 ; Status DC Clozapine (Clozaril) 25 mg DAILY PO ; Start 04/28/18 at 09:00 Clozapine (Clozaril) 50 mg HS PO Last administered on 04/27/18at 19:29; Start 04/27/18 at 21:00 Active Scripts Active Reported Silvadene (Silver Sulfadiazine) 20 Gm Cream..g. 1 Luz Maria TP BID Seroquel (Quetiapine Fumarate) 25 Mg Tablet 25 Mg PO BID@1200,2100 [place] 5-325 Tablet (Hydrocodone Bit/Acetaminophen) 1 Each Tablet 1 Tab PO PRN Q6HRS PRN Naproxen 500 Mg Tablet 500 Mg PO BID I have reviewed the current psychotropics carefully including drug interactions. Risk benefit ratio favors no change other than as noted in my dictated progress note. 

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
[2018-04-28] MEDS: QUEtiapine 25 MG TABLET. PO SCH ×3 (02:00→20:27)
[2018-04-28 06:09] VITALS: BP 118/56
[2018-04-28] MEDS: DOCUSATE SODIUM 100 MG CAPSULE PO SCH ×2 (08:56→20:27)
[2018-04-28] MEDS: RIVASTIGMINE 13.3MG PATCH. TD SCH (08:56)
[2018-04-28] MEDS: SERTRALINE 100 MG TABLET. PO SCH (08:56)
[2018-04-28] MEDS: busPIRone 5 MG TABLET. PO SCH ×2 (08:57→16:57)
[2018-04-28] MEDS: cloZAPine 25 MG TABLET PO SCH ×2 (09:00→20:27)
[2018-04-28 16:15] VITALS: BP 147/89
[2018-04-28] MEDS: MIRTAZAPINE 15 MG TABLET PO SCH (20:26)
--- NOTE | 2018-04-28 21:41 | PDOC ---
Exam Note: Lambert Note: Please also refer to the separate dictated note~for this date of service dictated separately.~Patient seen individually. Discussed the patient with Nursing staff reviewed the chart.~Reviewed interim history and current functioning. Reviewed vital signs,~Labs/ Radiology~and current medications noted below. Continue current treatment with the changes noted in the dictated addendum note Assessment: Vital Signs: Vital Signs Date Time Temp Pulse Resp B/P (MAP) Pulse Ox O2 Delivery O2 Flow Rate FiO2 04/28/18 16:15 97.7 75 18 147/89 (108) 97 Room Air I&O Intake and Output 04/28/18 07:00 Intake Total 1320 ml Balance 1320 ml Intake Oral 1320 ml Current Medications: Meds: Current Medications Acetaminophen (Tylenol) 650 mg PRN Q6HRS PRN PO PAIN / TEMP Last administered on 04/07/18at 16:25; Start 03/10/18 at 23:00 Multi-Ingredient Ointment (Analgesic [place]) 1 luz maria PRN QID PRN TP MUSCLE PAIN; Start 03/10/18 at 23:00 Al Hydroxide/Mg Hydroxide (Mylanta Plus Xs) 15 ml PRN AFTMEALHC PRN PO DYSPEPSIA; Start 03/10/18 at 23:00 Magnesium Hydroxide (Milk Of Magnesia) 2,400 mg PRN QHS PRN PO CONSTIPATION Last administered on 04/17/18at 19:26; Start 03/10/18 at 23:00 Quetiapine Fumarate (SEROquel) 25 mg BID@1200,2100 PO Last administered on at 12:14; Start 03/11/18 at 12:00; Stop 03/20/18 at 19:07; Status DC Acetaminophen/ Hydrocodone Bitart (Lortab 5/325) 1 tab PRN Q6HRS PRN PO PAIN Last administered on 04/27/18at 19:38; Start 03/10/18 at 23:30 Naproxen (Naprosyn) 500 mg BID PO Last administered on 03/11/18at 19:23; Start 03/11/18 at 09:00; Stop 03/12/18 at 07:42; Status DC Vitamin D (Vitamin D3) 50,000 unit WEEKLY PO Last administered on 04/15/18at 07: 43; Start 03/11/18 at 19:00 Sertraline HCl (Zoloft) 25 mg DAILY PO Last administered on 03/15/18at 08:15; Start 03/12/18 at 09:00; Stop 03/15/18 at 21:28; Status DC Mirtazapine (Remeron) 7.5 mg QHS PO Last administered on 03/15/18at 21:24; Start 03/11/18 at 21:00; Stop 03/16/18 at 20:49; Status DC Olanzapine (ZyPREXA ZYDIS) 2.5 mg PRN Q2HR PRN PO agitation Last administered on 03/14/18at 20:09; Start 03/12/18 at 07:45; Stop 03/14/18 at 22:25; Status DC Naproxen (Naprosyn) 500 mg PRN BID PRN PO PAIN Last administered on 03/21/18at 07 :43; Start 03/12/18 at 07:45 Silver Sulfadiazine (Silvadene) 1 luz maria DAILY TP Last administered on 03/30/18at 09:35; Start 03/12/18 at 21:00; Stop 04/02/18 at 09:30; Status DC Artificial Tears (Artificial Tears) 1 drop PRN Q15MIN PRN OU DRY EYE Last administered on 03/24/18 08:15; Start 03/13/18 at 20:30 Trazodone HCl (Desyrel) 50 mg PRN QHS PRN PO insomnia Last administered on 19:38; Start 03/14/18 at 18:45 Olanzapine (ZyPREXA ZYDIS) 5 mg PRN Q2HR PRN PO agitation Last administered on 04/27/18at 19:38; Start 03/14/18 at 22:30 Olanzapine (ZyPREXA) 2.5 mg 1X ONCE PO ; Start 03/15/18 at 09:15; Stop at 09:48; Status DC Olanzapine (ZyPREXA ZYDIS) 5 mg 1X ONCE PO ; Start 03/15/18 at 09:50; Stop at 09:50; Status DC Olanzapine (ZyPREXA ZYDIS) 5 mg 1X ONCE PO ; Start 03/15/18 at 09:45; Stop at 09:52; Status DC Olanzapine (ZyPREXA ZYDIS) 5 mg PRN 1X PRN PO 1HR BEFORE CT &30MIN PRIOR PRN; Start 03/15/18 at 09:50; Stop 03/15/18 at 18:00; Status DC Sertraline HCl (Zoloft) 50 mg DAILY PO Last administered on 03/19/18at 09:27; Start 03/16/18 at 09:00; Stop 03/21/18 at 08:00; Status DC Mirtazapine (Remeron) 15 mg QHS PO Last administered on 04/28/18at 20:26; Start 03/16/18 at 21:00 Sertraline HCl (Zoloft) 75 mg DAILY PO Last administered on 03/30/18at 09:32; Start 03/21/18 at 09:00; Stop 03/30/18 at 18:24; Status DC Divalproex Sodium (Depakote Sprinkles) 125 mg 0900,1300 PO Last administered on 03/26/18at 07:50; Start 03/21/18 at 09:00; Stop 03/26/18 at 10:10; Status DC Quetiapine Fumarate (SEROquel) 12.5 mg BID PO Last administered on 04/28/18at 20 :27; Start 03/20/18 at 21:00 Carbidopa/Levodopa (Sinemet Cr) 1 tab.sa BID PO Last administered on 03/31/18at 08:46; Start 03/23/18 at 21:00; Stop 03/31/18 at 19:35; Status DC Divalproex Sodium (Depakote Sprinkles) 125 mg TID@0900,1300,1700 PO Last administered on 04/04/18at 12:54; Start 03/26/18 at 13:00; Stop 04/04/18 at 19:00 ; Status DC Sertraline HCl (Zoloft) 100 mg DAILY PO Last administered on 04/28/18at 08:56; Start 03/31/18 at 09:00 Docusate Sodium (Colace Solution) 100 mg BID PO Last administered on 04/19/18at 08:26; Start 03/31/18 at 21:00; Stop 04/20/18 at 08:20; Status DC Buspirone HCl (Buspar) 5 mg BID@0900,1700 PO Last administered on 04/28/18at 16: 57; Start 04/02/18 at 17:00 Rivastigmine (Exelon) 1 patch DAILY TD Last administered on 04/06/18at 07:52; Start 04/04/18 at 09:00; Stop 04/07/18 at 08:59; Status DC Rivastigmine (Exelon) 1 patch DAILY TD Last administered on 04/09/18at 10:10; Start 04/07/18 at 09:00; Stop 04/09/18 at 21:00; Status DC Rivastigmine (Exelon 13.3mg) 1 patch DAILY TD Last administered on 04/28/18at 08 :56; Start 04/10/18 at 09:00 Naproxen (Naprosyn) 250 mg PRN Q4HRS PRN PO MIGRAINE HEADACHE; Start 04/13/18 at 18:45 Quetiapine Fumarate (SEROquel) 25 mg DAILY@0200 PO Last administered on at 01:48; Start 04/17/18 at 02:00; Stop 04/20/18 at 18:35; Status DC Docusate Sodium (Colace) 100 mg BID PO Last administered on 04/28/18at 20:27; Start 04/20/18 at 09:00 Quetiapine Fumarate (SEROquel) 37.5 mg 0200 PO Last administered on 04/27/18at 01 :17; Start 04/21/18 at 02:00 Clozapine (Clozaril) 25 mg QHS PO Last administered on 04/26/18at 20:35; Start at 21:00; Stop 04/27/18 at 18:50; Status DC Clozapine (Clozaril) 12.5 mg DAILY PO Last administered on 04/27/18at 13:40; Start 04/23/18 at 11:15; Stop 04/27/18 at 18:50; Status DC Lorazepam (Ativan) 1 mg DAILY IM ; Start 04/27/18 at 04:45; Stop 04/27/18 at 04:45 ; Status DC Clozapine (Clozaril) 25 mg DAILY PO Last administered on 04/28/18at 09:00; Start 04/28/18 at 09:00 Clozapine (Clozaril) 50 mg HS PO Last administered on 04/28/18at 20:27; Start at 21:00 Active Scripts Active Reported Silvadene (Silver Sulfadiazine) 20 Gm Cream..g. 1 Luz Maria TP BID Seroquel (Quetiapine Fumarate) 25 Mg Tablet 25 Mg PO BID@1200,2100 [place] 5-325 Tablet (Hydrocodone Bit/Acetaminophen) 1 Each Tablet 1 Tab PO PRN Q6HRS PRN Naproxen 500 Mg Tablet 500 Mg PO BID I have reviewed the current psychotropics carefully including drug interactions. Risk benefit ratio favors no change other than as noted in my dictated progress note. 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
--- NOTE | 2018-04-29 04:07 | PN ---
DATE: 04/27/2018 This late entry of 04/27/2018 covers elements not covered in my initial note. I met with the patient in the evening. I also met with the patient's brother, Dewey, who was visiting and his sister, Tarsha. Nursing staff had called me around 3:00 a.m. The patient was extremely agitated, aggressive. We considered using Ativan IM since he was hitting, kicking the doors, and gently out of control, but he had a paradoxical reaction to the Ativan in the past and we did not use it. We had considered Haldol, which is also something the sister said he had responded poorly to in the past. Sister states she has a not somewhere about what IM medication he did well on in the past and she will get this for us. Behaviorally, he has been quite challenging and then at other times he does extremely well like he was when his brother and sister were visiting him and he was actively eating the outside food that was brought for him. REVIEW OF SYSTEMS: No CV, , pulmonary, eye, ENT system symptoms on review. Reliability poor. MENTAL STATUS EXAM: Oriented to himself. Insight, judgment, recent and remote memory, attention, concentration, fund of knowledge poor, consistent with his diagnosis. 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 PLAN: Absolute neutrophil count is 6900 and we will increase the Clozaril to 25 mg around 2:00 a.m. when he wakes up in the morning and 50 mg at night. This is from his current dosage of 12.5 in the morning and 25 in the evening. Continue rest unchanged and as behaviorally he does a little better, we will taper off the Seroquel, but I would rather not reduce it just he had given what is described above. COLE NAIR MD DR: ANGELINA/gallito JOB#: [id number] / [id number]
[2018-04-29] MEDS: QUEtiapine 25 MG TABLET. PO SCH ×3 (07:17→21:22)
[2018-04-29] MEDS: DOCUSATE SODIUM 100 MG CAPSULE PO SCH ×2 (08:56→21:21)
[2018-04-29] MEDS: busPIRone 5 MG TABLET. PO SCH ×2 (08:56→17:48)
[2018-04-29] MEDS: SERTRALINE 100 MG TABLET. PO SCH (08:56)
[2018-04-29] MEDS: CHOLECALCIFEROL (VITAMIN D3) 50,000 UNIT CAPSULE PO SCH (08:56)
[2018-04-29] MEDS: cloZAPine 25 MG TABLET PO SCH ×2 (08:56→21:21)
[2018-04-29] MEDS: RIVASTIGMINE 13.3MG PATCH. TD SCH (08:57)
[2018-04-29 16:04] VITALS: BP 115/87
--- NOTE | 2018-04-29 18:21 | PN ---
DATE: 04/28/2018 PSYCHIATRIC PROGRESS NOTE This is a late entry 04/28/2018 covers elements not covered in my initial note. SUBJECTIVE: I met with the patient in the evening. The patient slept 5-1/4 hours previous evening. 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 He was tremulous somewhat, but not aggressive. His brother, Dewey; and sister, Tarsha, visited him as well, slept 6-1/4 hours. REVIEW OF SYSTEMS: Ambulation somewhat impaired. No CV, , pulmonary, eye, ENT system symptoms on review. MENTAL STATUS EXAM: Oriented to himself. Insight, judgment, recent and remote memory, attention, concentration, fund of knowledge poor, consistent with his diagnosis. 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 Rest unchanged. PLAN: Continue psychotropics at current dosage. Clozaril has just been increased. Follow labs. ANC on the Clozaril. COLE NAIR MD DR: ANGELINA/gallito JOB#: [id number] / [id number]
--- NOTE | 2018-04-29 20:53 | PDOC ---
Exam Note: Lambert Note: Please also refer to the separate dictated note~for this date of service dictated separately.~Patient seen individually. Discussed the patient with Nursing staff reviewed the chart.~Reviewed interim history and current functioning. Reviewed vital signs,~Labs/ Radiology~and current medications noted below. Continue current treatment with the changes noted in the dictated addendum note Assessment: Vital Signs: Vital Signs Date Time Temp Pulse Resp B/P (MAP) Pulse Ox O2 Delivery O2 Flow Rate FiO2 04/29/18 16:04 97.2 92 20 115/87 (96) 98 04/28/18 16:15 Room Air I&O Intake and Output 04/29/18 06:59 Intake Total 720 ml Balance 720 ml Intake Oral 720 ml Current Medications: Meds: Current Medications Acetaminophen (Tylenol) 650 mg PRN Q6HRS PRN PO PAIN / TEMP Last administered on 04/07/18at 16:25; Start 03/10/18 at 23:00 Multi-Ingredient Ointment (Analgesic [place]) 1 luz maria PRN QID PRN TP MUSCLE PAIN; Start 03/10/18 at 23:00 Al Hydroxide/Mg Hydroxide (Mylanta Plus Xs) 15 ml PRN AFTMEALHC PRN PO DYSPEPSIA; Start 03/10/18 at 23:00 Magnesium Hydroxide (Milk Of Magnesia) 2,400 mg PRN QHS PRN PO CONSTIPATION Last administered on 04/17/18at 19:26; Start 03/10/18 at 23:00 Quetiapine Fumarate (SEROquel) 25 mg BID@1200,2100 PO Last administered on at 12:14; Start 03/11/18 at 12:00; Stop 03/20/18 at 19:07; Status DC Acetaminophen/ Hydrocodone Bitart (Lortab 5/325) 1 tab PRN Q6HRS PRN PO PAIN Last administered on 04/27/18at 19:38; Start 03/10/18 at 23:30 Naproxen (Naprosyn) 500 mg BID PO Last administered on 03/11/18at 19:23; Start 03/11/18 at 09:00; Stop 03/12/18 at 07:42; Status DC Vitamin D (Vitamin D3) 50,000 unit WEEKLY PO Last administered on 04/29/18at 08: 56; Start 03/11/18 at 19:00 Sertraline HCl (Zoloft) 25 mg DAILY PO Last administered on 03/15/18at 08:15; Start 03/12/18 at 09:00; Stop 03/15/18 at 21:28; Status DC Mirtazapine (Remeron) 7.5 mg QHS PO Last administered on 03/15/18at 21:24; Start 03/11/18 at 21:00; Stop 03/16/18 at 20:49; Status DC Olanzapine (ZyPREXA ZYDIS) 2.5 mg PRN Q2HR PRN PO agitation Last administered on 03/14/18at 20:09; Start 03/12/18 at 07:45; Stop 03/14/18 at 22:25; Status DC Naproxen (Naprosyn) 500 mg PRN BID PRN PO PAIN Last administered on 03/21/18at 07 :43; Start 03/12/18 at 07:45 Silver Sulfadiazine (Silvadene) 1 luz maria DAILY TP Last administered on 03/30/18at 09:35; Start 03/12/18 at 21:00; Stop 04/02/18 at 09:30; Status DC Artificial Tears (Artificial Tears) 1 drop PRN Q15MIN PRN OU DRY EYE Last administered on 03/24/18at 08:15; Start 03/13/18 at 20:30 Trazodone HCl (Desyrel) 50 mg PRN QHS PRN PO insomnia Last administered on at 19:38; Start 03/14/18 at 18:45 Olanzapine (ZyPREXA ZYDIS) 5 mg PRN Q2HR PRN PO agitation Last administered on 04/27/18at 19:38; Start 03/14/18 at 22:30 Olanzapine (ZyPREXA) 2.5 mg 1X ONCE PO ; Start 03/15/18 at 09:15; Stop at 09:48; Status DC Olanzapine (ZyPREXA ZYDIS) 5 mg 1X ONCE PO ; Start 03/15/18 at 09:50; Stop at 09:50; Status DC Olanzapine (ZyPREXA ZYDIS) 5 mg 1X ONCE PO ; Start 03/15/18 at 09:45; Stop 5/ 27/18 at 09:52; Status DC Olanzapine (ZyPREXA ZYDIS) 5 mg PRN 1X PRN PO 1HR BEFORE CT &30MIN PRIOR PRN; Start 03/15/18 at 09:50; Stop 03/15/18 at 18:00; Status DC Sertraline HCl (Zoloft) 50 mg DAILY PO Last administered on 03/19/18at 09:27; Start 03/16/18 at 09:00; Stop 03/21/18 at 08:00; Status DC Mirtazapine (Remeron) 15 mg QHS PO Last administered on 04/28/18at 20:26; Start 03/16/18 at 21:00 Sertraline HCl (Zoloft) 75 mg DAILY PO Last administered on 03/30/18at 09:32; Start 03/21/18 at 09:00; Stop 03/30/18 at 18:24; Status DC Divalproex Sodium (Depakote Sprinkles) 125 mg 0900,1300 PO Last administered on 03/26/18at 07:50; Start 03/21/18 at 09:00; Stop 03/26/18 at 10:10; Status DC Quetiapine Fumarate (SEROquel) 12.5 mg BID PO Last administered on 04/29/18at 08 :56; Start 03/20/18 at 21:00 Carbidopa/Levodopa (Sinemet Cr) 1 tab.sa BID PO Last administered on 03/31/18at 08:46; Start 03/23/18 at 21:00; Stop 03/31/18 at 19:35; Status DC Divalproex Sodium (Depakote Sprinkles) 125 mg TID@0900,1300,1700 PO Last administered on 04/04/18at 12:54; Start 03/26/18 at 13:00; Stop 04/04/18 at 19:00 ; Status DC Sertraline HCl (Zoloft) 100 mg DAILY PO Last administered on 04/29/18at 08:56; Start 03/31/18 at 09:00 Docusate Sodium (Colace Solution) 100 mg BID PO Last administered on 04/19/18at 08:26; Start 03/31/18 at 21:00; Stop 04/20/18 at 08:20; Status DC Buspirone HCl (Buspar) 5 mg BID@0900,1700 PO Last administered on 04/29/18at 17: 48; Start 04/02/18 at 17:00 Rivastigmine (Exelon) 1 patch DAILY TD Last administered on 04/06/18at 07:52; Start 04/04/18 at 09:00; Stop 04/07/18 at 08:59; Status DC Rivastigmine (Exelon) 1 patch DAILY TD Last administered on 04/09/18at 10:10; Start 04/07/18 at 09:00; Stop 04/09/18 at 21:00; Status DC Rivastigmine (Exelon 13.3mg) 1 patch DAILY TD Last administered on 04/29/18at 08 :57; Start 04/10/18 at 09:00 Naproxen (Naprosyn) 250 mg PRN Q4HRS PRN PO MIGRAINE HEADACHE; Start 04/13/18 at 18:45 Quetiapine Fumarate (SEROquel) 25 mg DAILY@0200 PO Last administered on at 01:48; Start 04/17/18 at 02:00; Stop 04/20/18 at 18:35; Status DC Docusate Sodium (Colace) 100 mg BID PO Last administered on 04/29/18at 08:56; Start 04/20/18 at 09:00 Quetiapine Fumarate (SEROquel) 37.5 mg 0200 PO Last administered on 04/27/18at 01 :17; Start 04/21/18 at 02:00; Stop 04/29/18 at 18:38; Status DC Clozapine (Clozaril) 25 mg QHS PO Last administered on 04/26/18at 20:35; Start at 21:00; Stop 04/27/18 at 18:50; Status DC Clozapine (Clozaril) 12.5 mg DAILY PO Last administered on 04/27/18at 13:40; Start 04/23/18 at 11:15; Stop 04/27/18 at 18:50; Status DC Lorazepam (Ativan) 1 mg DAILY IM ; Start 04/27/18 at 04:45; Stop 04/27/18 at 04:45 ; Status DC Clozapine (Clozaril) 25 mg DAILY PO Last administered on 04/29/18at 08:56; Start 04/28/18 at 09:00 Clozapine (Clozaril) 50 mg HS PO Last administered on 04/28/18at 20:27; Start at 21:00 Quetiapine Fumarate (SEROquel) 25 mg 0200 PO ; Start 04/30/18 at 02:00 Active Scripts Active Reported Silvadene (Silver Sulfadiazine) 20 Gm Cream..g. 1 Luz Maria TP BID Seroquel (Quetiapine Fumarate) 25 Mg Tablet 25 Mg PO BID@1200,2100 [place] 5-325 Tablet (Hydrocodone Bit/Acetaminophen) 1 Each Tablet 1 Tab PO PRN Q6HRS PRN Naproxen 500 Mg Tablet 500 Mg PO BID I have reviewed the current psychotropics carefully including drug interactions. Risk benefit ratio favors no change other than as noted in my dictated progress note. 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
[2018-04-29] MEDS: MIRTAZAPINE 15 MG TABLET PO SCH (21:21)
[2018-04-29] MEDS: traZODone 50 MG TABLET. PO PRN (23:18)
[2018-04-30] MEDS: QUEtiapine 25 MG TABLET. PO SCH ×4 (02:00→21:00)
[2018-04-30] MEDS: busPIRone 5 MG TABLET. PO SCH ×2 (08:14→16:27)
[2018-04-30] MEDS: RIVASTIGMINE 13.3MG PATCH. TD SCH (08:14)
[2018-04-30] MEDS: SERTRALINE 100 MG TABLET. PO SCH (08:14)
[2018-04-30] MEDS: DOCUSATE SODIUM 100 MG CAPSULE PO SCH ×3 (08:15→21:00)
[2018-04-30] MEDS: cloZAPine 25 MG TABLET PO SCH ×3 (08:15→21:00)
[2018-04-30 16:30] VITALS: BP_SYST 118; BP_SYST 134; BP_DIAS 58; BP_DIAS 82
[2018-04-30] MEDS: MIRTAZAPINE 15 MG TABLET PO SCH ×2 (20:04→21:00)
--- NOTE | 2018-04-30 20:52 | PDOC ---
Exam Note: Lambert Note: Please also refer to the separate dictated note~for this date of service dictated separately.~Patient seen individually. Discussed the patient with Nursing staff reviewed the chart.~Reviewed interim history and current functioning. Reviewed vital signs,~Labs/ Radiology~and current medications noted below. Continue current treatment with the changes noted in the dictated addendum note Assessment: Vital Signs: Vital Signs Date Time Temp Pulse Resp B/P (MAP) Pulse Ox O2 Delivery O2 Flow Rate FiO2 04/30/18 16:30 98.4 95 20 134/82 (99) 95 04/28/18 16:15 Room Air I&O Intake and Output 04/30/18 07:00 Intake Total 840 ml Balance 840 ml Intake Oral 840 ml # Bowel Movements 1 Current Medications: Meds: Current Medications Acetaminophen (Tylenol) 650 mg PRN Q6HRS PRN PO PAIN / TEMP Last administered on 04/07/18at 16:25; Start 03/10/18 at 23:00 Multi-Ingredient Ointment (Analgesic [place]) 1 luz maria PRN QID PRN TP MUSCLE PAIN; Start 03/10/18 at 23:00 Al Hydroxide/Mg Hydroxide (Mylanta Plus Xs) 15 ml PRN AFTMEALHC PRN PO DYSPEPSIA; Start 03/10/18 at 23:00 Magnesium Hydroxide (Milk Of Magnesia) 2,400 mg PRN QHS PRN PO CONSTIPATION Last administered on 04/17/18at 19:26; Start 03/10/18 at 23:00 Quetiapine Fumarate (SEROquel) 25 mg BID@1200,2100 PO Last administered on at 12:14; Start 03/11/18 at 12:00; Stop 03/20/18 at 19:07; Status DC Acetaminophen/ Hydrocodone Bitart (Lortab 5/325) 1 tab PRN Q6HRS PRN PO PAIN Last administered on 04/27/18at 19:38; Start 03/10/18 at 23:30 Naproxen (Naprosyn) 500 mg BID PO Last administered on 03/11/18 19:23; Start 03/11/18 at 09:00; Stop 03/12/18 at 07:42; Status DC Vitamin D (Vitamin D3) 50,000 unit WEEKLY PO Last administered on 04/29/18at 08: 56; Start 03/11/18 at 19:00 Sertraline HCl (Zoloft) 25 mg DAILY PO Last administered on 03/15/18at 08:15; Start 03/12/18 at 09:00; Stop 03/15/18 at 21:28; Status DC Mirtazapine (Remeron) 7.5 mg QHS PO Last administered on 03/15/18at 21:24; Start 03/11/18 at 21:00; Stop 03/16/18 at 20:49; Status DC Olanzapine (ZyPREXA ZYDIS) 2.5 mg PRN Q2HR PRN PO agitation Last administered on 03/14/18at 20:09; Start 03/12/18 at 07:45; Stop 03/14/18 at 22:25; Status DC Naproxen (Naprosyn) 500 mg PRN BID PRN PO PAIN Last administered on 03/21/18at 07 :43; Start 03/12/18 at 07:45 Silver Sulfadiazine (Silvadene) 1 luz maria DAILY TP Last administered on 03/30/18at 09:35; Start 03/12/18 at 21:00; Stop 04/02/18 at 09:30; Status DC Artificial Tears (Artificial Tears) 1 drop PRN Q15MIN PRN OU DRY EYE Last administered on 03/24/18at 08:15; Start 03/13/18 at 20:30 Trazodone HCl (Desyrel) 50 mg PRN QHS PRN PO insomnia Last administered on 04/29at 23:18; Start 03/14/18 at 18:45 Olanzapine (ZyPREXA ZYDIS) 5 mg PRN Q2HR PRN PO agitation Last administered on 04/27/18at 19:38; Start 03/14/18 at 22:30 Olanzapine (ZyPREXA) 2.5 mg 1X ONCE PO ; Start 03/15/18 at 09:15; Stop at 09:48; Status DC Olanzapine (ZyPREXA ZYDIS) 5 mg 1X ONCE PO ; Start 03/15/18 at 09:50; Stop at 09:50; Status DC Olanzapine (ZyPREXA ZYDIS) 5 mg 1X ONCE PO ; Start 03/15/18 at 09:45; Stop at 09:52; Status DC Olanzapine (ZyPREXA ZYDIS) 5 mg PRN 1X PRN PO 1HR BEFORE CT &30MIN PRIOR PRN; Start 03/15/18 at 09:50; Stop 03/15/18 at 18:00; Status DC Sertraline HCl (Zoloft) 50 mg DAILY PO Last administered on 03/19/18at 09:27; Start 03/16/18 at 09:00; Stop 03/21/18 at 08:00; Status DC Mirtazapine (Remeron) 15 mg QHS PO Last administered on 04/30/18at 20:04; Start 03/16/18 at 21:00 Sertraline HCl (Zoloft) 75 mg DAILY PO Last administered on 03/30/18at 09:32; Start 03/21/18 at 09:00; Stop 03/30/18 at 18:24; Status DC Divalproex Sodium (Depakote Sprinkles) 125 mg 0900,1300 PO Last administered on 03/26/18at 07:50; Start 03/21/18 at 09:00; Stop 03/26/18 at 10:10; Status DC Quetiapine Fumarate (SEROquel) 12.5 mg BID PO Last administered on 04/30/18at 20 :05; Start 03/20/18 at 21:00 Carbidopa/Levodopa (Sinemet Cr) 1 tab.sa BID PO Last administered on 03/31/18at 08:46; Start 03/23/18 at 21:00; Stop 03/31/18 at 19:35; Status DC Divalproex Sodium (Depakote Sprinkles) 125 mg TID@0900,1300,1700 PO Last administered on 04/04/18at 12:54; Start 03/26/18 at 13:00; Stop 04/04/18 at 19:00 ; Status DC Sertraline HCl (Zoloft) 100 mg DAILY PO Last administered on 04/30/18at 08:14; Start 03/31/18 at 09:00 Docusate Sodium (Colace Solution) 100 mg BID PO Last administered on 04/19/18at 08:26; Start 03/31/18 at 21:00; Stop 04/20/18 at 08:20; Status DC Buspirone HCl (Buspar) 5 mg BID@0900,1700 PO Last administered on 04/30/18at 16: 27; Start 04/02/18 at 17:00 Rivastigmine (Exelon) 1 patch DAILY TD Last administered on 04/06/18at 07:52; Start 04/04/18 at 09:00; Stop 04/07/18 at 08:59; Status DC Rivastigmine (Exelon) 1 patch DAILY TD Last administered on 04/09/18at 10:10; Start 04/07/18 at 09:00; Stop 04/09/18 at 21:00; Status DC Rivastigmine (Exelon 13.3mg) 1 patch DAILY TD Last administered on 04/30/18at 08 :14; Start 04/10/18 at 09:00 Naproxen (Naprosyn) 250 mg PRN Q4HRS PRN PO MIGRAINE HEADACHE; Start 04/13/18 at 18:45 Quetiapine Fumarate (SEROquel) 25 mg DAILY@0200 PO Last administered on at 01:48; Start 04/17/18 at 02:00; Stop 04/20/18 at 18:35; Status DC Docusate Sodium (Colace) 100 mg BID PO Last administered on 04/30/18at 20:04; Start 04/20/18 at 09:00 Quetiapine Fumarate (SEROquel) 37.5 mg 0200 PO Last administered on 04/27/18at 01 :17; Start 04/21/18 at 02:00; Stop 04/29/18 at 18:38; Status DC Clozapine (Clozaril) 25 mg QHS PO Last administered on 04/26/18at 20:35; Start at 21:00; Stop 04/27/18 at 18:50; Status DC Clozapine (Clozaril) 12.5 mg DAILY PO Last administered on 04/27/18at 13:40; Start 04/23/18 at 11:15; Stop 04/27/18 at 18:50; Status DC Lorazepam (Ativan) 1 mg DAILY IM ; Start 04/27/18 at 04:45; Stop 04/27/18 at 04:45 ; Status DC Clozapine (Clozaril) 25 mg DAILY PO Last administered on 04/30/18at 08:15; Start 04/28/18 at 09:00 Clozapine (Clozaril) 50 mg HS PO Last administered on 04/30/18at 20:04; Start at 21:00 Quetiapine Fumarate (SEROquel) 25 mg 0200 PO ; Start 04/30/18 at 02:00 Active Scripts Active Reported Silvadene (Silver Sulfadiazine) 20 Gm Cream..g. 1 Luz Maria TP BID Seroquel (Quetiapine Fumarate) 25 Mg Tablet 25 Mg PO BID@1200,2100 [place] 5-325 Tablet (Hydrocodone Bit/Acetaminophen) 1 Each Tablet 1 Tab PO PRN Q6HRS PRN Naproxen 500 Mg Tablet 500 Mg PO BID I have reviewed the current psychotropics carefully including drug interactions. Risk benefit ratio favors no change other than as noted in my dictated progress note. 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
[2018-05-01] MEDS: QUEtiapine 25 MG TABLET. PO SCH ×3 (02:00→19:22)
[2018-05-01] MEDS: RIVASTIGMINE 13.3MG PATCH. TD SCH (08:22)
[2018-05-01] MEDS: DOCUSATE SODIUM 100 MG CAPSULE PO SCH ×2 (08:23→19:23)
[2018-05-01] MEDS: busPIRone 5 MG TABLET. PO SCH ×2 (08:23→17:56)
[2018-05-01] MEDS: SERTRALINE 100 MG TABLET. PO SCH (08:23)
[2018-05-01] MEDS: cloZAPine 25 MG TABLET PO SCH ×2 (08:23→19:23)
[2018-05-01 16:43] VITALS: BP 120/71
[2018-05-01] MEDS: MIRTAZAPINE 15 MG TABLET PO SCH (19:23)
--- NOTE | 2018-05-01 22:21 | PN ---
DATE: 04/30/2018 This is a late entry for 04/30/2018 covers elements not covered in my initial note of 04/30/2018. SUBJECTIVE: The patient was staffed at a treatment team meeting with the entire team in the morning, seen individually in the evening. The patient slept 7 hours previous evening, much less agitated, aggressive, certainly remains confused, delusional, but not disruptive as he was a few days back. I met with the patient in the evening and also with his sister, who brought him supper. Discussed the patient's progress with her and placement options. Reportedly, he is being screened for a placement on 05/01/2018. REVIEW OF SYSTEMS: No CV, , pulmonary, eye, ENT system symptoms on review. Reliability poor. MENTAL STATUS EXAM: Oriented to himself. Insight, judgment, recent and remote memory, attention, concentration, fund of knowledge poor, consistent with his diagnosis mentioned in my initial note. 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 PLAN: Continue psychotropics from initial note. Seroquel was reduced. Maintain Clozaril, Zoloft. Rest unchanged including BuSpar, trazodone, Exelon patch. MAN Janie NAIR MD DR: ANGELINA/gallito JOB#: [id number] / [id number]
--- NOTE | 2018-05-01 23:05 | PDOC ---
Exam Note: Lambert Note: Please also refer to the separate dictated note~for this date of service dictated separately.~Patient seen individually. Discussed the patient with Nursing staff reviewed the chart.~Reviewed interim history and current functioning. Reviewed vital signs,~Labs/ Radiology~and current medications noted below. Continue current treatment with the changes noted in the dictated addendum note Assessment: Vital Signs: Vital Signs Date Time Temp Pulse Resp B/P (MAP) Pulse Ox O2 Delivery O2 Flow Rate FiO2 05/01/18 16:43 98.0 16 120/71 (87) 99 04/30/18 16:30 95 04/28/18 16:15 Room Air I&O Intake and Output 05/01/18 07:00 Intake Total 1080 ml Balance 1080 ml Intake Oral 1080 ml Current Medications: Meds: Current Medications Acetaminophen (Tylenol) 650 mg PRN Q6HRS PRN PO PAIN / TEMP Last administered on 04/07/18 16:25; Start 03/10/18 at 23:00 Multi-Ingredient Ointment (Analgesic [place]) 1 luz maria PRN QID PRN TP MUSCLE PAIN; Start 03/10/18 at 23:00 Al Hydroxide/Mg Hydroxide (Mylanta Plus Xs) 15 ml PRN AFTMEALHC PRN PO DYSPEPSIA; Start 03/10/18 at 23:00 Magnesium Hydroxide (Milk Of Magnesia) 2,400 mg PRN QHS PRN PO CONSTIPATION Last administered on 04/17/18at 19:26; Start 03/10/18 at 23:00 Quetiapine Fumarate (SEROquel) 25 mg BID@1200,2100 PO Last administered on at 12:14; Start 03/11/18 at 12:00; Stop 03/20/18 at 19:07; Status DC Acetaminophen/ Hydrocodone Bitart (Lortab 5/325) 1 tab PRN Q6HRS PRN PO PAIN Last administered on 04/27/18at 19:38; Start 03/10/18 at 23:30 Naproxen (Naprosyn) 500 mg BID PO Last administered on 03/11/18 19:23; Start 03/11/18 at 09:00; Stop 03/12/18 at 07:42; Status DC Vitamin D (Vitamin D3) 50,000 unit WEEKLY PO Last administered on 04/29/18at 08: 56; Start 03/11/18 at 19:00 Sertraline HCl (Zoloft) 25 mg DAILY PO Last administered on 03/15/18at 08:15; Start 03/12/18 at 09:00; Stop 03/15/18 at 21:28; Status DC Mirtazapine (Remeron) 7.5 mg QHS PO Last administered on 03/15/18at 21:24; Start 03/11/18 at 21:00; Stop 03/16/18 at 20:49; Status DC Olanzapine (ZyPREXA ZYDIS) 2.5 mg PRN Q2HR PRN PO agitation Last administered on 03/14/18at 20:09; Start 03/12/18 at 07:45; Stop 03/14/18 at 22:25; Status DC Naproxen (Naprosyn) 500 mg PRN BID PRN PO PAIN Last administered on 03/21/18at 07 :43; Start 03/12/18 at 07:45 Silver Sulfadiazine (Silvadene) 1 luz maria DAILY TP Last administered on 03/30/18at 09:35; Start 03/12/18 at 21:00; Stop 04/02/18 at 09:30; Status DC Artificial Tears (Artificial Tears) 1 drop PRN Q15MIN PRN OU DRY EYE Last administered on 03/24/18at 08:15; Start 03/13/18 at 20:30 Trazodone HCl (Desyrel) 50 mg PRN QHS PRN PO insomnia Last administered on 04/29at 23:18; Start 03/14/18 at 18:45 Olanzapine (ZyPREXA ZYDIS) 5 mg PRN Q2HR PRN PO agitation Last administered on 04/27/18at 19:38; Start 03/14/18 at 22:30 Olanzapine (ZyPREXA) 2.5 mg 1X ONCE PO ; Start 03/15/18 at 09:15; Stop at 09:48; Status DC Olanzapine (ZyPREXA ZYDIS) 5 mg 1X ONCE PO ; Start 03/15/18 at 09:50; Stop at 09:50; Status DC Olanzapine (ZyPREXA ZYDIS) 5 mg 1X ONCE PO ; Start 03/15/18 at 09:45; Stop at 09:52; Status DC Olanzapine (ZyPREXA ZYDIS) 5 mg PRN 1X PRN PO 1HR BEFORE CT &30MIN PRIOR PRN; Start 03/15/18 at 09:50; Stop 03/15/18 at 18:00; Status DC Sertraline HCl (Zoloft) 50 mg DAILY PO Last administered on 03/19/18at 09:27; Start 03/16/18 at 09:00; Stop 03/21/18 at 08:00; Status DC Mirtazapine (Remeron) 15 mg QHS PO Last administered on 05/01/18at 19:23; Start 03/16/18 at 21:00 Sertraline HCl (Zoloft) 75 mg DAILY PO Last administered on 03/30/18at 09:32; Start 03/21/18 at 09:00; Stop 03/30/18 at 18:24; Status DC Divalproex Sodium (Depakote Sprinkles) 125 mg 0900,1300 PO Last administered on 03/26/18at 07:50; Start 03/21/18 at 09:00; Stop 03/26/18 at 10:10; Status DC Quetiapine Fumarate (SEROquel) 12.5 mg BID PO Last administered on 05/01/18at 19 :22; Start 03/20/18 at 21:00 Carbidopa/Levodopa (Sinemet Cr) 1 tab.sa BID PO Last administered on 03/31/18at 08:46; Start 03/23/18 at 21:00; Stop 03/31/18 at 19:35; Status DC Divalproex Sodium (Depakote Sprinkles) 125 mg TID@0900,1300,1700 PO Last administered on 04/04/18at 12:54; Start 03/26/18 at 13:00; Stop 04/04/18 at 19:00 ; Status DC Sertraline HCl (Zoloft) 100 mg DAILY PO Last administered on 05/01/18at 08:23; Start 03/31/18 at 09:00 Docusate Sodium (Colace Solution) 100 mg BID PO Last administered on 04/19/18at 08:26; Start 03/31/18 at 21:00; Stop 04/20/18 at 08:20; Status DC Buspirone HCl (Buspar) 5 mg BID@0900,1700 PO Last administered on 05/01/18at 17: 56; Start 04/02/18 at 17:00 Rivastigmine (Exelon) 1 patch DAILY TD Last administered on 04/06/18at 07:52; Start 04/04/18 at 09:00; Stop 04/07/18 at 08:59; Status DC Rivastigmine (Exelon) 1 patch DAILY TD Last administered on 04/09/18at 10:10; Start 04/07/18 at 09:00; Stop 04/09/18 at 21:00; Status DC Rivastigmine (Exelon 13.3mg) 1 patch DAILY TD Last administered on 05/01/18at 08 :22; Start 04/10/18 at 09:00 Naproxen (Naprosyn) 250 mg PRN Q4HRS PRN PO MIGRAINE HEADACHE; Start 04/13/18 at 18:45 Quetiapine Fumarate (SEROquel) 25 mg DAILY@0200 PO Last administered on at 01:48; Start 04/17/18 at 02:00; Stop 04/20/18 at 18:35; Status DC Docusate Sodium (Colace) 100 mg BID PO Last administered on 05/01/18at 19:23; Start 04/20/18 at 09:00 Quetiapine Fumarate (SEROquel) 37.5 mg 0200 PO Last administered on 04/27/18at 01 :17; Start 04/21/18 at 02:00; Stop 04/29/18 at 18:38; Status DC Clozapine (Clozaril) 25 mg QHS PO Last administered on 04/26/18at 20:35; Start at 21:00; Stop 04/27/18 at 18:50; Status DC Clozapine (Clozaril) 12.5 mg DAILY PO Last administered on 04/27/18at 13:40; Start 04/23/18 at 11:15; Stop 04/27/18 at 18:50; Status DC Lorazepam (Ativan) 1 mg DAILY IM ; Start 04/27/18 at 04:45; Stop 04/27/18 at 04:45 ; Status DC Clozapine (Clozaril) 25 mg DAILY PO Last administered on 05/01/18at 08:23; Start 04/28/18 at 09:00 Clozapine (Clozaril) 50 mg HS PO Last administered on 05/01/18at 19:23; Start at 21:00 Quetiapine Fumarate (SEROquel) 25 mg 0200 PO ; Start 04/30/18 at 02:00 Active Scripts Active Reported Silvadene (Silver Sulfadiazine) 20 Gm Cream..g. 1 Luz Maria TP BID Seroquel (Quetiapine Fumarate) 25 Mg Tablet 25 Mg PO BID@1200,2100 [place] 5-325 Tablet (Hydrocodone Bit/Acetaminophen) 1 Each Tablet 1 Tab PO PRN Q6HRS PRN Naproxen 500 Mg Tablet 500 Mg PO BID I have reviewed the current psychotropics carefully including drug interactions. Risk benefit ratio favors no change other than as noted in my dictated progress note. 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
--- NOTE | 2018-05-02 01:43 | PN ---
DATE: 04/29/2018 PSYCHIATRIC PROGRESS NOTE This late entry of 04/29/2018 covers elements not covered in my initial note. SUBJECTIVE: I met with the patient in the evening. The patient slept 8-1/2 hours previous evening. He has had a better day, did not get up until about 6 a.m. and he typically gets up at 2 a.m. in the morning. He is sleeping better with the increased Clozaril. Less aggressive, gets paranoid, but much improved. REVIEW OF SYSTEMS: No CV, , pulmonary, eye, ENT system symptoms on review. Gait unsteady, walks with his head bent forward. MENTAL STATUS EXAM: Oriented to himself. Insight, judgment, recent and remote memory, attention, concentration, fund of knowledge poor, consistent with his diagnosis mentioned in my initial note. 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 Rest unchanged. PLAN: Increase the 2 a.m. Seroquel from 37.5 mg down to 25 mg and he remains on Clozaril 25 mg a.m. and 50 mg at bedtime. Rest unchanged. We will continue to gradually reduce Seroquel. MAN Janie NAIR MD DR: ANGELINA/gallito JOB#: [id number] / [id number]
[2018-05-02] MEDS: QUEtiapine 25 MG TABLET. PO SCH ×4 (02:00→18:00)
[2018-05-02 08:30] VITALS: BP 112/79
[2018-05-02] MEDS: RIVASTIGMINE 13.3MG PATCH. TD SCH (08:30)
[2018-05-02] MEDS: SERTRALINE 100 MG TABLET. PO SCH (12:15)
[2018-05-02] MEDS: busPIRone 5 MG TABLET. PO SCH ×2 (12:15→17:13)
[2018-05-02] MEDS: DOCUSATE SODIUM 100 MG CAPSULE PO SCH ×3 (12:15→18:00)
[2018-05-02] MEDS: cloZAPine 25 MG TABLET PO SCH ×3 (12:15→18:00)
[2018-05-02 15:56] VITALS: BP 107/73
[2018-05-02] MEDS: MIRTAZAPINE 15 MG TABLET PO SCH ×2 (17:13→18:00)
--- NOTE | 2018-05-02 22:29 | PN ---
DATE: 05/01/2018 PSYCHIATRIC PROGRESS NOTE This is a late entry 05/01/2018, covers elements not covered in my initial note. SUBJECTIVE: I met with the patient in the evening. The patient slept 7-1/2 hours previous evening. I also met with the patient's sister, who brought him supper sandwich from outside. He has been cooperative, joking about the eyebrows of another patient. Reportedly, he was assessed by Opal and sister plans to visit [facility] and I addressed this with her. REVIEW OF SYSTEMS: No CV, , pulmonary, eye, ENT system symptoms on review. Reliability poor. MENTAL STATUS EXAM: Oriented to himself. Insight, judgment, recent memory is impaired. Language function intact. Attention span short. Mood and affect remain somewhat labile, anxious, but improved as compared to earlier. LABORATORY DATA: Reviewed. 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 PLAN: Continue psychotropics from initial note, may need to increase Clozaril further and reduce Seroquel gradually. COLE NAIR MD DR: ANGELINA/gallito JOB#: [id number] / [id number]
--- NOTE | 2018-05-02 23:02 | PDOC ---
Exam Note: Lambert Note: Please also refer to the separate dictated note~for this date of service dictated separately.~Patient seen individually. Discussed the patient with Nursing staff reviewed the chart.~Reviewed interim history and current functioning. Reviewed vital signs,~Labs/ Radiology~and current medications noted below. Continue current treatment with the changes noted in the dictated addendum note Assessment: Vital Signs: Vital Signs Date Time Temp Pulse Resp B/P (MAP) Pulse Ox O2 Delivery O2 Flow Rate FiO2 05/02/18 15:56 97.4 102 18 107/73 (84) 98 04/28/18 16:15 Room Air I&O Intake and Output 05/02/18 06:59 Intake Total 1140 ml Balance 1140 ml Intake Oral 1140 ml # Voids 1 Current Medications: Meds: Current Medications Acetaminophen (Tylenol) 650 mg PRN Q6HRS PRN PO PAIN / TEMP Last administered on 04/07/18at 16:25; Start 03/10/18 at 23:00 Multi-Ingredient Ointment (Analgesic [place]) 1 luz maria PRN QID PRN TP MUSCLE PAIN; Start 03/10/18 at 23:00 Al Hydroxide/Mg Hydroxide (Mylanta Plus Xs) 15 ml PRN AFTMEALHC PRN PO DYSPEPSIA; Start 03/10/18 at 23:00 Magnesium Hydroxide (Milk Of Magnesia) 2,400 mg PRN QHS PRN PO CONSTIPATION Last administered on 04/17/18at 19:26; Start 03/10/18 at 23:00 Quetiapine Fumarate (SEROquel) 25 mg BID@1200,2100 PO Last administered on at 12:14; Start 03/11/18 at 12:00; Stop 03/20/18 at 19:07; Status DC Acetaminophen/ Hydrocodone Bitart (Lortab 5/325) 1 tab PRN Q6HRS PRN PO PAIN Last administered on 04/27/18at 19:38; Start 03/10/18 at 23:30 Naproxen (Naprosyn) 500 mg BID PO Last administered on 03/11/18 19:23; Start 03/11/18 at 09:00; Stop 03/12/18 at 07:42; Status DC Vitamin D (Vitamin D3) 50,000 unit WEEKLY PO Last administered on 04/29/18at 08: 56; Start 03/11/18 at 19:00 Sertraline HCl (Zoloft) 25 mg DAILY PO Last administered on 03/15/18at 08:15; Start 03/12/18 at 09:00; Stop 03/15/18 at 21:28; Status DC Mirtazapine (Remeron) 7.5 mg QHS PO Last administered on 03/15/18at 21:24; Start 03/11/18 at 21:00; Stop 03/16/18 at 20:49; Status DC Olanzapine (ZyPREXA ZYDIS) 2.5 mg PRN Q2HR PRN PO agitation Last administered on 03/14/18at 20:09; Start 03/12/18 at 07:45; Stop 03/14/18 at 22:25; Status DC Naproxen (Naprosyn) 500 mg PRN BID PRN PO PAIN Last administered on 03/21/18at 07 :43; Start 03/12/18 at 07:45 Silver Sulfadiazine (Silvadene) 1 luz maria DAILY TP Last administered on 03/30/18at 09:35; Start 03/12/18 at 21:00; Stop 04/02/18 at 09:30; Status DC Artificial Tears (Artificial Tears) 1 drop PRN Q15MIN PRN OU DRY EYE Last administered on 03/24/18at 08:15; Start 03/13/18 at 20:30 Trazodone HCl (Desyrel) 50 mg PRN QHS PRN PO insomnia Last administered on 04/29at 23:18; Start 03/14/18 at 18:45 Olanzapine (ZyPREXA ZYDIS) 5 mg PRN Q2HR PRN PO agitation Last administered on 04/27/18at 19:38; Start 03/14/18 at 22:30 Olanzapine (ZyPREXA) 2.5 mg 1X ONCE PO ; Start 03/15/18 at 09:15; Stop at 09:48; Status DC Olanzapine (ZyPREXA ZYDIS) 5 mg 1X ONCE PO ; Start 03/15/18 at 09:50; Stop at 09:50; Status DC Olanzapine (ZyPREXA ZYDIS) 5 mg 1X ONCE PO ; Start 03/15/18 at 09:45; Stop at 09:52; Status DC Olanzapine (ZyPREXA ZYDIS) 5 mg PRN 1X PRN PO 1HR BEFORE CT &30MIN PRIOR PRN; Start 03/15/18 at 09:50; Stop 03/15/18 at 18:00; Status DC Sertraline HCl (Zoloft) 50 mg DAILY PO Last administered on 03/19/18at 09:27; Start 03/16/18 at 09:00; Stop 03/21/18 at 08:00; Status DC Mirtazapine (Remeron) 15 mg QHS PO Last administered on 05/02/18at 17:13; Start 03/16/18 at 21:00; Stop 05/02/18 at 17:36; Status DC Sertraline HCl (Zoloft) 75 mg DAILY PO Last administered on 03/30/18at 09:32; Start 03/21/18 at 09:00; Stop 03/30/18 at 18:24; Status DC Divalproex Sodium (Depakote Sprinkles) 125 mg 0900,1300 PO Last administered on 03/26/18at 07:50; Start 03/21/18 at 09:00; Stop 03/26/18 at 10:10; Status DC Quetiapine Fumarate (SEROquel) 12.5 mg BID PO Last administered on 05/02/18at 17 :13; Start 03/20/18 at 21:00; Stop 05/02/18 at 17:36; Status DC Carbidopa/Levodopa (Sinemet Cr) 1 tab.sa BID PO Last administered on 03/31/18at 08:46; Start 03/23/18 at 21:00; Stop 03/31/18 at 19:35; Status DC Divalproex Sodium (Depakote Sprinkles) 125 mg TID@0900,1300,1700 PO Last administered on 04/04/18at 12:54; Start 03/26/18 at 13:00; Stop 04/04/18 at 19:00 ; Status DC Sertraline HCl (Zoloft) 100 mg DAILY PO Last administered on 05/02/18at 12:15; Start 03/31/18 at 09:00 Docusate Sodium (Colace Solution) 100 mg BID PO Last administered on 04/19/18at 08:26; Start 03/31/18 at 21:00; Stop 04/20/18 at 08:20; Status DC Buspirone HCl (Buspar) 5 mg BID@0900,1700 PO Last administered on 05/02/18at 17: 13; Start 04/02/18 at 17:00 Rivastigmine (Exelon) 1 patch DAILY TD Last administered on 04/06/18at 07:52; Start 04/04/18 at 09:00; Stop 04/07/18 at 08:59; Status DC Rivastigmine (Exelon) 1 patch DAILY TD Last administered on 04/09/18at 10:10; Start 04/07/18 at 09:00; Stop 04/09/18 at 21:00; Status DC Rivastigmine (Exelon 13.3mg) 1 patch DAILY TD Last administered on 05/02/18at 08 :30; Start 04/10/18 at 09:00 Naproxen (Naprosyn) 250 mg PRN Q4HRS PRN PO MIGRAINE HEADACHE; Start 04/13/18 at 18:45 Quetiapine Fumarate (SEROquel) 25 mg DAILY@0200 PO Last administered on at 01:48; Start 04/17/18 at 02:00; Stop 04/20/18 at 18:35; Status DC Docusate Sodium (Colace) 100 mg BID PO Last administered on 05/02/18at 17:13; Start 04/20/18 at 09:00; Stop 05/02/18 at 17:36; Status DC Quetiapine Fumarate (SEROquel) 37.5 mg 0200 PO Last administered on 04/27/18at 01 :17; Start 04/21/18 at 02:00; Stop 04/29/18 at 18:38; Status DC Clozapine (Clozaril) 25 mg QHS PO Last administered on 04/26/18at 20:35; Start at 21:00; Stop 04/27/18 at 18:50; Status DC Clozapine (Clozaril) 12.5 mg DAILY PO Last administered on 04/27/18at 13:40; Start 04/23/18 at 11:15; Stop 04/27/18 at 18:50; Status DC Lorazepam (Ativan) 1 mg DAILY IM ; Start 04/27/18 at 04:45; Stop 04/27/18 at 04:45 ; Status DC Clozapine (Clozaril) 25 mg DAILY PO Last administered on 05/02/18at 12:15; Start 04/28/18 at 09:00 Clozapine (Clozaril) 50 mg HS PO Last administered on 05/02/18at 17:13; Start at 21:00; Stop 05/02/18 at 17:36; Status DC Quetiapine Fumarate (SEROquel) 25 mg 0200 PO ; Start 04/30/18 at 02:00 Clozapine (Clozaril) 50 mg 1700 PO ; Start 05/02/18 at 18:00 Docusate Sodium (Colace) 100 mg BIDWMEALS PO ; Start 05/02/18 at 18:00 Mirtazapine (Remeron) 15 mg DAILYWSUP PO ; Start 05/02/18 at 18:00 Quetiapine Fumarate (SEROquel) 12.5 mg BIDWMEALS PO ; Start 05/02/18 at 18:00 Active Scripts Active Reported Silvadene (Silver Sulfadiazine) 20 Gm Cream..g. 1 Luz Maria TP BID Seroquel (Quetiapine Fumarate) 25 Mg Tablet 25 Mg PO BID@1200,2100 [place] 5-325 Tablet (Hydrocodone Bit/Acetaminophen) 1 Each Tablet 1 Tab PO PRN Q6HRS PRN Naproxen 500 Mg Tablet 500 Mg PO BID I have reviewed the current psychotropics carefully including drug interactions. Risk benefit ratio favors no change other than as noted in my dictated progress note. 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
[2018-05-03] MEDS: QUEtiapine 25 MG TABLET. PO SCH ×3 (02:00→16:53)
[2018-05-03] MEDS: DOCUSATE SODIUM 100 MG CAPSULE PO SCH ×2 (08:21→16:53)
[2018-05-03] MEDS: cloZAPine 25 MG TABLET PO SCH ×2 (08:22→16:53)
[2018-05-03] MEDS: busPIRone 5 MG TABLET. PO SCH ×2 (08:22→16:52)
[2018-05-03] MEDS: RIVASTIGMINE 13.3MG PATCH. TD SCH (08:22)
[2018-05-03] MEDS: SERTRALINE 100 MG TABLET. PO SCH (08:22)
[2018-05-03] MEDS: MIRTAZAPINE 15 MG TABLET PO SCH (16:53)
--- NOTE | 2018-05-03 20:56 | PDOC ---
Exam Note: Lambert Note: Please also refer to the separate dictated note~for this date of service dictated separately.~Patient seen individually. Discussed the patient with Nursing staff reviewed the chart.~Reviewed interim history and current functioning. Reviewed vital signs,~Labs/ Radiology~and current medications noted below. Continue current treatment with the changes noted in the dictated addendum note Assessment: Vital Signs: Vital Signs Date Time Temp Pulse Resp B/P (MAP) Pulse Ox O2 Delivery O2 Flow Rate FiO2 05/02/18 15:56 97.4 102 18 107/73 (84) 98 04/28/18 16:15 Room Air I&O Intake and Output 05/03/18 06:59 Intake Total 960 ml Balance 960 ml Intake Oral 960 ml Current Medications: Meds: Current Medications Acetaminophen (Tylenol) 650 mg PRN Q6HRS PRN PO PAIN / TEMP Last administered on 04/07/18at 16:25; Start 03/10/18 at 23:00 Multi-Ingredient Ointment (Analgesic [place]) 1 luz maria PRN QID PRN TP MUSCLE PAIN; Start 03/10/18 at 23:00 Al Hydroxide/Mg Hydroxide (Mylanta Plus Xs) 15 ml PRN AFTMEALHC PRN PO DYSPEPSIA; Start 03/10/18 at 23:00 Magnesium Hydroxide (Milk Of Magnesia) 2,400 mg PRN QHS PRN PO CONSTIPATION Last administered on 04/17/18at 19:26; Start 03/10/18 at 23:00 Quetiapine Fumarate (SEROquel) 25 mg BID@1200,2100 PO Last administered on at 12:14; Start 03/11/18 at 12:00; Stop 03/20/18 at 19:07; Status DC Acetaminophen/ Hydrocodone Bitart (Lortab 5/325) 1 tab PRN Q6HRS PRN PO PAIN Last administered on 04/27/18at 19:38; Start 03/10/18 at 23:30 Naproxen (Naprosyn) 500 mg BID PO Last administered on 03/11/18at 19:23; Start 03/11/18 at 09:00; Stop 03/12/18 at 07:42; Status DC Vitamin D (Vitamin D3) 50,000 unit WEEKLY PO Last administered on 04/29/18at 08: 56; Start 03/11/18 at 19:00 Sertraline HCl (Zoloft) 25 mg DAILY PO Last administered on 03/15/18at 08:15; Start 03/12/18 at 09:00; Stop 03/15/18 at 21:28; Status DC Mirtazapine (Remeron) 7.5 mg QHS PO Last administered on 03/15/18at 21:24; Start 03/11/18 at 21:00; Stop 03/16/18 at 20:49; Status DC Olanzapine (ZyPREXA ZYDIS) 2.5 mg PRN Q2HR PRN PO agitation Last administered on 03/14/18at 20:09; Start 03/12/18 at 07:45; Stop 03/14/18 at 22:25; Status DC Naproxen (Naprosyn) 500 mg PRN BID PRN PO PAIN Last administered on 03/21/18at 07 :43; Start 03/12/18 at 07:45 Silver Sulfadiazine (Silvadene) 1 luz maria DAILY TP Last administered on 03/30/18at 09:35; Start 03/12/18 at 21:00; Stop 04/02/18 at 09:30; Status DC Artificial Tears (Artificial Tears) 1 drop PRN Q15MIN PRN OU DRY EYE Last administered on 03/24/18at 08:15; Start 03/13/18 at 20:30 Trazodone HCl (Desyrel) 50 mg PRN QHS PRN PO insomnia Last administered on 04/29at 23:18; Start 03/14/18 at 18:45 Olanzapine (ZyPREXA ZYDIS) 5 mg PRN Q2HR PRN PO agitation Last administered on 05/03/18at 09:37; Start 03/14/18 at 22:30 Olanzapine (ZyPREXA) 2.5 mg 1X ONCE PO ; Start 03/15/18 at 09:15; Stop at 09:48; Status DC Olanzapine (ZyPREXA ZYDIS) 5 mg 1X ONCE PO ; Start 03/15/18 at 09:50; Stop at 09:50; Status DC Olanzapine (ZyPREXA ZYDIS) 5 mg 1X ONCE PO ; Start 03/15/18 at 09:45; Stop at 09:52; Status DC Olanzapine (ZyPREXA ZYDIS) 5 mg PRN 1X PRN PO 1HR BEFORE CT &30MIN PRIOR PRN; Start 03/15/18 at 09:50; Stop 03/15/18 at 18:00; Status DC Sertraline HCl (Zoloft) 50 mg DAILY PO Last administered on 03/19/18at 09:27; Start 03/16/18 at 09:00; Stop 03/21/18 at 08:00; Status DC Mirtazapine (Remeron) 15 mg QHS PO Last administered on 05/02/18at 17:13; Start 03/16/18 at 21:00; Stop 05/02/18 at 17:36; Status DC Sertraline HCl (Zoloft) 75 mg DAILY PO Last administered on 03/30/18at 09:32; Start 03/21/18 at 09:00; Stop 03/30/18 at 18:24; Status DC Divalproex Sodium (Depakote Sprinkles) 125 mg 0900,1300 PO Last administered on 03/26/18at 07:50; Start 03/21/18 at 09:00; Stop 03/26/18 at 10:10; Status DC Quetiapine Fumarate (SEROquel) 12.5 mg BID PO Last administered on 05/02/18at 17 :13; Start 03/20/18 at 21:00; Stop 05/02/18 at 17:36; Status DC Carbidopa/Levodopa (Sinemet Cr) 1 tab.sa BID PO Last administered on 03/31/18at 08:46; Start 03/23/18 at 21:00; Stop 03/31/18 at 19:35; Status DC Divalproex Sodium (Depakote Sprinkles) 125 mg TID@0900,1300,1700 PO Last administered on 04/04/18at 12:54; Start 03/26/18 at 13:00; Stop 04/04/18 at 19:00 ; Status DC Sertraline HCl (Zoloft) 100 mg DAILY PO Last administered on 05/03/18at 08:22; Start 03/31/18 at 09:00 Docusate Sodium (Colace Solution) 100 mg BID PO Last administered on 04/19/18at 08:26; Start 03/31/18 at 21:00; Stop 04/20/18 at 08:20; Status DC Buspirone HCl (Buspar) 5 mg BID@0900,1700 PO Last administered on 05/03/18at 16: 52; Start 04/02/18 at 17:00 Rivastigmine (Exelon) 1 patch DAILY TD Last administered on 04/06/18at 07:52; Start 04/04/18 at 09:00; Stop 04/07/18 at 08:59; Status DC Rivastigmine (Exelon) 1 patch DAILY TD Last administered on 04/09/18at 10:10; Start 04/07/18 at 09:00; Stop 04/09/18 at 21:00; Status DC Rivastigmine (Exelon 13.3mg) 1 patch DAILY TD Last administered on 05/03/18at 08 :22; Start 04/10/18 at 09:00 Naproxen (Naprosyn) 250 mg PRN Q4HRS PRN PO MIGRAINE HEADACHE; Start 04/13/18 at 18:45 Quetiapine Fumarate (SEROquel) 25 mg DAILY@0200 PO Last administered on at 01:48; Start 04/17/18 at 02:00; Stop 04/20/18 at 18:35; Status DC Docusate Sodium (Colace) 100 mg BID PO Last administered on 05/02/18at 17:13; Start 04/20/18 at 09:00; Stop 05/02/18 at 17:36; Status DC Quetiapine Fumarate (SEROquel) 37.5 mg 0200 PO Last administered on 04/27/18at 01 :17; Start 04/21/18 at 02:00; Stop 04/29/18 at 18:38; Status DC Clozapine (Clozaril) 25 mg QHS PO Last administered on 04/26/18at 20:35; Start at 21:00; Stop 04/27/18 at 18:50; Status DC Clozapine (Clozaril) 12.5 mg DAILY PO Last administered on 04/27/18at 13:40; Start 04/23/18 at 11:15; Stop 04/27/18 at 18:50; Status DC Lorazepam (Ativan) 1 mg DAILY IM ; Start 04/27/18 at 04:45; Stop 04/27/18 at 04:45 ; Status DC Clozapine (Clozaril) 25 mg DAILY PO Last administered on 05/03/18at 08:22; Start 04/28/18 at 09:00 Clozapine (Clozaril) 50 mg HS PO Last administered on 05/02/18at 17:13; Start at 21:00; Stop 05/02/18 at 17:36; Status DC Quetiapine Fumarate (SEROquel) 25 mg 0200 PO ; Start 04/30/18 at 02:00 Clozapine (Clozaril) 50 mg 1700 PO Last administered on 05/03/18at 16:53; Start 05/02/18 at 18:00 Docusate Sodium (Colace) 100 mg BIDWMEALS PO Last administered on 05/03/18at 16: 53; Start 05/02/18 at 18:00 Mirtazapine (Remeron) 15 mg DAILYWSUP PO Last administered on 05/03/18at 16:53; Start 05/02/18 at 18:00 Quetiapine Fumarate (SEROquel) 12.5 mg BIDWMEALS PO Last administered on at 16:53; Start 05/02/18 at 18:00 Active Scripts Active Reported Silvadene (Silver Sulfadiazine) 20 Gm Cream..g. 1 Luz Maria TP BID Seroquel (Quetiapine Fumarate) 25 Mg Tablet 25 Mg PO BID@1200,2100 [place] 5-325 Tablet (Hydrocodone Bit/Acetaminophen) 1 Each Tablet 1 Tab PO PRN Q6HRS PRN Naproxen 500 Mg Tablet 500 Mg PO BID I have reviewed the current psychotropics carefully including drug interactions. Risk benefit ratio favors no change other than as noted in my dictated progress note. 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
[2018-05-04] MEDS: QUEtiapine 25 MG TABLET. PO SCH ×3 (02:00→17:08)
[2018-05-04] MEDS: DOCUSATE SODIUM 100 MG CAPSULE PO SCH ×2 (09:17→17:08)
[2018-05-04] MEDS: busPIRone 5 MG TABLET. PO SCH ×2 (09:18→17:07)
[2018-05-04] MEDS: SERTRALINE 100 MG TABLET. PO SCH (09:18)
[2018-05-04] MEDS: cloZAPine 25 MG TABLET PO SCH ×2 (09:18→17:08)
[2018-05-04] MEDS: RIVASTIGMINE 13.3MG PATCH. TD SCH (09:18)
[2018-05-04 10:29] LABS: BASO % 1 % (0-3); EOS # 0.1 x10^3/uL (0.0-0.7); EOS % 2 % (0-3); HEMATOCRIT 38.1 % (39.0-53.0); HEMOGLOBIN 12.8 g/dL (13.0-17.5); LYMPH # 1.1 x10^3/uL (1.0-4.8); LYMPH % 20 % (24-48); MEAN CORPUSCULAR HEMOGLOBIN 32 pg (25-35); MEAN CORPUSCULAR HGB CONC 34 g/dL (31-37); MEAN CORPUSCULAR VOLUME 94 fL (79-100); MONO # 0.5 x10^3/uL (0.0-1.1); MONO % 9 % (0-9); NEUT # 3.7 x10^3uL (1.8-7.7); NEUT % 69 % (31-73); PLATELET COUNT 239 x10^3/uL (140-400); RED BLOOD COUNT 4.05 x10^6/uL (4.30-5.70); RED CELL DISTRIBUTION WIDTH 13.1 % (11.5-14.5); WHITE BLOOD COUNT 5.4 x10^3/uL (4.0-11.0)
[2018-05-04 10:44] LABS: ALBUMIN 3.6 g/dL (3.4-5.0); ALBUMIN/GLOBULIN RATIO 1.1 (1.0-1.7); CALCIUM 9.2 mg/dL (8.5-10.1); CREATININE 0.9 mg/dL (0.7-1.3); GFR 86.4; POTASSIUM 4.6 mmol/L (3.5-5.1); TOTAL BILIRUBIN 0.3 mg/dL (0.2-1.0)
[2018-05-04 16:02] VITALS: BP 118/76
[2018-05-04] MEDS: MIRTAZAPINE 15 MG TABLET PO SCH (17:08)
--- NOTE | 2018-05-04 20:26 | PDOC ---
Exam Note: Lambert Note: Please also refer to the separate dictated note~for this date of service dictated separately.~Patient seen individually. Discussed the patient with Nursing staff reviewed the chart.~Reviewed interim history and current functioning. Reviewed vital signs,~Labs/ Radiology~and current medications noted below. Continue current treatment with the changes noted in the dictated addendum note Assessment: Vital Signs: Vital Signs Date Time Temp Pulse Resp B/P (MAP) Pulse Ox O2 Delivery O2 Flow Rate FiO2 05/04/18 16:02 98.3 94 18 118/76 (90) 100 04/28/18 16:15 Room Air I&O Intake and Output 05/04/18 06:59 Intake Total 1020 ml Balance 1020 ml Intake Oral 1020 ml # Bowel Movements 1 Labs: Laboratory Tests Test 05/04/18 10:15 White Blood Count 5.4 x10^3/uL (4.0-11.0) Red Blood Count 4.05 x10^6/uL (4.30-5.70) L Hemoglobin 12.8 g/dL (13.0-17.5) L Hematocrit 38.1 % (39.0-53.0) L Mean Corpuscular Volume 94 fL (79-100) Mean Corpuscular Hemoglobin 32 pg (25-35) Mean Corpuscular Hemoglobin Concent 34 g/dL (31-37) Red Cell Distribution Width 13.1 % (11.5-14.5) Platelet Count 239 x10^3/uL (140-400) Neutrophils (%) (Auto) 69 % (31-73) Lymphocytes (%) (Auto) 20 % (24-48) L Monocytes (%) (Auto) 9 % (0-9) Eosinophils (%) (Auto) 2 % (0-3) Basophils (%) (Auto) 1 % (0-3) Neutrophils # (Auto) 3.7 x10^3uL (1.8-7.7) Lymphocytes # (Auto) 1.1 x10^3/uL (1.0-4.8) Monocytes # (Auto) 0.5 x10^3/uL (0.0-1.1) Eosinophils # (Auto) 0.1 x10^3/uL (0.0-0.7) Basophils # (Auto) 0.0 x10^3/uL (0.0-0.2) Sodium Level 142 mmol/L (136-145) Potassium Level 4.6 mmol/L (3.5-5.1) Chloride Level 106 mmol/L (98-107) Carbon Dioxide Level 33 mmol/L (21-32) H Anion Gap 3 (6-14) L Blood Urea Nitrogen 16 mg/dL (8-26) Creatinine 0.9 mg/dL (0.7-1.3) Estimated GFR (Cockcroft-Gault) 86.4 BUN/Creatinine Ratio 18 (6-20) Glucose Level 106 mg/dL (70-99) H Calcium Level 9.2 mg/dL (8.5-10.1) Total Bilirubin 0.3 mg/dL (0.2-1.0) Aspartate Amino Transferase (AST) 26 U/L (15-37) Alanine Aminotransferase (ALT) 48 U/L (16-63) Alkaline Phosphatase 116 U/L (46-116) Total Protein 7.0 g/dL (6.4-8.2) Albumin 3.6 g/dL (3.4-5.0) Albumin/Globulin Ratio 1.1 (1.0-1.7) Current Medications: Meds: Current Medications Acetaminophen (Tylenol) 650 mg PRN Q6HRS PRN PO PAIN / TEMP Last administered on 04/07/18at 16:25; Start 03/10/18 at 23:00 Multi-Ingredient Ointment (Analgesic [place]) 1 luz maria PRN QID PRN TP MUSCLE PAIN; Start 03/10/18 at 23:00 Al Hydroxide/Mg Hydroxide (Mylanta Plus Xs) 15 ml PRN AFTMEALHC PRN PO DYSPEPSIA; Start 03/10/18 at 23:00 Magnesium Hydroxide (Milk Of Magnesia) 2,400 mg PRN QHS PRN PO CONSTIPATION Last administered on 04/17/18at 19:26; Start 03/10/18 at 23:00 Quetiapine Fumarate (SEROquel) 25 mg BID@1200,2100 PO Last administered on at 12:14; Start 03/11/18 at 12:00; Stop 03/20/18 at 19:07; Status DC Acetaminophen/ Hydrocodone Bitart (Lortab 5/325) 1 tab PRN Q6HRS PRN PO PAIN Last administered on 04/27/18 19:38; Start 03/10/18 at 23:30 Naproxen (Naprosyn) 500 mg BID PO Last administered on 03/11/18 19:23; Start 03/11/18 at 09:00; Stop 03/12/18 at 07:42; Status DC Vitamin D (Vitamin D3) 50,000 unit WEEKLY PO Last administered on 04/29/18 08: 56; Start 03/11/18 at 19:00 Sertraline HCl (Zoloft) 25 mg DAILY PO Last administered on 03/15/18 08:15; Start 03/12/18 at 09:00; Stop 03/15/18 at 21:28; Status DC Mirtazapine (Remeron) 7.5 mg QHS PO Last administered on 03/15/18 21:24; Start 03/11/18 at 21:00; Stop 03/16/18 at 20:49; Status DC Olanzapine (ZyPREXA ZYDIS) 2.5 mg PRN Q2HR PRN PO agitation Last administered on 03/14/18 20:09; Start 03/12/18 at 07:45; Stop 03/14/18 at 22:25; Status DC Naproxen (Naprosyn) 500 mg PRN BID PRN PO PAIN Last administered on 03/21/18 07 :43; Start 03/12/18 at 07:45 Silver Sulfadiazine (Silvadene) 1 luz maria DAILY TP Last administered on 03/30/18 09:35; Start 03/12/18 at 21:00; Stop 04/02/18 at 09:30; Status DC Artificial Tears (Artificial Tears) 1 drop PRN Q15MIN PRN OU DRY EYE Last administered on 03/24/18 08:15; Start 03/13/18 at 20:30 Trazodone HCl (Desyrel) 50 mg PRN QHS PRN PO insomnia Last administered on 04/29 23:18; Start 03/14/18 at 18:45 Olanzapine (ZyPREXA ZYDIS) 5 mg PRN Q2HR PRN PO agitation Last administered on 05/04/18at 10:39; Start 03/14/18 at 22:30 Olanzapine (ZyPREXA) 2.5 mg 1X ONCE PO ; Start 03/15/18 at 09:15; Stop at 09:48; Status DC Olanzapine (ZyPREXA ZYDIS) 5 mg 1X ONCE PO ; Start 03/15/18 at 09:50; Stop at 09:50; Status DC Olanzapine (ZyPREXA ZYDIS) 5 mg 1X ONCE PO ; Start 03/15/18 at 09:45; Stop at 09:52; Status DC Olanzapine (ZyPREXA ZYDIS) 5 mg PRN 1X PRN PO 1HR BEFORE CT &30MIN PRIOR PRN; Start 03/15/18 at 09:50; Stop 03/15/18 at 18:00; Status DC Sertraline HCl (Zoloft) 50 mg DAILY PO Last administered on 03/19/18at 09:27; Start 03/16/18 at 09:00; Stop 03/21/18 at 08:00; Status DC Mirtazapine (Remeron) 15 mg QHS PO Last administered on 05/02/18at 17:13; Start 03/16/18 at 21:00; Stop 05/02/18 at 17:36; Status DC Sertraline HCl (Zoloft) 75 mg DAILY PO Last administered on 03/30/18at 09:32; Start 03/21/18 at 09:00; Stop 03/30/18 at 18:24; Status DC Divalproex Sodium (Depakote Sprinkles) 125 mg 0900,1300 PO Last administered on 03/26/18at 07:50; Start 03/21/18 at 09:00; Stop 03/26/18 at 10:10; Status DC Quetiapine Fumarate (SEROquel) 12.5 mg BID PO Last administered on 05/02/18at 17 :13; Start 03/20/18 at 21:00; Stop 05/02/18 at 17:36; Status DC Carbidopa/Levodopa (Sinemet Cr) 1 tab.sa BID PO Last administered on 03/31/18at 08:46; Start 03/23/18 at 21:00; Stop 03/31/18 at 19:35; Status DC Divalproex Sodium (Depakote Sprinkles) 125 mg TID@0900,1300,1700 PO Last administered on 04/04/18at 12:54; Start 03/26/18 at 13:00; Stop 04/04/18 at 19:00 ; Status DC Sertraline HCl (Zoloft) 100 mg DAILY PO Last administered on 05/04/18at 09:18; Start 03/31/18 at 09:00 Docusate Sodium (Colace Solution) 100 mg BID PO Last administered on 04/19/18at 08:26; Start 03/31/18 at 21:00; Stop 04/20/18 at 08:20; Status DC Buspirone HCl (Buspar) 5 mg BID@0900,1700 PO Last administered on 05/04/18at 17: 07; Start 04/02/18 at 17:00 Rivastigmine (Exelon) 1 patch DAILY TD Last administered on 04/06/18at 07:52; Start 04/04/18 at 09:00; Stop 04/07/18 at 08:59; Status DC Rivastigmine (Exelon) 1 patch DAILY TD Last administered on 04/09/18at 10:10; Start 04/07/18 at 09:00; Stop 04/09/18 at 21:00; Status DC Rivastigmine (Exelon 13.3mg) 1 patch DAILY TD Last administered on 05/04/18at 09 :18; Start 04/10/18 at 09:00 Naproxen (Naprosyn) 250 mg PRN Q4HRS PRN PO MIGRAINE HEADACHE; Start 04/13/18 at 18:45 Quetiapine Fumarate (SEROquel) 25 mg DAILY@0200 PO Last administered on at 01:48; Start 04/17/18 at 02:00; Stop 04/20/18 at 18:35; Status DC Docusate Sodium (Colace) 100 mg BID PO Last administered on 05/02/18at 17:13; Start 04/20/18 at 09:00; Stop 05/02/18 at 17:36; Status DC Quetiapine Fumarate (SEROquel) 37.5 mg 0200 PO Last administered on 04/27/18at 01 :17; Start 04/21/18 at 02:00; Stop 04/29/18 at 18:38; Status DC Clozapine (Clozaril) 25 mg QHS PO Last administered on 04/26/18at 20:35; Start at 21:00; Stop 04/27/18 at 18:50; Status DC Clozapine (Clozaril) 12.5 mg DAILY PO Last administered on 04/27/18at 13:40; Start 04/23/18 at 11:15; Stop 04/27/18 at 18:50; Status DC Lorazepam (Ativan) 1 mg DAILY IM ; Start 04/27/18 at 04:45; Stop 04/27/18 at 04:45 ; Status DC Clozapine (Clozaril) 25 mg DAILY PO Last administered on 05/04/18at 09:18; Start 04/28/18 at 09:00 Clozapine (Clozaril) 50 mg HS PO Last administered on 05/02/18at 17:13; Start at 21:00; Stop 05/02/18 at 17:36; Status DC Quetiapine Fumarate (SEROquel) 25 mg 0200 PO ; Start 04/30/18 at 02:00; Stop at 18:32; Status DC Clozapine (Clozaril) 50 mg 1700 PO Last administered on 05/04/18at 17:08; Start 05/02/18 at 18:00; Stop 05/04/18 at 18:32; Status DC Docusate Sodium (Colace) 100 mg BIDWMEALS PO Last administered on 05/04/18at 17: 08; Start 05/02/18 at 18:00 Mirtazapine (Remeron) 15 mg DAILYWSUP PO Last administered on 05/04/18at 17:08; Start 05/02/18 at 18:00 Quetiapine Fumarate (SEROquel) 12.5 mg BIDWMEALS PO Last administered on at 17:08; Start 05/02/18 at 18:00 Clozapine (Clozaril) 75 mg 1700 PO ; Start 05/05/18 at 17:00 Quetiapine Fumarate (SEROquel) 12.5 mg 0200 PO ; Start 05/05/18 at 02:00 Active Scripts Active Reported Silvadene (Silver Sulfadiazine) 20 Gm Cream..g. 1 Luz Maria TP BID Seroquel (Quetiapine Fumarate) 25 Mg Tablet 25 Mg PO BID@1200,2100 Center 5-325 Tablet (Hydrocodone Bit/Acetaminophen) 1 Each Tablet 1 Tab PO PRN Q6HRS PRN Naproxen 500 Mg Tablet 500 Mg PO BID I have reviewed the current psychotropics carefully including drug interactions. Risk benefit ratio favors no change other than as noted in my dictated progress note. 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
--- NOTE | 2018-05-04 20:43 | PN ---
DATE: 05/03/2018 PSYCHIATRIC PROGRESS NOTE This is a late entry for 05/03/2018, covers elements not covered in my initial note. SUBJECTIVE: I met with the patient in the evening. The patient slept 4-1/2 hours previous evening, was aggressive with another demented patient on the unit who he dislikes. Did well in the morning. REVIEW OF SYSTEMS: No CV, , pulmonary, eye, ENT system symptoms on review. Reliability poor. MENTAL STATUS EXAM: Oriented to himself. Insight, judgment, recent memory is impaired. Language function intact. Attention span short. Mood and affect remain somewhat anxious, but lability is improved. LABORATORY DATA: Reviewed. 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 Rest unchanged. PLAN: Continue current psychotropics, may increase Clozaril after we get CBC and absolute neutrophil count on 05/04/2018. MAN Janie NAIR MD DR: ANGELINA/gallito JOB#: [id number] / [id number]
--- NOTE | 2018-05-05 00:18 | PN ---
DATE: 05/02/2018 This is a late entry 05/02/2018, covers elements not covered in my initial note. SUBJECTIVE: I met with the patient in the evening and nursing staff had called me earlier in the day as an emergency as the patient was getting aggressive on several different occasions. He had to be placed in the seclusion room, doors were left open for a period of time. He did receive PRNs, then seemed to do better. His sister visited and this seemed to help as well. He slept 6-1/4 hours previous evening. REVIEW OF SYSTEMS: No CV, , pulmonary, eye system symptoms on review. MENTAL STATUS EXAM: The patient is oriented to himself. Insight, judgment, recent and remote memory, attention, concentration, fund of knowledge poor, consistent with his diagnosis. 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 Rest unchanged. PLAN: Continue psychotropics mentioned in my initial note, may need to increase Clozaril after we get the labs on 05/04/2018. Discussed with nursing staff on several occasions and ways to intervene to help reduce the aggression. MAN Janie NAIR MD DR: ANGELINA/gallito JOB#: [id number] / [id number]
[2018-05-05] MEDS: QUEtiapine 25 MG TABLET. PO SCH ×3 (02:00→18:36)
[2018-05-05] MEDS: DOCUSATE SODIUM 100 MG CAPSULE PO SCH ×2 (08:16→18:36)
[2018-05-05] MEDS: cloZAPine 25 MG TABLET PO SCH ×2 (08:16→18:36)
[2018-05-05] MEDS: SERTRALINE 100 MG TABLET. PO SCH (08:17)
[2018-05-05] MEDS: busPIRone 5 MG TABLET. PO SCH ×2 (08:17→18:36)
[2018-05-05] MEDS: RIVASTIGMINE 13.3MG PATCH. TD SCH (08:17)
[2018-05-05 16:50] VITALS: BP 122/75
[2018-05-05] MEDS: MIRTAZAPINE 15 MG TABLET PO SCH (18:36)
--- NOTE | 2018-05-05 20:58 | PDOC ---
Exam Note: Lambert Note: Please also refer to the separate dictated note~for this date of service dictated separately.~Patient seen individually. Discussed the patient with Nursing staff reviewed the chart.~Reviewed interim history and current functioning. Reviewed vital signs,~Labs/ Radiology~and current medications noted below. Continue current treatment with the changes noted in the dictated addendum note Assessment: Vital Signs: Vital Signs Date Time Temp Pulse Resp B/P (MAP) Pulse Ox O2 Delivery O2 Flow Rate FiO2 05/05/18 16:50 97.5 86 16 122/75 (91) 100 I&O Intake and Output 05/05/18 06:59 Intake Total 1080 ml Balance 1080 ml Intake Oral 1080 ml # Bowel Movements 1 Current Medications: Meds: Current Medications Acetaminophen (Tylenol) 650 mg PRN Q6HRS PRN PO PAIN / TEMP Last administered on 04/07/18at 16:25; Start 03/10/18 at 23:00 Multi-Ingredient Ointment (Analgesic [place]) 1 luz maria PRN QID PRN TP MUSCLE PAIN; Start 03/10/18 at 23:00 Al Hydroxide/Mg Hydroxide (Mylanta Plus Xs) 15 ml PRN AFTMEALHC PRN PO DYSPEPSIA; Start 03/10/18 at 23:00 Magnesium Hydroxide (Milk Of Magnesia) 2,400 mg PRN QHS PRN PO CONSTIPATION Last administered on 04/17/18at 19:26; Start 03/10/18 at 23:00 Quetiapine Fumarate (SEROquel) 25 mg BID@1200,2100 PO Last administered on at 12:14; Start 03/11/18 at 12:00; Stop 03/20/18 at 19:07; Status DC Acetaminophen/ Hydrocodone Bitart (Lortab 5/325) 1 tab PRN Q6HRS PRN PO PAIN Last administered on 04/27/18at 19:38; Start 03/10/18 at 23:30 Naproxen (Naprosyn) 500 mg BID PO Last administered on 03/11/18at 19:23; Start 03/11/18 at 09:00; Stop 03/12/18 at 07:42; Status DC Vitamin D (Vitamin D3) 50,000 unit WEEKLY PO Last administered on 04/29/18at 08: 56; Start 03/11/18 at 19:00 Sertraline HCl (Zoloft) 25 mg DAILY PO Last administered on 03/15/18at 08:15; Start 03/12/18 at 09:00; Stop 03/15/18 at 21:28; Status DC Mirtazapine (Remeron) 7.5 mg QHS PO Last administered on 03/15/18at 21:24; Start 03/11/18 at 21:00; Stop 03/16/18 at 20:49; Status DC Olanzapine (ZyPREXA ZYDIS) 2.5 mg PRN Q2HR PRN PO agitation Last administered on 03/14/18at 20:09; Start 03/12/18 at 07:45; Stop 03/14/18 at 22:25; Status DC Naproxen (Naprosyn) 500 mg PRN BID PRN PO PAIN Last administered on 03/21/18at 07 :43; Start 03/12/18 at 07:45 Silver Sulfadiazine (Silvadene) 1 luz maria DAILY TP Last administered on 03/30/18at 09:35; Start 03/12/18 at 21:00; Stop 04/02/18 at 09:30; Status DC Artificial Tears (Artificial Tears) 1 drop PRN Q15MIN PRN OU DRY EYE Last administered on 03/24/18at 08:15; Start 03/13/18 at 20:30 Trazodone HCl (Desyrel) 50 mg PRN QHS PRN PO insomnia Last administered on 04/29at 23:18; Start 03/14/18 at 18:45 Olanzapine (ZyPREXA ZYDIS) 5 mg PRN Q2HR PRN PO agitation Last administered on 05/04/18at 10:39; Start 03/14/18 at 22:30 Olanzapine (ZyPREXA) 2.5 mg 1X ONCE PO ; Start 03/15/18 at 09:15; Stop at 09:48; Status DC Olanzapine (ZyPREXA ZYDIS) 5 mg 1X ONCE PO ; Start 03/15/18 at 09:50; Stop at 09:50; Status DC Olanzapine (ZyPREXA ZYDIS) 5 mg 1X ONCE PO ; Start 03/15/18 at 09:45; Stop at 09:52; Status DC Olanzapine (ZyPREXA ZYDIS) 5 mg PRN 1X PRN PO 1HR BEFORE CT &30MIN PRIOR PRN; Start 03/15/18 at 09:50; Stop 03/15/18 at 18:00; Status DC Sertraline HCl (Zoloft) 50 mg DAILY PO Last administered on 03/19/18at 09:27; Start 03/16/18 at 09:00; Stop 03/21/18 at 08:00; Status DC Mirtazapine (Remeron) 15 mg QHS PO Last administered on 05/02/18at 17:13; Start 03/16/18 at 21:00; Stop 05/02/18 at 17:36; Status DC Sertraline HCl (Zoloft) 75 mg DAILY PO Last administered on 03/30/18at 09:32; Start 03/21/18 at 09:00; Stop 03/30/18 at 18:24; Status DC Divalproex Sodium (Depakote Sprinkles) 125 mg 0900,1300 PO Last administered on 03/26/18at 07:50; Start 03/21/18 at 09:00; Stop 03/26/18 at 10:10; Status DC Quetiapine Fumarate (SEROquel) 12.5 mg BID PO Last administered on 05/02/18at 17 :13; Start 03/20/18 at 21:00; Stop 05/02/18 at 17:36; Status DC Carbidopa/Levodopa (Sinemet Cr) 1 tab.sa BID PO Last administered on 03/31/18at 08:46; Start 03/23/18 at 21:00; Stop 03/31/18 at 19:35; Status DC Divalproex Sodium (Depakote Sprinkles) 125 mg TID@0900,1300,1700 PO Last administered on 04/04/18at 12:54; Start 03/26/18 at 13:00; Stop 04/04/18 at 19:00 ; Status DC Sertraline HCl (Zoloft) 100 mg DAILY PO Last administered on 05/05/18at 08:17; Start 03/31/18 at 09:00 Docusate Sodium (Colace Solution) 100 mg BID PO Last administered on 04/19/18at 08:26; Start 03/31/18 at 21:00; Stop 04/20/18 at 08:20; Status DC Buspirone HCl (Buspar) 5 mg BID@0900,1700 PO Last administered on 05/05/18at 18: 36; Start 04/02/18 at 17:00 Rivastigmine (Exelon) 1 patch DAILY TD Last administered on 04/06/18at 07:52; Start 04/04/18 at 09:00; Stop 04/07/18 at 08:59; Status DC Rivastigmine (Exelon) 1 patch DAILY TD Last administered on 04/09/18at 10:10; Start 04/07/18 at 09:00; Stop 04/09/18 at 21:00; Status DC Rivastigmine (Exelon 13.3mg) 1 patch DAILY TD Last administered on 05/05/18at 08 :17; Start 04/10/18 at 09:00 Naproxen (Naprosyn) 250 mg PRN Q4HRS PRN PO MIGRAINE HEADACHE; Start 04/13/18 at 18:45 Quetiapine Fumarate (SEROquel) 25 mg DAILY@0200 PO Last administered on at 01:48; Start 04/17/18 at 02:00; Stop 04/20/18 at 18:35; Status DC Docusate Sodium (Colace) 100 mg BID PO Last administered on 05/02/18at 17:13; Start 04/20/18 at 09:00; Stop 05/02/18 at 17:36; Status DC Quetiapine Fumarate (SEROquel) 37.5 mg 0200 PO Last administered on 04/27/18at 01 :17; Start 04/21/18 at 02:00; Stop 04/29/18 at 18:38; Status DC Clozapine (Clozaril) 25 mg QHS PO Last administered on 04/26/18at 20:35; Start at 21:00; Stop 04/27/18 at 18:50; Status DC Clozapine (Clozaril) 12.5 mg DAILY PO Last administered on 04/27/18at 13:40; Start 04/23/18 at 11:15; Stop 04/27/18 at 18:50; Status DC Lorazepam (Ativan) 1 mg DAILY IM ; Start 04/27/18 at 04:45; Stop 04/27/18 at 04:45 ; Status DC Clozapine (Clozaril) 25 mg DAILY PO Last administered on 05/05/18at 08:16; Start 04/28/18 at 09:00 Clozapine (Clozaril) 50 mg HS PO Last administered on 05/02/18at 17:13; Start at 21:00; Stop 05/02/18 at 17:36; Status DC Quetiapine Fumarate (SEROquel) 25 mg 0200 PO ; Start 04/30/18 at 02:00; Stop at 18:32; Status DC Clozapine (Clozaril) 50 mg 1700 PO Last administered on 05/04/18at 17:08; Start 05/02/18 at 18:00; Stop 05/04/18 at 18:32; Status DC Docusate Sodium (Colace) 100 mg BIDWMEALS PO Last administered on 05/05/18at 18: 36; Start 05/02/18 at 18:00 Mirtazapine (Remeron) 15 mg DAILYWSUP PO Last administered on 05/05/18at 18:36; Start 05/02/18 at 18:00 Quetiapine Fumarate (SEROquel) 12.5 mg BIDWMEALS PO Last administered on at 18:36; Start 05/02/18 at 18:00 Clozapine (Clozaril) 75 mg 1700 PO Last administered on 05/05/18at 18:36; Start 05/05/18 at 17:00 Quetiapine Fumarate (SEROquel) 12.5 mg 0200 PO ; Start 05/05/18 at 02:00 Active Scripts Active Reported Silvadene (Silver Sulfadiazine) 20 Gm Cream..g. 1 Luz Maria TP BID Seroquel (Quetiapine Fumarate) 25 Mg Tablet 25 Mg PO BID@1200,2100 [place] 5-325 Tablet (Hydrocodone Bit/Acetaminophen) 1 Each Tablet 1 Tab PO PRN Q6HRS PRN Naproxen 500 Mg Tablet 500 Mg PO BID I have reviewed the current psychotropics carefully including drug interactions. Risk benefit ratio favors no change other than as noted in my dictated progress note. 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
[2018-05-06] MEDS: QUEtiapine 25 MG TABLET. PO SCH ×3 (04:00→17:21)
[2018-05-06] MEDS: busPIRone 5 MG TABLET. PO SCH ×2 (08:49→17:21)
[2018-05-06] MEDS: cloZAPine 25 MG TABLET PO SCH ×2 (08:49→17:21)
[2018-05-06] MEDS: RIVASTIGMINE 13.3MG PATCH. TD SCH (08:49)
[2018-05-06] MEDS: MIRTAZAPINE 15 MG TABLET PO SCH (08:49)
[2018-05-06] MEDS: SERTRALINE 100 MG TABLET. PO SCH (08:49)
[2018-05-06] MEDS: DOCUSATE SODIUM 100 MG CAPSULE PO SCH ×2 (08:49→17:21)
[2018-05-06] MEDS: CHOLECALCIFEROL (VITAMIN D3) 50,000 UNIT CAPSULE PO SCH (08:50)
--- NOTE | 2018-05-06 09:29 | PN ---
DATE: 05/04/2018 This late entry 05/04/2018 covers elements not covered in my initial note. SUBJECTIVE: I met with the patient in the evening. The patient slept 8-3/4 hours previous evening, was quite agitated with lab draw in the morning, rest of the day little better. Absolute neutrophil count is 3700. We are going to go ahead and increase the Clozaril from 25 mg a.m., 50 at bedtime to 25 a.m., 75 at bedtime and reduce the Seroquel 25 mg at 2:00 a.m. to 12.5 mg at bedtime. I also met with the patient's sister in the evening. REVIEW OF SYSTEMS: No CV, , eye, ENT system symptoms on review. Reliability poor. MENTAL STATUS EXAM: Oriented to himself. Insight, judgment, recent and remote memory, attention, concentration, fund of knowledge poor, consistent with his diagnosis. IMPRESSION: Major neurocognitive disorder, secondary to corticobasal degeneration; anxiety disorder, unspecified; impulse control disorder, unspecified. PLAN: Initiate the changes noted above. Adjust further as clinically indicated. MAN Janie NAIR MD DR: ANGELINA/gallito JOB#: [id number] / [id number]
[2018-05-06 15:52] VITALS: BP 121/73
--- NOTE | 2018-05-06 20:43 | PDOC ---
Exam Note: Lambert Note: Please also refer to the separate dictated note~for this date of service dictated separately.~Patient seen individually. Discussed the patient with Nursing staff reviewed the chart.~Reviewed interim history and current functioning. Reviewed vital signs,~Labs/ Radiology~and current medications noted below. Continue current treatment with the changes noted in the dictated addendum note Assessment: Vital Signs: Vital Signs Date Time Temp Pulse Resp B/P (MAP) Pulse Ox O2 Delivery O2 Flow Rate FiO2 05/06/18 15:52 98.0 95 16 121/73 (89) 100 I&O Intake and Output 05/06/18 06:59 Intake Total 1080 ml Balance 1080 ml Intake Oral 1080 ml Current Medications: Meds: Current Medications Acetaminophen (Tylenol) 650 mg PRN Q6HRS PRN PO PAIN / TEMP Last administered on 04/07/18at 16:25; Start 03/10/18 at 23:00 Multi-Ingredient Ointment (Analgesic [place]) 1 luz maria PRN QID PRN TP MUSCLE PAIN; Start 03/10/18 at 23:00 Al Hydroxide/Mg Hydroxide (Mylanta Plus Xs) 15 ml PRN AFTMEALHC PRN PO DYSPEPSIA; Start 03/10/18 at 23:00 Magnesium Hydroxide (Milk Of Magnesia) 2,400 mg PRN QHS PRN PO CONSTIPATION Last administered on 04/17/18at 19:26; Start 03/10/18 at 23:00 Quetiapine Fumarate (SEROquel) 25 mg BID@1200,2100 PO Last administered on at 12:14; Start 03/11/18 at 12:00; Stop 03/20/18 at 19:07; Status DC Acetaminophen/ Hydrocodone Bitart (Lortab 5/325) 1 tab PRN Q6HRS PRN PO PAIN Last administered on 04/27/18at 19:38; Start 03/10/18 at 23:30 Naproxen (Naprosyn) 500 mg BID PO Last administered on 03/11/18at 19:23; Start 03/11/18 at 09:00; Stop 03/12/18 at 07:42; Status DC Vitamin D (Vitamin D3) 50,000 unit WEEKLY PO Last administered on 05/06/18at 08: 50; Start 03/11/18 at 19:00 Sertraline HCl (Zoloft) 25 mg DAILY PO Last administered on 03/15/18at 08:15; Start 03/12/18 at 09:00; Stop 03/15/18 at 21:28; Status DC Mirtazapine (Remeron) 7.5 mg QHS PO Last administered on 03/15/18at 21:24; Start 03/11/18 at 21:00; Stop 03/16/18 at 20:49; Status DC Olanzapine (ZyPREXA ZYDIS) 2.5 mg PRN Q2HR PRN PO agitation Last administered on 03/14/18at 20:09; Start 03/12/18 at 07:45; Stop 03/14/18 at 22:25; Status DC Naproxen (Naprosyn) 500 mg PRN BID PRN PO PAIN Last administered on 03/21/18at 07 :43; Start 03/12/18 at 07:45 Silver Sulfadiazine (Silvadene) 1 luz maria DAILY TP Last administered on 03/30/18at 09:35; Start 03/12/18 at 21:00; Stop 04/02/18 at 09:30; Status DC Artificial Tears (Artificial Tears) 1 drop PRN Q15MIN PRN OU DRY EYE Last administered on 03/24/18at 08:15; Start 03/13/18 at 20:30 Trazodone HCl (Desyrel) 50 mg PRN QHS PRN PO insomnia Last administered on 04/29at 23:18; Start 03/14/18 at 18:45 Olanzapine (ZyPREXA ZYDIS) 5 mg PRN Q2HR PRN PO agitation Last administered on 05/04/18at 10:39; Start 03/14/18 at 22:30 Olanzapine (ZyPREXA) 2.5 mg 1X ONCE PO ; Start 03/15/18 at 09:15; Stop at 09:48; Status DC Olanzapine (ZyPREXA ZYDIS) 5 mg 1X ONCE PO ; Start 03/15/18 at 09:50; Stop at 09:50; Status DC Olanzapine (ZyPREXA ZYDIS) 5 mg 1X ONCE PO ; Start 03/15/18 at 09:45; Stop at 09:52; Status DC Olanzapine (ZyPREXA ZYDIS) 5 mg PRN 1X PRN PO 1HR BEFORE CT &30MIN PRIOR PRN; Start 03/15/18 at 09:50; Stop 03/15/18 at 18:00; Status DC Sertraline HCl (Zoloft) 50 mg DAILY PO Last administered on 03/19/18at 09:27; Start 03/16/18 at 09:00; Stop 03/21/18 at 08:00; Status DC Mirtazapine (Remeron) 15 mg QHS PO Last administered on 05/02/18at 17:13; Start 03/16/18 at 21:00; Stop 05/02/18 at 17:36; Status DC Sertraline HCl (Zoloft) 75 mg DAILY PO Last administered on 03/30/18at 09:32; Start 03/21/18 at 09:00; Stop 03/30/18 at 18:24; Status DC Divalproex Sodium (Depakote Sprinkles) 125 mg 0900,1300 PO Last administered on 03/26/18at 07:50; Start 03/21/18 at 09:00; Stop 03/26/18 at 10:10; Status DC Quetiapine Fumarate (SEROquel) 12.5 mg BID PO Last administered on 05/02/18at 17 :13; Start 03/20/18 at 21:00; Stop 05/02/18 at 17:36; Status DC Carbidopa/Levodopa (Sinemet Cr) 1 tab.sa BID PO Last administered on 03/31/18at 08:46; Start 03/23/18 at 21:00; Stop 03/31/18 at 19:35; Status DC Divalproex Sodium (Depakote Sprinkles) 125 mg TID@0900,1300,1700 PO Last administered on 04/04/18at 12:54; Start 03/26/18 at 13:00; Stop 04/04/18 at 19:00 ; Status DC Sertraline HCl (Zoloft) 100 mg DAILY PO Last administered on 05/06/18at 08:49; Start 03/31/18 at 09:00 Docusate Sodium (Colace Solution) 100 mg BID PO Last administered on 04/19/18at 08:26; Start 03/31/18 at 21:00; Stop 04/20/18 at 08:20; Status DC Buspirone HCl (Buspar) 5 mg BID@0900,1700 PO Last administered on 05/06/18at 17: 21; Start 04/02/18 at 17:00 Rivastigmine (Exelon) 1 patch DAILY TD Last administered on 04/06/18at 07:52; Start 04/04/18 at 09:00; Stop 04/07/18 at 08:59; Status DC Rivastigmine (Exelon) 1 patch DAILY TD Last administered on 04/09/18at 10:10; Start 04/07/18 at 09:00; Stop 04/09/18 at 21:00; Status DC Rivastigmine (Exelon 13.3mg) 1 patch DAILY TD Last administered on 05/06/18at 08 :49; Start 04/10/18 at 09:00 Naproxen (Naprosyn) 250 mg PRN Q4HRS PRN PO MIGRAINE HEADACHE; Start 04/13/18 at 18:45 Quetiapine Fumarate (SEROquel) 25 mg DAILY@0200 PO Last administered on at 01:48; Start 04/17/18 at 02:00; Stop 04/20/18 at 18:35; Status DC Docusate Sodium (Colace) 100 mg BID PO Last administered on 05/02/18at 17:13; Start 04/20/18 at 09:00; Stop 05/02/18 at 17:36; Status DC Quetiapine Fumarate (SEROquel) 37.5 mg 0200 PO Last administered on 04/27/18at 01 :17; Start 04/21/18 at 02:00; Stop 04/29/18 at 18:38; Status DC Clozapine (Clozaril) 25 mg QHS PO Last administered on 04/26/18at 20:35; Start at 21:00; Stop 04/27/18 at 18:50; Status DC Clozapine (Clozaril) 12.5 mg DAILY PO Last administered on 04/27/18at 13:40; Start 04/23/18 at 11:15; Stop 04/27/18 at 18:50; Status DC Lorazepam (Ativan) 1 mg DAILY IM ; Start 04/27/18 at 04:45; Stop 04/27/18 at 04:45 ; Status DC Clozapine (Clozaril) 25 mg DAILY PO Last administered on 05/06/18at 08:49; Start 04/28/18 at 09:00 Clozapine (Clozaril) 50 mg HS PO Last administered on 05/02/18at 17:13; Start at 21:00; Stop 05/02/18 at 17:36; Status DC Quetiapine Fumarate (SEROquel) 25 mg 0200 PO ; Start 04/30/18 at 02:00; Stop at 18:32; Status DC Clozapine (Clozaril) 50 mg 1700 PO Last administered on 05/04/18at 17:08; Start 05/02/18 at 18:00; Stop 05/04/18 at 18:32; Status DC Docusate Sodium (Colace) 100 mg BIDWMEALS PO Last administered on 05/06/18at 17: 21; Start 05/02/18 at 18:00 Mirtazapine (Remeron) 15 mg DAILYWSUP PO Last administered on 05/06/18at 08:49; Start 05/02/18 at 18:00 Quetiapine Fumarate (SEROquel) 12.5 mg BIDWMEALS PO Last administered on at 17:21; Start 05/02/18 at 18:00 Clozapine (Clozaril) 75 mg 1700 PO Last administered on 05/06/18at 17:21; Start 05/05/18 at 17:00 Quetiapine Fumarate (SEROquel) 12.5 mg 0200 PO ; Start 05/05/18 at 02:00 Active Scripts Active Reported Silvadene (Silver Sulfadiazine) 20 Gm Cream..g. 1 Luz Maria TP BID Seroquel (Quetiapine Fumarate) 25 Mg Tablet 25 Mg PO BID@1200,2100 [place] 5-325 Tablet (Hydrocodone Bit/Acetaminophen) 1 Each Tablet 1 Tab PO PRN Q6HRS PRN Naproxen 500 Mg Tablet 500 Mg PO BID I have reviewed the current psychotropics carefully including drug interactions. Risk benefit ratio favors no change other than as noted in my dictated progress note. 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
--- NOTE | 2018-05-06 22:32 | PN ---
DATE: 05/05/2018 This late entry 05/05/2018 covers elements not covered in my initial note 05/05/2018. SUBJECTIVE: I met with the patient in the evening. I also met with the patient's sister, Tarsha, reviewed his progress. He slept 9 hours previous evening. He slept well at night. Morning of 05/05/2018, he spit out his medication, was yelling, agitated. He was wet. The nursing staff are trying to change him. It took initially 3 staff members to help control him as he was hitting, kicking, biting, yelling and then it took another 3 members for a total of 6 staff members to help contain him. After he was changed, he was fairly calm and flaccid for most of the rest of the day. REVIEW OF SYSTEMS: No CV, , pulmonary, eye, ENT system symptoms on review. Reliability varies. MENTAL STATUS EXAM: Oriented to himself and situation. Speech moderate latency, often responses monosyllabic. Abstraction fair, computation impaired, language function intact, attention span short. Mood and affect for the most part is better, but becomes quite labile and he gets very paranoid, certainly delusional with activities such as above when he has been assisted by nursing staff. No suicidal or homicidal ideation. LABORATORY DATA: Reviewed. 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 PLAN: The patient's Clozaril was just increased to 25 mg a.m. and 75 mg at bedtime. We will continue this together with his Seroquel for now. Nursing staff wondered about behavior modification and giving him positive for when he is able to control this behaviors and positive suggested was that his sister could visit him. When he has been out of control, then he passes up on a visit with his sister. Staff will discuss this with his sister and address accordingly. MAN Janie NAIR MD DR: ANGELINA/gallito JOB#: [id number] / [id number]
[2018-05-07] MEDS: traZODone 50 MG TABLET. PO PRN (00:49)
[2018-05-07] MEDS: QUEtiapine 25 MG TABLET. PO SCH ×4 (02:21→17:22)
--- NOTE | 2018-05-07 05:21 | RAD ---
EXAM: CT HEAD WITHOUT CONTRAST. HISTORY: Fall with head injury. TECHNIQUE: Computed tomography of the head was performed without intravenous contrast. COMPARISON: March 15, 2018. FINDINGS: There is no intracranial hemorrhage. Hypoattenuation within the periventricular white matter indicates mild chronic microangiopathic change. Prominence of the lateral ventricles and hemispheric sulci indicates moderate atrophy. The visualized paranasal sinuses appear clear. The orbits are unremarkable. The temporal bones are unremarkable. The calvarium reveals no suspicious lesions. The right occipital lymph node is stable. IMPRESSION: 1. No acute intracranial findings. 2. Moderate atrophy and mild chronic microangiopathic white matter change. *One or more of the following individualized dose reduction techniques were utilized for this examination: 1. Automated exposure control. 2. Adjustment of the mA and/or kV according to patient size. 3. Use of iterative reconstruction technique. Electronically signed by: Diana Burk MD (05/07/2018 5:17 AM) [id number]
[2018-05-07 05:37] VITALS: BP 126/90
[2018-05-07] MEDS: cloZAPine 25 MG TABLET PO SCH ×3 (12:30→17:21)
[2018-05-07] MEDS: DOCUSATE SODIUM 100 MG CAPSULE PO SCH ×3 (12:30→17:21)
[2018-05-07] MEDS: busPIRone 5 MG TABLET. PO SCH ×3 (12:30→17:21)
[2018-05-07] MEDS: SERTRALINE 100 MG TABLET. PO SCH ×2 (12:46→13:20)
[2018-05-07] MEDS: RIVASTIGMINE 13.3MG PATCH. TD SCH (12:47)
[2018-05-07 16:17] VITALS: BP 134/90
[2018-05-07] MEDS: MIRTAZAPINE 15 MG TABLET PO SCH (17:22)
--- NOTE | 2018-05-07 20:40 | PDOC ---
Exam Note: Lambert Note: Please also refer to the separate dictated note~for this date of service dictated separately.~Patient seen individually. Discussed the patient with Nursing staff reviewed the chart.~Reviewed interim history and current functioning. Reviewed vital signs,~Labs/ Radiology~and current medications noted below. Continue current treatment with the changes noted in the dictated addendum note Assessment: Vital Signs: Vital Signs Date Time Temp Pulse Resp B/P (MAP) Pulse Ox O2 Delivery O2 Flow Rate FiO2 05/07/18 16:17 98.6 82 20 134/90 (105) 97 Room Air I&O Intake and Output 05/07/18 06:59 Intake Total 1040 ml Balance 1040 ml Intake Oral 1040 ml # Voids 1 # Bowel Movements 1 Current Medications: Meds: Current Medications Acetaminophen (Tylenol) 650 mg PRN Q6HRS PRN PO PAIN / TEMP Last administered on 04/07/18at 16:25; Start 03/10/18 at 23:00 Multi-Ingredient Ointment (Analgesic [place]) 1 luz maria PRN QID PRN TP MUSCLE PAIN; Start 03/10/18 at 23:00 Al Hydroxide/Mg Hydroxide (Mylanta Plus Xs) 15 ml PRN AFTMEALHC PRN PO DYSPEPSIA; Start 03/10/18 at 23:00 Magnesium Hydroxide (Milk Of Magnesia) 2,400 mg PRN QHS PRN PO CONSTIPATION Last administered on 04/17/18at 19:26; Start 03/10/18 at 23:00 Quetiapine Fumarate (SEROquel) 25 mg BID@1200,2100 PO Last administered on at 12:14; Start 03/11/18 at 12:00; Stop 03/20/18 at 19:07; Status DC Acetaminophen/ Hydrocodone Bitart (Lortab 5/325) 1 tab PRN Q6HRS PRN PO PAIN Last administered on 04/27/18at 19:38; Start 03/10/18 at 23:30 Naproxen (Naprosyn) 500 mg BID PO Last administered on 03/11/18at 19:23; Start 03/11/18 at 09:00; Stop 03/12/18 at 07:42; Status DC Vitamin D (Vitamin D3) 50,000 unit WEEKLY PO Last administered on 05/06/18at 08: 50; Start 03/11/18 at 19:00 Sertraline HCl (Zoloft) 25 mg DAILY PO Last administered on 03/15/18at 08:15; Start 03/12/18 at 09:00; Stop 03/15/18 at 21:28; Status DC Mirtazapine (Remeron) 7.5 mg QHS PO Last administered on 03/15/18at 21:24; Start 03/11/18 at 21:00; Stop 03/16/18 at 20:49; Status DC Olanzapine (ZyPREXA ZYDIS) 2.5 mg PRN Q2HR PRN PO agitation Last administered on 03/14/18at 20:09; Start 03/12/18 at 07:45; Stop 03/14/18 at 22:25; Status DC Naproxen (Naprosyn) 500 mg PRN BID PRN PO PAIN Last administered on 03/21/18at 07 :43; Start 03/12/18 at 07:45 Silver Sulfadiazine (Silvadene) 1 luz maria DAILY TP Last administered on 03/30/18at 09:35; Start 03/12/18 at 21:00; Stop 04/02/18 at 09:30; Status DC Artificial Tears (Artificial Tears) 1 drop PRN Q15MIN PRN OU DRY EYE Last administered on 03/24/18at 08:15; Start 03/13/18 at 20:30 Trazodone HCl (Desyrel) 50 mg PRN QHS PRN PO insomnia Last administered on 05/07at 00:49; Start 03/14/18 at 18:45 Olanzapine (ZyPREXA ZYDIS) 5 mg PRN Q2HR PRN PO agitation Last administered on 05/04/18at 10:39; Start 03/14/18 at 22:30 Olanzapine (ZyPREXA) 2.5 mg 1X ONCE PO ; Start 03/15/18 at 09:15; Stop at 09:48; Status DC Olanzapine (ZyPREXA ZYDIS) 5 mg 1X ONCE PO ; Start 03/15/18 at 09:50; Stop at 09:50; Status DC Olanzapine (ZyPREXA ZYDIS) 5 mg 1X ONCE PO ; Start 03/15/18 at 09:45; Stop at 09:52; Status DC Olanzapine (ZyPREXA ZYDIS) 5 mg PRN 1X PRN PO 1HR BEFORE CT &30MIN PRIOR PRN; Start 03/15/18 at 09:50; Stop 03/15/18 at 18:00; Status DC Sertraline HCl (Zoloft) 50 mg DAILY PO Last administered on 03/19/18at 09:27; Start 03/16/18 at 09:00; Stop 03/21/18 at 08:00; Status DC Mirtazapine (Remeron) 15 mg QHS PO Last administered on 05/02/18at 17:13; Start 03/16/18 at 21:00; Stop 05/02/18 at 17:36; Status DC Sertraline HCl (Zoloft) 75 mg DAILY PO Last administered on 03/30/18at 09:32; Start 03/21/18 at 09:00; Stop 03/30/18 at 18:24; Status DC Divalproex Sodium (Depakote Sprinkles) 125 mg 0900,1300 PO Last administered on 03/26/18at 07:50; Start 03/21/18 at 09:00; Stop 03/26/18 at 10:10; Status DC Quetiapine Fumarate (SEROquel) 12.5 mg BID PO Last administered on 05/02/18at 17 :13; Start 03/20/18 at 21:00; Stop 05/02/18 at 17:36; Status DC Carbidopa/Levodopa (Sinemet Cr) 1 tab.sa BID PO Last administered on 03/31/18at 08:46; Start 03/23/18 at 21:00; Stop 03/31/18 at 19:35; Status DC Divalproex Sodium (Depakote Sprinkles) 125 mg TID@0900,1300,1700 PO Last administered on 04/04/18at 12:54; Start 03/26/18 at 13:00; Stop 04/04/18 at 19:00 ; Status DC Sertraline HCl (Zoloft) 100 mg DAILY PO Last administered on 05/06/18at 08:49; Start 03/31/18 at 09:00 Docusate Sodium (Colace Solution) 100 mg BID PO Last administered on 04/19/18at 08:26; Start 03/31/18 at 21:00; Stop 04/20/18 at 08:20; Status DC Buspirone HCl (Buspar) 5 mg BID@0900,1700 PO Last administered on 05/07/18at 17: 21; Start 04/02/18 at 17:00 Rivastigmine (Exelon) 1 patch DAILY TD Last administered on 04/06/18at 07:52; Start 04/04/18 at 09:00; Stop 04/07/18 at 08:59; Status DC Rivastigmine (Exelon) 1 patch DAILY TD Last administered on 04/09/18at 10:10; Start 04/07/18 at 09:00; Stop 04/09/18 at 21:00; Status DC Rivastigmine (Exelon 13.3mg) 1 patch DAILY TD Last administered on 05/07/18at 12 :47; Start 04/10/18 at 09:00 Naproxen (Naprosyn) 250 mg PRN Q4HRS PRN PO MIGRAINE HEADACHE; Start 04/13/18 at 18:45 Quetiapine Fumarate (SEROquel) 25 mg DAILY@0200 PO Last administered on at 01:48; Start 04/17/18 at 02:00; Stop 04/20/18 at 18:35; Status DC Docusate Sodium (Colace) 100 mg BID PO Last administered on 05/02/18at 17:13; Start 04/20/18 at 09:00; Stop 05/02/18 at 17:36; Status DC Quetiapine Fumarate (SEROquel) 37.5 mg 0200 PO Last administered on 04/27/18at 01 :17; Start 04/21/18 at 02:00; Stop 04/29/18 at 18:38; Status DC Clozapine (Clozaril) 25 mg QHS PO Last administered on 04/26/18at 20:35; Start at 21:00; Stop 04/27/18 at 18:50; Status DC Clozapine (Clozaril) 12.5 mg DAILY PO Last administered on 04/27/18at 13:40; Start 04/23/18 at 11:15; Stop 04/27/18 at 18:50; Status DC Lorazepam (Ativan) 1 mg DAILY IM ; Start 04/27/18 at 04:45; Stop 04/27/18 at 04:45 ; Status DC Clozapine (Clozaril) 25 mg DAILY PO Last administered on 05/06/18at 08:49; Start 04/28/18 at 09:00 Clozapine (Clozaril) 50 mg HS PO Last administered on 05/02/18at 17:13; Start at 21:00; Stop 05/02/18 at 17:36; Status DC Quetiapine Fumarate (SEROquel) 25 mg 0200 PO ; Start 04/30/18 at 02:00; Stop at 18:32; Status DC Clozapine (Clozaril) 50 mg 1700 PO Last administered on 05/04/18at 17:08; Start 05/02/18 at 18:00; Stop 05/04/18 at 18:32; Status DC Docusate Sodium (Colace) 100 mg BIDWMEALS PO Last administered on 05/07/18at 17: 21; Start 05/02/18 at 18:00 Mirtazapine (Remeron) 15 mg DAILYWSUP PO Last administered on 05/07/18at 17:22; Start 05/02/18 at 18:00 Quetiapine Fumarate (SEROquel) 12.5 mg BIDWMEALS PO Last administered on at 17:22; Start 05/02/18 at 18:00 Clozapine (Clozaril) 75 mg 1700 PO Last administered on 05/07/18at 17:21; Start 05/05/18 at 17:00 Quetiapine Fumarate (SEROquel) 12.5 mg 0200 PO Last administered on 05/07/18at 02:21; Start 05/05/18 at 02:00 Active Scripts Active Reported Silvadene (Silver Sulfadiazine) 20 Gm Cream..g. 1 Luz Maria TP BID Seroquel (Quetiapine Fumarate) 25 Mg Tablet 25 Mg PO BID@1200,2100 [place] 5-325 Tablet (Hydrocodone Bit/Acetaminophen) 1 Each Tablet 1 Tab PO PRN Q6HRS PRN Naproxen 500 Mg Tablet 500 Mg PO BID I have reviewed the current psychotropics carefully including drug interactions. Risk benefit ratio favors no change other than as noted in my dictated progress note. 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
[2018-05-07] MEDS: ACETAMINOPHEN 325 MG TABLET PO PRN (21:13)
[2018-05-08] MEDS: QUEtiapine 25 MG TABLET. PO SCH ×4 (02:00→16:47)
[2018-05-08] MEDS: RIVASTIGMINE 13.3MG PATCH. TD SCH (07:28)
[2018-05-08] MEDS: busPIRone 5 MG TABLET. PO SCH ×2 (07:29→16:47)
[2018-05-08] MEDS: SERTRALINE 100 MG TABLET. PO SCH (07:29)
[2018-05-08] MEDS: DOCUSATE SODIUM 100 MG CAPSULE PO SCH ×2 (07:30→16:46)
[2018-05-08] MEDS: cloZAPine 25 MG TABLET PO SCH ×2 (07:30→16:47)
[2018-05-08 15:53] VITALS: BP 115/70
[2018-05-08] MEDS: MIRTAZAPINE 15 MG TABLET PO SCH (16:50)
--- NOTE | 2018-05-08 20:46 | PDOC ---
Exam Note: Lambert Note: Please also refer to the separate dictated note~for this date of service dictated separately.~Patient seen individually. Discussed the patient with Nursing staff reviewed the chart.~Reviewed interim history and current functioning. Reviewed vital signs,~Labs/ Radiology~and current medications noted below. Continue current treatment with the changes noted in the dictated addendum note Assessment: Vital Signs: Vital Signs Date Time Temp Pulse Resp B/P (MAP) Pulse Ox O2 Delivery O2 Flow Rate FiO2 05/08/18 15:53 97.8 88 18 115/70 (85) 95 05/07/18 16:17 Room Air I&O Intake and Output 05/08/18 07:00 Intake Total 840 ml Balance 840 ml Intake Oral 840 ml Current Medications: Meds: Current Medications Acetaminophen (Tylenol) 650 mg PRN Q6HRS PRN PO PAIN / TEMP Last administered on 05/07/18at 21:13; Start 03/10/18 at 23:00 Multi-Ingredient Ointment (Analgesic [place]) 1 luz maria PRN QID PRN TP MUSCLE PAIN; Start 03/10/18 at 23:00 Al Hydroxide/Mg Hydroxide (Mylanta Plus Xs) 15 ml PRN AFTMEALHC PRN PO DYSPEPSIA; Start 03/10/18 at 23:00 Magnesium Hydroxide (Milk Of Magnesia) 2,400 mg PRN QHS PRN PO CONSTIPATION Last administered on 04/17/18at 19:26; Start 03/10/18 at 23:00 Quetiapine Fumarate (SEROquel) 25 mg BID@1200,2100 PO Last administered on at 12:14; Start 03/11/18 at 12:00; Stop 03/20/18 at 19:07; Status DC Acetaminophen/ Hydrocodone Bitart (Lortab 5/325) 1 tab PRN Q6HRS PRN PO PAIN Last administered on 04/27/18at 19:38; Start 03/10/18 at 23:30 Naproxen (Naprosyn) 500 mg BID PO Last administered on 03/11/18at 19:23; Start 03/11/18 at 09:00; Stop 03/12/18 at 07:42; Status DC Vitamin D (Vitamin D3) 50,000 unit WEEKLY PO Last administered on 05/06/18at 08: 50; Start 03/11/18 at 19:00 Sertraline HCl (Zoloft) 25 mg DAILY PO Last administered on 03/15/18at 08:15; Start 03/12/18 at 09:00; Stop 03/15/18 at 21:28; Status DC Mirtazapine (Remeron) 7.5 mg QHS PO Last administered on 03/15/18at 21:24; Start 03/11/18 at 21:00; Stop 03/16/18 at 20:49; Status DC Olanzapine (ZyPREXA ZYDIS) 2.5 mg PRN Q2HR PRN PO agitation Last administered on 03/14/18at 20:09; Start 03/12/18 at 07:45; Stop 03/14/18 at 22:25; Status DC Naproxen (Naprosyn) 500 mg PRN BID PRN PO PAIN Last administered on 03/21/18at 07 :43; Start 03/12/18 at 07:45 Silver Sulfadiazine (Silvadene) 1 luz maria DAILY TP Last administered on 03/30/18at 09:35; Start 03/12/18 at 21:00; Stop 04/02/18 at 09:30; Status DC Artificial Tears (Artificial Tears) 1 drop PRN Q15MIN PRN OU DRY EYE Last administered on 03/24/18at 08:15; Start 03/13/18 at 20:30 Trazodone HCl (Desyrel) 50 mg PRN QHS PRN PO insomnia Last administered on 05/07at 00:49; Start 03/14/18 at 18:45 Olanzapine (ZyPREXA ZYDIS) 5 mg PRN Q2HR PRN PO agitation Last administered on 05/04/18at 10:39; Start 03/14/18 at 22:30 Olanzapine (ZyPREXA) 2.5 mg 1X ONCE PO ; Start 03/15/18 at 09:15; Stop at 09:48; Status DC Olanzapine (ZyPREXA ZYDIS) 5 mg 1X ONCE PO ; Start 03/15/18 at 09:50; Stop at 09:50; Status DC Olanzapine (ZyPREXA ZYDIS) 5 mg 1X ONCE PO ; Start 03/15/18 at 09:45; Stop at 09:52; Status DC Olanzapine (ZyPREXA ZYDIS) 5 mg PRN 1X PRN PO 1HR BEFORE CT &30MIN PRIOR PRN; Start 03/15/18 at 09:50; Stop 03/15/18 at 18:00; Status DC Sertraline HCl (Zoloft) 50 mg DAILY PO Last administered on 03/19/18at 09:27; Start 03/16/18 at 09:00; Stop 03/21/18 at 08:00; Status DC Mirtazapine (Remeron) 15 mg QHS PO Last administered on 05/02/18at 17:13; Start 03/16/18 at 21:00; Stop 05/02/18 at 17:36; Status DC Sertraline HCl (Zoloft) 75 mg DAILY PO Last administered on 03/30/18at 09:32; Start 03/21/18 at 09:00; Stop 03/30/18 at 18:24; Status DC Divalproex Sodium (Depakote Sprinkles) 125 mg 0900,1300 PO Last administered on 03/26/18at 07:50; Start 03/21/18 at 09:00; Stop 03/26/18 at 10:10; Status DC Quetiapine Fumarate (SEROquel) 12.5 mg BID PO Last administered on 05/02/18at 17 :13; Start 03/20/18 at 21:00; Stop 05/02/18 at 17:36; Status DC Carbidopa/Levodopa (Sinemet Cr) 1 tab.sa BID PO Last administered on 03/31/18at 08:46; Start 03/23/18 at 21:00; Stop 03/31/18 at 19:35; Status DC Divalproex Sodium (Depakote Sprinkles) 125 mg TID@0900,1300,1700 PO Last administered on 04/04/18at 12:54; Start 03/26/18 at 13:00; Stop 04/04/18 at 19:00 ; Status DC Sertraline HCl (Zoloft) 100 mg DAILY PO Last administered on 05/08/18at 07:29; Start 03/31/18 at 09:00 Docusate Sodium (Colace Solution) 100 mg BID PO Last administered on 04/19/18at 08:26; Start 03/31/18 at 21:00; Stop 04/20/18 at 08:20; Status DC Buspirone HCl (Buspar) 5 mg BID@0900,1700 PO Last administered on 05/08/18at 16: 47; Start 04/02/18 at 17:00 Rivastigmine (Exelon) 1 patch DAILY TD Last administered on 04/06/18at 07:52; Start 04/04/18 at 09:00; Stop 04/07/18 at 08:59; Status DC Rivastigmine (Exelon) 1 patch DAILY TD Last administered on 04/09/18at 10:10; Start 04/07/18 at 09:00; Stop 04/09/18 at 21:00; Status DC Rivastigmine (Exelon 13.3mg) 1 patch DAILY TD Last administered on 05/08/18at 07 :28; Start 04/10/18 at 09:00 Naproxen (Naprosyn) 250 mg PRN Q4HRS PRN PO MIGRAINE HEADACHE; Start 04/13/18 at 18:45 Quetiapine Fumarate (SEROquel) 25 mg DAILY@0200 PO Last administered on at 01:48; Start 04/17/18 at 02:00; Stop 04/20/18 at 18:35; Status DC Docusate Sodium (Colace) 100 mg BID PO Last administered on 05/02/18at 17:13; Start 04/20/18 at 09:00; Stop 05/02/18 at 17:36; Status DC Quetiapine Fumarate (SEROquel) 37.5 mg 0200 PO Last administered on 04/27/18at 01 :17; Start 04/21/18 at 02:00; Stop 04/29/18 at 18:38; Status DC Clozapine (Clozaril) 25 mg QHS PO Last administered on 04/26/18at 20:35; Start at 21:00; Stop 04/27/18 at 18:50; Status DC Clozapine (Clozaril) 12.5 mg DAILY PO Last administered on 04/27/18at 13:40; Start 04/23/18 at 11:15; Stop 04/27/18 at 18:50; Status DC Lorazepam (Ativan) 1 mg DAILY IM ; Start 04/27/18 at 04:45; Stop 04/27/18 at 04:45 ; Status DC Clozapine (Clozaril) 25 mg DAILY PO Last administered on 05/08/18at 07:30; Start 04/28/18 at 09:00 Clozapine (Clozaril) 50 mg HS PO Last administered on 05/02/18at 17:13; Start at 21:00; Stop 05/02/18 at 17:36; Status DC Quetiapine Fumarate (SEROquel) 25 mg 0200 PO ; Start 04/30/18 at 02:00; Stop at 18:32; Status DC Clozapine (Clozaril) 50 mg 1700 PO Last administered on 05/04/18at 17:08; Start 05/02/18 at 18:00; Stop 05/04/18 at 18:32; Status DC Docusate Sodium (Colace) 100 mg BIDWMEALS PO Last administered on 05/08/18at 16: 46; Start 05/02/18 at 18:00 Mirtazapine (Remeron) 15 mg DAILYWSUP PO Last administered on 05/08/18at 16:50; Start 05/02/18 at 18:00 Quetiapine Fumarate (SEROquel) 12.5 mg BIDWMEALS PO Last administered on at 16:47; Start 05/02/18 at 18:00 Clozapine (Clozaril) 75 mg 1700 PO Last administered on 05/08/18at 16:47; Start 05/05/18 at 17:00 Quetiapine Fumarate (SEROquel) 12.5 mg 0200 PO Last administered on 05/07/18at 02:21; Start 05/05/18 at 02:00; Stop 05/08/18 at 18:28; Status DC Active Scripts Active Reported Silvadene (Silver Sulfadiazine) 20 Gm Cream..g. 1 Luz Maria TP BID Seroquel (Quetiapine Fumarate) 25 Mg Tablet 25 Mg PO BID@1200,2100 [place] 5-325 Tablet (Hydrocodone Bit/Acetaminophen) 1 Each Tablet 1 Tab PO PRN Q6HRS PRN Naproxen 500 Mg Tablet 500 Mg PO BID I have reviewed the current psychotropics carefully including drug interactions. Risk benefit ratio favors no change other than as noted in my dictated progress note. 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
--- NOTE | 2018-05-08 23:43 | PN ---
DATE: 05/06/2018 This is a late entry for 05/06/2018 covers elements not covered in my initial note. SUBJECTIVE: I met with the patient in the evening. The patient slept 6-1/4 hours previous evening. He refused his a.m. medications, got agitated during shower time, felt there was a camera watching him and there was a valve draining blood and blood was low. I met with his sister at some length in the evening and she was concerned about recurrence of psychotic symptoms. She wondered about the dosage of Clozaril. We gradually increased it and there will be a period of adjustment and hopeful improvement. REVIEW OF SYSTEMS: No CV, , pulmonary, eye, ENT system symptoms on review. Reliability poor. MENTAL STATUS EXAM: Oriented to himself and situation. Speech is moderate latency, often responses monosyllabic. Abstraction fair, computation impaired, language function intact. Attention span short. Mood and affect withdrawn at times, paranoid at times. LABORATORY DATA: Reviewed. 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 Rest unchanged. PLAN: Continue current psychotropics, gradually taper the Seroquel. Increase the Clozaril. COLE NAIR MD DR: ANGELINA/gallito JOB#: [id number] / [id number]
[2018-05-09 05:43] VITALS: BP 102/74
--- NOTE | 2018-05-09 06:43 | PN ---
DATE: 05/07/2018 This is a late entry, 05/07/2018, covers the elements not covered in my initial note. SUBJECTIVE: I met with the patient in the evening and staffed at a treatment team meeting, which was rather lengthy with the entire team and the patient's sister, Tarsha attended this. Review of the patient's diagnosis, progress, psychotropics, adjustments in his Clozaril, behavior modification with positive reinforcement with the special food his sister brings in on days that behavioral control is better. The patient is sleeping an average of 6-1/2 hours, slept 3-1/2 hours the previous evening. Appetite 75%. At times, refuses his medications, which he did at 3 a.m. He did have a fall in the morning of 05/07/2018. REVIEW OF SYSTEMS: No CV, , pulmonary, eye, ENT system symptoms on review. MENTAL STATUS EXAM: Oriented to himself and situation. Speech moderate latency, often responses monosyllabic. Abstraction fair, computation impaired, language function intact, attention span short. Mood and affect remain somewhat labile, withdrawn, and paranoid at times. LABORATORY DATA: Reviewed. 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 Rest unchanged. PLAN: Continue current psychotropics from initial note. Clozaril is 25 mg before noon and 75 mg at bedtime. Seroquel will be reduced by another 12.5 mg. Make further adjustments as clinically indicated. COLE NAIR MD DR: ANGELINA/gallito JOB#: [id number] / [id number]
[2018-05-09] MEDS: SERTRALINE 100 MG TABLET. PO SCH (07:40)
[2018-05-09] MEDS: cloZAPine 25 MG TABLET PO SCH ×2 (07:40→16:21)
[2018-05-09] MEDS: busPIRone 5 MG TABLET. PO SCH ×2 (07:40→16:21)
[2018-05-09] MEDS: RIVASTIGMINE 13.3MG PATCH. TD SCH (07:40)
[2018-05-09] MEDS: DOCUSATE SODIUM 100 MG CAPSULE PO SCH ×2 (07:40→16:21)
[2018-05-09] MEDS: QUEtiapine 25 MG TABLET. PO SCH ×2 (07:41→16:21)
[2018-05-09 15:56] VITALS: BP 109/72
[2018-05-09] MEDS: MIRTAZAPINE 15 MG TABLET PO SCH (16:21)
--- NOTE | 2018-05-09 23:01 | PDOC ---
Exam Note: Lambert Note: Please also refer to the separate dictated note~for this date of service dictated separately.~Patient seen individually. Discussed the patient with Nursing staff reviewed the chart.~Reviewed interim history and current functioning. Reviewed vital signs,~Labs/ Radiology~and current medications noted below. Continue current treatment with the changes noted in the dictated addendum note Assessment: Vital Signs: Vital Signs Date Time Temp Pulse Resp B/P (MAP) Pulse Ox O2 Delivery O2 Flow Rate FiO2 05/09/18 15:56 97.5 77 18 109/72 (84) 98 Room Air I&O Intake and Output 05/09/18 06:59 Intake Total 840 ml Balance 840 ml Intake Oral 840 ml Current Medications: Meds: Current Medications Acetaminophen (Tylenol) 650 mg PRN Q6HRS PRN PO PAIN / TEMP Last administered on 05/07/18at 21:13; Start 03/10/18 at 23:00 Multi-Ingredient Ointment (Analgesic [place]) 1 luz maria PRN QID PRN TP MUSCLE PAIN; Start 03/10/18 at 23:00 Al Hydroxide/Mg Hydroxide (Mylanta Plus Xs) 15 ml PRN AFTMEALHC PRN PO DYSPEPSIA; Start 03/10/18 at 23:00 Magnesium Hydroxide (Milk Of Magnesia) 2,400 mg PRN QHS PRN PO CONSTIPATION Last administered on 04/17/18at 19:26; Start 03/10/18 at 23:00 Quetiapine Fumarate (SEROquel) 25 mg BID@1200,2100 PO Last administered on at 12:14; Start 03/11/18 at 12:00; Stop 03/20/18 at 19:07; Status DC Acetaminophen/ Hydrocodone Bitart (Lortab 5/325) 1 tab PRN Q6HRS PRN PO PAIN Last administered on 04/27/18at 19:38; Start 03/10/18 at 23:30 Naproxen (Naprosyn) 500 mg BID PO Last administered on 03/11/18at 19:23; Start 03/11/18 at 09:00; Stop 03/12/18 at 07:42; Status DC Vitamin D (Vitamin D3) 50,000 unit WEEKLY PO Last administered on 05/06/18at 08: 50; Start 03/11/18 at 19:00 Sertraline HCl (Zoloft) 25 mg DAILY PO Last administered on 03/15/18at 08:15; Start 03/12/18 at 09:00; Stop 03/15/18 at 21:28; Status DC Mirtazapine (Remeron) 7.5 mg QHS PO Last administered on 03/15/18at 21:24; Start 03/11/18 at 21:00; Stop 03/16/18 at 20:49; Status DC Olanzapine (ZyPREXA ZYDIS) 2.5 mg PRN Q2HR PRN PO agitation Last administered on 03/14/18at 20:09; Start 03/12/18 at 07:45; Stop 03/14/18 at 22:25; Status DC Naproxen (Naprosyn) 500 mg PRN BID PRN PO PAIN Last administered on 03/21/18at 07 :43; Start 03/12/18 at 07:45 Silver Sulfadiazine (Silvadene) 1 luz maria DAILY TP Last administered on 03/30/18at 09:35; Start 03/12/18 at 21:00; Stop 04/02/18 at 09:30; Status DC Artificial Tears (Artificial Tears) 1 drop PRN Q15MIN PRN OU DRY EYE Last administered on 03/24/18at 08:15; Start 03/13/18 at 20:30 Trazodone HCl (Desyrel) 50 mg PRN QHS PRN PO insomnia Last administered on 05/07at 00:49; Start 03/14/18 at 18:45 Olanzapine (ZyPREXA ZYDIS) 5 mg PRN Q2HR PRN PO agitation Last administered on 05/04/18at 10:39; Start 03/14/18 at 22:30 Olanzapine (ZyPREXA) 2.5 mg 1X ONCE PO ; Start 03/15/18 at 09:15; Stop at 09:48; Status DC Olanzapine (ZyPREXA ZYDIS) 5 mg 1X ONCE PO ; Start 03/15/18 at 09:50; Stop at 09:50; Status DC Olanzapine (ZyPREXA ZYDIS) 5 mg 1X ONCE PO ; Start 03/15/18 at 09:45; Stop at 09:52; Status DC Olanzapine (ZyPREXA ZYDIS) 5 mg PRN 1X PRN PO 1HR BEFORE CT &30MIN PRIOR PRN; Start 03/15/18 at 09:50; Stop 03/15/18 at 18:00; Status DC Sertraline HCl (Zoloft) 50 mg DAILY PO Last administered on 03/19/18at 09:27; Start 03/16/18 at 09:00; Stop 03/21/18 at 08:00; Status DC Mirtazapine (Remeron) 15 mg QHS PO Last administered on 05/02/18at 17:13; Start 03/16/18 at 21:00; Stop 05/02/18 at 17:36; Status DC Sertraline HCl (Zoloft) 75 mg DAILY PO Last administered on 03/30/18at 09:32; Start 03/21/18 at 09:00; Stop 03/30/18 at 18:24; Status DC Divalproex Sodium (Depakote Sprinkles) 125 mg 0900,1300 PO Last administered on 03/26/18at 07:50; Start 03/21/18 at 09:00; Stop 03/26/18 at 10:10; Status DC Quetiapine Fumarate (SEROquel) 12.5 mg BID PO Last administered on 05/02/18at 17 :13; Start 03/20/18 at 21:00; Stop 05/02/18 at 17:36; Status DC Carbidopa/Levodopa (Sinemet Cr) 1 tab.sa BID PO Last administered on 03/31/18at 08:46; Start 03/23/18 at 21:00; Stop 03/31/18 at 19:35; Status DC Divalproex Sodium (Depakote Sprinkles) 125 mg TID@0900,1300,1700 PO Last administered on 04/04/18at 12:54; Start 03/26/18 at 13:00; Stop 04/04/18 at 19:00 ; Status DC Sertraline HCl (Zoloft) 100 mg DAILY PO Last administered on 05/09/18at 07:40; Start 03/31/18 at 09:00 Docusate Sodium (Colace Solution) 100 mg BID PO Last administered on 04/19/18at 08:26; Start 03/31/18 at 21:00; Stop 04/20/18 at 08:20; Status DC Buspirone HCl (Buspar) 5 mg BID@0900,1700 PO Last administered on 05/09/18at 16: 21; Start 04/02/18 at 17:00 Rivastigmine (Exelon) 1 patch DAILY TD Last administered on 04/06/18at 07:52; Start 04/04/18 at 09:00; Stop 04/07/18 at 08:59; Status DC Rivastigmine (Exelon) 1 patch DAILY TD Last administered on 04/09/18at 10:10; Start 04/07/18 at 09:00; Stop 04/09/18 at 21:00; Status DC Rivastigmine (Exelon 13.3mg) 1 patch DAILY TD Last administered on 05/09/18at 07 :40; Start 04/10/18 at 09:00 Naproxen (Naprosyn) 250 mg PRN Q4HRS PRN PO MIGRAINE HEADACHE; Start 04/13/18 at 18:45 Quetiapine Fumarate (SEROquel) 25 mg DAILY@0200 PO Last administered on at 01:48; Start 04/17/18 at 02:00; Stop 04/20/18 at 18:35; Status DC Docusate Sodium (Colace) 100 mg BID PO Last administered on 05/02/18at 17:13; Start 04/20/18 at 09:00; Stop 05/02/18 at 17:36; Status DC Quetiapine Fumarate (SEROquel) 37.5 mg 0200 PO Last administered on 04/27/18at 01 :17; Start 04/21/18 at 02:00; Stop 04/29/18 at 18:38; Status DC Clozapine (Clozaril) 25 mg QHS PO Last administered on 04/26/18at 20:35; Start at 21:00; Stop 04/27/18 at 18:50; Status DC Clozapine (Clozaril) 12.5 mg DAILY PO Last administered on 04/27/18at 13:40; Start 04/23/18 at 11:15; Stop 04/27/18 at 18:50; Status DC Lorazepam (Ativan) 1 mg DAILY IM ; Start 04/27/18 at 04:45; Stop 04/27/18 at 04:45 ; Status DC Clozapine (Clozaril) 25 mg DAILY PO Last administered on 05/09/18at 07:40; Start 04/28/18 at 09:00 Clozapine (Clozaril) 50 mg HS PO Last administered on 05/02/18at 17:13; Start at 21:00; Stop 05/02/18 at 17:36; Status DC Quetiapine Fumarate (SEROquel) 25 mg 0200 PO ; Start 04/30/18 at 02:00; Stop at 18:32; Status DC Clozapine (Clozaril) 50 mg 1700 PO Last administered on 05/04/18at 17:08; Start 05/02/18 at 18:00; Stop 05/04/18 at 18:32; Status DC Docusate Sodium (Colace) 100 mg BIDWMEALS PO Last administered on 05/09/18at 16: 21; Start 05/02/18 at 18:00 Mirtazapine (Remeron) 15 mg DAILYWSUP PO Last administered on 05/09/18at 16:21; Start 05/02/18 at 18:00 Quetiapine Fumarate (SEROquel) 12.5 mg BIDWMEALS PO Last administered on at 16:21; Start 05/02/18 at 18:00 Clozapine (Clozaril) 75 mg 1700 PO Last administered on 05/09/18at 16:21; Start 05/05/18 at 17:00 Quetiapine Fumarate (SEROquel) 12.5 mg 0200 PO Last administered on 05/07/18at 02:21; Start 05/05/18 at 02:00; Stop 05/08/18 at 18:28; Status DC Active Scripts Active Reported Silvadene (Silver Sulfadiazine) 20 Gm Cream..g. 1 Luz Maria TP BID Seroquel (Quetiapine Fumarate) 25 Mg Tablet 25 Mg PO BID@1200,2100 [place] 5-325 Tablet (Hydrocodone Bit/Acetaminophen) 1 Each Tablet 1 Tab PO PRN Q6HRS PRN Naproxen 500 Mg Tablet 500 Mg PO BID I have reviewed the current psychotropics carefully including drug interactions. Risk benefit ratio favors no change other than as noted in my dictated progress note. 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
--- NOTE | 2018-05-10 05:53 | PN ---
DATE: 05/08/2018 PSYCHIATRIC PROGRESS NOTE This late entry of 05/08/2018 covers the elements not covered in my initial note. SUBJECTIVE: The patient slept 6-1/4 hours previous evening. REVIEW OF SYSTEMS: No CV, , pulmonary, eye, ENT system symptoms on review. Reliability poor. MENTAL STATUS EXAM: Oriented to himself. Insight, judgment, recent and remote memory, attention, concentration, fund of knowledge poor, consistent with his diagnosis mentioned in my initial note. 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 PLAN: Continue psychotropics from initial note. Adjust further as clinically indicated. MAN Janie NAIR MD DR: ANGELINA/gallito JOB#: [id number] / [id number]
--- NOTE | 2018-05-10 06:01 | PN ---
DATE: 05/09/2018 PSYCHIATRIC PROGRESS NOTE This note covers elements, not covered in my initial note, 05/09/2018. SUBJECTIVE: The patient slept 6 hours previous evening. He has been more cooperative. He is distressed by temperature changes. Since by nursing report, he has broken the bridge of his dentures and nerve is exposed. We will defer to Dr. Lopes. REVIEW OF SYSTEMS: No CV, , pulmonary, eye, ENT system symptoms on review. Reliability poor. MENTAL STATUS EXAM: Oriented to himself. Insight, judgment, recent and remote memory, attention, concentration, fund of knowledge poor, consistent with his diagnosis mentioned in my initial note. PLAN: No change from initial note. MAN Janie NAIR MD DR: ANGELINA/gallito JOB#: [id number] / [id number]
[2018-05-10] MEDS: SERTRALINE 100 MG TABLET. PO SCH (10:20)
[2018-05-10] MEDS: QUEtiapine 25 MG TABLET. PO SCH ×2 (10:20→17:37)
[2018-05-10] MEDS: busPIRone 5 MG TABLET. PO SCH ×2 (10:20→17:36)
[2018-05-10] MEDS: RIVASTIGMINE 13.3MG PATCH. TD SCH (10:20)
[2018-05-10] MEDS: cloZAPine 25 MG TABLET PO SCH ×2 (10:21→17:36)
[2018-05-10] MEDS: DOCUSATE SODIUM 100 MG CAPSULE PO SCH ×2 (10:21→17:37)
[2018-05-10] MEDS: HYDROcodone/APAP 5/325MG 1 TAB TABLET PO PRN (11:20)
[2018-05-10 15:59] VITALS: BP 96/66
[2018-05-10] MEDS: MIRTAZAPINE 15 MG TABLET PO SCH (17:37)
--- NOTE | 2018-05-10 20:11 | PDOC ---
Exam Note: Lambert Note: Please also refer to the separate dictated note~for this date of service dictated separately.~Patient seen individually. Discussed the patient with Nursing staff reviewed the chart.~Reviewed interim history and current functioning. Reviewed vital signs,~Labs/ Radiology~and current medications noted below. Continue current treatment with the changes noted in the dictated addendum note Assessment: Vital Signs: Vital Signs Date Time Temp Pulse Resp B/P (MAP) Pulse Ox O2 Delivery O2 Flow Rate FiO2 05/10/18 15:59 97.0 77 22 96/66 (76) 99 05/09/18 15:56 Room Air I&O Intake and Output 05/10/18 06:59 Intake Total 960 ml Balance 960 ml Intake Oral 960 ml Current Medications: Meds: Current Medications Acetaminophen (Tylenol) 650 mg PRN Q6HRS PRN PO PAIN / TEMP Last administered on 05/07/18at 21:13; Start 03/10/18 at 23:00 Multi-Ingredient Ointment (Analgesic [place]) 1 luz maria PRN QID PRN TP MUSCLE PAIN; Start 03/10/18 at 23:00 Al Hydroxide/Mg Hydroxide (Mylanta Plus Xs) 15 ml PRN AFTMEALHC PRN PO DYSPEPSIA; Start 03/10/18 at 23:00 Magnesium Hydroxide (Milk Of Magnesia) 2,400 mg PRN QHS PRN PO CONSTIPATION Last administered on 04/17/18at 19:26; Start 03/10/18 at 23:00 Quetiapine Fumarate (SEROquel) 25 mg BID@1200,2100 PO Last administered on at 12:14; Start 03/11/18 at 12:00; Stop 03/20/18 at 19:07; Status DC Acetaminophen/ Hydrocodone Bitart (Lortab 5/325) 1 tab PRN Q6HRS PRN PO PAIN Last administered on 04/27/18at 19:38; Start 03/10/18 at 23:30 Naproxen (Naprosyn) 500 mg BID PO Last administered on 03/11/18at 19:23; Start 03/11/18 at 09:00; Stop 03/12/18 at 07:42; Status DC Vitamin D (Vitamin D3) 50,000 unit WEEKLY PO Last administered on 05/06/18at 08: 50; Start 03/11/18 at 19:00 Sertraline HCl (Zoloft) 25 mg DAILY PO Last administered on 03/15/18at 08:15; Start 03/12/18 at 09:00; Stop 03/15/18 at 21:28; Status DC Mirtazapine (Remeron) 7.5 mg QHS PO Last administered on 03/15/18at 21:24; Start 03/11/18 at 21:00; Stop 03/16/18 at 20:49; Status DC Olanzapine (ZyPREXA ZYDIS) 2.5 mg PRN Q2HR PRN PO agitation Last administered on 03/14/18at 20:09; Start 03/12/18 at 07:45; Stop 03/14/18 at 22:25; Status DC Naproxen (Naprosyn) 500 mg PRN BID PRN PO PAIN Last administered on 03/21/18at 07 :43; Start 03/12/18 at 07:45 Silver Sulfadiazine (Silvadene) 1 luz maria DAILY TP Last administered on 03/30/18at 09:35; Start 03/12/18 at 21:00; Stop 04/02/18 at 09:30; Status DC Artificial Tears (Artificial Tears) 1 drop PRN Q15MIN PRN OU DRY EYE Last administered on 03/24/18at 08:15; Start 03/13/18 at 20:30 Trazodone HCl (Desyrel) 50 mg PRN QHS PRN PO insomnia Last administered on 05/07at 00:49; Start 03/14/18 at 18:45 Olanzapine (ZyPREXA ZYDIS) 5 mg PRN Q2HR PRN PO agitation Last administered on 05/04/18at 10:39; Start 03/14/18 at 22:30 Olanzapine (ZyPREXA) 2.5 mg 1X ONCE PO ; Start 03/15/18 at 09:15; Stop at 09:48; Status DC Olanzapine (ZyPREXA ZYDIS) 5 mg 1X ONCE PO ; Start 03/15/18 at 09:50; Stop at 09:50; Status DC Olanzapine (ZyPREXA ZYDIS) 5 mg 1X ONCE PO ; Start 03/15/18 at 09:45; Stop at 09:52; Status DC Olanzapine (ZyPREXA ZYDIS) 5 mg PRN 1X PRN PO 1HR BEFORE CT &30MIN PRIOR PRN; Start 03/15/18 at 09:50; Stop 03/15/18 at 18:00; Status DC Sertraline HCl (Zoloft) 50 mg DAILY PO Last administered on 03/19/18at 09:27; Start 03/16/18 at 09:00; Stop 03/21/18 at 08:00; Status DC Mirtazapine (Remeron) 15 mg QHS PO Last administered on 05/02/18at 17:13; Start 03/16/18 at 21:00; Stop 05/02/18 at 17:36; Status DC Sertraline HCl (Zoloft) 75 mg DAILY PO Last administered on 03/30/18at 09:32; Start 03/21/18 at 09:00; Stop 03/30/18 at 18:24; Status DC Divalproex Sodium (Depakote Sprinkles) 125 mg 0900,1300 PO Last administered on 03/26/18at 07:50; Start 03/21/18 at 09:00; Stop 03/26/18 at 10:10; Status DC Quetiapine Fumarate (SEROquel) 12.5 mg BID PO Last administered on 05/02/18at 17 :13; Start 03/20/18 at 21:00; Stop 05/02/18 at 17:36; Status DC Carbidopa/Levodopa (Sinemet Cr) 1 tab.sa BID PO Last administered on 03/31/18at 08:46; Start 03/23/18 at 21:00; Stop 03/31/18 at 19:35; Status DC Divalproex Sodium (Depakote Sprinkles) 125 mg TID@0900,1300,1700 PO Last administered on 04/04/18at 12:54; Start 03/26/18 at 13:00; Stop 04/04/18 at 19:00 ; Status DC Sertraline HCl (Zoloft) 100 mg DAILY PO Last administered on 05/10/18at 10:20; Start 03/31/18 at 09:00 Docusate Sodium (Colace Solution) 100 mg BID PO Last administered on 04/19/18at 08:26; Start 03/31/18 at 21:00; Stop 04/20/18 at 08:20; Status DC Buspirone HCl (Buspar) 5 mg BID@0900,1700 PO Last administered on 05/10/18at 17: 36; Start 04/02/18 at 17:00 Rivastigmine (Exelon) 1 patch DAILY TD Last administered on 04/06/18at 07:52; Start 04/04/18 at 09:00; Stop 04/07/18 at 08:59; Status DC Rivastigmine (Exelon) 1 patch DAILY TD Last administered on 04/09/18at 10:10; Start 04/07/18 at 09:00; Stop 04/09/18 at 21:00; Status DC Rivastigmine (Exelon 13.3mg) 1 patch DAILY TD Last administered on 05/10/18at 10 :20; Start 04/10/18 at 09:00 Naproxen (Naprosyn) 250 mg PRN Q4HRS PRN PO MIGRAINE HEADACHE; Start 04/13/18 at 18:45 Quetiapine Fumarate (SEROquel) 25 mg DAILY@0200 PO Last administered on at 01:48; Start 04/17/18 at 02:00; Stop 04/20/18 at 18:35; Status DC Docusate Sodium (Colace) 100 mg BID PO Last administered on 05/02/18at 17:13; Start 04/20/18 at 09:00; Stop 05/02/18 at 17:36; Status DC Quetiapine Fumarate (SEROquel) 37.5 mg 0200 PO Last administered on 04/27/18at 01 :17; Start 04/21/18 at 02:00; Stop 04/29/18 at 18:38; Status DC Clozapine (Clozaril) 25 mg QHS PO Last administered on 04/26/18at 20:35; Start at 21:00; Stop 04/27/18 at 18:50; Status DC Clozapine (Clozaril) 12.5 mg DAILY PO Last administered on 04/27/18at 13:40; Start 04/23/18 at 11:15; Stop 04/27/18 at 18:50; Status DC Lorazepam (Ativan) 1 mg DAILY IM ; Start 04/27/18 at 04:45; Stop 04/27/18 at 04:45 ; Status DC Clozapine (Clozaril) 25 mg DAILY PO Last administered on 05/10/18at 10:21; Start 04/28/18 at 09:00 Clozapine (Clozaril) 50 mg HS PO Last administered on 05/02/18at 17:13; Start at 21:00; Stop 05/02/18 at 17:36; Status DC Quetiapine Fumarate (SEROquel) 25 mg 0200 PO ; Start 04/30/18 at 02:00; Stop at 18:32; Status DC Clozapine (Clozaril) 50 mg 1700 PO Last administered on 05/04/18at 17:08; Start 05/02/18 at 18:00; Stop 05/04/18 at 18:32; Status DC Docusate Sodium (Colace) 100 mg BIDWMEALS PO Last administered on 05/10/18at 17: 37; Start 05/02/18 at 18:00 Mirtazapine (Remeron) 15 mg DAILYWSUP PO Last administered on 05/10/18at 17:37; Start 05/02/18 at 18:00 Quetiapine Fumarate (SEROquel) 12.5 mg BIDWMEALS PO Last administered on at 17:37; Start 05/02/18 at 18:00 Clozapine (Clozaril) 75 mg 1700 PO Last administered on 05/10/18at 17:36; Start 05/05/18 at 17:00 Quetiapine Fumarate (SEROquel) 12.5 mg 0200 PO Last administered on 05/07/18at 02:21; Start 05/05/18 at 02:00; Stop 05/08/18 at 18:28; Status DC Active Scripts Active Reported Silvadene (Silver Sulfadiazine) 20 Gm Cream..g. 1 Luz Maria TP BID Seroquel (Quetiapine Fumarate) 25 Mg Tablet 25 Mg PO BID@1200,2100 [place] 5-325 Tablet (Hydrocodone Bit/Acetaminophen) 1 Each Tablet 1 Tab PO PRN Q6HRS PRN Naproxen 500 Mg Tablet 500 Mg PO BID I have reviewed the current psychotropics carefully including drug interactions. Risk benefit ratio favors no change other than as noted in my dictated progress note. 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
[2018-05-11 06:18] VITALS: BP 124/76
[2018-05-11] MEDS: busPIRone 5 MG TABLET. PO SCH ×2 (08:01→17:26)
[2018-05-11] MEDS: SERTRALINE 100 MG TABLET. PO SCH (08:02)
[2018-05-11] MEDS: QUEtiapine 25 MG TABLET. PO SCH ×2 (08:02→17:26)
[2018-05-11] MEDS: DOCUSATE SODIUM 100 MG CAPSULE PO SCH ×2 (08:02→17:27)
[2018-05-11] MEDS: cloZAPine 25 MG TABLET PO SCH ×2 (08:02→17:27)
[2018-05-11] MEDS: RIVASTIGMINE 13.3MG PATCH. TD SCH (08:03)
[2018-05-11 10:46] LABS: BASO % 1 % (0-3); EOS # 0.1 x10^3/uL (0.0-0.7); EOS % 1 % (0-3); HEMOGLOBIN 13.5 g/dL (13.0-17.5); LYMPH # 1.2 x10^3/uL (1.0-4.8); LYMPH % 19 % (24-48); MEAN CORPUSCULAR HEMOGLOBIN 32 pg (25-35); MEAN CORPUSCULAR HGB CONC 34 g/dL (31-37); MEAN CORPUSCULAR VOLUME 93 fL (79-100); MONO # 0.6 x10^3/uL (0.0-1.1); MONO % 9 % (0-9); NEUT # 4.7 x10^3uL (1.8-7.7); NEUT % 71 % (31-73); PLATELET COUNT 256 x10^3/uL (140-400); RED BLOOD COUNT 4.29 x10^6/uL (4.30-5.70); RED CELL DISTRIBUTION WIDTH 12.8 % (11.5-14.5); WHITE BLOOD COUNT 6.6 x10^3/uL (4.0-11.0)
[2018-05-11 10:54] LABS: CALCIUM 9.7 mg/dL (8.5-10.1); CREATININE 0.9 mg/dL (0.7-1.3); GFR 86.4; POTASSIUM 4.6 mmol/L (3.5-5.1); TOTAL BILIRUBIN 0.4 mg/dL (0.2-1.0); TOTAL PROTEIN 7.9 g/dL (6.4-8.2)
[2018-05-11 16:00] VITALS: BP 110/72
[2018-05-11] MEDS: MIRTAZAPINE 15 MG TABLET PO SCH (17:26)
[2018-05-11 18:49] VITALS: BP 125/85
[2018-05-11 18:50] VITALS: BP_SYST 127; BP_SYST 131; BP_DIAS 84; BP_DIAS 85
--- NOTE | 2018-05-11 20:34 | PDOC ---
Exam Note: Lambert Note: Please also refer to the separate dictated note~for this date of service dictated separately.~Patient seen individually. Discussed the patient with Nursing staff reviewed the chart.~Reviewed interim history and current functioning. Reviewed vital signs,~Labs/ Radiology~and current medications noted below. Continue current treatment with the changes noted in the dictated addendum note Assessment: Vital Signs: Vital Signs Date Time Temp Pulse Resp B/P (MAP) Pulse Ox O2 Delivery O2 Flow Rate FiO2 05/11/18 18:50 76 131/84 (100) 05/11/18 16:00 97.2 18 94 05/09/18 15:56 Room Air I&O Intake and Output 05/11/18 07:00 Intake Total 1200 ml Balance 1200 ml Intake Oral 1200 ml # Bowel Movements 1 Labs: Laboratory Tests Test 05/11/18 10:17 White Blood Count 6.6 x10^3/uL (4.0-11.0) Red Blood Count 4.29 x10^6/uL (4.30-5.70) L Hemoglobin 13.5 g/dL (13.0-17.5) Hematocrit 40.0 % (39.0-53.0) Mean Corpuscular Volume 93 fL (79-100) Mean Corpuscular Hemoglobin 32 pg (25-35) Mean Corpuscular Hemoglobin Concent 34 g/dL (31-37) Red Cell Distribution Width 12.8 % (11.5-14.5) Platelet Count 256 x10^3/uL (140-400) Neutrophils (%) (Auto) 71 % (31-73) Lymphocytes (%) (Auto) 19 % (24-48) L Monocytes (%) (Auto) 9 % (0-9) Eosinophils (%) (Auto) 1 % (0-3) Basophils (%) (Auto) 1 % (0-3) Neutrophils # (Auto) 4.7 x10^3uL (1.8-7.7) Lymphocytes # (Auto) 1.2 x10^3/uL (1.0-4.8) Monocytes # (Auto) 0.6 x10^3/uL (0.0-1.1) Eosinophils # (Auto) 0.1 x10^3/uL (0.0-0.7) Basophils # (Auto) 0.0 x10^3/uL (0.0-0.2) Sodium Level 141 mmol/L (136-145) Potassium Level 4.6 mmol/L (3.5-5.1) Chloride Level 103 mmol/L (98-107) Carbon Dioxide Level 34 mmol/L (21-32) H Anion Gap 4 (6-14) L Blood Urea Nitrogen 18 mg/dL (8-26) Creatinine 0.9 mg/dL (0.7-1.3) Estimated GFR (Cockcroft-Gault) 86.4 BUN/Creatinine Ratio 20 (6-20) Glucose Level 88 mg/dL (70-99) Calcium Level 9.7 mg/dL (8.5-10.1) Total Bilirubin 0.4 mg/dL (0.2-1.0) Aspartate Amino Transferase (AST) 28 U/L (15-37) Alanine Aminotransferase (ALT) 44 U/L (16-63) Alkaline Phosphatase 122 U/L (46-116) H Total Protein 7.9 g/dL (6.4-8.2) Albumin 4.0 g/dL (3.4-5.0) Albumin/Globulin Ratio 1.0 (1.0-1.7) Current Medications: Meds: Current Medications Acetaminophen (Tylenol) 650 mg PRN Q6HRS PRN PO PAIN / TEMP Last administered on 05/07/18at 21:13; Start 03/10/18 at 23:00 Multi-Ingredient Ointment (Analgesic [place]) 1 luz maria PRN QID PRN TP MUSCLE PAIN; Start 03/10/18 at 23:00 Al Hydroxide/Mg Hydroxide (Mylanta Plus Xs) 15 ml PRN AFTMEALHC PRN PO DYSPEPSIA; Start 03/10/18 at 23:00 Magnesium Hydroxide (Milk Of Magnesia) 2,400 mg PRN QHS PRN PO CONSTIPATION Last administered on 04/17/18at 19:26; Start 03/10/18 at 23:00 Quetiapine Fumarate (SEROquel) 25 mg BID@1200,2100 PO Last administered on at 12:14; Start 03/11/18 at 12:00; Stop 03/20/18 at 19:07; Status DC Acetaminophen/ Hydrocodone Bitart (Lortab 5/325) 1 tab PRN Q6HRS PRN PO PAIN Last administered on 04/27/18 19:38; Start 03/10/18 at 23:30 Naproxen (Naprosyn) 500 mg BID PO Last administered on 03/11/18 19:23; Start 03/11/18 at 09:00; Stop 03/12/18 at 07:42; Status DC Vitamin D (Vitamin D3) 50,000 unit WEEKLY PO Last administered on 05/06/18 08: 50; Start 03/11/18 at 19:00 Sertraline HCl (Zoloft) 25 mg DAILY PO Last administered on 03/15/18 08:15; Start 03/12/18 at 09:00; Stop 03/15/18 at 21:28; Status DC Mirtazapine (Remeron) 7.5 mg QHS PO Last administered on 03/15/18 21:24; Start 03/11/18 at 21:00; Stop 03/16/18 at 20:49; Status DC Olanzapine (ZyPREXA ZYDIS) 2.5 mg PRN Q2HR PRN PO agitation Last administered on 03/14/18 20:09; Start 03/12/18 at 07:45; Stop 03/14/18 at 22:25; Status DC Naproxen (Naprosyn) 500 mg PRN BID PRN PO PAIN Last administered on 03/21/18 07 :43; Start 03/12/18 at 07:45 Silver Sulfadiazine (Silvadene) 1 luz maria DAILY TP Last administered on 03/30/18 09:35; Start 03/12/18 at 21:00; Stop 04/02/18 at 09:30; Status DC Artificial Tears (Artificial Tears) 1 drop PRN Q15MIN PRN OU DRY EYE Last administered on 03/24/18 08:15; Start 03/13/18 at 20:30 Trazodone HCl (Desyrel) 50 mg PRN QHS PRN PO insomnia Last administered on 05/07 00:49; Start 03/14/18 at 18:45 Olanzapine (ZyPREXA ZYDIS) 5 mg PRN Q2HR PRN PO agitation Last administered on 05/11/18 08:15; Start 03/14/18 at 22:30 Olanzapine (ZyPREXA) 2.5 mg 1X ONCE PO ; Start 03/15/18 at 09:15; Stop at 09:48; Status DC Olanzapine (ZyPREXA ZYDIS) 5 mg 1X ONCE PO ; Start 03/15/18 at 09:50; Stop at 09:50; Status DC Olanzapine (ZyPREXA ZYDIS) 5 mg 1X ONCE PO ; Start 03/15/18 at 09:45; Stop at 09:52; Status DC Olanzapine (ZyPREXA ZYDIS) 5 mg PRN 1X PRN PO 1HR BEFORE CT &30MIN PRIOR PRN; Start 03/15/18 at 09:50; Stop 03/15/18 at 18:00; Status DC Sertraline HCl (Zoloft) 50 mg DAILY PO Last administered on 03/19/18at 09:27; Start 03/16/18 at 09:00; Stop 03/21/18 at 08:00; Status DC Mirtazapine (Remeron) 15 mg QHS PO Last administered on 05/02/18at 17:13; Start 03/16/18 at 21:00; Stop 05/02/18 at 17:36; Status DC Sertraline HCl (Zoloft) 75 mg DAILY PO Last administered on 03/30/18at 09:32; Start 03/21/18 at 09:00; Stop 03/30/18 at 18:24; Status DC Divalproex Sodium (Depakote Sprinkles) 125 mg 0900,1300 PO Last administered on 03/26/18at 07:50; Start 03/21/18 at 09:00; Stop 03/26/18 at 10:10; Status DC Quetiapine Fumarate (SEROquel) 12.5 mg BID PO Last administered on 05/02/18at 17 :13; Start 03/20/18 at 21:00; Stop 05/02/18 at 17:36; Status DC Carbidopa/Levodopa (Sinemet Cr) 1 tab.sa BID PO Last administered on 03/31/18at 08:46; Start 03/23/18 at 21:00; Stop 03/31/18 at 19:35; Status DC Divalproex Sodium (Depakote Sprinkles) 125 mg TID@0900,1300,1700 PO Last administered on 04/04/18at 12:54; Start 03/26/18 at 13:00; Stop 04/04/18 at 19:00 ; Status DC Sertraline HCl (Zoloft) 100 mg DAILY PO Last administered on 05/11/18at 08:02; Start 03/31/18 at 09:00 Docusate Sodium (Colace Solution) 100 mg BID PO Last administered on 04/19/18at 08:26; Start 03/31/18 at 21:00; Stop 04/20/18 at 08:20; Status DC Buspirone HCl (Buspar) 5 mg BID@0900,1700 PO Last administered on 05/11/18at 17: 26; Start 04/02/18 at 17:00 Rivastigmine (Exelon) 1 patch DAILY TD Last administered on 04/06/18at 07:52; Start 04/04/18 at 09:00; Stop 04/07/18 at 08:59; Status DC Rivastigmine (Exelon) 1 patch DAILY TD Last administered on 04/09/18at 10:10; Start 04/07/18 at 09:00; Stop 04/09/18 at 21:00; Status DC Rivastigmine (Exelon 13.3mg) 1 patch DAILY TD Last administered on 05/11/18at 08 :03; Start 04/10/18 at 09:00 Naproxen (Naprosyn) 250 mg PRN Q4HRS PRN PO MIGRAINE HEADACHE; Start 04/13/18 at 18:45 Quetiapine Fumarate (SEROquel) 25 mg DAILY@0200 PO Last administered on at 01:48; Start 04/17/18 at 02:00; Stop 04/20/18 at 18:35; Status DC Docusate Sodium (Colace) 100 mg BID PO Last administered on 05/02/18at 17:13; Start 04/20/18 at 09:00; Stop 05/02/18 at 17:36; Status DC Quetiapine Fumarate (SEROquel) 37.5 mg 0200 PO Last administered on 04/27/18at 01 :17; Start 04/21/18 at 02:00; Stop 04/29/18 at 18:38; Status DC Clozapine (Clozaril) 25 mg QHS PO Last administered on 04/26/18at 20:35; Start at 21:00; Stop 04/27/18 at 18:50; Status DC Clozapine (Clozaril) 12.5 mg DAILY PO Last administered on 04/27/18at 13:40; Start 04/23/18 at 11:15; Stop 04/27/18 at 18:50; Status DC Lorazepam (Ativan) 1 mg DAILY IM ; Start 04/27/18 at 04:45; Stop 04/27/18 at 04:45 ; Status DC Clozapine (Clozaril) 25 mg DAILY PO Last administered on 05/11/18at 08:02; Start 04/28/18 at 09:00 Clozapine (Clozaril) 50 mg HS PO Last administered on 05/02/18at 17:13; Start at 21:00; Stop 05/02/18 at 17:36; Status DC Quetiapine Fumarate (SEROquel) 25 mg 0200 PO ; Start 04/30/18 at 02:00; Stop at 18:32; Status DC Clozapine (Clozaril) 50 mg 1700 PO Last administered on 05/04/18at 17:08; Start 05/02/18 at 18:00; Stop 05/04/18 at 18:32; Status DC Docusate Sodium (Colace) 100 mg BIDWMEALS PO Last administered on 05/11/18at 17: 27; Start 05/02/18 at 18:00 Mirtazapine (Remeron) 15 mg DAILYWSUP PO Last administered on 05/11/18 17:26; Start 05/02/18 at 18:00 Quetiapine Fumarate (SEROquel) 12.5 mg BIDWMEALS PO Last administered on 17:26; Start 05/02/18 at 18:00; Stop 05/11/18 at 19:34; Status DC Clozapine (Clozaril) 75 mg 1700 PO Last administered on 05/11/18at 17:27; Start 05/05/18 at 17:00; Stop 05/11/18 at 19:34; Status DC Quetiapine Fumarate (SEROquel) 12.5 mg 0200 PO Last administered on 05/07/18at 02:21; Start 05/05/18 at 02:00; Stop 05/08/18 at 18:28; Status DC Clozapine (Clozaril) 100 mg 1700 PO ; Start 05/12/18 at 17:00 Active Scripts Active Reported Silvadene (Silver Sulfadiazine) 20 Gm Cream..g. 1 Luz Maria TP BID Seroquel (Quetiapine Fumarate) 25 Mg Tablet 25 Mg PO BID@1200,2100 [place] 5-325 Tablet (Hydrocodone Bit/Acetaminophen) 1 Each Tablet 1 Tab PO PRN Q6HRS PRN Naproxen 500 Mg Tablet 500 Mg PO BID I have reviewed the current psychotropics carefully including drug interactions. Risk benefit ratio favors no change other than as noted in my dictated progress note. 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
--- NOTE | 2018-05-12 01:45 | PN ---
DATE: 05/10/2018 This late entry 05/10/2018 covers elements not covered in my initial note. SUBJECTIVE: I met with the patient in the evening. Overall, the patient remains somewhat withdrawn, but he has not been aggressive, wandering. REVIEW OF SYSTEMS: No CV, , pulmonary, eye, ENT system symptoms on review. Reliability poor. MENTAL STATUS EXAM: Oriented to himself. Insight, judgment, recent and remote memory, attention, concentration, fund of knowledge poor, consistent with his diagnosis. 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 Rest unchanged. PLAN: Continue current psychotropics. Check labs with the Clozaril on 05/11/2018 and increase Clozaril thereafter. MAN Janie NAIR MD DR: ANGELINA/gallito JOB#: [id number] / [id number]
[2018-05-12] MEDS: MIRTAZAPINE 15 MG TABLET PO SCH (10:45)
[2018-05-12] MEDS: DOCUSATE SODIUM 100 MG CAPSULE PO SCH ×2 (10:45→17:43)
[2018-05-12] MEDS: RIVASTIGMINE 13.3MG PATCH. TD SCH (10:46)
[2018-05-12] MEDS: cloZAPine 25 MG TABLET PO SCH (10:46)
[2018-05-12] MEDS: busPIRone 5 MG TABLET. PO SCH ×2 (10:46→17:43)
[2018-05-12] MEDS: SERTRALINE 100 MG TABLET. PO SCH (10:46)
[2018-05-12 15:56] VITALS: BP 113/76
[2018-05-12] MEDS: cloZAPine 100 MG TABLET PO SCH (17:43)
--- NOTE | 2018-05-12 21:16 | PDOC ---
Exam Note: Lambert Note: Please also refer to the separate dictated note~for this date of service dictated separately.~Patient seen individually. Discussed the patient with Nursing staff reviewed the chart.~Reviewed interim history and current functioning. Reviewed vital signs,~Labs/ Radiology~and current medications noted below. Continue current treatment with the changes noted in the dictated addendum note Assessment: Vital Signs: Vital Signs Date Time Temp Pulse Resp B/P (MAP) Pulse Ox O2 Delivery O2 Flow Rate FiO2 05/12/18 15:56 97.0 91 18 113/76 (88) 99 05/09/18 15:56 Room Air I&O Intake and Output 05/12/18 07:00 Intake Total 1080 ml Balance 1080 ml Intake Oral 1080 ml # Voids 1 Current Medications: Meds: Current Medications Acetaminophen (Tylenol) 650 mg PRN Q6HRS PRN PO PAIN / TEMP Last administered on 05/07/18at 21:13; Start 03/10/18 at 23:00 Multi-Ingredient Ointment (Analgesic [place]) 1 luz maria PRN QID PRN TP MUSCLE PAIN; Start 03/10/18 at 23:00 Al Hydroxide/Mg Hydroxide (Mylanta Plus Xs) 15 ml PRN AFTMEALHC PRN PO DYSPEPSIA; Start 03/10/18 at 23:00 Magnesium Hydroxide (Milk Of Magnesia) 2,400 mg PRN QHS PRN PO CONSTIPATION Last administered on 04/17/18at 19:26; Start 03/10/18 at 23:00 Quetiapine Fumarate (SEROquel) 25 mg BID@1200,2100 PO Last administered on at 12:14; Start 03/11/18 at 12:00; Stop 03/20/18 at 19:07; Status DC Acetaminophen/ Hydrocodone Bitart (Lortab 5/325) 1 tab PRN Q6HRS PRN PO PAIN Last administered on 04/27/18at 19:38; Start 03/10/18 at 23:30 Naproxen (Naprosyn) 500 mg BID PO Last administered on 03/11/18at 19:23; Start 03/11/18 at 09:00; Stop 03/12/18 at 07:42; Status DC Vitamin D (Vitamin D3) 50,000 unit WEEKLY PO Last administered on 05/06/18at 08: 50; Start 03/11/18 at 19:00 Sertraline HCl (Zoloft) 25 mg DAILY PO Last administered on 03/15/18at 08:15; Start 03/12/18 at 09:00; Stop 03/15/18 at 21:28; Status DC Mirtazapine (Remeron) 7.5 mg QHS PO Last administered on 03/15/18at 21:24; Start 03/11/18 at 21:00; Stop 03/16/18 at 20:49; Status DC Olanzapine (ZyPREXA ZYDIS) 2.5 mg PRN Q2HR PRN PO agitation Last administered on 03/14/18at 20:09; Start 03/12/18 at 07:45; Stop 03/14/18 at 22:25; Status DC Naproxen (Naprosyn) 500 mg PRN BID PRN PO PAIN Last administered on 03/21/18at 07 :43; Start 03/12/18 at 07:45 Silver Sulfadiazine (Silvadene) 1 luz maria DAILY TP Last administered on 03/30/18at 09:35; Start 03/12/18 at 21:00; Stop 04/02/18 at 09:30; Status DC Artificial Tears (Artificial Tears) 1 drop PRN Q15MIN PRN OU DRY EYE Last administered on 03/24/18at 08:15; Start 03/13/18 at 20:30 Trazodone HCl (Desyrel) 50 mg PRN QHS PRN PO insomnia Last administered on 05/07at 00:49; Start 03/14/18 at 18:45 Olanzapine (ZyPREXA ZYDIS) 5 mg PRN Q2HR PRN PO agitation Last administered on 05/11/18at 08:15; Start 03/14/18 at 22:30 Olanzapine (ZyPREXA) 2.5 mg 1X ONCE PO ; Start 03/15/18 at 09:15; Stop at 09:48; Status DC Olanzapine (ZyPREXA ZYDIS) 5 mg 1X ONCE PO ; Start 03/15/18 at 09:50; Stop at 09:50; Status DC Olanzapine (ZyPREXA ZYDIS) 5 mg 1X ONCE PO ; Start 03/15/18 at 09:45; Stop at 09:52; Status DC Olanzapine (ZyPREXA ZYDIS) 5 mg PRN 1X PRN PO 1HR BEFORE CT &30MIN PRIOR PRN; Start 03/15/18 at 09:50; Stop 03/15/18 at 18:00; Status DC Sertraline HCl (Zoloft) 50 mg DAILY PO Last administered on 03/19/18at 09:27; Start 03/16/18 at 09:00; Stop 03/21/18 at 08:00; Status DC Mirtazapine (Remeron) 15 mg QHS PO Last administered on 05/02/18at 17:13; Start 03/16/18 at 21:00; Stop 05/02/18 at 17:36; Status DC Sertraline HCl (Zoloft) 75 mg DAILY PO Last administered on 03/30/18at 09:32; Start 03/21/18 at 09:00; Stop 03/30/18 at 18:24; Status DC Divalproex Sodium (Depakote Sprinkles) 125 mg 0900,1300 PO Last administered on 03/26/18at 07:50; Start 03/21/18 at 09:00; Stop 03/26/18 at 10:10; Status DC Quetiapine Fumarate (SEROquel) 12.5 mg BID PO Last administered on 05/02/18at 17 :13; Start 03/20/18 at 21:00; Stop 05/02/18 at 17:36; Status DC Carbidopa/Levodopa (Sinemet Cr) 1 tab.sa BID PO Last administered on 03/31/18at 08:46; Start 03/23/18 at 21:00; Stop 03/31/18 at 19:35; Status DC Divalproex Sodium (Depakote Sprinkles) 125 mg TID@0900,1300,1700 PO Last administered on 04/04/18at 12:54; Start 03/26/18 at 13:00; Stop 04/04/18 at 19:00 ; Status DC Sertraline HCl (Zoloft) 100 mg DAILY PO Last administered on 05/12/18at 10:46; Start 03/31/18 at 09:00 Docusate Sodium (Colace Solution) 100 mg BID PO Last administered on 04/19/18at 08:26; Start 03/31/18 at 21:00; Stop 04/20/18 at 08:20; Status DC Buspirone HCl (Buspar) 5 mg BID@0900,1700 PO Last administered on 05/12/18at 17: 43; Start 04/02/18 at 17:00 Rivastigmine (Exelon) 1 patch DAILY TD Last administered on 04/06/18at 07:52; Start 04/04/18 at 09:00; Stop 04/07/18 at 08:59; Status DC Rivastigmine (Exelon) 1 patch DAILY TD Last administered on 04/09/18at 10:10; Start 04/07/18 at 09:00; Stop 04/09/18 at 21:00; Status DC Rivastigmine (Exelon 13.3mg) 1 patch DAILY TD Last administered on 05/12/18at 10 :46; Start 04/10/18 at 09:00 Naproxen (Naprosyn) 250 mg PRN Q4HRS PRN PO MIGRAINE HEADACHE; Start 04/13/18 at 18:45 Quetiapine Fumarate (SEROquel) 25 mg DAILY@0200 PO Last administered on at 01:48; Start 04/17/18 at 02:00; Stop 04/20/18 at 18:35; Status DC Docusate Sodium (Colace) 100 mg BID PO Last administered on 05/02/18at 17:13; Start 04/20/18 at 09:00; Stop 05/02/18 at 17:36; Status DC Quetiapine Fumarate (SEROquel) 37.5 mg 0200 PO Last administered on 04/27/18at 01 :17; Start 04/21/18 at 02:00; Stop 04/29/18 at 18:38; Status DC Clozapine (Clozaril) 25 mg QHS PO Last administered on 04/26/18at 20:35; Start at 21:00; Stop 04/27/18 at 18:50; Status DC Clozapine (Clozaril) 12.5 mg DAILY PO Last administered on 04/27/18at 13:40; Start 04/23/18 at 11:15; Stop 04/27/18 at 18:50; Status DC Lorazepam (Ativan) 1 mg DAILY IM ; Start 04/27/18 at 04:45; Stop 04/27/18 at 04:45 ; Status DC Clozapine (Clozaril) 25 mg DAILY PO Last administered on 05/12/18at 10:46; Start 04/28/18 at 09:00 Clozapine (Clozaril) 50 mg HS PO Last administered on 05/02/18at 17:13; Start at 21:00; Stop 05/02/18 at 17:36; Status DC Quetiapine Fumarate (SEROquel) 25 mg 0200 PO ; Start 04/30/18 at 02:00; Stop at 18:32; Status DC Clozapine (Clozaril) 50 mg 1700 PO Last administered on 05/04/18at 17:08; Start 05/02/18 at 18:00; Stop 05/04/18 at 18:32; Status DC Docusate Sodium (Colace) 100 mg BIDWMEALS PO Last administered on 05/12/18at 17: 43; Start 05/02/18 at 18:00 Mirtazapine (Remeron) 15 mg DAILYWSUP PO Last administered on 05/12/18at 10:45; Start 05/02/18 at 18:00 Quetiapine Fumarate (SEROquel) 12.5 mg BIDWMEALS PO Last administered on at 17:26; Start 05/02/18 at 18:00; Stop 05/11/18 at 19:34; Status DC Clozapine (Clozaril) 75 mg 1700 PO Last administered on 05/11/18at 17:27; Start 05/05/18 at 17:00; Stop 05/11/18 at 19:34; Status DC Quetiapine Fumarate (SEROquel) 12.5 mg 0200 PO Last administered on 05/07/18at 02:21; Start 05/05/18 at 02:00; Stop 05/08/18 at 18:28; Status DC Clozapine (Clozaril) 100 mg 1700 PO Last administered on 05/12/18at 17:43; Start 05/12/18 at 17:00 Active Scripts Active Reported Silvadene (Silver Sulfadiazine) 20 Gm Cream..g. 1 Luz Maria TP BID Seroquel (Quetiapine Fumarate) 25 Mg Tablet 25 Mg PO BID@1200,2100 [place] 5-325 Tablet (Hydrocodone Bit/Acetaminophen) 1 Each Tablet 1 Tab PO PRN Q6HRS PRN Naproxen 500 Mg Tablet 500 Mg PO BID I have reviewed the current psychotropics carefully including drug interactions. Risk benefit ratio favors no change other than as noted in my dictated progress note. 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
--- NOTE | 2018-05-12 23:12 | PN ---
DATE: 05/11/2018 This late entry, 05/11/2018, covers elements not covered in my initial note. SUBJECTIVE: I met with the patient in the evening. The patient slept 6-1/2 hours previous evening. He did well in the morning. Lab draw was very difficult for him and he was very agitated after this, running rapidly down the west hallway. He dropped himself to the floor. Nursing staff intervened, picked him up, and thereafter he slept for 3 hours and then did much better. Absolute neutrophil count is 4686. We will check his orthostatic blood pressures x 3 to make sure the dizziness that he experienced is not as a consequence of this. REVIEW OF SYSTEMS: No CV, , pulmonary, eye, ENT system symptoms on review. Reliability poor. MENTAL STATUS EXAM: Oriented to himself and situation. Speech, often responses monosyllabic. Insight, judgment, recent and remote memory, attention, concentration, fund of knowledge poor, consistent with his diagnosis mentioned in my initial note. 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 PLAN: Increase Clozaril from 25 mg a.m. and 75 at bedtime to 25 a.m. and 100 at bedtime. DC the Seroquel, currently 12.5 b.i.d. Continue rest unchanged for now. MAN Janie NAIR MD DR: ANGELINA/gallito JOB#: [id number] / [id number]
[2018-05-13] MEDS: RIVASTIGMINE 13.3MG PATCH. TD SCH (07:30)
[2018-05-13] MEDS: cloZAPine 25 MG TABLET PO SCH (07:31)
[2018-05-13] MEDS: busPIRone 5 MG TABLET. PO SCH ×2 (07:31→17:18)
[2018-05-13] MEDS: DOCUSATE SODIUM 100 MG CAPSULE PO SCH ×2 (07:31→17:18)
[2018-05-13] MEDS: SERTRALINE 100 MG TABLET. PO SCH (07:31)
[2018-05-13] MEDS: CHOLECALCIFEROL (VITAMIN D3) 50,000 UNIT CAPSULE PO SCH (07:31)
--- NOTE | 2018-05-13 14:00 | PN ---
DATE: 05/12/2018 This is a late entry 05/12/2018 covers elements not covered in my initial note. SUBJECTIVE: I met with the patient in the evening. Overall, the patient was agitated in the morning with cares, but more redirectable. Slept 9-1/4 hours previous evening. Seroquel has been discontinued, Clozaril increased and he is tolerating it well. No CV, , pulmonary, eye, ENT system symptoms on review. MENTAL STATUS EXAM: Oriented to himself. Insight, judgment, recent and remote memory, attention, concentration, fund of knowledge poor, consistent with his diagnosis. 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 PLAN: Continue psychotropics from initial note. Absolute neutrophil count is stable, on Clozaril. MAN Janie NAIR MD DR: ANGELINA/gallito JOB#: [id number] / [id number]
[2018-05-13 16:17] VITALS: BP 120/87
[2018-05-13] MEDS: cloZAPine 100 MG TABLET PO SCH (17:18)
[2018-05-13] MEDS: MIRTAZAPINE 15 MG TABLET PO SCH (17:18)
--- NOTE | 2018-05-13 20:59 | PDOC ---
Exam Note: Lambert Note: Please also refer to the separate dictated note~for this date of service dictated separately.~Patient seen individually. Discussed the patient with Nursing staff reviewed the chart.~Reviewed interim history and current functioning. Reviewed vital signs,~Labs/ Radiology~and current medications noted below. Continue current treatment with the changes noted in the dictated addendum note Assessment: Vital Signs: Vital Signs Date Time Temp Pulse Resp B/P (MAP) Pulse Ox O2 Delivery O2 Flow Rate FiO2 05/13/18 16:17 97.7 99 20 120/87 (98) 98 Room Air I&O Intake and Output 05/13/18 07:00 Intake Total 1320 ml Balance 1320 ml Intake Oral 1320 ml # Voids 1 # Bowel Movements 1 Current Medications: Meds: Current Medications Acetaminophen (Tylenol) 650 mg PRN Q6HRS PRN PO PAIN / TEMP Last administered on 05/07/18at 21:13; Start 03/10/18 at 23:00 Multi-Ingredient Ointment (Analgesic [place]) 1 luz maria PRN QID PRN TP MUSCLE PAIN; Start 03/10/18 at 23:00 Al Hydroxide/Mg Hydroxide (Mylanta Plus Xs) 15 ml PRN AFTMEALHC PRN PO DYSPEPSIA; Start 03/10/18 at 23:00 Magnesium Hydroxide (Milk Of Magnesia) 2,400 mg PRN QHS PRN PO CONSTIPATION Last administered on 04/17/18at 19:26; Start 03/10/18 at 23:00 Quetiapine Fumarate (SEROquel) 25 mg BID@1200,2100 PO Last administered on at 12:14; Start 03/11/18 at 12:00; Stop 03/20/18 at 19:07; Status DC Acetaminophen/ Hydrocodone Bitart (Lortab 5/325) 1 tab PRN Q6HRS PRN PO PAIN Last administered on 04/27/18at 19:38; Start 03/10/18 at 23:30 Naproxen (Naprosyn) 500 mg BID PO Last administered on 03/11/18at 19:23; Start 03/11/18 at 09:00; Stop 03/12/18 at 07:42; Status DC Vitamin D (Vitamin D3) 50,000 unit WEEKLY PO Last administered on 05/13/18at 07: 31; Start 03/11/18 at 19:00 Sertraline HCl (Zoloft) 25 mg DAILY PO Last administered on 03/15/18at 08:15; Start 03/12/18 at 09:00; Stop 03/15/18 at 21:28; Status DC Mirtazapine (Remeron) 7.5 mg QHS PO Last administered on 03/15/18at 21:24; Start 03/11/18 at 21:00; Stop 03/16/18 at 20:49; Status DC Olanzapine (ZyPREXA ZYDIS) 2.5 mg PRN Q2HR PRN PO agitation Last administered on 03/14/18at 20:09; Start 03/12/18 at 07:45; Stop 03/14/18 at 22:25; Status DC Naproxen (Naprosyn) 500 mg PRN BID PRN PO PAIN Last administered on 03/21/18at 07 :43; Start 03/12/18 at 07:45 Silver Sulfadiazine (Silvadene) 1 luz maria DAILY TP Last administered on 03/30/18at 09:35; Start 03/12/18 at 21:00; Stop 04/02/18 at 09:30; Status DC Artificial Tears (Artificial Tears) 1 drop PRN Q15MIN PRN OU DRY EYE Last administered on 03/24/18at 08:15; Start 03/13/18 at 20:30 Trazodone HCl (Desyrel) 50 mg PRN QHS PRN PO insomnia Last administered on 05/07at 00:49; Start 03/14/18 at 18:45 Olanzapine (ZyPREXA ZYDIS) 5 mg PRN Q2HR PRN PO agitation Last administered on 05/11/18at 08:15; Start 03/14/18 at 22:30 Olanzapine (ZyPREXA) 2.5 mg 1X ONCE PO ; Start 03/15/18 at 09:15; Stop at 09:48; Status DC Olanzapine (ZyPREXA ZYDIS) 5 mg 1X ONCE PO ; Start 03/15/18 at 09:50; Stop at 09:50; Status DC Olanzapine (ZyPREXA ZYDIS) 5 mg 1X ONCE PO ; Start 03/15/18 at 09:45; Stop at 09:52; Status DC Olanzapine (ZyPREXA ZYDIS) 5 mg PRN 1X PRN PO 1HR BEFORE CT &30MIN PRIOR PRN; Start 03/15/18 at 09:50; Stop 03/15/18 at 18:00; Status DC Sertraline HCl (Zoloft) 50 mg DAILY PO Last administered on 03/19/18at 09:27; Start 03/16/18 at 09:00; Stop 03/21/18 at 08:00; Status DC Mirtazapine (Remeron) 15 mg QHS PO Last administered on 05/02/18at 17:13; Start 03/16/18 at 21:00; Stop 05/02/18 at 17:36; Status DC Sertraline HCl (Zoloft) 75 mg DAILY PO Last administered on 03/30/18at 09:32; Start 03/21/18 at 09:00; Stop 03/30/18 at 18:24; Status DC Divalproex Sodium (Depakote Sprinkles) 125 mg 0900,1300 PO Last administered on 03/26/18at 07:50; Start 03/21/18 at 09:00; Stop 03/26/18 at 10:10; Status DC Quetiapine Fumarate (SEROquel) 12.5 mg BID PO Last administered on 05/02/18at 17 :13; Start 03/20/18 at 21:00; Stop 05/02/18 at 17:36; Status DC Carbidopa/Levodopa (Sinemet Cr) 1 tab.sa BID PO Last administered on 03/31/18at 08:46; Start 03/23/18 at 21:00; Stop 03/31/18 at 19:35; Status DC Divalproex Sodium (Depakote Sprinkles) 125 mg TID@0900,1300,1700 PO Last administered on 04/04/18at 12:54; Start 03/26/18 at 13:00; Stop 04/04/18 at 19:00 ; Status DC Sertraline HCl (Zoloft) 100 mg DAILY PO Last administered on 05/13/18at 07:31; Start 03/31/18 at 09:00 Docusate Sodium (Colace Solution) 100 mg BID PO Last administered on 04/19/18at 08:26; Start 03/31/18 at 21:00; Stop 04/20/18 at 08:20; Status DC Buspirone HCl (Buspar) 5 mg BID@0900,1700 PO Last administered on 05/13/18at 17: 18; Start 04/02/18 at 17:00 Rivastigmine (Exelon) 1 patch DAILY TD Last administered on 04/06/18at 07:52; Start 04/04/18 at 09:00; Stop 04/07/18 at 08:59; Status DC Rivastigmine (Exelon) 1 patch DAILY TD Last administered on 04/09/18at 10:10; Start 04/07/18 at 09:00; Stop 04/09/18 at 21:00; Status DC Rivastigmine (Exelon 13.3mg) 1 patch DAILY TD Last administered on 05/13/18at 07 :30; Start 04/10/18 at 09:00 Naproxen (Naprosyn) 250 mg PRN Q4HRS PRN PO MIGRAINE HEADACHE; Start 04/13/18 at 18:45 Quetiapine Fumarate (SEROquel) 25 mg DAILY@0200 PO Last administered on at 01:48; Start 04/17/18 at 02:00; Stop 04/20/18 at 18:35; Status DC Docusate Sodium (Colace) 100 mg BID PO Last administered on 05/02/18at 17:13; Start 04/20/18 at 09:00; Stop 05/02/18 at 17:36; Status DC Quetiapine Fumarate (SEROquel) 37.5 mg 0200 PO Last administered on 04/27/18at 01 :17; Start 04/21/18 at 02:00; Stop 04/29/18 at 18:38; Status DC Clozapine (Clozaril) 25 mg QHS PO Last administered on 04/26/18at 20:35; Start at 21:00; Stop 04/27/18 at 18:50; Status DC Clozapine (Clozaril) 12.5 mg DAILY PO Last administered on 04/27/18at 13:40; Start 04/23/18 at 11:15; Stop 04/27/18 at 18:50; Status DC Lorazepam (Ativan) 1 mg DAILY IM ; Start 04/27/18 at 04:45; Stop 04/27/18 at 04:45 ; Status DC Clozapine (Clozaril) 25 mg DAILY PO Last administered on 05/13/18at 07:31; Start 04/28/18 at 09:00 Clozapine (Clozaril) 50 mg HS PO Last administered on 05/02/18at 17:13; Start at 21:00; Stop 05/02/18 at 17:36; Status DC Quetiapine Fumarate (SEROquel) 25 mg 0200 PO ; Start 04/30/18 at 02:00; Stop at 18:32; Status DC Clozapine (Clozaril) 50 mg 1700 PO Last administered on 05/04/18at 17:08; Start 05/02/18 at 18:00; Stop 05/04/18 at 18:32; Status DC Docusate Sodium (Colace) 100 mg BIDWMEALS PO Last administered on 05/13/18at 17: 18; Start 05/02/18 at 18:00 Mirtazapine (Remeron) 15 mg DAILYWSUP PO Last administered on 05/13/18at 17:18; Start 05/02/18 at 18:00 Quetiapine Fumarate (SEROquel) 12.5 mg BIDWMEALS PO Last administered on at 17:26; Start 05/02/18 at 18:00; Stop 05/11/18 at 19:34; Status DC Clozapine (Clozaril) 75 mg 1700 PO Last administered on 05/11/18at 17:27; Start 05/05/18 at 17:00; Stop 05/11/18 at 19:34; Status DC Quetiapine Fumarate (SEROquel) 12.5 mg 0200 PO Last administered on 05/07/18at 02:21; Start 05/05/18 at 02:00; Stop 05/08/18 at 18:28; Status DC Clozapine (Clozaril) 100 mg 1700 PO Last administered on 05/13/18at 17:18; Start 05/12/18 at 17:00 Active Scripts Active Reported Silvadene (Silver Sulfadiazine) 20 Gm Cream..g. 1 Luz Maria TP BID Seroquel (Quetiapine Fumarate) 25 Mg Tablet 25 Mg PO BID@1200,2100 [place] 5-325 Tablet (Hydrocodone Bit/Acetaminophen) 1 Each Tablet 1 Tab PO PRN Q6HRS PRN Naproxen 500 Mg Tablet 500 Mg PO BID I have reviewed the current psychotropics carefully including drug interactions. Risk benefit ratio favors no change other than as noted in my dictated progress note. 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
[2018-05-14] MEDS: SERTRALINE 100 MG TABLET. PO SCH (07:55)
[2018-05-14] MEDS: cloZAPine 25 MG TABLET PO SCH (07:55)
[2018-05-14] MEDS: DOCUSATE SODIUM 100 MG CAPSULE PO SCH ×2 (07:55→16:18)
[2018-05-14] MEDS: RIVASTIGMINE 13.3MG PATCH. TD SCH (07:56)
[2018-05-14] MEDS: busPIRone 5 MG TABLET. PO SCH ×2 (07:59→16:18)
[2018-05-14 15:59] VITALS: BP 101/63
[2018-05-14] MEDS: MIRTAZAPINE 15 MG TABLET PO SCH (16:18)
[2018-05-14] MEDS: cloZAPine 100 MG TABLET PO SCH (16:18)
--- NOTE | 2018-05-14 20:50 | PDOC ---
Exam Note: Lambert Note: Please also refer to the separate dictated note~for this date of service dictated separately.~Patient seen individually. Discussed the patient with Nursing staff reviewed the chart.~Reviewed interim history and current functioning. Reviewed vital signs,~Labs/ Radiology~and current medications noted below. Continue current treatment with the changes noted in the dictated addendum note Assessment: Vital Signs: Vital Signs Date Time Temp Pulse Resp B/P (MAP) Pulse Ox O2 Delivery O2 Flow Rate FiO2 05/14/18 15:59 98.4 91 18 101/63 (76) 98 05/13/18 16:17 Room Air I&O Intake and Output 05/14/18 06:59 Intake Total 960 ml Balance 960 ml Intake Oral 960 ml # Voids 1 Current Medications: Meds: Current Medications Acetaminophen (Tylenol) 650 mg PRN Q6HRS PRN PO PAIN / TEMP Last administered on 05/07/18at 21:13; Start 03/10/18 at 23:00 Multi-Ingredient Ointment (Analgesic [place]) 1 luz maria PRN QID PRN TP MUSCLE PAIN; Start 03/10/18 at 23:00 Al Hydroxide/Mg Hydroxide (Mylanta Plus Xs) 15 ml PRN AFTMEALHC PRN PO DYSPEPSIA; Start 03/10/18 at 23:00 Magnesium Hydroxide (Milk Of Magnesia) 2,400 mg PRN QHS PRN PO CONSTIPATION Last administered on 04/17/18at 19:26; Start 03/10/18 at 23:00 Quetiapine Fumarate (SEROquel) 25 mg BID@1200,2100 PO Last administered on at 12:14; Start 03/11/18 at 12:00; Stop 03/20/18 at 19:07; Status DC Acetaminophen/ Hydrocodone Bitart (Lortab 5/325) 1 tab PRN Q6HRS PRN PO PAIN Last administered on 04/27/18at 19:38; Start 03/10/18 at 23:30 Naproxen (Naprosyn) 500 mg BID PO Last administered on 03/11/18 19:23; Start 03/11/18 at 09:00; Stop 03/12/18 at 07:42; Status DC Vitamin D (Vitamin D3) 50,000 unit WEEKLY PO Last administered on 05/13/18at 07: 31; Start 03/11/18 at 19:00 Sertraline HCl (Zoloft) 25 mg DAILY PO Last administered on 03/15/18at 08:15; Start 03/12/18 at 09:00; Stop 03/15/18 at 21:28; Status DC Mirtazapine (Remeron) 7.5 mg QHS PO Last administered on 03/15/18at 21:24; Start 03/11/18 at 21:00; Stop 03/16/18 at 20:49; Status DC Olanzapine (ZyPREXA ZYDIS) 2.5 mg PRN Q2HR PRN PO agitation Last administered on 03/14/18at 20:09; Start 03/12/18 at 07:45; Stop 03/14/18 at 22:25; Status DC Naproxen (Naprosyn) 500 mg PRN BID PRN PO PAIN Last administered on 03/21/18at 07 :43; Start 03/12/18 at 07:45 Silver Sulfadiazine (Silvadene) 1 luz maria DAILY TP Last administered on 03/30/18at 09:35; Start 03/12/18 at 21:00; Stop 04/02/18 at 09:30; Status DC Artificial Tears (Artificial Tears) 1 drop PRN Q15MIN PRN OU DRY EYE Last administered on 03/24/18at 08:15; Start 03/13/18 at 20:30 Trazodone HCl (Desyrel) 50 mg PRN QHS PRN PO insomnia Last administered on 05/07at 00:49; Start 03/14/18 at 18:45 Olanzapine (ZyPREXA ZYDIS) 5 mg PRN Q2HR PRN PO agitation Last administered on 05/11/18at 08:15; Start 03/14/18 at 22:30 Olanzapine (ZyPREXA) 2.5 mg 1X ONCE PO ; Start 03/15/18 at 09:15; Stop at 09:48; Status DC Olanzapine (ZyPREXA ZYDIS) 5 mg 1X ONCE PO ; Start 03/15/18 at 09:50; Stop at 09:50; Status DC Olanzapine (ZyPREXA ZYDIS) 5 mg 1X ONCE PO ; Start 03/15/18 at 09:45; Stop at 09:52; Status DC Olanzapine (ZyPREXA ZYDIS) 5 mg PRN 1X PRN PO 1HR BEFORE CT &30MIN PRIOR PRN; Start 03/15/18 at 09:50; Stop 03/15/18 at 18:00; Status DC Sertraline HCl (Zoloft) 50 mg DAILY PO Last administered on 03/19/18at 09:27; Start 03/16/18 at 09:00; Stop 03/21/18 at 08:00; Status DC Mirtazapine (Remeron) 15 mg QHS PO Last administered on 05/02/18at 17:13; Start 03/16/18 at 21:00; Stop 05/02/18 at 17:36; Status DC Sertraline HCl (Zoloft) 75 mg DAILY PO Last administered on 03/30/18at 09:32; Start 03/21/18 at 09:00; Stop 03/30/18 at 18:24; Status DC Divalproex Sodium (Depakote Sprinkles) 125 mg 0900,1300 PO Last administered on 03/26/18at 07:50; Start 03/21/18 at 09:00; Stop 03/26/18 at 10:10; Status DC Quetiapine Fumarate (SEROquel) 12.5 mg BID PO Last administered on 05/02/18at 17 :13; Start 03/20/18 at 21:00; Stop 05/02/18 at 17:36; Status DC Carbidopa/Levodopa (Sinemet Cr) 1 tab.sa BID PO Last administered on 03/31/18at 08:46; Start 03/23/18 at 21:00; Stop 03/31/18 at 19:35; Status DC Divalproex Sodium (Depakote Sprinkles) 125 mg TID@0900,1300,1700 PO Last administered on 04/04/18at 12:54; Start 03/26/18 at 13:00; Stop 04/04/18 at 19:00 ; Status DC Sertraline HCl (Zoloft) 100 mg DAILY PO Last administered on 05/14/18at 07:55; Start 03/31/18 at 09:00 Docusate Sodium (Colace Solution) 100 mg BID PO Last administered on 04/19/18at 08:26; Start 03/31/18 at 21:00; Stop 04/20/18 at 08:20; Status DC Buspirone HCl (Buspar) 5 mg BID@0900,1700 PO Last administered on 05/14/18at 16: 18; Start 04/02/18 at 17:00 Rivastigmine (Exelon) 1 patch DAILY TD Last administered on 04/06/18at 07:52; Start 04/04/18 at 09:00; Stop 04/07/18 at 08:59; Status DC Rivastigmine (Exelon) 1 patch DAILY TD Last administered on 04/09/18at 10:10; Start 04/07/18 at 09:00; Stop 04/09/18 at 21:00; Status DC Rivastigmine (Exelon 13.3mg) 1 patch DAILY TD Last administered on 05/14/18at 07 :56; Start 04/10/18 at 09:00 Naproxen (Naprosyn) 250 mg PRN Q4HRS PRN PO MIGRAINE HEADACHE; Start 04/13/18 at 18:45 Quetiapine Fumarate (SEROquel) 25 mg DAILY@0200 PO Last administered on at 01:48; Start 04/17/18 at 02:00; Stop 04/20/18 at 18:35; Status DC Docusate Sodium (Colace) 100 mg BID PO Last administered on 05/02/18at 17:13; Start 04/20/18 at 09:00; Stop 05/02/18 at 17:36; Status DC Quetiapine Fumarate (SEROquel) 37.5 mg 0200 PO Last administered on 04/27/18at 01 :17; Start 04/21/18 at 02:00; Stop 04/29/18 at 18:38; Status DC Clozapine (Clozaril) 25 mg QHS PO Last administered on 04/26/18at 20:35; Start at 21:00; Stop 04/27/18 at 18:50; Status DC Clozapine (Clozaril) 12.5 mg DAILY PO Last administered on 04/27/18at 13:40; Start 04/23/18 at 11:15; Stop 04/27/18 at 18:50; Status DC Lorazepam (Ativan) 1 mg DAILY IM ; Start 04/27/18 at 04:45; Stop 04/27/18 at 04:45 ; Status DC Clozapine (Clozaril) 25 mg DAILY PO Last administered on 05/14/18at 07:55; Start 04/28/18 at 09:00 Clozapine (Clozaril) 50 mg HS PO Last administered on 05/02/18at 17:13; Start at 21:00; Stop 05/02/18 at 17:36; Status DC Quetiapine Fumarate (SEROquel) 25 mg 0200 PO ; Start 04/30/18 at 02:00; Stop at 18:32; Status DC Clozapine (Clozaril) 50 mg 1700 PO Last administered on 05/04/18at 17:08; Start 05/02/18 at 18:00; Stop 05/04/18 at 18:32; Status DC Docusate Sodium (Colace) 100 mg BIDWMEALS PO Last administered on 05/14/18at 16: 18; Start 05/02/18 at 18:00 Mirtazapine (Remeron) 15 mg DAILYWSUP PO Last administered on 05/14/18at 16:18; Start 05/02/18 at 18:00 Quetiapine Fumarate (SEROquel) 12.5 mg BIDWMEALS PO Last administered on at 17:26; Start 05/02/18 at 18:00; Stop 05/11/18 at 19:34; Status DC Clozapine (Clozaril) 75 mg 1700 PO Last administered on 05/11/18at 17:27; Start 05/05/18 at 17:00; Stop 05/11/18 at 19:34; Status DC Quetiapine Fumarate (SEROquel) 12.5 mg 0200 PO Last administered on 05/07/18at 02:21; Start 05/05/18 at 02:00; Stop 05/08/18 at 18:28; Status DC Clozapine (Clozaril) 100 mg 1700 PO Last administered on 05/14/18at 16:18; Start 05/12/18 at 17:00 Active Scripts Active Reported Silvadene (Silver Sulfadiazine) 20 Gm Cream..g. 1 Luz Maria TP BID Seroquel (Quetiapine Fumarate) 25 Mg Tablet 25 Mg PO BID@1200,2100 [place] 5-325 Tablet (Hydrocodone Bit/Acetaminophen) 1 Each Tablet 1 Tab PO PRN Q6HRS PRN Naproxen 500 Mg Tablet 500 Mg PO BID I have reviewed the current psychotropics carefully including drug interactions. Risk benefit ratio favors no change other than as noted in my dictated progress note. 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
[2018-05-15] MEDS: RIVASTIGMINE 13.3MG PATCH. TD SCH (07:30)
[2018-05-15] MEDS: DOCUSATE SODIUM 100 MG CAPSULE PO SCH ×2 (07:32→16:06)
[2018-05-15] MEDS: cloZAPine 25 MG TABLET PO SCH (07:32)
[2018-05-15] MEDS: busPIRone 5 MG TABLET. PO SCH ×2 (07:32→16:06)
[2018-05-15] MEDS: SERTRALINE 100 MG TABLET. PO SCH (07:32)
[2018-05-15 16:03] VITALS: BP 130/85
[2018-05-15] MEDS: MIRTAZAPINE 15 MG TABLET PO SCH (16:06)
[2018-05-15] MEDS: cloZAPine 100 MG TABLET PO SCH (16:07)
--- NOTE | 2018-05-15 20:37 | PDOC ---
Exam Note: Lambert Note: Please also refer to the separate dictated note~for this date of service dictated separately.~Patient seen individually. Discussed the patient with Nursing staff reviewed the chart.~Reviewed interim history and current functioning. Reviewed vital signs,~Labs/ Radiology~and current medications noted below. Continue current treatment with the changes noted in the dictated addendum note Assessment: Vital Signs: Vital Signs Date Time Temp Pulse Resp B/P (MAP) Pulse Ox O2 Delivery O2 Flow Rate FiO2 05/15/18 16:03 98.0 99 18 130/85 (100) 91 05/13/18 16:17 Room Air I&O Intake and Output 05/15/18 06:59 Intake Total 1200 ml Balance 1200 ml Intake Oral 1200 ml Current Medications: Meds: Current Medications Acetaminophen (Tylenol) 650 mg PRN Q6HRS PRN PO PAIN / TEMP Last administered on 05/07/18at 21:13; Start 03/10/18 at 23:00 Multi-Ingredient Ointment (Analgesic [place]) 1 luz maria PRN QID PRN TP MUSCLE PAIN; Start 03/10/18 at 23:00 Al Hydroxide/Mg Hydroxide (Mylanta Plus Xs) 15 ml PRN AFTMEALHC PRN PO DYSPEPSIA; Start 03/10/18 at 23:00 Magnesium Hydroxide (Milk Of Magnesia) 2,400 mg PRN QHS PRN PO CONSTIPATION Last administered on 04/17/18at 19:26; Start 03/10/18 at 23:00 Quetiapine Fumarate (SEROquel) 25 mg BID@1200,2100 PO Last administered on at 12:14; Start 03/11/18 at 12:00; Stop 03/20/18 at 19:07; Status DC Acetaminophen/ Hydrocodone Bitart (Lortab 5/325) 1 tab PRN Q6HRS PRN PO PAIN Last administered on 04/27/18at 19:38; Start 03/10/18 at 23:30 Naproxen (Naprosyn) 500 mg BID PO Last administered on 03/11/18at 19:23; Start 03/11/18 at 09:00; Stop 03/12/18 at 07:42; Status DC Vitamin D (Vitamin D3) 50,000 unit WEEKLY PO Last administered on 05/13/18at 07: 31; Start 03/11/18 at 19:00 Sertraline HCl (Zoloft) 25 mg DAILY PO Last administered on 03/15/18at 08:15; Start 03/12/18 at 09:00; Stop 03/15/18 at 21:28; Status DC Mirtazapine (Remeron) 7.5 mg QHS PO Last administered on 03/15/18at 21:24; Start 03/11/18 at 21:00; Stop 03/16/18 at 20:49; Status DC Olanzapine (ZyPREXA ZYDIS) 2.5 mg PRN Q2HR PRN PO agitation Last administered on 03/14/18at 20:09; Start 03/12/18 at 07:45; Stop 03/14/18 at 22:25; Status DC Naproxen (Naprosyn) 500 mg PRN BID PRN PO PAIN Last administered on 03/21/18at 07 :43; Start 03/12/18 at 07:45 Silver Sulfadiazine (Silvadene) 1 luz maria DAILY TP Last administered on 03/30/18at 09:35; Start 03/12/18 at 21:00; Stop 04/02/18 at 09:30; Status DC Artificial Tears (Artificial Tears) 1 drop PRN Q15MIN PRN OU DRY EYE Last administered on 03/24/18at 08:15; Start 03/13/18 at 20:30 Trazodone HCl (Desyrel) 50 mg PRN QHS PRN PO insomnia Last administered on 05/07at 00:49; Start 03/14/18 at 18:45 Olanzapine (ZyPREXA ZYDIS) 5 mg PRN Q2HR PRN PO agitation Last administered on 05/11/18at 08:15; Start 03/14/18 at 22:30 Olanzapine (ZyPREXA) 2.5 mg 1X ONCE PO ; Start 03/15/18 at 09:15; Stop at 09:48; Status DC Olanzapine (ZyPREXA ZYDIS) 5 mg 1X ONCE PO ; Start 03/15/18 at 09:50; Stop at 09:50; Status DC Olanzapine (ZyPREXA ZYDIS) 5 mg 1X ONCE PO ; Start 03/15/18 at 09:45; Stop at 09:52; Status DC Olanzapine (ZyPREXA ZYDIS) 5 mg PRN 1X PRN PO 1HR BEFORE CT &30MIN PRIOR PRN; Start 03/15/18 at 09:50; Stop 03/15/18 at 18:00; Status DC Sertraline HCl (Zoloft) 50 mg DAILY PO Last administered on 03/19/18at 09:27; Start 03/16/18 at 09:00; Stop 03/21/18 at 08:00; Status DC Mirtazapine (Remeron) 15 mg QHS PO Last administered on 05/02/18at 17:13; Start 03/16/18 at 21:00; Stop 05/02/18 at 17:36; Status DC Sertraline HCl (Zoloft) 75 mg DAILY PO Last administered on 03/30/18at 09:32; Start 03/21/18 at 09:00; Stop 03/30/18 at 18:24; Status DC Divalproex Sodium (Depakote Sprinkles) 125 mg 0900,1300 PO Last administered on 03/26/18at 07:50; Start 03/21/18 at 09:00; Stop 03/26/18 at 10:10; Status DC Quetiapine Fumarate (SEROquel) 12.5 mg BID PO Last administered on 05/02/18at 17 :13; Start 03/20/18 at 21:00; Stop 05/02/18 at 17:36; Status DC Carbidopa/Levodopa (Sinemet Cr) 1 tab.sa BID PO Last administered on 03/31/18at 08:46; Start 03/23/18 at 21:00; Stop 03/31/18 at 19:35; Status DC Divalproex Sodium (Depakote Sprinkles) 125 mg TID@0900,1300,1700 PO Last administered on 04/04/18at 12:54; Start 03/26/18 at 13:00; Stop 04/04/18 at 19:00 ; Status DC Sertraline HCl (Zoloft) 100 mg DAILY PO Last administered on 05/15/18at 07:32; Start 03/31/18 at 09:00 Docusate Sodium (Colace Solution) 100 mg BID PO Last administered on 04/19/18at 08:26; Start 03/31/18 at 21:00; Stop 04/20/18 at 08:20; Status DC Buspirone HCl (Buspar) 5 mg BID@0900,1700 PO Last administered on 05/15/18at 16: 06; Start 04/02/18 at 17:00 Rivastigmine (Exelon) 1 patch DAILY TD Last administered on 04/06/18at 07:52; Start 04/04/18 at 09:00; Stop 04/07/18 at 08:59; Status DC Rivastigmine (Exelon) 1 patch DAILY TD Last administered on 04/09/18at 10:10; Start 04/07/18 at 09:00; Stop 04/09/18 at 21:00; Status DC Rivastigmine (Exelon 13.3mg) 1 patch DAILY TD Last administered on 05/15/18at 07 :30; Start 04/10/18 at 09:00 Naproxen (Naprosyn) 250 mg PRN Q4HRS PRN PO MIGRAINE HEADACHE; Start 04/13/18 at 18:45 Quetiapine Fumarate (SEROquel) 25 mg DAILY@0200 PO Last administered on at 01:48; Start 04/17/18 at 02:00; Stop 04/20/18 at 18:35; Status DC Docusate Sodium (Colace) 100 mg BID PO Last administered on 05/02/18at 17:13; Start 04/20/18 at 09:00; Stop 05/02/18 at 17:36; Status DC Quetiapine Fumarate (SEROquel) 37.5 mg 0200 PO Last administered on 04/27/18at 01 :17; Start 04/21/18 at 02:00; Stop 04/29/18 at 18:38; Status DC Clozapine (Clozaril) 25 mg QHS PO Last administered on 04/26/18at 20:35; Start at 21:00; Stop 04/27/18 at 18:50; Status DC Clozapine (Clozaril) 12.5 mg DAILY PO Last administered on 04/27/18at 13:40; Start 04/23/18 at 11:15; Stop 04/27/18 at 18:50; Status DC Lorazepam (Ativan) 1 mg DAILY IM ; Start 04/27/18 at 04:45; Stop 04/27/18 at 04:45 ; Status DC Clozapine (Clozaril) 25 mg DAILY PO Last administered on 05/15/18at 07:32; Start 04/28/18 at 09:00 Clozapine (Clozaril) 50 mg HS PO Last administered on 05/02/18at 17:13; Start at 21:00; Stop 05/02/18 at 17:36; Status DC Quetiapine Fumarate (SEROquel) 25 mg 0200 PO ; Start 04/30/18 at 02:00; Stop at 18:32; Status DC Clozapine (Clozaril) 50 mg 1700 PO Last administered on 05/04/18at 17:08; Start 05/02/18 at 18:00; Stop 05/04/18 at 18:32; Status DC Docusate Sodium (Colace) 100 mg BIDWMEALS PO Last administered on 05/15/18at 16: 06; Start 05/02/18 at 18:00 Mirtazapine (Remeron) 15 mg DAILYWSUP PO Last administered on 05/15/18at 16:06; Start 05/02/18 at 18:00 Quetiapine Fumarate (SEROquel) 12.5 mg BIDWMEALS PO Last administered on at 17:26; Start 05/02/18 at 18:00; Stop 05/11/18 at 19:34; Status DC Clozapine (Clozaril) 75 mg 1700 PO Last administered on 05/11/18at 17:27; Start 05/05/18 at 17:00; Stop 05/11/18 at 19:34; Status DC Quetiapine Fumarate (SEROquel) 12.5 mg 0200 PO Last administered on 05/07/18at 02:21; Start 05/05/18 at 02:00; Stop 05/08/18 at 18:28; Status DC Clozapine (Clozaril) 100 mg 1700 PO Last administered on 05/15/18at 16:07; Start 05/12/18 at 17:00 Active Scripts Active Reported Silvadene (Silver Sulfadiazine) 20 Gm Cream..g. 1 Luz Maria TP BID Seroquel (Quetiapine Fumarate) 25 Mg Tablet 25 Mg PO BID@1200,2100 [place] 5-325 Tablet (Hydrocodone Bit/Acetaminophen) 1 Each Tablet 1 Tab PO PRN Q6HRS PRN Naproxen 500 Mg Tablet 500 Mg PO BID I have reviewed the current psychotropics carefully including drug interactions. Risk benefit ratio favors no change other than as noted in my dictated progress note. 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
[2018-05-16] MEDS: cloZAPine 25 MG TABLET PO SCH (07:22)
[2018-05-16] MEDS: busPIRone 5 MG TABLET. PO SCH ×2 (07:22→17:00)
[2018-05-16] MEDS: DOCUSATE SODIUM 100 MG CAPSULE PO SCH ×2 (07:22→17:00)
[2018-05-16] MEDS: RIVASTIGMINE 13.3MG PATCH. TD SCH (07:22)
[2018-05-16] MEDS: SERTRALINE 100 MG TABLET. PO SCH (07:22)
--- NOTE | 2018-05-16 11:28 | PN ---
DATE: 05/13/2018 PSYCHIATRIC PROGRESS NOTE This late entry for 05/13/2018 and covers elements not covered in my initial note. SUBJECTIVE: I met with the patient in the evening. The patient slept 3 hours previous evening, remains somewhat withdrawn, confused, but not aggressive. REVIEW OF SYSTEMS: No CV, , pulmonary, eye, ENT system symptoms on review. Reliability poor. MENTAL STATUS EXAM: Oriented to himself. Insight, judgment, recent and remote memory, attention, concentration, fund of knowledge poor, consistent with his diagnosis. He appears much less psychotic. He still ambulates on his own, head bent forward, somewhat withdrawn, but this is typical for him. LABORATORY DATA: Reviewed. 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 Rest unchanged. PLAN: Continue current psychotropics including Clozaril and may need to increase that one more step after the next blood counts next Friday. MAN Janie NAIR MD DR: ANGELINA/gallito JOB#: [id number] / [id number]
[2018-05-16 16:01] VITALS: BP 96/57
[2018-05-16] MEDS: MIRTAZAPINE 15 MG TABLET PO SCH (17:00)
[2018-05-16] MEDS: cloZAPine 100 MG TABLET PO SCH (18:13)
--- NOTE | 2018-05-16 18:48 | PN ---
DATE: 05/14/2018 PSYCHIATRIC PROGRESS NOTE This late entry 05/14/2018 covers elements, not covered in my initial note. SUBJECTIVE: I met with the patient in the evening, staffed at a treatment team meeting with the entire team in the morning with his sister, Tarsha, and Shakila, attending. Lengthy discussion about this diagnosis, progress. Slept 7 hours. Appetite is fair. 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 REVIEW OF SYSTEMS: No CV, , pulmonary, eye, ENT system symptoms on review. Reliability poor. MENTAL STATUS EXAMINATION: Oriented to himself. Insight, judgment, recent and remote memory, attention, concentration, fund of knowledge poor, consistent with his diagnosis mentioned in my initial note. 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 Rest unchanged. PLAN: Continue psychotropics from initial note, may need to increase Clozaril. Gradually post labs. MAN Janie NAIR MD DR: ANGELINA/gallito JOB#: [id number] / [id number]
--- NOTE | 2018-05-16 22:43 | PDOC ---
Exam Note: Lambert Note: Please also refer to the separate dictated note~for this date of service dictated separately.~Patient seen individually. Discussed the patient with Nursing staff reviewed the chart.~Reviewed interim history and current functioning. Reviewed vital signs,~Labs/ Radiology~and current medications noted below. Continue current treatment with the changes noted in the dictated addendum note Assessment: Vital Signs: Vital Signs Date Time Temp Pulse Resp B/P (MAP) Pulse Ox O2 Delivery O2 Flow Rate FiO2 05/16/18 16:01 98.0 69 16 96/57 (70) 97 05/13/18 16:17 Room Air I&O Intake and Output 05/16/18 07:00 Intake Total 1200 ml Balance 1200 ml Intake Oral 1200 ml Current Medications: Meds: Current Medications Acetaminophen (Tylenol) 650 mg PRN Q6HRS PRN PO PAIN / TEMP Last administered on 05/07/18at 21:13; Start 03/10/18 at 23:00 Multi-Ingredient Ointment (Analgesic [place]) 1 luz maria PRN QID PRN TP MUSCLE PAIN; Start 03/10/18 at 23:00 Al Hydroxide/Mg Hydroxide (Mylanta Plus Xs) 15 ml PRN AFTMEALHC PRN PO DYSPEPSIA; Start 03/10/18 at 23:00 Magnesium Hydroxide (Milk Of Magnesia) 2,400 mg PRN QHS PRN PO CONSTIPATION Last administered on 04/17/18at 19:26; Start 03/10/18 at 23:00 Quetiapine Fumarate (SEROquel) 25 mg BID@1200,2100 PO Last administered on at 12:14; Start 03/11/18 at 12:00; Stop 03/20/18 at 19:07; Status DC Acetaminophen/ Hydrocodone Bitart (Lortab 5/325) 1 tab PRN Q6HRS PRN PO PAIN Last administered on 04/27/18at 19:38; Start 03/10/18 at 23:30 Naproxen (Naprosyn) 500 mg BID PO Last administered on 03/11/18at 19:23; Start 03/11/18 at 09:00; Stop 03/12/18 at 07:42; Status DC Vitamin D (Vitamin D3) 50,000 unit WEEKLY PO Last administered on 05/13/18at 07: 31; Start 03/11/18 at 19:00 Sertraline HCl (Zoloft) 25 mg DAILY PO Last administered on 03/15/18at 08:15; Start 03/12/18 at 09:00; Stop 03/15/18 at 21:28; Status DC Mirtazapine (Remeron) 7.5 mg QHS PO Last administered on 03/15/18at 21:24; Start 03/11/18 at 21:00; Stop 03/16/18 at 20:49; Status DC Olanzapine (ZyPREXA ZYDIS) 2.5 mg PRN Q2HR PRN PO agitation Last administered on 03/14/18at 20:09; Start 03/12/18 at 07:45; Stop 03/14/18 at 22:25; Status DC Naproxen (Naprosyn) 500 mg PRN BID PRN PO PAIN Last administered on 03/21/18at 07 :43; Start 03/12/18 at 07:45 Silver Sulfadiazine (Silvadene) 1 luz maria DAILY TP Last administered on 03/30/18at 09:35; Start 03/12/18 at 21:00; Stop 04/02/18 at 09:30; Status DC Artificial Tears (Artificial Tears) 1 drop PRN Q15MIN PRN OU DRY EYE Last administered on 03/24/18at 08:15; Start 03/13/18 at 20:30 Trazodone HCl (Desyrel) 50 mg PRN QHS PRN PO insomnia Last administered on 05/07at 00:49; Start 03/14/18 at 18:45 Olanzapine (ZyPREXA ZYDIS) 5 mg PRN Q2HR PRN PO agitation Last administered on 05/11/18at 08:15; Start 03/14/18 at 22:30 Olanzapine (ZyPREXA) 2.5 mg 1X ONCE PO ; Start 03/15/18 at 09:15; Stop at 09:48; Status DC Olanzapine (ZyPREXA ZYDIS) 5 mg 1X ONCE PO ; Start 03/15/18 at 09:50; Stop at 09:50; Status DC Olanzapine (ZyPREXA ZYDIS) 5 mg 1X ONCE PO ; Start 03/15/18 at 09:45; Stop 5/ 27/18 at 09:52; Status DC Olanzapine (ZyPREXA ZYDIS) 5 mg PRN 1X PRN PO 1HR BEFORE CT &30MIN PRIOR PRN; Start 03/15/18 at 09:50; Stop 03/15/18 at 18:00; Status DC Sertraline HCl (Zoloft) 50 mg DAILY PO Last administered on 03/19/18at 09:27; Start 03/16/18 at 09:00; Stop 03/21/18 at 08:00; Status DC Mirtazapine (Remeron) 15 mg QHS PO Last administered on 05/02/18at 17:13; Start 03/16/18 at 21:00; Stop 05/02/18 at 17:36; Status DC Sertraline HCl (Zoloft) 75 mg DAILY PO Last administered on 03/30/18at 09:32; Start 03/21/18 at 09:00; Stop 03/30/18 at 18:24; Status DC Divalproex Sodium (Depakote Sprinkles) 125 mg 0900,1300 PO Last administered on 03/26/18at 07:50; Start 03/21/18 at 09:00; Stop 03/26/18 at 10:10; Status DC Quetiapine Fumarate (SEROquel) 12.5 mg BID PO Last administered on 05/02/18at 17 :13; Start 03/20/18 at 21:00; Stop 05/02/18 at 17:36; Status DC Carbidopa/Levodopa (Sinemet Cr) 1 tab.sa BID PO Last administered on 03/31/18at 08:46; Start 03/23/18 at 21:00; Stop 03/31/18 at 19:35; Status DC Divalproex Sodium (Depakote Sprinkles) 125 mg TID@0900,1300,1700 PO Last administered on 04/04/18at 12:54; Start 03/26/18 at 13:00; Stop 04/04/18 at 19:00 ; Status DC Sertraline HCl (Zoloft) 100 mg DAILY PO Last administered on 05/16/18at 07:22; Start 03/31/18 at 09:00 Docusate Sodium (Colace Solution) 100 mg BID PO Last administered on 04/19/18at 08:26; Start 03/31/18 at 21:00; Stop 04/20/18 at 08:20; Status DC Buspirone HCl (Buspar) 5 mg BID@0900,1700 PO Last administered on 05/16/18at 07: 22; Start 04/02/18 at 17:00 Rivastigmine (Exelon) 1 patch DAILY TD Last administered on 04/06/18at 07:52; Start 04/04/18 at 09:00; Stop 04/07/18 at 08:59; Status DC Rivastigmine (Exelon) 1 patch DAILY TD Last administered on 04/09/18at 10:10; Start 04/07/18 at 09:00; Stop 04/09/18 at 21:00; Status DC Rivastigmine (Exelon 13.3mg) 1 patch DAILY TD Last administered on 05/16/18at 07 :22; Start 04/10/18 at 09:00 Naproxen (Naprosyn) 250 mg PRN Q4HRS PRN PO MIGRAINE HEADACHE; Start 04/13/18 at 18:45 Quetiapine Fumarate (SEROquel) 25 mg DAILY@0200 PO Last administered on at 01:48; Start 04/17/18 at 02:00; Stop 04/20/18 at 18:35; Status DC Docusate Sodium (Colace) 100 mg BID PO Last administered on 05/02/18at 17:13; Start 04/20/18 at 09:00; Stop 05/02/18 at 17:36; Status DC Quetiapine Fumarate (SEROquel) 37.5 mg 0200 PO Last administered on 04/27/18at 01 :17; Start 04/21/18 at 02:00; Stop 04/29/18 at 18:38; Status DC Clozapine (Clozaril) 25 mg QHS PO Last administered on 04/26/18at 20:35; Start at 21:00; Stop 04/27/18 at 18:50; Status DC Clozapine (Clozaril) 12.5 mg DAILY PO Last administered on 04/27/18at 13:40; Start 04/23/18 at 11:15; Stop 04/27/18 at 18:50; Status DC Lorazepam (Ativan) 1 mg DAILY IM ; Start 04/27/18 at 04:45; Stop 04/27/18 at 04:45 ; Status DC Clozapine (Clozaril) 25 mg DAILY PO Last administered on 05/16/18at 07:22; Start 04/28/18 at 09:00 Clozapine (Clozaril) 50 mg HS PO Last administered on 05/02/18at 17:13; Start at 21:00; Stop 05/02/18 at 17:36; Status DC Quetiapine Fumarate (SEROquel) 25 mg 0200 PO ; Start 04/30/18 at 02:00; Stop at 18:32; Status DC Clozapine (Clozaril) 50 mg 1700 PO Last administered on 05/04/18at 17:08; Start 05/02/18 at 18:00; Stop 05/04/18 at 18:32; Status DC Docusate Sodium (Colace) 100 mg BIDWMEALS PO Last administered on 05/16/18at 07: 22; Start 05/02/18 at 18:00 Mirtazapine (Remeron) 15 mg DAILYWSUP PO Last administered on 05/15/18at 16:06; Start 05/02/18 at 18:00 Quetiapine Fumarate (SEROquel) 12.5 mg BIDWMEALS PO Last administered on at 17:26; Start 05/02/18 at 18:00; Stop 05/11/18 at 19:34; Status DC Clozapine (Clozaril) 75 mg 1700 PO Last administered on 05/11/18at 17:27; Start 05/05/18 at 17:00; Stop 05/11/18 at 19:34; Status DC Quetiapine Fumarate (SEROquel) 12.5 mg 0200 PO Last administered on 05/07/18at 02:21; Start 05/05/18 at 02:00; Stop 05/08/18 at 18:28; Status DC Clozapine (Clozaril) 100 mg 1700 PO Last administered on 05/16/18at 18:13; Start 05/12/18 at 17:00 Active Scripts Active Reported Silvadene (Silver Sulfadiazine) 20 Gm Cream..g. 1 Luz Maria TP BID Seroquel (Quetiapine Fumarate) 25 Mg Tablet 25 Mg PO BID@1200,2100 [place] 5-325 Tablet (Hydrocodone Bit/Acetaminophen) 1 Each Tablet 1 Tab PO PRN Q6HRS PRN Naproxen 500 Mg Tablet 500 Mg PO BID I have reviewed the current psychotropics carefully including drug interactions. Risk benefit ratio favors no change other than as noted in my dictated progress note. 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
[2018-05-17] MEDS: DOCUSATE SODIUM 100 MG CAPSULE PO SCH ×2 (07:46→18:35)
[2018-05-17] MEDS: busPIRone 5 MG TABLET. PO SCH ×2 (07:46→18:34)
[2018-05-17] MEDS: cloZAPine 25 MG TABLET PO SCH (07:46)
[2018-05-17] MEDS: SERTRALINE 100 MG TABLET. PO SCH (07:46)
[2018-05-17] MEDS: RIVASTIGMINE 13.3MG PATCH. TD SCH (07:46)
[2018-05-17 16:07] VITALS: BP 112/83
[2018-05-17] MEDS: cloZAPine 100 MG TABLET PO SCH (18:34)
[2018-05-17] MEDS: MIRTAZAPINE 15 MG TABLET PO SCH (18:36)
[2018-05-17 19:36] VITALS: BP 98/60
--- NOTE | 2018-05-17 20:50 | PDOC ---
Exam Note: Lambert Note: Please also refer to the separate dictated note~for this date of service dictated separately.~Patient seen individually. Discussed the patient with Nursing staff reviewed the chart.~Reviewed interim history and current functioning. Reviewed vital signs,~Labs/ Radiology~and current medications noted below. Continue current treatment with the changes noted in the dictated addendum note Assessment: Vital Signs: Vital Signs Date Time Temp Pulse Resp B/P (MAP) Pulse Ox O2 Delivery O2 Flow Rate FiO2 05/17/18 19:36 85 98/60 (73) 100 05/17/18 16:07 98.4 18 05/13/18 16:17 Room Air I&O Intake and Output 05/17/18 07:00 Intake Total 840 ml Balance 840 ml Intake Oral 840 ml Current Medications: Meds: Current Medications Acetaminophen (Tylenol) 650 mg PRN Q6HRS PRN PO PAIN / TEMP Last administered on 05/07/18at 21:13; Start 03/10/18 at 23:00 Multi-Ingredient Ointment (Analgesic [place]) 1 luz maria PRN QID PRN TP MUSCLE PAIN; Start 03/10/18 at 23:00 Al Hydroxide/Mg Hydroxide (Mylanta Plus Xs) 15 ml PRN AFTMEALHC PRN PO DYSPEPSIA; Start 03/10/18 at 23:00 Magnesium Hydroxide (Milk Of Magnesia) 2,400 mg PRN QHS PRN PO CONSTIPATION Last administered on 04/17/18at 19:26; Start 03/10/18 at 23:00 Quetiapine Fumarate (SEROquel) 25 mg BID@1200,2100 PO Last administered on at 12:14; Start 03/11/18 at 12:00; Stop 03/20/18 at 19:07; Status DC Acetaminophen/ Hydrocodone Bitart (Lortab 5/325) 1 tab PRN Q6HRS PRN PO PAIN Last administered on 04/27/18at 19:38; Start 03/10/18 at 23:30 Naproxen (Naprosyn) 500 mg BID PO Last administered on 03/11/18 19:23; Start 03/11/18 at 09:00; Stop 03/12/18 at 07:42; Status DC Vitamin D (Vitamin D3) 50,000 unit WEEKLY PO Last administered on 05/13/18 07: 31; Start 03/11/18 at 19:00 Sertraline HCl (Zoloft) 25 mg DAILY PO Last administered on 03/15/18at 08:15; Start 03/12/18 at 09:00; Stop 03/15/18 at 21:28; Status DC Mirtazapine (Remeron) 7.5 mg QHS PO Last administered on 03/15/18at 21:24; Start 03/11/18 at 21:00; Stop 03/16/18 at 20:49; Status DC Olanzapine (ZyPREXA ZYDIS) 2.5 mg PRN Q2HR PRN PO agitation Last administered on 03/14/18at 20:09; Start 03/12/18 at 07:45; Stop 03/14/18 at 22:25; Status DC Naproxen (Naprosyn) 500 mg PRN BID PRN PO PAIN Last administered on 03/21/18at 07 :43; Start 03/12/18 at 07:45 Silver Sulfadiazine (Silvadene) 1 luz maria DAILY TP Last administered on 03/30/18at 09:35; Start 03/12/18 at 21:00; Stop 04/02/18 at 09:30; Status DC Artificial Tears (Artificial Tears) 1 drop PRN Q15MIN PRN OU DRY EYE Last administered on 03/24/18 08:15; Start 03/13/18 at 20:30 Trazodone HCl (Desyrel) 50 mg PRN QHS PRN PO insomnia Last administered on 05/07at 00:49; Start 03/14/18 at 18:45 Olanzapine (ZyPREXA ZYDIS) 5 mg PRN Q2HR PRN PO agitation Last administered on 05/11/18at 08:15; Start 03/14/18 at 22:30 Olanzapine (ZyPREXA) 2.5 mg 1X ONCE PO ; Start 03/15/18 at 09:15; Stop at 09:48; Status DC Olanzapine (ZyPREXA ZYDIS) 5 mg 1X ONCE PO ; Start 03/15/18 at 09:50; Stop at 09:50; Status DC Olanzapine (ZyPREXA ZYDIS) 5 mg 1X ONCE PO ; Start 03/15/18 at 09:45; Stop at 09:52; Status DC Olanzapine (ZyPREXA ZYDIS) 5 mg PRN 1X PRN PO 1HR BEFORE CT &30MIN PRIOR PRN; Start 03/15/18 at 09:50; Stop 03/15/18 at 18:00; Status DC Sertraline HCl (Zoloft) 50 mg DAILY PO Last administered on 03/19/18at 09:27; Start 03/16/18 at 09:00; Stop 03/21/18 at 08:00; Status DC Mirtazapine (Remeron) 15 mg QHS PO Last administered on 05/02/18at 17:13; Start 03/16/18 at 21:00; Stop 05/02/18 at 17:36; Status DC Sertraline HCl (Zoloft) 75 mg DAILY PO Last administered on 03/30/18at 09:32; Start 03/21/18 at 09:00; Stop 03/30/18 at 18:24; Status DC Divalproex Sodium (Depakote Sprinkles) 125 mg 0900,1300 PO Last administered on 03/26/18at 07:50; Start 03/21/18 at 09:00; Stop 03/26/18 at 10:10; Status DC Quetiapine Fumarate (SEROquel) 12.5 mg BID PO Last administered on 05/02/18at 17 :13; Start 03/20/18 at 21:00; Stop 05/02/18 at 17:36; Status DC Carbidopa/Levodopa (Sinemet Cr) 1 tab.sa BID PO Last administered on 03/31/18at 08:46; Start 03/23/18 at 21:00; Stop 03/31/18 at 19:35; Status DC Divalproex Sodium (Depakote Sprinkles) 125 mg TID@0900,1300,1700 PO Last administered on 04/04/18at 12:54; Start 03/26/18 at 13:00; Stop 04/04/18 at 19:00 ; Status DC Sertraline HCl (Zoloft) 100 mg DAILY PO Last administered on 05/17/18at 07:46; Start 03/31/18 at 09:00 Docusate Sodium (Colace Solution) 100 mg BID PO Last administered on 04/19/18at 08:26; Start 03/31/18 at 21:00; Stop 04/20/18 at 08:20; Status DC Buspirone HCl (Buspar) 5 mg BID@0900,1700 PO Last administered on 05/17/18at 18: 34; Start 04/02/18 at 17:00 Rivastigmine (Exelon) 1 patch DAILY TD Last administered on 04/06/18at 07:52; Start 04/04/18 at 09:00; Stop 04/07/18 at 08:59; Status DC Rivastigmine (Exelon) 1 patch DAILY TD Last administered on 04/09/18at 10:10; Start 04/07/18 at 09:00; Stop 04/09/18 at 21:00; Status DC Rivastigmine (Exelon 13.3mg) 1 patch DAILY TD Last administered on 05/17/18at 07 :46; Start 04/10/18 at 09:00 Naproxen (Naprosyn) 250 mg PRN Q4HRS PRN PO MIGRAINE HEADACHE; Start 04/13/18 at 18:45 Quetiapine Fumarate (SEROquel) 25 mg DAILY@0200 PO Last administered on at 01:48; Start 04/17/18 at 02:00; Stop 04/20/18 at 18:35; Status DC Docusate Sodium (Colace) 100 mg BID PO Last administered on 05/02/18at 17:13; Start 04/20/18 at 09:00; Stop 05/02/18 at 17:36; Status DC Quetiapine Fumarate (SEROquel) 37.5 mg 0200 PO Last administered on 04/27/18at 01 :17; Start 04/21/18 at 02:00; Stop 04/29/18 at 18:38; Status DC Clozapine (Clozaril) 25 mg QHS PO Last administered on 04/26/18at 20:35; Start at 21:00; Stop 04/27/18 at 18:50; Status DC Clozapine (Clozaril) 12.5 mg DAILY PO Last administered on 04/27/18at 13:40; Start 04/23/18 at 11:15; Stop 04/27/18 at 18:50; Status DC Lorazepam (Ativan) 1 mg DAILY IM ; Start 04/27/18 at 04:45; Stop 04/27/18 at 04:45 ; Status DC Clozapine (Clozaril) 25 mg DAILY PO Last administered on 05/17/18at 07:46; Start 04/28/18 at 09:00 Clozapine (Clozaril) 50 mg HS PO Last administered on 05/02/18at 17:13; Start at 21:00; Stop 05/02/18 at 17:36; Status DC Quetiapine Fumarate (SEROquel) 25 mg 0200 PO ; Start 04/30/18 at 02:00; Stop at 18:32; Status DC Clozapine (Clozaril) 50 mg 1700 PO Last administered on 05/04/18at 17:08; Start 05/02/18 at 18:00; Stop 05/04/18 at 18:32; Status DC Docusate Sodium (Colace) 100 mg BIDWMEALS PO Last administered on 05/17/18at 18: 35; Start 05/02/18 at 18:00 Mirtazapine (Remeron) 15 mg DAILYWSUP PO Last administered on 05/17/18at 18:36; Start 05/02/18 at 18:00 Quetiapine Fumarate (SEROquel) 12.5 mg BIDWMEALS PO Last administered on at 17:26; Start 05/02/18 at 18:00; Stop 05/11/18 at 19:34; Status DC Clozapine (Clozaril) 75 mg 1700 PO Last administered on 05/11/18at 17:27; Start 05/05/18 at 17:00; Stop 05/11/18 at 19:34; Status DC Quetiapine Fumarate (SEROquel) 12.5 mg 0200 PO Last administered on 05/07/18at 02:21; Start 05/05/18 at 02:00; Stop 05/08/18 at 18:28; Status DC Clozapine (Clozaril) 100 mg 1700 PO Last administered on 05/17/18at 18:34; Start 05/12/18 at 17:00 Active Scripts Active Reported Silvadene (Silver Sulfadiazine) 20 Gm Cream..g. 1 Luz Maria TP BID Seroquel (Quetiapine Fumarate) 25 Mg Tablet 25 Mg PO BID@1200,2100 [place] 5-325 Tablet (Hydrocodone Bit/Acetaminophen) 1 Each Tablet 1 Tab PO PRN Q6HRS PRN Naproxen 500 Mg Tablet 500 Mg PO BID I have reviewed the current psychotropics carefully including drug interactions. Risk benefit ratio favors no change other than as noted in my dictated progress note. 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
--- NOTE | 2018-05-18 03:21 | PN ---
DATE: 05/16/2018 PSYCHIATRIC PROGRESS NOTE This is a late entry of 05/16/2018 covers elements not covered in my initial note. SUBJECTIVE: I met with the patient in the evening. The patient slept 2-1/2 hours previous evening, slept through the breakfast, ate lunch, took his meds, asleep in the evening when his sister visited and she was concerned about his sedation. Nevertheless, this could well be explained by the fact that he slept just 2-1/2 hours previous evening and we will monitor this. REVIEW OF SYSTEMS: No CV, , pulmonary, eye, ENT system symptoms on review. Reliability is poor. MENTAL STATUS EXAM: Oriented to himself. Insight, judgment, recent and remote memory, attention, concentration, fund of knowledge poor, consistent with his diagnosis mentioned in my initial note. 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 Rest unchanged. PLAN: Continue current psychotropics and Seroquel has been stopped. Monitor sedation. MAN Janie NAIR MD DR: ANGELINA/gallito JOB#: [id number] / [id number]
--- NOTE | 2018-05-18 03:26 | PN ---
DATE: 05/15/2018 PSYCHIATRIC PROGRESS NOTE This is a late entry, 05/15/2018, covers the elements not covered in my initial note. SUBJECTIVE: I met with the patient in the evening and also with his sister. He slept 7-3/4 hours previous evening, slept until around 11 a.m., pleasant, confused, but not psychotic or aggressive, much improved behaviorally. REVIEW OF SYSTEMS: No CV, , pulmonary, eye, ENT system symptoms on review. He ambulates with his head bent forward, typical for him. MENTAL STATUS EXAM: Oriented to himself. Insight, judgment, recent and remote memory, attention, concentration, fund of knowledge poor, consistent with his diagnosis. Memory is better than what it appears on the surface nevertheless. LABORATORY DATA: Reviewed. 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 Rest unchanged. PLAN: Continue current psychotropics. Seroquel has been discontinued. MAN Janie NAIR MD DR: ANGELINA/gallito JOB#: [id number] / [id number]
[2018-05-18 06:23] VITALS: BP 131/76
[2018-05-18 06:25] LABS: BASO % 1 % (0-3); EOS # 0.2 x10^3/uL (0.0-0.7); EOS % 3 % (0-3); HEMOGLOBIN 12.6 g/dL (13.0-17.5); LYMPH # 1.2 x10^3/uL (1.0-4.8); LYMPH % 25 % (24-48); MEAN CORPUSCULAR HEMOGLOBIN 31 pg (25-35); MEAN CORPUSCULAR HGB CONC 34 g/dL (31-37); MEAN CORPUSCULAR VOLUME 92 fL (79-100); MONO # 0.4 x10^3/uL (0.0-1.1); MONO % 9 % (0-9); NEUT % 62 % (31-73); PLATELET COUNT 237 x10^3/uL (140-400); RED BLOOD COUNT 4.01 x10^6/uL (4.30-5.70); RED CELL DISTRIBUTION WIDTH 12.7 % (11.5-14.5); WHITE BLOOD COUNT 4.8 x10^3/uL (4.0-11.0)
[2018-05-18 06:39] LABS: ALBUMIN 3.2 g/dL (3.4-5.0); ALBUMIN/GLOBULIN RATIO 0.9 (1.0-1.7); CREATININE 0.9 mg/dL (0.7-1.3); GFR 86.4; POTASSIUM 4.1 mmol/L (3.5-5.1); TOTAL BILIRUBIN 0.3 mg/dL (0.2-1.0); TOTAL PROTEIN 6.7 g/dL (6.4-8.2)
[2018-05-18] MEDS: DOCUSATE SODIUM 100 MG CAPSULE PO SCH ×2 (07:27→17:00)
[2018-05-18] MEDS: RIVASTIGMINE 13.3MG PATCH. TD SCH (07:27)
[2018-05-18] MEDS: busPIRone 5 MG TABLET. PO SCH ×2 (07:28→17:00)
[2018-05-18] MEDS: cloZAPine 25 MG TABLET PO SCH (07:28)
[2018-05-18] MEDS: SERTRALINE 100 MG TABLET. PO SCH (07:28)
[2018-05-18] MEDS ORDERED: ACET325T9 PO (14:10)
[2018-05-18] MEDS ORDERED: CHOL500021 PO (14:10)
[2018-05-18] MEDS ORDERED: DOCU100C28 PO (14:11)
[2018-05-18] MEDS ORDERED: MAG355OR12 PO (14:12)
[2018-05-18] MEDS ORDERED: MAGN2400 PO (14:14)
[2018-05-18] MEDS ORDERED: MIRT15TA3 PO (14:15)
[2018-05-18] MEDS ORDERED: MENT113G6 TP (14:15)
[2018-05-18] MEDS ORDERED: NAPR-514 PO (14:17)
[2018-05-18] MEDS ORDERED: OLAN5TAB5 PO (14:17)
[2018-05-18] MEDS ORDERED: POLY15DR20 OU (14:20)
[2018-05-18] MEDS ORDERED: EXELON TD (14:22)
[2018-05-18] MEDS ORDERED: SERT100T PO (14:22)
[2018-05-18] MEDS ORDERED: BUSP5TAB PO (14:23)
[2018-05-18] MEDS ORDERED: CLOZ100T7 PO ×2 (14:24→14:26)
[2018-05-18] MEDS ORDERED: TRAZ-85 PO (14:25)
[2018-05-18 16:29] VITALS: BP 140/73
[2018-05-18] MEDS: cloZAPine 100 MG TABLET PO SCH (17:00)
[2018-05-18] MEDS: MIRTAZAPINE 15 MG TABLET PO SCH (17:00)
--- NOTE | 2018-05-18 19:53 | PDOC ---
Exam Note: Lambert Note: Please also refer to the separate dictated note~for this date of service dictated separately.~Patient seen individually. Discussed the patient with Nursing staff reviewed the chart.~Reviewed interim history and current functioning. Reviewed vital signs,~Labs/ Radiology~and current medications noted below. Continue current treatment with the changes noted in the dictated addendum note Assessment: Vital Signs: Vital Signs Date Time Temp Pulse Resp B/P (MAP) Pulse Ox O2 Delivery O2 Flow Rate FiO2 05/18/18 16:29 97.6 80 19 140/73 (95) 97 05/13/18 16:17 Room Air I&O Intake and Output 05/18/18 06:59 Intake Total 1200 ml Balance 1200 ml Intake Oral 1200 ml # Bowel Movements 1 Labs: Laboratory Tests Test 05/18/18 06:10 White Blood Count 4.8 x10^3/uL (4.0-11.0) Red Blood Count 4.01 x10^6/uL (4.30-5.70) L Hemoglobin 12.6 g/dL (13.0-17.5) L Hematocrit 37.0 % (39.0-53.0) L Mean Corpuscular Volume 92 fL (79-100) Mean Corpuscular Hemoglobin 31 pg (25-35) Mean Corpuscular Hemoglobin Concent 34 g/dL (31-37) Red Cell Distribution Width 12.7 % (11.5-14.5) Platelet Count 237 x10^3/uL (140-400) Neutrophils (%) (Auto) 62 % (31-73) Lymphocytes (%) (Auto) 25 % (24-48) Monocytes (%) (Auto) 9 % (0-9) Eosinophils (%) (Auto) 3 % (0-3) Basophils (%) (Auto) 1 % (0-3) Neutrophils # (Auto) 3.0 x10^3uL (1.8-7.7) Lymphocytes # (Auto) 1.2 x10^3/uL (1.0-4.8) Monocytes # (Auto) 0.4 x10^3/uL (0.0-1.1) Eosinophils # (Auto) 0.2 x10^3/uL (0.0-0.7) Basophils # (Auto) 0.0 x10^3/uL (0.0-0.2) Sodium Level 142 mmol/L (136-145) Potassium Level 4.1 mmol/L (3.5-5.1) Chloride Level 105 mmol/L (98-107) Carbon Dioxide Level 32 mmol/L (21-32) Anion Gap 5 (6-14) L Blood Urea Nitrogen 23 mg/dL (8-26) Creatinine 0.9 mg/dL (0.7-1.3) Estimated GFR (Cockcroft-Gault) 86.4 BUN/Creatinine Ratio 26 (6-20) H Glucose Level 97 mg/dL (70-99) Calcium Level 9.0 mg/dL (8.5-10.1) Total Bilirubin 0.3 mg/dL (0.2-1.0) Aspartate Amino Transferase (AST) 34 U/L (15-37) Alanine Aminotransferase (ALT) 31 U/L (16-63) Alkaline Phosphatase 96 U/L (46-116) Total Protein 6.7 g/dL (6.4-8.2) Albumin 3.2 g/dL (3.4-5.0) L Albumin/Globulin Ratio 0.9 (1.0-1.7) L 25-Hydroxy Vitamin D Total 49.7 ng/mL (30-100) Current Medications: Meds: Current Medications Acetaminophen (Tylenol) 650 mg PRN Q6HRS PRN PO PAIN / TEMP Last administered on 05/07/18at 21:13; Start 03/10/18 at 23:00 Multi-Ingredient Ointment (Analgesic [place]) 1 luz maria PRN QID PRN TP MUSCLE PAIN; Start 03/10/18 at 23:00 Al Hydroxide/Mg Hydroxide (Mylanta Plus Xs) 15 ml PRN AFTMEALHC PRN PO DYSPEPSIA; Start 03/10/18 at 23:00 Magnesium Hydroxide (Milk Of Magnesia) 2,400 mg PRN QHS PRN PO CONSTIPATION Last administered on 04/17/18at 19:26; Start 03/10/18 at 23:00 Quetiapine Fumarate (SEROquel) 25 mg BID@1200,2100 PO Last administered on at 12:14; Start 03/11/18 at 12:00; Stop 03/20/18 at 19:07; Status DC Acetaminophen/ Hydrocodone Bitart (Lortab 5/325) 1 tab PRN Q6HRS PRN PO PAIN Last administered on 04/27/18 19:38; Start 03/10/18 at 23:30 Naproxen (Naprosyn) 500 mg BID PO Last administered on 03/11/18 19:23; Start 03/11/18 at 09:00; Stop 03/12/18 at 07:42; Status DC Vitamin D (Vitamin D3) 50,000 unit WEEKLY PO Last administered on 05/13/18 07: 31; Start 03/11/18 at 19:00 Sertraline HCl (Zoloft) 25 mg DAILY PO Last administered on 03/15/18 08:15; Start 03/12/18 at 09:00; Stop 03/15/18 at 21:28; Status DC Mirtazapine (Remeron) 7.5 mg QHS PO Last administered on 03/15/18 21:24; Start 03/11/18 at 21:00; Stop 03/16/18 at 20:49; Status DC Olanzapine (ZyPREXA ZYDIS) 2.5 mg PRN Q2HR PRN PO agitation Last administered on 03/14/18 20:09; Start 03/12/18 at 07:45; Stop 03/14/18 at 22:25; Status DC Naproxen (Naprosyn) 500 mg PRN BID PRN PO PAIN Last administered on 03/21/18 07 :43; Start 03/12/18 at 07:45 Silver Sulfadiazine (Silvadene) 1 luz maria DAILY TP Last administered on 03/30/18 09:35; Start 03/12/18 at 21:00; Stop 04/02/18 at 09:30; Status DC Artificial Tears (Artificial Tears) 1 drop PRN Q15MIN PRN OU DRY EYE Last administered on 03/24/18 08:15; Start 03/13/18 at 20:30 Trazodone HCl (Desyrel) 50 mg PRN QHS PRN PO insomnia Last administered on 05/07at 00:49; Start 03/14/18 at 18:45 Olanzapine (ZyPREXA ZYDIS) 5 mg PRN Q2HR PRN PO agitation Last administered on 05/11/18 08:15; Start 03/14/18 at 22:30 Olanzapine (ZyPREXA) 2.5 mg 1X ONCE PO ; Start 03/15/18 at 09:15; Stop at 09:48; Status DC Olanzapine (ZyPREXA ZYDIS) 5 mg 1X ONCE PO ; Start 03/15/18 at 09:50; Stop at 09:50; Status DC Olanzapine (ZyPREXA ZYDIS) 5 mg 1X ONCE PO ; Start 03/15/18 at 09:45; Stop at 09:52; Status DC Olanzapine (ZyPREXA ZYDIS) 5 mg PRN 1X PRN PO 1HR BEFORE CT &30MIN PRIOR PRN; Start 03/15/18 at 09:50; Stop 03/15/18 at 18:00; Status DC Sertraline HCl (Zoloft) 50 mg DAILY PO Last administered on 03/19/18at 09:27; Start 03/16/18 at 09:00; Stop 03/21/18 at 08:00; Status DC Mirtazapine (Remeron) 15 mg QHS PO Last administered on 05/02/18at 17:13; Start 03/16/18 at 21:00; Stop 05/02/18 at 17:36; Status DC Sertraline HCl (Zoloft) 75 mg DAILY PO Last administered on 03/30/18at 09:32; Start 03/21/18 at 09:00; Stop 03/30/18 at 18:24; Status DC Divalproex Sodium (Depakote Sprinkles) 125 mg 0900,1300 PO Last administered on 03/26/18at 07:50; Start 03/21/18 at 09:00; Stop 03/26/18 at 10:10; Status DC Quetiapine Fumarate (SEROquel) 12.5 mg BID PO Last administered on 05/02/18at 17 :13; Start 03/20/18 at 21:00; Stop 05/02/18 at 17:36; Status DC Carbidopa/Levodopa (Sinemet Cr) 1 tab.sa BID PO Last administered on 03/31/18at 08:46; Start 03/23/18 at 21:00; Stop 03/31/18 at 19:35; Status DC Divalproex Sodium (Depakote Sprinkles) 125 mg TID@0900,1300,1700 PO Last administered on 04/04/18at 12:54; Start 03/26/18 at 13:00; Stop 04/04/18 at 19:00 ; Status DC Sertraline HCl (Zoloft) 100 mg DAILY PO Last administered on 05/18/18at 07:28; Start 03/31/18 at 09:00 Docusate Sodium (Colace Solution) 100 mg BID PO Last administered on 04/19/18at 08:26; Start 03/31/18 at 21:00; Stop 04/20/18 at 08:20; Status DC Buspirone HCl (Buspar) 5 mg BID@0900,1700 PO Last administered on 05/18/18at 07: 28; Start 04/02/18 at 17:00 Rivastigmine (Exelon) 1 patch DAILY TD Last administered on 04/06/18at 07:52; Start 04/04/18 at 09:00; Stop 04/07/18 at 08:59; Status DC Rivastigmine (Exelon) 1 patch DAILY TD Last administered on 04/09/18at 10:10; Start 04/07/18 at 09:00; Stop 04/09/18 at 21:00; Status DC Rivastigmine (Exelon 13.3mg) 1 patch DAILY TD Last administered on 05/18/18at 07 :27; Start 04/10/18 at 09:00 Naproxen (Naprosyn) 250 mg PRN Q4HRS PRN PO MIGRAINE HEADACHE; Start 04/13/18 at 18:45 Quetiapine Fumarate (SEROquel) 25 mg DAILY@0200 PO Last administered on at 01:48; Start 04/17/18 at 02:00; Stop 04/20/18 at 18:35; Status DC Docusate Sodium (Colace) 100 mg BID PO Last administered on 05/02/18at 17:13; Start 04/20/18 at 09:00; Stop 05/02/18 at 17:36; Status DC Quetiapine Fumarate (SEROquel) 37.5 mg 0200 PO Last administered on 04/27/18at 01 :17; Start 04/21/18 at 02:00; Stop 04/29/18 at 18:38; Status DC Clozapine (Clozaril) 25 mg QHS PO Last administered on 04/26/18at 20:35; Start at 21:00; Stop 04/27/18 at 18:50; Status DC Clozapine (Clozaril) 12.5 mg DAILY PO Last administered on 04/27/18at 13:40; Start 04/23/18 at 11:15; Stop 04/27/18 at 18:50; Status DC Lorazepam (Ativan) 1 mg DAILY IM ; Start 04/27/18 at 04:45; Stop 04/27/18 at 04:45 ; Status DC Clozapine (Clozaril) 25 mg DAILY PO Last administered on 05/18/18at 07:28; Start 04/28/18 at 09:00 Clozapine (Clozaril) 50 mg HS PO Last administered on 05/02/18at 17:13; Start at 21:00; Stop 05/02/18 at 17:36; Status DC Quetiapine Fumarate (SEROquel) 25 mg 0200 PO ; Start 04/30/18 at 02:00; Stop at 18:32; Status DC Clozapine (Clozaril) 50 mg 1700 PO Last administered on 05/04/18at 17:08; Start 05/02/18 at 18:00; Stop 05/04/18 at 18:32; Status DC Docusate Sodium (Colace) 100 mg BIDWMEALS PO Last administered on 05/18/18at 07: 27; Start 05/02/18 at 18:00 Mirtazapine (Remeron) 15 mg DAILYWSUP PO Last administered on 05/17/18at 18:36; Start 05/02/18 at 18:00 Quetiapine Fumarate (SEROquel) 12.5 mg BIDWMEALS PO Last administered on at 17:26; Start 05/02/18 at 18:00; Stop 05/11/18 at 19:34; Status DC Clozapine (Clozaril) 75 mg 1700 PO Last administered on 05/11/18at 17:27; Start 05/05/18 at 17:00; Stop 05/11/18 at 19:34; Status DC Quetiapine Fumarate (SEROquel) 12.5 mg 0200 PO Last administered on 05/07/18at 02:21; Start 05/05/18 at 02:00; Stop 05/08/18 at 18:28; Status DC Clozapine (Clozaril) 100 mg 1700 PO Last administered on 05/17/18at 18:34; Start 05/12/18 at 17:00 Active Scripts Active Reported Clozapine 100 Mg Tablet 25 Mg PO DAILY Trazodone Hcl 50 Mg Tablet 50 Mg PO PRN QHS PRN Clozapine 100 Mg Tablet 100 Mg PO DAILYWSUP Buspirone Hcl 5 Mg Tablet 5 Mg PO BIDWMEALS Zoloft (Sertraline Hcl) 100 Mg Tablet 100 Mg PO DAILY [Exelon patch 13.3] 1 Patch TD DAILY Polyvinyl Alcohol 15 Ml Drops 1 Drp OU PRN Q15MIN PRN Zyprexa Zydis (Olanzapine) 5 Mg Tab.rapdis 5 Mg PO PRN Q2HR PRN Naproxen 500 Mg Tablet 250 Mg PO PRN Q4HRS PRN Mirtazapine 15 Mg Tablet 15 Mg PO HS Bengay (Menthol) 113 Gm Gel..gram. 1 Luz Maria TP PRN QID PRN Milk Of Magnesia (Magnesium Hydroxide) 2,400 Mg/10 Ml Oral.susp 2,400 Mg PO PRN QHS PRN Maalox Maximum Strength Susp (Mag Hydrox/Al Hydrox/Simeth) 355 Ml Oral.susp 15 Ml PO PRN AFTMEALHC PRN Docusate Sodium 100 Mg Capsule 100 Mg PO BID D3-50 (Cholecalciferol (Vitamin D3)) 50,000 Unit Capsule 50,000 Unit PO WEEKLY Tylenol (Acetaminophen) 325 Mg Tablet 650 Mg PO PRN Q6HRS PRN Silvadene (Silver Sulfadiazine) 20 Gm Cream..g. 1 Luz Maria TP BID Seroquel (Quetiapine Fumarate) 25 Mg Tablet 25 Mg PO BID@1200,2100 [place] 5-325 Tablet (Hydrocodone Bit/Acetaminophen) 1 Each Tablet 1 Tab PO PRN Q6HRS PRN Naproxen 500 Mg Tablet 500 Mg PO BID I have reviewed the current psychotropics carefully including drug interactions. Risk benefit ratio favors no change other than as noted in my dictated progress note. 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
[2018-05-19] MEDS: busPIRone 5 MG TABLET. PO SCH (08:05)
[2018-05-19] MEDS: DOCUSATE SODIUM 100 MG CAPSULE PO SCH (08:05)
[2018-05-19] MEDS: cloZAPine 25 MG TABLET PO SCH (08:05)
[2018-05-19] MEDS: SERTRALINE 100 MG TABLET. PO SCH (08:06)
[2018-05-19] MEDS: RIVASTIGMINE 13.3MG PATCH. TD SCH (08:06)
--- NOTE | 2018-05-19 14:38 | PN ---
DATE: 05/17/2018 PSYCHIATRIC PROGRESS NOTE This late entry 05/17/2018 covers elements, not covered in my initial note. SUBJECTIVE: I met with the patient in the evening. The patient slept 4-1/2 hours previous evening, somewhat tired. He had a fall, but no injury and nursing staff called me late at night on this. He has not been aggressive. REVIEW OF SYSTEMS: No CV, , pulmonary, eye, ENT system symptoms on review. Reliability poor. MENTAL STATUS EXAM: Oriented to himself. Insight, judgment, recent and remote memory, attention, concentration, fund of knowledge poor, consistent with his diagnosis. 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 Rest unchanged. PLAN: No change from a psychiatric standpoint from initial note. MAN Janie NAIR MD DR: ANGELINA/gallito JOB#: [id number] / [id number]
--- NOTE | 2018-05-19 18:55 | PDOC ---
Exam Note: Lambert Note: Please also refer to the separate dictated note~for this date of service dictated separately.~Patient seen individually. Discussed the patient with Nursing staff reviewed the chart.~Reviewed interim history and current functioning. Reviewed vital signs,~Labs/ Radiology~and current medications noted below. Continue current treatment with the changes noted in the dictated addendum note Assessment: Vital Signs: Vital Signs Date Time Temp Pulse Resp B/P (MAP) Pulse Ox O2 Delivery O2 Flow Rate FiO2 05/18/18 16:29 97.6 80 19 140/73 (95) 97 05/13/18 16:17 Room Air I&O Intake and Output 05/19/18 07:00 Intake Total 600 ml Balance 600 ml Intake Oral 600 ml # Voids 1 Current Medications: Meds: Current Medications Acetaminophen (Tylenol) 650 mg PRN Q6HRS PRN PO PAIN / TEMP Last administered on 05/07/18at 21:13; Start 03/10/18 at 23:00; Stop 05/19/18 at 11:07; Status DC Multi-Ingredient Ointment (Analgesic [place]) 1 luz maria PRN QID PRN TP MUSCLE PAIN; Start 03/10/18 at 23:00; Stop 05/19/18 at 11:07; Status DC Al Hydroxide/Mg Hydroxide (Mylanta Plus Xs) 15 ml PRN AFTMEALHC PRN PO DYSPEPSIA; Start 03/10/18 at 23:00; Stop 05/19/18 at 11:07; Status DC Magnesium Hydroxide (Milk Of Magnesia) 2,400 mg PRN QHS PRN PO CONSTIPATION Last administered on 04/17/18at 19:26; Start 03/10/18 at 23:00; Stop 05/19/18 at 11:07; Status DC Quetiapine Fumarate (SEROquel) 25 mg BID@1200,2100 PO Last administered on at 12:14; Start 03/11/18 at 12:00; Stop 03/20/18 at 19:07; Status DC Acetaminophen/ Hydrocodone Bitart (Lortab 5/325) 1 tab PRN Q6HRS PRN PO PAIN Last administered on 04/27/18at 19:38; Start 03/10/18 at 23:30; Stop 05/19/18 at 11:07; Status DC Naproxen (Naprosyn) 500 mg BID PO Last administered on 03/11/18 19:23; Start 03/11/18 at 09:00; Stop 03/12/18 at 07:42; Status DC Vitamin D (Vitamin D3) 50,000 unit WEEKLY PO Last administered on 05/13/18 07: 31; Start 03/11/18 at 19:00; Stop 05/19/18 at 11:07; Status DC Sertraline HCl (Zoloft) 25 mg DAILY PO Last administered on 03/15/18at 08:15; Start 03/12/18 at 09:00; Stop 03/15/18 at 21:28; Status DC Mirtazapine (Remeron) 7.5 mg QHS PO Last administered on 03/15/18 21:24; Start 03/11/18 at 21:00; Stop 03/16/18 at 20:49; Status DC Olanzapine (ZyPREXA ZYDIS) 2.5 mg PRN Q2HR PRN PO agitation Last administered on 03/14/18at 20:09; Start 03/12/18 at 07:45; Stop 03/14/18 at 22:25; Status DC Naproxen (Naprosyn) 500 mg PRN BID PRN PO PAIN Last administered on 03/21/18at 07 :43; Start 03/12/18 at 07:45; Stop 05/19/18 at 11:07; Status DC Silver Sulfadiazine (Silvadene) 1 luz maria DAILY TP Last administered on 03/30/18at 09:35; Start 03/12/18 at 21:00; Stop 04/02/18 at 09:30; Status DC Artificial Tears (Artificial Tears) 1 drop PRN Q15MIN PRN OU DRY EYE Last administered on 03/24/18 08:15; Start 03/13/18 at 20:30; Stop 05/19/18 at 11:07 ; Status DC Trazodone HCl (Desyrel) 50 mg PRN QHS PRN PO insomnia Last administered on 05/07at 00:49; Start 03/14/18 at 18:45; Stop 05/19/18 at 11:07; Status DC Olanzapine (ZyPREXA ZYDIS) 5 mg PRN Q2HR PRN PO agitation Last administered on 05/11/18at 08:15; Start 03/14/18 at 22:30; Stop 05/19/18 at 11:07; Status DC Olanzapine (ZyPREXA) 2.5 mg 1X ONCE PO ; Start 03/15/18 at 09:15; Stop at 09:48; Status DC Olanzapine (ZyPREXA ZYDIS) 5 mg 1X ONCE PO ; Start 03/15/18 at 09:50; Stop at 09:50; Status DC Olanzapine (ZyPREXA ZYDIS) 5 mg 1X ONCE PO ; Start 03/15/18 at 09:45; Stop at 09:52; Status DC Olanzapine (ZyPREXA ZYDIS) 5 mg PRN 1X PRN PO 1HR BEFORE CT &30MIN PRIOR PRN; Start 03/15/18 at 09:50; Stop 03/15/18 at 18:00; Status DC Sertraline HCl (Zoloft) 50 mg DAILY PO Last administered on 03/19/18at 09:27; Start 03/16/18 at 09:00; Stop 03/21/18 at 08:00; Status DC Mirtazapine (Remeron) 15 mg QHS PO Last administered on 05/02/18at 17:13; Start 03/16/18 at 21:00; Stop 05/02/18 at 17:36; Status DC Sertraline HCl (Zoloft) 75 mg DAILY PO Last administered on 03/30/18at 09:32; Start 03/21/18 at 09:00; Stop 03/30/18 at 18:24; Status DC Divalproex Sodium (Depakote Sprinkles) 125 mg 0900,1300 PO Last administered on 03/26/18at 07:50; Start 03/21/18 at 09:00; Stop 03/26/18 at 10:10; Status DC Quetiapine Fumarate (SEROquel) 12.5 mg BID PO Last administered on 05/02/18at 17 :13; Start 03/20/18 at 21:00; Stop 05/02/18 at 17:36; Status DC Carbidopa/Levodopa (Sinemet Cr) 1 tab.sa BID PO Last administered on 03/31/18at 08:46; Start 03/23/18 at 21:00; Stop 03/31/18 at 19:35; Status DC Divalproex Sodium (Depakote Sprinkles) 125 mg TID@0900,1300,1700 PO Last administered on 04/04/18at 12:54; Start 03/26/18 at 13:00; Stop 04/04/18 at 19:00 ; Status DC Sertraline HCl (Zoloft) 100 mg DAILY PO Last administered on 05/19/18at 08:06; Start 03/31/18 at 09:00; Stop 05/19/18 at 11:07; Status DC Docusate Sodium (Colace Solution) 100 mg BID PO Last administered on 04/19/18at 08:26; Start 03/31/18 at 21:00; Stop 04/20/18 at 08:20; Status DC Buspirone HCl (Buspar) 5 mg BID@0900,1700 PO Last administered on 05/19/18at 08: 05; Start 04/02/18 at 17:00; Stop 05/19/18 at 11:07; Status DC Rivastigmine (Exelon) 1 patch DAILY TD Last administered on 04/06/18at 07:52; Start 04/04/18 at 09:00; Stop 04/07/18 at 08:59; Status DC Rivastigmine (Exelon) 1 patch DAILY TD Last administered on 04/09/18at 10:10; Start 04/07/18 at 09:00; Stop 04/09/18 at 21:00; Status DC Rivastigmine (Exelon 13.3mg) 1 patch DAILY TD Last administered on 05/19/18at 08 :06; Start 04/10/18 at 09:00; Stop 05/19/18 at 11:07; Status DC Naproxen (Naprosyn) 250 mg PRN Q4HRS PRN PO MIGRAINE HEADACHE; Start 04/13/18 at 18:45; Stop 05/19/18 at 11:07; Status DC Quetiapine Fumarate (SEROquel) 25 mg DAILY@0200 PO Last administered on at 01:48; Start 04/17/18 at 02:00; Stop 04/20/18 at 18:35; Status DC Docusate Sodium (Colace) 100 mg BID PO Last administered on 05/02/18at 17:13; Start 04/20/18 at 09:00; Stop 05/02/18 at 17:36; Status DC Quetiapine Fumarate (SEROquel) 37.5 mg 0200 PO Last administered on 04/27/18at 01 :17; Start 04/21/18 at 02:00; Stop 04/29/18 at 18:38; Status DC Clozapine (Clozaril) 25 mg QHS PO Last administered on 04/26/18at 20:35; Start at 21:00; Stop 04/27/18 at 18:50; Status DC Clozapine (Clozaril) 12.5 mg DAILY PO Last administered on 04/27/18at 13:40; Start 04/23/18 at 11:15; Stop 04/27/18 at 18:50; Status DC Lorazepam (Ativan) 1 mg DAILY IM ; Start 04/27/18 at 04:45; Stop 04/27/18 at 04:45 ; Status DC Clozapine (Clozaril) 25 mg DAILY PO Last administered on 05/19/18at 08:05; Start 04/28/18 at 09:00; Stop 05/19/18 at 11:07; Status DC Clozapine (Clozaril) 50 mg HS PO Last administered on 05/02/18at 17:13; Start at 21:00; Stop 05/02/18 at 17:36; Status DC Quetiapine Fumarate (SEROquel) 25 mg 0200 PO ; Start 04/30/18 at 02:00; Stop at 18:32; Status DC Clozapine (Clozaril) 50 mg 1700 PO Last administered on 05/04/18at 17:08; Start 05/02/18 at 18:00; Stop 05/04/18 at 18:32; Status DC Docusate Sodium (Colace) 100 mg BIDWMEALS PO Last administered on 05/19/18at 08: 05; Start 05/02/18 at 18:00; Stop 05/19/18 at 11:07; Status DC Mirtazapine (Remeron) 15 mg DAILYWSUP PO Last administered on 05/17/18at 18:36; Start 05/02/18 at 18:00; Stop 05/19/18 at 11:07; Status DC Quetiapine Fumarate (SEROquel) 12.5 mg BIDWMEALS PO Last administered on at 17:26; Start 05/02/18 at 18:00; Stop 05/11/18 at 19:34; Status DC Clozapine (Clozaril) 75 mg 1700 PO Last administered on 05/11/18at 17:27; Start 05/05/18 at 17:00; Stop 05/11/18 at 19:34; Status DC Quetiapine Fumarate (SEROquel) 12.5 mg 0200 PO Last administered on 05/07/18at 02:21; Start 05/05/18 at 02:00; Stop 05/08/18 at 18:28; Status DC Clozapine (Clozaril) 100 mg 1700 PO Last administered on 05/17/18at 18:34; Start 05/12/18 at 17:00; Stop 05/19/18 at 11:07; Status DC Active Scripts Active Reported Clozapine 100 Mg Tablet 25 Mg PO DAILY Trazodone Hcl 50 Mg Tablet 50 Mg PO PRN QHS PRN Clozapine 100 Mg Tablet 100 Mg PO DAILYWSUP Buspirone Hcl 5 Mg Tablet 5 Mg PO BIDWMEALS Zoloft (Sertraline Hcl) 100 Mg Tablet 100 Mg PO DAILY [Exelon patch 13.3] 1 Patch TD DAILY Polyvinyl Alcohol 15 Ml Drops 1 Drp OU PRN Q15MIN PRN Zyprexa Zydis (Olanzapine) 5 Mg Tab.rapdis 5 Mg PO PRN Q2HR PRN Naproxen 500 Mg Tablet 250 Mg PO PRN Q4HRS PRN Mirtazapine 15 Mg Tablet 15 Mg PO DAILYWSUP [place] (Menthol) 113 Gm Gel..gram. 1 Luz Maria TP PRN QID PRN Milk Of Magnesia (Magnesium Hydroxide) 2,400 Mg/10 Ml Oral.susp 2,400 Mg PO PRN QHS PRN Maalox Maximum Strength Susp (Mag Hydrox/Al Hydrox/Simeth) 355 Ml Oral.susp 15 Ml PO PRN AFTMEALHC PRN Docusate Sodium 100 Mg Capsule 100 Mg PO BID D3-50 (Cholecalciferol (Vitamin D3)) 50,000 Unit Capsule 50,000 Unit PO WEEKLY start date: 03/11/18 Give weekly on Wednesdays. Tylenol (Acetaminophen) 325 Mg Tablet 650 Mg PO PRN Q6HRS PRN [place] 5-325 Tablet (Hydrocodone Bit/Acetaminophen) 1 Each Tablet 1 Tab PO PRN Q6HRS PRN Naproxen 500 Mg Tablet 500 Mg PO PRN BID PRN I have reviewed the current psychotropics carefully including drug interactions. Risk benefit ratio favors no change other than as noted in my dictated progress note. 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
--- NOTE | 2018-05-20 09:57 | PN ---
DATE: 05/18/2018 This is a late entry, 05/18/2018, covers the elements not covered in my initial note. SUBJECTIVE: I met with the patient in the evening. The patient slept 7 hours the previous evening. He was somewhat agitated slightly in the evening. Absolute neutrophil count is 2.9 and we will not increase the Clozaril any further for now. Nursing staff have checked with pharmacy and so long as we do not increase the Clozaril, the lap counts for now did not indicate more frequent monitoring while on the Clozaril, but we will maintain it at once a week. REVIEW OF SYSTEMS: No CV, , pulmonary, eye, ENT system symptoms on review. Reliability poor. He is pleasant, smiling as I met with him. MENTAL STATUS EXAM: Oriented to himself. Insight, judgment, recent memory is impaired. Language function intact. Attention span short. Mood and affect somewhat withdrawn, but generally better. LABORATORY DATA: Reviewed. 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 MAN Janie NAIR MD DR: ANGELINA/gallito JOB#: [id number] / [id number]
--- NOTE | 2018-05-20 10:10 | PN ---
DATE: 05/18/2018 ADDENDUM Addendum to the psychiatric progress note. I got interrupted in my last dictation. This note completes the prior dictation. PLAN: Continue Clozaril 25 mg a.m., 100 mg at bedtime, Zyprexa p.r.n., BuSpar 5 mg b.i.d., Exelon patch 13.3 mg a day, Zoloft 100 mg a day, Remeron 15 mg at 1700 hours, Zyprexa p.r.n. Possible transition to detention on 05/19/2018. MAN CoryJenaro NAIR MD DR: ANGELINA/gallito JOB#: [id number] / [id number]
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
== END 2018-05-19 10:00 | DRG 885 ==
LOC: ER 19:45 → GEROPSY 22:50
PROVIDERS: ADMIT Psychiatry & Neurology Psychiatry; ATTEND Psychiatry & Neurology Psychiatry
DX: F33.9 Major depressive disorder, recurrent, unspecified (principal); R47.01 Aphasia; F02.81 Dementia in other diseases classified elsewhere, unspecified severity, with behavioral disturbance; F01.51 Vascular dementia, unspecified severity, with behavioral disturbance; G20 Parkinson's disease; G31.85 Corticobasal degeneration; E86.0 Dehydration; F41.9 Anxiety disorder, unspecified; W22.01XA Walked into wall, initial encounter; Z53.20 Procedure and treatment not carried out because of patient's decision for unspecified reasons; F29 Unspecified psychosis not due to a substance or known physiological condition; F63.9 Impulse disorder, unspecified; Z66 Do not resuscitate; N28.9 Disorder of kidney and ureter, unspecified; F51.3 Sleepwalking [somnambulism]; G25.3 Myoclonus; Z88.8 Allergy status to other drugs, medicaments and biological substances; Y93.89 Activity, other specified; Y92.89 Other specified places as the place of occurrence of the external cause; Y99.8 Other external cause status; Z79.899 Other long term (current) drug therapy; Z80.42 Family history of malignant neoplasm of prostate; Z82.5 Family history of asthma and other chronic lower respiratory diseases; Z80.1 Family history of malignant neoplasm of trachea, bronchus and lung
CPT/HCPCS: 36415; 70450; 71045; 80053; 80061; 80164; 81001; 82140; 82306; 82607; 83036; 83540; 83550; 83605; 83735; 84436; 84443; 84480; 85007; 85025; 85027; 86593; 93005; 99285-25